=== PATIENT | female | born 1960 | race Caucasian/White ===

== ENCOUNTER 2019-07-15 12:49 | Outpatient (CLI) | payer MEDICAID, SELFPAY ==
--- NOTE | 2019-07-15 12:58 | XR_ITS ---
WS: [id number] RIGHT HAND: 3 VIEW(S) TECHNIQUE: PA, oblique and lateral. HISTORY: RIGHT HAND PAIN/NUMBNESS COMPARISON: None available. No acute fracture or dislocation. Mild narrowing of the interphalangeal joint spaces. Very subtle early erosion involving the second me tacarpal head. XR/XR hand RT min 3V* [id number] IMPRESSION: Possible early erosion of inflammatory arthritis at the second metacarpal head.
--- NOTE | 2019-07-15 12:59 | XR_ITS ---
WS: [id number] LEFT HAND: 3 VIEW(S) TECHNIQUE: PA, oblique and lateral. HISTORY: LEFT HAND PAIN/NUMBNESS COMPARISON: None available. No acute fracture or dislocation. Mild interphalangeal joint space narrowing. No erosions or subluxation. XR/XR hand LT min 3V* [id number] IMPRESSION: Mild osteoarthritis.
--- NOTE | 2019-07-15 13:08 | XR_ITS ---
WS: [id number] RIGHT HIP HISTORY: HIP JOINT PAIN COMPARISON: None available. Right hip: No acute fracture or dislocation. Normal soft tissues. XR/XR hip RT 2-3V wo/w pel* [id number] IMPRESSION: 1. No hip fracture. 2. Negative RIGHT hip.
== END 2019-07-15 12:50 | disposition home or self-care (01) ==
LOC: RADWPI 12:54
PROVIDERS: PCP Nurse Practitioner Family; Visit Provider Nurse Practitioner Family
DX: R20.2 Paresthesia of skin (principal); M79.641 Pain in right hand; M25.551 Pain in right hip; M19.042 Primary osteoarthritis, left hand
CPT/HCPCS: 73130; 73502

== ENCOUNTER → 2019-07-30 14:13 | Outpatient (BNVA) | payer MEDICAID, SELFPAY | PROVIDERS: PCP Nurse Practitioner Family; Visit Provider Specialist | DX: G56.11 Other lesions of median nerve, right upper limb (principal); G62.9 Polyneuropathy, unspecified | CPT/HCPCS: 95910 ==

== ENCOUNTER 2019-08-12 12:49 | Outpatient (CLI) | payer MEDICAID, SELFPAY ==
--- NOTE | 2019-08-12 12:53 | XR_ITS ---
WS: [id number] LUMBAR SPINE: 3 VIEWS TECHNIQUE: AP, lateral and L5-S1 spot. HISTORY: LUMBAGO WITH SCIATICA COMPARISON: None available. Increase in lumbar lordosis. No fractures. Mild spondylitic changes at the thoracolumbar junction. Mi ld facet joint arthritis at L5-S1. No loss of disc space or vertebral body height. SI joints are symmetric bilaterally. No soft tissue abnormalities. Scattered calcifications within the aorta. XR/XR lumbar spine 2-3V* [id number] IMPRESSION: Mild increase in lumbar lordosis with facet arthritis at L5-S1.
== END 2019-08-12 12:50 | disposition home or self-care (01) ==
LOC: RADWPI 12:51
PROVIDERS: PCP Nurse Practitioner Family; Visit Provider Nurse Practitioner Family
DX: M54.41 Lumbago with sciatica, right side (principal); M40.56 Lordosis, unspecified, lumbar region
CPT/HCPCS: 72100

== ENCOUNTER → 2019-09-05 14:51 | Outpatient (BNVA) | payer MEDICAID, SELFPAY | PROVIDERS: PCP Nurse Practitioner Family; Visit Provider Specialist | DX: G56.11 Other lesions of median nerve, right upper limb (principal) | CPT/HCPCS: G0463 ==

== ENCOUNTER 2019-09-10 06:42 | Outpatient (CLI) | payer MEDICAID, SELFPAY ==
--- NOTE | 2019-09-10 13:31 | PFTS_ITS ---
Date of Study:09/10/19 Date of Dictation: MECHANICS: Forced vital capacity (FVC) is normal. Forced expiratory volume in one second (FEV1) is normal. FEV1/FVC is . FLOW VOLUME LOOP: Normal. LUNG VOLUMES: Not measured DIFFUSING CAPACITY FOR CARBON MONOXIDE: Not measured INTERPRETATION: Spirometry is normal.. MTDD
== END 2019-09-10 06:43 | disposition home or self-care (01) ==
LOC: RT 06:43
PROVIDERS: PCP Nurse Practitioner Family; Visit Provider Internal Medicine
DX: J45.909 Unspecified asthma, uncomplicated (principal)
CPT/HCPCS: 94010

== ENCOUNTER → 2019-10-28 09:24 | Outpatient (BNVA) | payer MEDICAID, SELFPAY | PROVIDERS: PCP Nurse Practitioner Family; Referring Provider Nurse Practitioner Family; Visit Provider Anesthesiology Pain Medicine | DX: M54.42 Lumbago with sciatica, left side (principal); M54.41 Lumbago with sciatica, right side; M47.816 Spondylosis without myelopathy or radiculopathy, lumbar region; M54.16 Radiculopathy, lumbar region; M54.9 Dorsalgia, unspecified; M25.551 Pain in right hip; G62.9 Polyneuropathy, unspecified; Z79.891 Long term (current) use of opiate analgesic | CPT/HCPCS: 99205 ==

== ENCOUNTER 2019-11-04 06:45 | Outpatient (CLI) | payer MEDICAID, SELFPAY ==
--- NOTE | 2019-11-04 07:15 | MR_ITS ---
WS: [id number] MRI LUMBAR SPINE NONCONTRAST TECHNIQUE: Sagittal T1, T2 and STIR imaging. Axial T1 and T2 imaging. CLINICAL INFORMATION: M54.16 Radiculopathy, lumbar region COMPARISON: None. FINDINGS: Mild lumbar curve. No acute compression. No high-grade central canal stenosis. L1-L2: Normal. L2-L3: Tiny left foraminal protrusion with mild left foraminal narrowing. Spinal canal and foramen ar e patent. Mild facet arthropathy. L3-L4: Mild annular bulging with slight effacement of ventral thecal sac. Small right foraminal protr usion with mild right foraminal narrowing. Spinal canal and foramen are patent. Mild facet arthropath y. L4-L5: Mild annular bulging with mild to moderate central canal stenosis. Small right foraminal protr usion with slight contact of the exiting right L4 nerve root. Left foramen is patent. Mild central ca nal stenosis.Moderate facet arthropathy. L5-S1: No significant disc bulging. Moderate facet arthropathy. Spinal canal and foramen are patent. Tiny central disc protrusion T7-8 with slight contact of the thoracic cord. Mild disc bulging C5-C6 a nd C6-C7. MR/MR lumbar spine wo con* [id number] IMPRESSION: 1. Tiny right foraminal protrusion L3-4 with mild right foraminal narrowing an d slight contact of the exiting right L3 nerve root.Correlation for L3 nerve ro ot symptoms. 2. Mild to moderate central canal stenosis L4-5 with mild annular bulging and mild to moderate facet arthropathy. Mild right L4-5 foraminal narrowing slightl y contacts the exiting right L4 nerve root. 3. Tiny left foraminal protrusion L2-3 with mild left foraminal narrowing. 4. Mild/moderate facet arthropathy worse at L4-L5 and L5-S1. 5. Small central protrusion T7-8 with slight contact of the thoracic cord and mild central canal stenosis. This can be further evaluated with thoracic spine MRI.
== END 2019-11-04 06:46 | disposition home or self-care (01) ==
LOC: RADSHAW 06:47
PROVIDERS: PCP Nurse Practitioner Family; Visit Provider Anesthesiology Pain Medicine
DX: M54.16 Radiculopathy, lumbar region (principal); M51.26 Other intervertebral disc displacement, lumbar region; M48.061 Spinal stenosis, lumbar region without neurogenic claudication; M47.816 Spondylosis without myelopathy or radiculopathy, lumbar region; M47.817 Spondylosis without myelopathy or radiculopathy, lumbosacral region; M51.24 Other intervertebral disc displacement, thoracic region
CPT/HCPCS: 72148

== ENCOUNTER → 2019-11-27 08:23 | Outpatient (BNVA) | payer MEDICAID, SELFPAY | PROVIDERS: PCP Nurse Practitioner Family; Visit Provider Anesthesiology Pain Medicine | DX: M54.42 Lumbago with sciatica, left side (principal); M54.41 Lumbago with sciatica, right side; M54.9 Dorsalgia, unspecified; G62.9 Polyneuropathy, unspecified; G56.11 Other lesions of median nerve, right upper limb; Z79.891 Long term (current) use of opiate analgesic | CPT/HCPCS: 99214; 99215 ==

== ENCOUNTER → 2019-12-16 15:31 | Outpatient (BNVA) | payer MEDICAID, SELFPAY | PROVIDERS: PCP Nurse Practitioner Family; Referring Provider Nurse Practitioner Family; Visit Provider Podiatrist Foot & Ankle Surgery | DX: M76.822 Posterior tibial tendinitis, left leg (principal) | CPT/HCPCS: 73610 ==

== ENCOUNTER → 2019-12-25 09:16 | Outpatient (BNVA) | payer MEDICAID, SELFPAY | PROVIDERS: PCP Nurse Practitioner Family; Visit Provider Anesthesiology Pain Medicine | DX: M51.16 Intervertebral disc disorders with radiculopathy, lumbar region (principal); M47.816 Spondylosis without myelopathy or radiculopathy, lumbar region; M48.061 Spinal stenosis, lumbar region without neurogenic claudication; M54.9 Dorsalgia, unspecified; G62.9 Polyneuropathy, unspecified; G56.11 Other lesions of median nerve, right upper limb; Z79.891 Long term (current) use of opiate analgesic | CPT/HCPCS: 99213; 99214; 99215 ==

== ENCOUNTER 2020-01-09 13:56 | Outpatient (CLI) | payer MEDICAID, SELFPAY ==
--- NOTE | 2020-01-09 14:00 | XR_ITS ---
WS: [id number] Exam: XR chest 2V* [id number] Date/Time of Exam: 01/09/2020 2:00 PM Reason For Exam: COUGH/ASTHMA No priors. Findings: The lungs are clear and fully expanded. Costophrenic angles are sharp. No infiltrates. Bronchovascula r relief appears normal. Cardiac silhouette is unremarkable. Bony elements are intact. XR/XR chest 2V* [id number] IMPRESSION: Unremarkable chest radiograph.
== END 2020-01-09 13:57 | disposition home or self-care (01) ==
LOC: RAD 13:58
PROVIDERS: PCP Nurse Practitioner Family; Visit Provider Nurse Practitioner Family
DX: R05 Cough (principal); J45.909 Unspecified asthma, uncomplicated
CPT/HCPCS: 71046

== ENCOUNTER → 2020-01-22 08:54 | Outpatient (BNVA) | payer MEDICARE, MEDICAID, SELFPAY | PROVIDERS: PCP Nurse Practitioner Family; Visit Provider Anesthesiology Pain Medicine | DX: M51.16 Intervertebral disc disorders with radiculopathy, lumbar region (principal); M47.816 Spondylosis without myelopathy or radiculopathy, lumbar region; M48.061 Spinal stenosis, lumbar region without neurogenic claudication; G56.11 Other lesions of median nerve, right upper limb; G62.9 Polyneuropathy, unspecified; M54.9 Dorsalgia, unspecified | CPT/HCPCS: 99213 ==

== ENCOUNTER → 2020-02-19 08:24 | Outpatient (BNVA) | payer MEDICARE, MEDICAID, SELFPAY | PROVIDERS: PCP Family Medicine; Visit Provider Anesthesiology Pain Medicine | DX: M51.16 Intervertebral disc disorders with radiculopathy, lumbar region (principal); M47.816 Spondylosis without myelopathy or radiculopathy, lumbar region; M48.061 Spinal stenosis, lumbar region without neurogenic claudication; M54.9 Dorsalgia, unspecified; G56.11 Other lesions of median nerve, right upper limb; G62.9 Polyneuropathy, unspecified; Z79.899 Other long term (current) drug therapy; Z79.891 Long term (current) use of opiate analgesic | CPT/HCPCS: 99213 ==

== ENCOUNTER 2020-02-20 10:08 | Outpatient (CLI) | payer MEDICARE, MEDICAID, SELFPAY ==
--- NOTE | 2020-02-20 10:17 | MM_ITS ---
WS: [id number] BILATERAL DIGITAL SCREENING MAMMOGRAM WITH CAD CLINICAL INFORMATION: SCREENING HISTORY: Screening mammogram. No current complaints. COMPARISON: None. TECHNIQUE: Bilateral CC and MLO views. FINDINGS: Fatty-replaced breasts bilaterally. No suspicious focal mass, asymmetry, calcifications, or domain architect ural distortion. No evidence of malignancy. A few incidental intramammary lymph nodes along the axill frank tail. MM/[place] [id number] IMPRESSION: BI-RADS: 2-Benign FOLLOW UP: 1 Year Follow-up Recommend return to annual screening mammography.
== END 2020-02-20 10:09 | disposition home or self-care (01) ==
LOC: RADSHAW 10:12
PROVIDERS: PCP Family Medicine; Visit Provider Family Medicine
DX: Z12.31 Encounter for screening mammogram for malignant neoplasm of breast (principal)
CPT/HCPCS: 77067

== ENCOUNTER 2020-02-21 07:23 | Outpatient (CLI) | payer MEDICARE, MEDICAID, SELFPAY ==
--- NOTE | 2020-02-21 07:34 | USCV_ITS ---
Gita Robison Age: 59 Gender: F : 1960 Exam Date: 02/21/2020 07:44 Ordering Phys: Otto Cobb MD Technologist: Monae Francisco Exam Location: [facility] [place] Indication: DYSPNEA BP: / HR: 68 Rhythm: Sinus Technical Quality: Adequate MEASUREMENTS (Male / Female) Normal Values 2D ECHO LV Diastolic Diameter PLAX 4.0 cm 4.2 - 5.9 / 3.9 - 5.3 cm LV Systolic Diameter PLAX 2.9 cm LV Chamber Size 2.9 cm IVS Diastolic Thickness 1.5 cm 0.6 - 1.0 / 0.6 - 0.9 cm IVS Systolic Thickness 2.0 cm LVPW Diastolic Thickness 1.6 cm 0.6 - 1.0 / 0.6 - 0.9 cm LVPW Systolic Thickness 1.5 cm RV Chamber Size 3.6 cm LVOT Diameter 2.0 cm LV Ejection Fraction 2D Teich 53.4 % LA Diameter 3.8 cm LA Width 2.9 cm LA Height 4.6 cm RA Width 3.4 cm RA Height 3.5 cm Aorta at Sinotubular Diameter 3.1 cm M-MODE LV Diastolic Diameter MM 5.3 cm 4.2 - 5.9 / 3.9 - 5.3 cm LV Systolic Diameter MM 3.1 cm LV Ejection Fraction MM Teich 72.6 % IVS Diastolic Thickness MM 1.1 cm 0.6 - 1.0 / 0.6 - 0.9 cm IVS Systolic Thickness MM 1.7 cm LVPW Diastolic Thickness MM 1.1 cm 0.6 - 1.0 / 0.6 - 0.9 cm LVPW Systolic Thickness MM 1.4 cm RV Diastolic Diameter MM 2.7 cm Aortic Annulus Diameter 3.3 cm LA Ao Ratio MM 1.4 MV E Point Septal Separation 0.5 cm DOPPLER AV Peak Velocity 182.0 cm/s LVOT Peak Velocity 89.0 cm/s AV Area Cont Eq vti 1.9 cm squared AV Area Cont Eq pk 1.5 cm squared MV Area PHT 3.7 cm squared Mitral E to A Ratio 0.8 MV E' Velocity 49.5 cm/s Mitral E to MV E' Ratio 13.4 Mitral E to LV E' Lateral Ratio 13.4 Mitral E to LV E' Septal Ratio 13.6 TR Peak Velocity 270.4 cm/s TR Peak Gradient 29.3 mmHg TR Mean Velocity 210.5 cm/s TR Mean Gradient 19.1 mmHg TR Velocity Time Integral 82.1 cm TV Peak E Velocity 82.0 cm/s Right Atrial Pressure 3.0 mmHg Pulmonary Artery Systolic Pressu 32.3 mmHg PV Peak Velocity 81.0 cm/s RV Acceleration Time 0.1 s RV Ejection Time 0.3 s RV AcT/ET 0.3 FINDINGS Left Ventricle Normal left ventricular cavity size. Normal left ventricular systolic function. No regional wall motion abnormalities. 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 ejection fraction is estimated at 65 %. Grade I/IV diastolic dysfunction (abnormal relaxation filling pattern), normal to mildly elevated filling pressures. Right Ventricle The right ventricle is normal in size and function. Right Atrium The right atrium is normal in size. Left Atrium The left atrium is normal in size. Mitral Valve Structurally normal mitral valve without significant stenosis or prolapse. There is no mitral regurgitation. Aortic Valve Structurally normal aortic valve without significant sclerosis or stenosis. There is no aortic regurgitation. Tricuspid Valve Structurally normal tricuspid valve without significant stenosis or regurgitation. Pulmonary artery systolic pressure is normal. Pulmonic Valve Structurally normal pulmonic valve without significant stenosis. There is no pulmonic regurgitation. Pericardium Normal pericardium without effusion. Aorta Normal ascending aorta dimension. CONCLUSIONS 1-Normal left ventricular cavity size. Normal left ventricular systolic function. No regional wall motion abnormalities. 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 ejection fraction is estimated at 65 %. Grade I/IV diastolic dysfunction (abnormal relaxation filling pattern), normal to mildly elevated filling pressures. 2-There is no pericardial effusion. 3-No significant valve abnormalities. 4-Pulmonary artery systolic pressure is within normal limits. 5-Right atrial pressure is around 5 mm of mercury. 6-There are no prior echocardiogram studies to compare. Shanique Salgado MD (Electronically Signed) Final Date: 21 February 2020 20:03 S
--- NOTE | 2020-02-21 07:34 | XR_ITS ---
WS: [id number] CHEST 2 VIEWS HISTORY: DYSPNEA COMPARISON: 01/09/2020 Lungs: Clear with no abnormality. No pleural effusion or pneumothorax. Cardiac size: Normal. Mediastinum/Aorta: Normal mediastinum. Bones: Normal. XR/XR chest 2V* [id number] IMPRESSION: Normal chest.
== END 2020-02-21 07:24 | disposition home or self-care (01) ==
LOC: US 07:27
PROVIDERS: PCP Family Medicine; Visit Provider Family Medicine
DX: R06.00 Dyspnea, unspecified (principal)
CPT/HCPCS: 71046; 93306

== ENCOUNTER → 2020-03-23 10:53 | Outpatient (BNVA) | payer MEDICARE, MEDICAID, SELFPAY | PROVIDERS: PCP Family Medicine; Visit Provider Anesthesiology Pain Medicine | DX: M51.16 Intervertebral disc disorders with radiculopathy, lumbar region (principal); M47.816 Spondylosis without myelopathy or radiculopathy, lumbar region; M48.061 Spinal stenosis, lumbar region without neurogenic claudication; G62.9 Polyneuropathy, unspecified; M54.9 Dorsalgia, unspecified; G56.11 Other lesions of median nerve, right upper limb | CPT/HCPCS: 99213; 99214 ==

== ENCOUNTER → 2020-04-20 09:47 | Outpatient (BNVA) | payer MEDICARE, MEDICAID, SELFPAY | PROVIDERS: PCP Family Medicine; Visit Provider Anesthesiology Pain Medicine | DX: M51.16 Intervertebral disc disorders with radiculopathy, lumbar region (principal); M48.061 Spinal stenosis, lumbar region without neurogenic claudication; M47.816 Spondylosis without myelopathy or radiculopathy, lumbar region; M54.9 Dorsalgia, unspecified; G56.11 Other lesions of median nerve, right upper limb; G62.9 Polyneuropathy, unspecified; M79.604 Pain in right leg; M79.601 Pain in right arm; Z79.891 Long term (current) use of opiate analgesic; M54.12 Radiculopathy, cervical region; M50.322 Other cervical disc degeneration at C5-C6 level | CPT/HCPCS: 72050; 99214 ==

== ENCOUNTER 2020-04-20 11:12 | Outpatient (CLI) | payer MEDICARE, MEDICAID, SELFPAY ==
--- NOTE | 2020-04-20 11:28 | XR_ITS ---
WS: [id number] CERVICAL SPINE 5 VIEWS HISTORY: M54.12 - Radiculopathy, cervical region COMPARISON: None available. TECHNIQUE: AP, oblique and lateral radiographs. Straightening and slight reversal normal cervical lordosis centered at C5-6. Moderate disc space narr owing and endplate osteophytes at C5-6 and C6-7. No fractures. Taking into consideration positioning the foramen are probably widely patent. LEFT foramina may be slightly narrowed at the C4-5 level. Lat eral masses of C1 and C2 are aligned. Odontoid is intact. Cervical ribs at C7. XR/XR cervical spine 4-5V [id number] IMPRESSION: 1. No fractures. 2. Moderate degenerative disc disease at C5-6 and C6-7. 3. C7 cervical ribs.
== END 2020-04-20 11:13 | disposition home or self-care (01) ==
LOC: RADWPI 11:16
PROVIDERS: PCP Family Medicine; Visit Provider Anesthesiology Pain Medicine
DX: M54.12 Radiculopathy, cervical region (principal); M50.322 Other cervical disc degeneration at C5-C6 level
CPT/HCPCS: 72050

== ENCOUNTER → 2020-05-04 13:05 | Outpatient (BNVA) | payer MEDICARE, MEDICAID, SELFPAY | PROVIDERS: PCP Family Medicine; Visit Provider Anesthesiology Pain Medicine | DX: M51.16 Intervertebral disc disorders with radiculopathy, lumbar region (principal); M54.9 Dorsalgia, unspecified; Z91.041 Radiographic dye allergy status | CPT/HCPCS: 64483; 64484; 96372; J1100; J1200; J3490 ==

== ENCOUNTER → 2020-05-19 10:56 | Outpatient (BNVA) | payer MEDICARE, MEDICAID, SELFPAY | PROVIDERS: PCP Family Medicine; Visit Provider Anesthesiology Pain Medicine | DX: M51.16 Intervertebral disc disorders with radiculopathy, lumbar region (principal); M48.061 Spinal stenosis, lumbar region without neurogenic claudication; M47.816 Spondylosis without myelopathy or radiculopathy, lumbar region; M54.9 Dorsalgia, unspecified; G56.11 Other lesions of median nerve, right upper limb; G62.9 Polyneuropathy, unspecified; Z79.891 Long term (current) use of opiate analgesic | CPT/HCPCS: 99214 ==

== ENCOUNTER → 2020-06-01 13:03 | Outpatient (BNVA) | payer MEDICARE, MEDICAID, SELFPAY | PROVIDERS: PCP Family Medicine; Visit Provider Anesthesiology Pain Medicine | DX: M47.816 Spondylosis without myelopathy or radiculopathy, lumbar region (principal); M54.9 Dorsalgia, unspecified | CPT/HCPCS: 64493; 64494; 64495; J3490 ==

== ENCOUNTER → 2020-06-15 09:44 | Outpatient (BNVA) | payer MEDICARE, MEDICAID, SELFPAY | PROVIDERS: PCP Family Medicine; Visit Provider Anesthesiology Pain Medicine | DX: M51.16 Intervertebral disc disorders with radiculopathy, lumbar region (principal); M47.816 Spondylosis without myelopathy or radiculopathy, lumbar region; M48.061 Spinal stenosis, lumbar region without neurogenic claudication; M54.9 Dorsalgia, unspecified; G62.9 Polyneuropathy, unspecified; G56.11 Other lesions of median nerve, right upper limb; Z79.891 Long term (current) use of opiate analgesic | CPT/HCPCS: 99214 ==

== ENCOUNTER → 2020-06-24 13:21 | Outpatient (BNVA) | payer MEDICARE, MEDICAID, SELFPAY | PROVIDERS: PCP Family Medicine; Visit Provider Anesthesiology Pain Medicine | DX: M47.816 Spondylosis without myelopathy or radiculopathy, lumbar region (principal); M54.9 Dorsalgia, unspecified; Z79.891 Long term (current) use of opiate analgesic | CPT/HCPCS: 64635; 64636 ==

== ENCOUNTER → 2020-07-08 08:31 | Outpatient (BNVA) | payer MEDICARE, MEDICAID, SELFPAY | PROVIDERS: PCP Family Medicine; Visit Provider Anesthesiology Pain Medicine | DX: M47.816 Spondylosis without myelopathy or radiculopathy, lumbar region (principal); M54.9 Dorsalgia, unspecified; Z79.891 Long term (current) use of opiate analgesic | CPT/HCPCS: 64635; 64636; J1030 ==

== ENCOUNTER → 2020-07-23 10:00 | Outpatient (BNVA) | payer MEDICARE, MEDICAID, SELFPAY | PROVIDERS: PCP Family Medicine; Visit Provider Anesthesiology Pain Medicine | DX: M48.062 Spinal stenosis, lumbar region with neurogenic claudication (principal); M51.16 Intervertebral disc disorders with radiculopathy, lumbar region; M47.816 Spondylosis without myelopathy or radiculopathy, lumbar region; M48.061 Spinal stenosis, lumbar region without neurogenic claudication; M54.9 Dorsalgia, unspecified; G62.9 Polyneuropathy, unspecified; G56.11 Other lesions of median nerve, right upper limb; Z79.891 Long term (current) use of opiate analgesic; Z79.899 Other long term (current) drug therapy | CPT/HCPCS: 99214 ==

== ENCOUNTER 2020-08-12 09:47 | Inpatient (IN) | payer MEDICARE, MEDICAID, SELFPAY ==
[2020-08-12] VITALS (70 sets, daily range): BP systolic 81–130; BP diastolic 46–82; PULSE 55–86; RESP 14–40; TEMP 36.4–36.9; O2SAT 75–94; BMI 41.5
--- NOTE | 2020-08-12 10:13 | XR_ITS ---
WS: [id number] Portable AP upright chest, 08/12/2020 Clinical Data: covid -19 Comparison: PA and lateral chest, 02/21/2020. Findings: There is a right basilar opacity which may represent consolidation, atelectasis and effusio n. The patient has a poor inspiratory effort. The heart is normal. No pneumothorax is present. The up per lobes show mild pulmonary opacity. No nodules, masses or effusions are seen. Monitor leads are on the chest wall. XR/XR chest 1V portable [id number] Impression: 1. Right basilar opacity which may represent consolidation, atelectasis and/or effusion. 2. Mild bilateral upper lobe opacity which may be result of the poor respirator y effort.
--- NOTE | 2020-08-12 10:18 | W.ED.COVID ---
HPI - COVID General: Chief Complaint: COVID symptoms Stated Complaint: COVID+ HAVING LOW O2 Time Seen by Provider: 08/12/20 10:06 Triage information: Has fever, cough or shortness of breath. Exposure to COVID + person last 14 days History of Present Illness: HPI Narrative: 60-year-old female presents to the emergency room she is 5 days after onset of symptoms, she tested positive yesterday for Covid at her primary care doctor's office. She is having increasing shortness of breath she was self monitoring her oxygen sat at home and was getting sats in the 75th percentile she came to the emergency room. She has a history of asthma she is on maintenance medications as well as rescue meds and has continued to use those she has not had a lot of relief with using them since getting Covid. She has a minimally productive cough along with some loose stools myalgias headache and low-grade fever. She is not diabetic has no history of coronary artery disease. She does have a history of hypertension and is morbidly obese MD complaint: known COVID positive Prior covid testing: yes, results known Prior testing date: 08/11/20 COVID 19 common symptoms: positive fever(s), chills, cough, non-productive cough, dyspnea, fatigue, body aches, headache(s), nasal congestion, nausea and diarrhea; negative productive cough, loss of sense of smell and/or taste, throat pain or vomiting COVID 19 other sytmptoms: positive requiring oxygen; negative chest pain Onset (ago): day(s) (5 days) Severity: mild Pertinent comorbid conditions: hypertension and other (asthma) Treatment prior to arrival: acetaminophen COVID Results: No Data to Display Review of Systems Const: Reports: fever(s), chills, body aches and fatigue ENMT: Reports: nasal congestion; Denies: throat pain Card: Denies: chest pain, edema, dyspnea on exertion or orthopnea Resp: Reports: dyspnea and non-productive cough; Denies: productive cough GI: Reports: nausea and diarrhea; Denies: vomiting : Denies: flank pain, difficulty voiding, dysuria, urinary frequency or urinary urgency Skin/Breast: Denies: rash or pruritus Neuro: Reports: headache(s) [facility] ED PFSH: Medical History (Updated 08/12/20 @ 16:28 by Andre Spears DO) Asthma Cervical radiculopathy Chronic low back pain Dyspnea on exertion Facet arthritis, degenerative, lumbar spine Facet arthropathy, lumbar History of kidney stones Hx of mitral valve prolapse Hypersomnia Hypertension 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 Lumbar disc disease with radiculopathy Lumbar stenosis Osteoarthritis of hands, bilateral Pain management contract signed Peripheral neuropathy Right median nerve neuropathy Surgical History History of carpal tunnel surgery Hx of cholecystectomy Hx of hysterectomy Hx of total ankle replacement Family History Mother CAD (coronary artery disease) Other Cancer Diabetes Hypertension Denies family history of Stroke Social History Smoking and tobacco status: former smoker Quit status (tobacco): has quit using tobacco Year quit tobacco: 2005 Alcohol intake: never Caregiver/support person: Yes Lives independently: Yes History of recent travel: No (travel from [facility]) Physical Exam Const: COMMON NORMALS: no acute distress GENERAL APPEARANCE: cooperative and comfortable ORIENTATION/CONSCIOUSNESS: Yes awake, Yes oriented to person, Yes oriented to place and Yes oriented to time HENMT: COMMON NORMALS: normocephalic, atraumatic, hearing grossly normal bilaterally and external ears normal HEAD & SCALP: normocephalic and atraumatic EXTERNAL EAR: Yes external ears normal Neck/C-Spine: COMMON NORMALS: no JVD Resp: AUSCULTATION: rales bilateral, wheezes throughout and diminished lung sounds Cardio: COMMON NORMALS: no JVD, regular rate, regular rhythm and No murmurs present (Cardio) RATE: regular rate RHYTHM: regular rhythm GI: COMMON NORMALS: Soft to palpation and No hepatosplenomegaly present AUSCULTATION: Yes normoactive bowel sounds PALPATION: Yes Soft to palpation, No Tenderness to palpation present (GI), No Guarding due to palpation present (GI) and Yes No hepatosplenomegaly present Extremity: COMMON NORMALS: normal to inspection, capillary refill normal, no clubbing, cyanosis or edema, no calf tenderness and no pedal edema Neuro: SENSORIUM/ORIENTATION: Yes oriented to person, Yes oriented to place and Yes oriented to time Skin: COMMON NORMALS: no rashes or lesions noted GENERAL SKIN EXAM: no rashes or lesions noted Course Vital Signs: Vital signs: Vital Signs Temperature 97.5 F L 08/12/20 10:08 Pulse Rate 56 L 08/12/20 14:50 Respiratory Rate 24 H 08/12/20 14:50 Blood Pressure 95/55 08/12/20 14:00 Pulse Oximetry 92 08/12/20 14:50 MDM - COVID MDM Narrative: Medical decision making narrative: D-dimer is low. Patient is also hypokalemic she does have typical Covid changes and recently tested positive for Covid will admit her for Covid pneumonitis discussed with hospitalist she will need ICU she is on high flow oxygen Lab Data: Labs: Lab Results 08/12/20 08/12/20 08/12/20 Range/Units 10:10 10:10 10:10 WBC 6.7 (4.0-10.0) 10^3/ uL RBC 4.54 (4.1-5.3) 10^6/u L Hgb 13.0 (11.5-15.3) g/dL Hct 39.3 (37.0-47.0) % MCV 86.6 (81-99) fL MCH 28.6 (28.0-34.0) pg MCHC 33.1 (30.0-36.0) g/dL RDW 14.4 (12.1-15.1) % Plt Count 308 (130-400) 10^3/c mm MPV 8.9 (7.4-10.4) fL Neut % (Auto) 74.3 % Lymph % (Auto) 19.6 % Ector % (Auto) 5.2 % Eos % (Auto) 0.1 % Baso % (Auto) 0.4 % Neut # (Auto) 4.97 (1.8-7.7) 10^3/u L Lymph # (Auto) 1.3 (0.8-4.8) 10^3/u L Ector # (Auto) 0.4 (0.2-0.9) 10^3/u L Eos # (Auto) 0.0 (0.0-0.8) 10^3/u L Baso # (Auto) 0.0 (0.0-0.1) 10^3/u L Nucleated RBC % (a uto) 0 % Nucleated RBCs # 0.0 /100WBC Fibrinogen (174-498) mg/dL D-Dimer 0.46 (0-0.59) ug/mIFE U Specimen Type Sample Site ABG pH (7.35-7.45) ABG pCO2 (35-45) mmHg ABG pO2 (80.0-100.0) mmH g ABG HCO3 (22-26) mmol/L ABG O2 Saturation ABG Base Excess (-2.0-2.0) mmol/ L Tiburcio Test A-a O2 Gradient (5-10) mmHg Hematocrit (37-47) % Hgb O2 Saturation (95-100) % Carboxyhemoglobin (0.4-20.1) %THgb Methemoglobin (0.4-1.5) % Total Hemoglobin (12-16) g/dL Ionized Calcium (1.1-1.4) mmol/L O2 Delivery Device O2 Liters/Min % FiO2 % Compliance Investigator ID Sodium 134 L (136-145) mmol/L Potassium 3.2 L (3.5-5.1) mmol/L Chloride 88 L (98-107) mmol/L Carbon Dioxide 32 H (22-29) mmol/L Anion Gap 17.2 (5-19) BUN 19 (8-23) mg/dL Creatinine 0.8 (0.5-0.9) mg/dL GFR Calculation 73.2 L (90-130) mL/min Glucose 122 H (65-115) mg/dL Calculated Osmolal ity 282 L (285-295) mOsm/k g Lactic Acid (0.5-2.2) mmol/L Calcium 8.2 L (8.5-10.5) mg/dL Magnesium (1.7-2.3) mg/dL Iron (37-145) ug/dL TIBC mcg/dl % Saturation (20-50) % Unsat Iron Binding (112-347) ug/dL Total Bilirubin 0.4 (0.15-1.2) mg/dL AST 48 H (0-32) U/L ALT 44 H (0-33) U/L Alkaline Phosphata se 65 (35-105) IU/L Lactate Dehydrogen ase (135-214) U/L Creatine Kinase (26-192) U/L C-Reactive Protein 91.3 H (0.0-4.9) mg/L NT-Pro-B Natriuret Pep (0-125) pg/mL Total Protein 7.9 (6.6-8.7) g/dL Albumin 4.5 (3.5-5.2) g/dL Globulin 3.4 (1.3-4.6) g/dL Procalcitonin (0-0.5) ng/mL TSH (0.27-4.20) uIU/ mL 08/12/20 08/12/20 08/12/20 Range/Units 10:10 10:10 10:10 WBC (4.0-10.0) 10^3/ uL RBC (4.1-5.3) 10^6/u L Hgb (11.5-15.3) g/dL Hct (37.0-47.0) % MCV (81-99) fL MCH (28.0-34.0) pg MCHC (30.0-36.0) g/dL RDW (12.1-15.1) % Plt Count (130-400) 10^3/c mm MPV (7.4-10.4) fL Neut % (Auto) % Lymph % (Auto) % Ector % (Auto) % Eos % (Auto) % Baso % (Auto) % Neut # (Auto) (1.8-7.7) 10^3/u L Lymph # (Auto) (0.8-4.8) 10^3/u L Ector # (Auto) (0.2-0.9) 10^3/u L Eos # (Auto) (0.0-0.8) 10^3/u L Baso # (Auto) (0.0-0.1) 10^3/u L Nucleated RBC % (a uto) % Nucleated RBCs # /100WBC Fibrinogen (174-498) mg/dL D-Dimer (0-0.59) ug/mIFE U Specimen Type Sample Site ABG pH (7.35-7.45) ABG pCO2 (35-45) mmHg ABG pO2 (80.0-100.0) mmH g ABG HCO3 (22-26) mmol/L ABG O2 Saturation ABG Base Excess (-2.0-2.0) mmol/ L Tiburcio Test A-a O2 Gradient (5-10) mmHg Hematocrit (37-47) % Hgb O2 Saturation (95-100) % Carboxyhemoglobin (0.4-20.1) %THgb Methemoglobin (0.4-1.5) % Total Hemoglobin (12-16) g/dL Ionized Calcium (1.1-1.4) mmol/L O2 Delivery Device O2 Liters/Min % FiO2 % Compliance Investigator ID Sodium (136-145) mmol/L Potassium (3.5-5.1) mmol/L Chloride (98-107) mmol/L Carbon Dioxide (22-29) mmol/L Anion Gap (5-19) BUN (8-23) mg/dL Creatinine (0.5-0.9) mg/dL GFR Calculation (90-130) mL/min Glucose (65-115) mg/dL Calculated Osmolal ity (285-295) mOsm/k g Lactic Acid 1.5 (0.5-2.2) mmol/L Calcium (8.5-10.5) mg/dL Magnesium 1.8 (1.7-2.3) mg/dL Iron 22 L (37-145) ug/dL TIBC 327 mcg/dl % Saturation 6.7 L (20-50) % Unsat Iron Binding 305 (112-347) ug/dL Total Bilirubin (0.15-1.2) mg/dL AST (0-32) U/L ALT (0-33) U/L Alkaline Phosphata se (35-105) IU/L Lactate Dehydrogen ase 348 H (135-214) U/L Creatine Kinase 723 H* (26-192) U/L C-Reactive Protein 85.1 H (0.0-4.9) mg/L NT-Pro-B Natriuret Pep 58 (0-125) pg/mL Total Protein (6.6-8.7) g/dL Albumin (3.5-5.2) g/dL Globulin (1.3-4.6) g/dL Procalcitonin 0.33 (0-0.5) ng/mL TSH 2.53 (0.27-4.20) uIU/ mL 08/12/20 08/12/20 Range/Units 10:10 10:21 WBC (4.0-10.0) 10^3/ uL RBC (4.1-5.3) 10^6/u L Hgb (11.5-15.3) g/dL Hct (37.0-47.0) % MCV (81-99) fL MCH (28.0-34.0) pg MCHC (30.0-36.0) g/dL RDW (12.1-15.1) % Plt Count (130-400) 10^3/c mm MPV (7.4-10.4) fL Neut % (Auto) % Lymph % (Auto) % Ector % (Auto) % Eos % (Auto) % Baso % (Auto) % Neut # (Auto) (1.8-7.7) 10^3/u L Lymph # (Auto) (0.8-4.8) 10^3/u L Ector # (Auto) (0.2-0.9) 10^3/u L Eos # (Auto) (0.0-0.8) 10^3/u L Baso # (Auto) (0.0-0.1) 10^3/u L Nucleated RBC % (a uto) % Nucleated RBCs # /100WBC Fibrinogen 579 H (174-498) mg/dL D-Dimer (0-0.59) ug/mIFE U Specimen Type Arterial Sample Site Radial, left ABG pH 7.49 H (7.35-7.45) ABG pCO2 43.9 (35-45) mmHg ABG pO2 92.8 (80.0-100.0) mmH g ABG HCO3 33.1 H (22-26) mmol/L ABG O2 Saturation 98.3 ABG Base Excess 8.7 H (-2.0-2.0) mmol/ L Tiburcio Test Pos A-a O2 Gradient 73.3 H (5-10) mmHg Hematocrit 40.2 (37-47) % Hgb O2 Saturation 96.7 (95-100) % Carboxyhemoglobin 1.0 (0.4-20.1) %THgb Methemoglobin 0.6 (0.4-1.5) % Total Hemoglobin 13.1 (12-16) g/dL Ionized Calcium 1.1 (1.1-1.4) mmol/L O2 Delivery Device Nrb O2 Liters/Min 15.0 % FiO2 100.0 % Compliance Investigator ID Ed Sodium 138.0 (136-145) mmol/L Potassium 3.2 L (3.5-5.1) mmol/L Chloride (98-107) mmol/L Carbon Dioxide (22-29) mmol/L Anion Gap (5-19) BUN (8-23) mg/dL Creatinine (0.5-0.9) mg/dL GFR Calculation (90-130) mL/min Glucose 132.0 H (65-115) mg/dL Calculated Osmolal ity (285-295) mOsm/k g Lactic Acid (0.5-2.2) mmol/L Calcium (8.5-10.5) mg/dL Magnesium (1.7-2.3) mg/dL Iron (37-145) ug/dL TIBC mcg/dl % Saturation (20-50) % Unsat Iron Binding (112-347) ug/dL Total Bilirubin (0.15-1.2) mg/dL AST (0-32) U/L ALT (0-33) U/L Alkaline Phosphata se (35-105) IU/L Lactate Dehydrogen ase (135-214) U/L Creatine Kinase (26-192) U/L C-Reactive Protein (0.0-4.9) mg/L NT-Pro-B Natriuret Pep (0-125) pg/mL Total Protein (6.6-8.7) g/dL Albumin (3.5-5.2) g/dL Globulin (1.3-4.6) g/dL Procalcitonin (0-0.5) ng/mL TSH (0.27-4.20) uIU/ mL COVID Results: No Data to Display Discharge Plan Discharge Patient Disposition: Admitted As Inpatient Admit Provider: Vernon Reyes Clinical Impression: COVID-19, Hypertension, 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 diastolic dysfunction, Acute respiratory failure with hypoxia, Hypokalemia Condition: Stable Coding Level of Care Code ED Library Clerk for Chg Fwd Exam Comprehensive
[2020-08-12 10:25] LABS: Basophils % 0.4 %; Eosinophils % 0.1 %; Hematocrit 39.3 % (37.0-47.0); Lymphocytes # 1.3 10^3/uL (0.8-4.8); Lymphocytes % 19.6 %; Mean Corpuscular HGB Conc 33.1 g/dL (30.0-36.0); Mean Corpuscular Hemoglobin 28.6 pg (28.0-34.0); Mean Corpuscular Volume 86.6 fL (81-99); Mean Platelet Volume 8.9 fL (7.4-10.4); Monocytes # 0.4 10^3/uL (0.2-0.9); Monocytes % 5.2 %; Neutrophils # 4.97 10^3/uL (1.8-7.7); Neutrophils % 74.3 %; Nucleated Red Blood Cells % 0 %; Platelet Count 308 10^3/cmm (130-400); Red Blood Count 4.54 10^6/uL (4.1-5.3); Red Cell Distribution Width 14.4 % (12.1-15.1); White Blood Count 6.7 10^3/uL (4.0-10.0)
[2020-08-12] MEDS: remdesivir 200 MG in sodium chloride 0.9% (100 ml) 100 ML 100 MG IV (10:37)
[2020-08-12 10:38] LABS: ABG PCO2 43.9 mmHg (35-45); ABG PH Result 7.49 (7.35-7.45); Alveolar-Arterial Oxygen Gradi 73.3 mmHg (5-10); Arterial Blood Gas Hematocrit 40.2 % (37-47); Base Excess ABG 8.7 mmol/L (-2.0-2.0); Blood Gas Allen Test Pos; Blood Gas Operator Identificat ED; Blood Gas Sample Site Radial, left; Blood Gas Sample Type Arterial; HCO3 ABG 33.1 mmol/L (22-26); HGB O2 Sat 96.7 % (95-100); Ionized Calcium Level - ABG 1.1 mmol/L (1.1-1.4); Methemoglobin 0.6 % (0.4-1.5); Oxygen Device NRB; Oxygen Saturation ABG 98.3; PO2 ABG 92.8 mmHg (80.0-100.0); Potassium Level - ABG 3.2 mmol/L (3.5-5.0); Total Hemoglobin 13.1 g/dL (12-16)
[2020-08-12] MEDS: dexamethasone 4 mg/mL INJ 6 MG IVP (10:38)
[2020-08-12] MEDS: acetaminophen 325 mg Tablet 650 MG PO (10:38)
[2020-08-12 10:41] LABS: D Dimer 0.46 ug/mIFEU (0-0.59)
[2020-08-12 10:45] LABS: Lactic Sepsis W/Reflex 1.5 mmol/L (0.5-2.2)
[2020-08-12 10:46] LABS: Alanine Aminotransferase 44 U/L (0-33); Albumin Level 4.5 g/dL (3.5-5.2); Alkaline Phosphatase 65 IU/L (35-105); Anion Gap 17.2 (5-19); Aspartate Amino Transferase 48 U/L (0-32); Blood Urea Nitrogen 19 mg/dL (8-23); C Reactive Protein 91.3 mg/L (0.0-4.9); Calcium 8.2 mg/dL (8.5-10.5); Carbon Dioxide 32 mmol/L (22-29); Chloride 88 mmol/L (98-107); Globulin 3.4 g/dL (1.3-4.6); Glomerular Filtration Rate 73.2 mL/min (90-130); Glucose 122 mg/dL (65-115); Osmolality Calculated 282 mOsm/kg (285-295); Potassium 3.2 mmol/L (3.5-5.1); Sodium 134 mmol/L (136-145); Total Bilirubin 0.4 mg/dL (0.15-1.2); Total Protein 7.9 g/dL (6.6-8.7)
[2020-08-12] MEDS: lidocaine 1% 5 ML in potassium chloride premix 100 ML 25 ML IV (11:32)
[2020-08-12] MEDS: sodium chloride 0.9% 500 ML IV (12:28)
--- NOTE | 2020-08-12 13:59 | ECG_ITS ---
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 Measurements Intervals [place] Rate: 62 P: 43 MO: 144 QRS: 44 QRSD: 93 T: 49 QT: 418 QTc: 427 Interpretive Statements SINUS RHYTHM LOW QRS VOLTAGE IN PRECORDIAL LEADS [QRS DEFLECTION < 1.0 mV IN CHEST LEADS] NONSPECIFIC T-WAVE ABNORMALITY No previous ECG available for comparison Electronically Signed On 08-13-2020 19:02:02 CDT by Alex Panda M.D. [email or web address]/store/NU/[id number] [email or web address]
--- NOTE | 2020-08-12 14:48 | P.HP_ITS ---
Providers/Chief Complaint Primary Care Provider: Otto Cobb MD Chief Complaint: COVID+ HAVING LOW O2 History of Present Illness Gita Robison is a 60 year old female with past medical history of hypertension, diastolic dysfunction, hypothyroidism, asthma, depression who presented to the ER today because she was diagnosed of COVID-19 pneumonia yesterday at her primary's office and overnight she was having difficulty in breathing with saturation documented down to 70s at home. Patient states she been having symptoms of weakness, nausea, myalgias, subjective feelings of fever along with cough for last 6 days. She lives with her cousin who is having similar symptoms. Denied any recent travels or known sick contacts with COVID-19. Patient states because she was having the symptoms she went to her primary care's office on Monday and she got the results yesterday of being COVID-19 positive so she presented to the ER. Patient states she has not been vaccinated for COVID-19. On presentation to the ER patient saturating 70% she was started on heated high flow. Currently on examination patient is comfortably in bed on 60% 40 L heated high flow with heart rate in 60s and blood pressure of 96 systolics. Blood work in the ER done showed a white count 6.7, hemoglobin of 13, sodium 134, potassium 3.2, chloride of 88, lactate of 1.5, AST/ALT of 48/44, chest x- ray showing results as below. Review of Systems General: Reports: 10 or more systems reviewed and unremarkable except in HPI and below Const: Denies: fever(s), chills, body aches, change in appetite, change in weight, malaise, night sweats, diaphoresis, change in sleep pattern, daytime sleepiness or snoring Eyes: Denies: change in vision, blurry vision, photophobia, eye discomfort or eye discharge ENMT: Denies: throat pain, enlarged tonsils, hoarseness, mouth pain, oral sores, dry mouth, tinnitus, nasal congestion or post nasal drip Card: Denies: chest pain, palpitations, irregular heart rhythm, edema, swelling of feet/ankles, lightheadedness, syncope, pre-syncope, dyspnea on exertion, orthopnea, leg pain with exertion or acrocyanosis Resp: Denies: dyspnea, productive cough, non-productive cough, wheezing, stridor, pain on inspiration, change in phlegm color, hemoptysis or chest congestion GI: Denies: abdominal pain, nausea, vomiting, hematemesis, coffee ground emesis, dysphagia, heartburn, diarrhea, constipation, bloating, GI cramping, change in bowel habits, pain on defecation, hematochezia or melena : Denies: flank pain, dysuria, urinary frequency, urinary urgency, urinary hesitancy, nocturia or hematuria Musc: Denies: neck pain, back pain, extremity pain, joint pain, joint swelling, joint redness, joint stiffness or limited range of motion Neuro: Denies: headache(s), numbness in extremities, weakness in extremities, sensory changes, lack of coordination, difficulty walking, frequent falls, dizziness, vertigo, confusion, Slurred speech present, difficulty communicating thoughts or seizure-like activity Psych: Denies: anxiety, depression, mood swings, panic attacks, hopelessness or irritability Endo: Denies: polyuria, polydipsia, tired all the time, cold intolerance, excessive sweating, flushing or heat intolerance Kendall/Lymph: Denies: easy bruising or easy bleeding All/Imm: Denies: tongue swelling, facial swelling or acute wheezing Medications/Allergies Home Medications Medication Instructions Recorded Confirmed Last Taken Type albuterol sulfate 90 mcg/actuation 2 puff INHALATION Q6H PRN 07/30/19 08/12/20 08/11/20 History aerosol inhaler cetirizine 10 mg tablet 10 mg PO DAILY@59907/30/19 08/12/20 08/12/20 History diltiazem HCl 360 mg 360 mg PO DAILY@59907/30/19 08/12/20 08/12/20 History capsule,extended release 24 hr indapamide 2.5 mg tablet 2.5 mg PO DAILY@59907/30/19 08/12/20 08/12/20 History losartan 100 mg tablet 100 mg PO DAILY@59907/30/19 08/12/20 08/12/20 History ropinirole 2 mg tablet 2 mg PO DAILY@2100 07/30/19 08/12/20 08/11/20 History budesonide-formoterol HFA 80 1 puff INHALATION BID gm 09/05/19 08/12/20 08/12/20 History mcg-4.5 mcg/actuation aerosol inhaler hydroxyzine HCl 25 mg tablet 25 mg PO BID PRN 09/05/19 08/12/20 08/11/20 History montelukast 10 mg tablet 10 mg PO DAILY@209909/05/19 08/12/20 08/11/20 History levothyroxine 150 mcg tablet 150 mcg PO DAILY@0600 03/23/20 08/12/20 08/12/20 History carvedilol 6.25 mg tablet 6.25 mg PO BID@0600,209904/09/20 08/12/20 08/12/20 History hydrocodone 5 mg-acetaminophen 325 1 tab PO Q4H PRN 07/23/20 08/12/20 Unknown History mg tablet tizanidine 4 mg tablet 4 mg PO BID PRN #60 tab 07/23/20 08/12/20 Unknown Rx tramadol 50 mg tablet 50 mg PO TID PRN 30 Days #60 tab 07/23/20 08/12/20 Unknown Rx furosemide 20 mg PO DAILY@59908/12/20 08/12/20 08/12/20 History potassium chloride 10 meq PO DAILY@0608/12/20 08/12/20 08/11/20 History Allergies Allergy/AdvReac Type Severity Reaction Status Date / Time celecoxib Allergy Mild itchin Verified 07/08/20 08:50 diclofenac Allergy Mild cough Verified 07/08/20 08:50 emollient combination no.60 Allergy Mild headache, Verified 07/08/20 08:50 [facility] kidey pain, welts& rash hydrochlorothiazide Allergy Mild muscle Verified 07/08/20 08:50 spasms ibuprofen Allergy Mild itching Verified 07/08/20 08:50 venlafaxine Allergy Mild all day Verified 07/08/20 08:50 drugged feeling Iodinated Contrast Media Allergy ALGY-Hives Verified 07/08/20 08:50 PFSH Acute PFSH: Medical History (Updated 08/12/20 @ 15:02 by Vernon Reyes MD) Asthma Cervical radiculopathy Chronic low back pain Dyspnea on exertion Facet arthritis, degenerative, lumbar spine Facet arthropathy, lumbar History of kidney stones Hx of mitral valve prolapse Hypersomnia Hypertension Hypothyroidism 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 Lumbar disc disease with radiculopathy Lumbar stenosis Osteoarthritis of hands, bilateral Pain management contract signed Peripheral neuropathy Right median nerve neuropathy Surgical History History of carpal tunnel surgery Hx of cholecystectomy Hx of hysterectomy Hx of total ankle replacement Family History Mother CAD (coronary artery disease) Other Cancer Diabetes Hypertension Denies family history of Stroke Social History Smoking and tobacco status: former smoker Quit status (tobacco): has quit using tobacco Year quit tobacco: 2005 Alcohol intake: never Caregiver/support person: Yes Lives independently: Yes History of recent travel: No (travel from [facility]) Vitals/I&O/Wt Last Vital Signs Temp 97.5 F L 08/12/20 10:08 Pulse 62 08/12/20 14:00 Resp 18 08/12/20 14:00 BP 95/55 08/12/20 14:00 Pulse Ox 94 08/12/20 14:00 Weight last 48 hrs Weight 113.398 kg Physical Exam Narrative: EXAM NARRATIVE: General: No acute distress, AO x3, lying comforta christine in bed on heated high flow. HEENT: PERRLA, pupils bilaterally equal and reactive Chest: Normal vesicular breath sounds, scattered rhonchi present all over the lung ye, equal good air entry bilaterally CVS: S1-S2 regular, no murmurs, no tachycardia, no gallops, no rubs Abdomen: Soft, nontender, no organomegaly, bowel sounds present Neuro: No focal deficits, no facial deformity, AO x3, power 5/5 in all limbs Data : 08/12/20 10:10 08/12/20 10:10 Micro: Microbiology 08/12/20 11:40 Blood Culture - Preliminary Blood SPECIMEN COLLECTED 08/12/20 10:10 Blood Culture - Preliminary Blood SPECIMEN COLLECTED A&P Assessment and plan (1) COVID-19: Status: Acute (2) Acute respiratory failure with hypoxia: Status: Acute (3) 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 diastolic dysfunction: Status: Acute (4) Hyponatremia: Status: Acute (5) Hypertension: Status: Acute Qualifiers: Hypertension type: essential hypertension Qualified Code(s): I10 - Es sential (primary) hypertension (6) Hypothyroidism: Status: Acute Qualifiers: Hypothyroidism type: unspecified Qualified Code(s): E03.9 - Hypothy roidism, unspecified Additional A&P Information Acute hypoxic respiratory failure secondary COVID-19 pneumonia: At least moderate disease. Patient requiring heated high flow to maintain saturation over 90%. Start patient treatment with remdesivir. Patient will require 5-day course. Dexamethasone 6 mg IV daily. DuoNebs every 6 hour, budesonide twice daily as patient is on heated high flow. Vitamin C, zinc. Pulmonary toilet with incentive spirometry and flutter valve. Wean off oxygen as able keeping saturation around 92%. Continue to monitor inflammatory markers including CRP, ferritin, LDH, D-dimer daily. Patient is D-dimer negative. Will get CT chest without contrast. For now start patient on prophylactic dose of Eliquis 2.5 mg twice daily. Last echocardiogram from 2019 shows an EF of 55 to 60% with grade 1 diastolic dysfunction with normal PASP, no valvular abnormalities. For now we will hold off on any further echocardiogram. Low chances of infection for now. CT scan will help with further visualization of consolidation. Check procalcitonin, MRSA swab, blood culture, sputum culture, bacterial antigen, urine Legionella, urine analysis. For now hold off on adding any other antibiotics. For now start patient on azithromycin to cover for atypicals. History of diastolic heart failure: No acute exacerbation for now. Gentle hydration keeping check on fluid status. Hold off on Lasix for now. Hypertension: Goal blood pressure less than 140/90 mmHg with mean over 65. Patient has soft blood pressures at present. For now hold off on home dose of losartan, Coreg. Continue with Cardizem 360 mg daily to avoid tachycardia but will divide the doses in 90 every 6 hourly. Continue other chronic medications including tizanidine, tramadol, levothyroxine, indapamide. Hyponatremia: Most likely secondary to dehydration. Check urine lites. Normal saline at 50 cc/h. Will monitor for fluid overload. CODE STATUS: Patient would like to be full code. She would be okay with a short course of chest compression and ventilator support if needed. Eliquis will help with DVT prophylaxis. Cardiac diet. Admit to ICU. Attestations Medical Necessity Statement*: Admission for more than 2 midnights for acute hypoxic respiratory failure secondary COVID-19 pneumonia Time Spent in Patient Care: Greater than 35 minutes (>than 50% of time spent in counselling and/or direct pt care on unit) . 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
--- NOTE | 2020-08-12 14:52 | CT_ITS ---
WS: [id number] CT CHEST TECHNIQUE: Noncontrast CT of the chest with coronal and sagittal reformatted images. CLINICAL INFORMATION: covid pna COMPARISON: None. DLP: 968.[address] scans at [facility] use at least one of these dose optimization techniques: automat ed exposure control; mA and/or kV adjustment per patient size (includes targeted exams where dose is matched to clinical indication); or iterative reconstruction. FINDINGS: Mild chronic emphysematous changes. Patchy bilateral pulmonary infiltrates more prominent in the albertina hilar regions and both upper lobes. Subpleural hazy groundglass infiltrates. Trace left pleural flui d. No focal consolidation. Cardiomegaly. A few reactive anterior mediastinal lymph nodes. Vascular ca lcification including coronary. Cholecystectomy. Diffuse fatty infiltration of the liver. Small esophageal hiatal hernia. Adrenal gla nds are normal. Hypertrophic changes thoracic spine. CT/CT chest wo con [id number] IMPRESSION: 1. Patchy bilateral mainly perihilar and upper lobe infiltrates. Hazy subpleur al groundglass infiltrates. Findings suspicious for COVID 19 pneumonia. 2. No focal consolidation. Trace left pleural fluid. 3. A few reactive anterior mediastinal and right greater than left hilar lymph nodes. 4. Diffuse fatty infiltration of the liver. Cholecystectomy clips. 5. Small esophageal hiatal hernia.
[2020-08-12 15:28] LABS: Bilirubin Urine 1+ (Negative); Blood Urine Neg (Negative); Glucose Urine UA Norm (Normal); Ketones Urine Negative (Negative); Leukocyte Esterase Urine Negative (Negative); Nitrate Urine Negative (Negative); Protein Urine 1+ (Negative); Urine Appearance Cloudy (CLEAR); Urine Color Dark Yellow (Yellow); Urobilinogen Urine 1 mg/dL (Negative); pH Urine 5 (5-7)
[2020-08-12 15:33] LABS: Amorphous Sediment Urine 2+ /hpf; Bacteria Urine 2+ /hpf; Squamous Epithelial Cell Urine 0-4 /hpf (0-5)
[2020-08-12 15:34] LABS: Add Urine Culture? No; WBC Urine 0-4 /hpf (0-5)
[2020-08-12 15:55] LABS: Fibrinogen 579 mg/dL (174-498)
[2020-08-12 16:07] LABS: C Reactive Protein 85.1 mg/L (0.0-4.9); Lactate Dehydrogenase 348 U/L (135-214); Magnesium 1.8 mg/dL (1.7-2.3); NT Pro B Type Natriuretic Pept 58 pg/mL (0-125); Procalcitonin 0.33 ng/mL (0-0.5); Thyroid Stimulating Hormone 2.53 uIU/mL (0.27-4.20)
[2020-08-12 16:15] LABS: Potassium, Radom Urine 65 mmol/L
[2020-08-12 16:19] LABS: Creatine Phosphokinase 723 U/L (26-192); Iron 22 ug/dL (37-145); Percent Saturation 6.7 % (20-50); Total Iron Binding Capacity 327 mcg/dl; Unsaturated Iron Binding 305 ug/dL (112-347)
[2020-08-12 16:56] LABS: Urine Random Chloride < 10 mmol/L; Urine Random Sodium 12 mmol/L
[2020-08-12] MEDS: ascorbic acid 500 mg Tablet 1000 MG PO (19:33)
[2020-08-12] MEDS: benzonatate 100 mg Capsule PO (19:34)
[2020-08-12] MEDS: sodium chloride 0.9% 1,000 ML 50 ML IV (19:34)
[2020-08-12] MEDS: famotidine 20 mg/2 mL INJ IVP (19:34)
[2020-08-12] MEDS: montelukast sodium 10 mg Tablet PO (20:31)
[2020-08-12] MEDS: ropinirole 2 mg Tablet PO (20:31)
[2020-08-12] MEDS: apixaban 5 mg Tablet 2.5 MG PO (20:31)
[2020-08-12] MEDS: ipratropium-albuterol 3 mL Neb INHALATION (21:19)
[2020-08-12] MEDS: budesonide 0.5 mg/2 mL Neb INHALATION (21:19)
[2020-08-12] MEDS: tizanidine 4 mg Tablet PO (22:29)
[2020-08-13] VITALS (80 sets, daily range): BP systolic 77–162; BP diastolic 41–121; PULSE 53–85; RESP 14–31; TEMP 36.6–37.1; O2SAT 86–96
[2020-08-13] MEDS: ipratropium-albuterol 3 mL Neb INHALATION ×4 (03:34→20:20)
[2020-08-13 04:53] LABS: Basophils % 0.1 %; Hematocrit 34.6 % (37.0-47.0); Hemoglobin 11.2 g/dL (11.5-15.3); Lymphocytes # 1.1 10^3/uL (0.8-4.8); Lymphocytes % 16.3 %; Mean Corpuscular HGB Conc 32.4 g/dL (30.0-36.0); Mean Corpuscular Hemoglobin 28.6 pg (28.0-34.0); Mean Corpuscular Volume 88.3 fL (81-99); Mean Platelet Volume 9.4 fL (7.4-10.4); Monocytes # 0.4 10^3/uL (0.2-0.9); Monocytes % 6.3 %; Neutrophils # 5.22 10^3/uL (1.8-7.7); Neutrophils % 76.7 %; Nucleated Red Blood Cells % 0 %; Platelet Count 319 10^3/cmm (130-400); Red Blood Count 3.92 10^6/uL (4.1-5.3); Red Cell Distribution Width 14.6 % (12.1-15.1); White Blood Count 6.8 10^3/uL (4.0-10.0)
[2020-08-13 05:06] LABS: Fibrinogen 494 mg/dL (174-498)
[2020-08-13 05:09] LABS: C Reactive Protein 73.9 mg/L (0.0-4.9); Chol HDL Ratio 6.27 mg/dL (0.0-4.40); Cholesterol 188 mg/dL (0-200); HDL Cholesterol 30 mg/dL (60-100); LDL Cholesterol Calculated 128 mg/dL (50-129); Lactate Dehydrogenase 302 U/L (135-214); Triglycerides 152 mg/dL (0-150); VLDL Cholestrol Calculation 30 mg/dL (0-30)
[2020-08-13 05:11] LABS: Alanine Aminotransferase 33 U/L (0-33); Albumin Level 3.6 g/dL (3.5-5.2); Alkaline Phosphatase 50 IU/L (35-105); Anion Gap 21.3 (5-19); Aspartate Amino Transferase 41 U/L (0-32); Blood Urea Nitrogen 34 mg/dL (8-23); Calcium 7.6 mg/dL (8.5-10.5); Carbon Dioxide 25 mmol/L (22-29); Chloride 94 mmol/L (98-107); Globulin 3.6 g/dL (1.3-4.6); Glomerular Filtration Rate 30.7 mL/min (90-130); Glucose 147 mg/dL (65-115); Osmolality Calculated 294 mOsm/kg (285-295); Potassium 3.3 mmol/L (3.5-5.1); Sodium 137 mmol/L (136-145); Total Bilirubin 0.3 mg/dL (0.15-1.2); Total Protein 7.2 g/dL (6.6-8.7)
--- NOTE | 2020-08-13 05:11 | PC.NURSE ---
Overnight pt's oxygen requirements increased from 30L/45% to 50L/65% on heated high flow. Rt aware and made necessary adjustments. Dr. Gregory notified. Otherwise pt had uneventful night and slept for several hours.
[2020-08-13 05:22] LABS: Creatine Phosphokinase 507 U/L (26-192)
[2020-08-13] MEDS: famotidine 20 mg/2 mL INJ IVP ×2 (06:18→18:06)
[2020-08-13] MEDS: levothyroxine 75 mcg Tablet 150 MCG PO (06:18)
[2020-08-13] MEDS: ascorbic acid 500 mg Tablet 1000 MG PO (08:02)
[2020-08-13] MEDS: apixaban 5 mg Tablet 2.5 MG PO ×2 (08:02→20:28)
[2020-08-13] MEDS: benzonatate 100 mg Capsule PO ×3 (08:02→20:29)
[2020-08-13] MEDS: zinc gluconate 50 mg Tablet PO (08:02)
[2020-08-13] MEDS: dexamethasone 4 mg/mL INJ 6 MG IVP (08:02)
[2020-08-13] MEDS: azithromycin 500 MG in sodium chloride 0.9% 250 ML 250 MG IV (08:03)
[2020-08-13] MEDS: budesonide 0.5 mg/2 mL Neb INHALATION ×2 (08:15→20:20)
--- NOTE | 2020-08-13 09:10 | PC.CHAP ---
Pastoral Care Encounter/Spiritual Assessment Type of Contact [] Declined contract driver visit [] Patient/Family/Request visit [] Outpatient visit [] Follow-up visit [] Physician referral [] Code/Alert [x] Routine visit [] Staff referral [] Actively dying [] Patient sleeping [] Family support [] [] Out of room [] Palliative care [] [] Receiving care in room [] Pre-surgical visit [] Trauma [] Long length of stay [x] ICU visit [x] Other: isolated Relational/Emotional Strength [] Patient feels connected with others/family/visitors/staff [] Distress [] Loneliness/isolation [] Abandonment Spirituality of Patient [] Person of Latoya [] Attends [facility]itan of their Latoya [] Believes in Prayer [] Reads Bible or Sikhism materials [] There are Spiritual issues to be addressed Strategic Procurement Manager Interventions [x] Prayer [] Active listening [] Non-anxious presence [] Spiritual/emotional support [] Crisis/trauma care [] Spiritual counseling [] Bereavement support [] Provided bereavement packet [] Provided Bible/devotional materials [] Provided toy/stuffed animal, coloring book to patient or family member [] Provided Communion [] Anointing/[place] [] Salvation [x] Completed spiritual assessment [] Other: Impact on Illness or Injury [] Angry [] Fearful [] Anxious [] Often cries [] Exhaustion [] Unable to work [] Unable to attend muslim [] Unable to walk/stand [] Unable to read [] Unable to drive [] Unable to eat/drink [] Unable to sleep [] Unable to be with family [] Patient intubated [] Other: Summary Time spent with patient
--- NOTE | 2020-08-13 09:28 | P.PN_ITS ---
Subjective Subjective: Interval history: No acute events overnight. Overnight patient has remained on heated high flow. Heart rate has remained stable. Blood pressures have remained soft but mean more than 65. Patient lying comfortably in bed. Working well with incentive spirometry and Acapella. Vitals/I&O/Wt Last Vital Signs Temp 98.2 F 08/13/20 08:30 Pulse 70 08/13/20 09:00 Resp 17 08/13/20 09:00 BP 106/51 08/13/20 09:00 Pulse Ox 88 L 08/13/20 09:00 08/12/20 08/13/20 08/13/20 22:59 06:59 14:59 Intake Total 955 / 955 100 / 1055 250 / 250 Output Total 300 / 300 Balance 955 / 955 -200 / 755 250 / 250 Weight last 48 hrs Weight 113.398 kg Physical Exam Narrative: EXAM NARRATIVE: General: No acute distress, AO x3, lying comfortably in bed on heated high flow. HEENT: PERRLA, pupils bilaterally equal and reactive Chest: Normal vesicular breath sounds, scattered rhonchi present all over the lung ye, equal good air entry bilaterally CVS: S1-S2 regular, no murmurs, no tachycardia, no gallops, no rubs Abdomen: Soft, nontender, no organomegaly, bowel sounds present Neuro: No focal deficits, no facial deformity, AO x3, power 5/5 in all limbs Urinary Catheter Management^: Kaye: Cath Placed During This Visit: yes Reason for Continuing Indwelling Catheter: Accurate Measurement of Urinary Output in Critically Ill Patients Urinary Catheter Date of Insertion: 08/12/20 Urinary Catheter Time of Insertion: 20:01 Data : 08/13/20 04:26 08/13/20 17:06 Micro: Microbiology 08/12/20 15:10 Bacterial Antigens - Final Urine Kidney 08/12/20 15:10 Legionella Urinary Antigen - Final Urine,Clean Catch 08/12/20 11:40 Blood Culture - Preliminary Blood SPECIMEN COLLECTED 08/12/20 10:10 Blood Culture - Preliminary Blood SPECIMEN COLLECTED A&P Assessment and plan (1) COVID-19: Status: Acute (2) Acute respiratory failure with hypoxia: Status: Acute (3) 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 diastolic dysfunction: Status: Acute (4) MANDO (acute kidney injury): Status: Acute (5) Hypothyroidism: Status: Acute Qualifiers: Hypothyroidism type: unspecified Qualified Code(s): E03.9 - Hypothyroidism, unspecified (6) Hypertension: Status: Acute (7) Hyponatremia: Status: Acute Additional A&P Information Acute hypoxic respiratory failure secondary COVID-19 pneumonia: At least moderate disease. Patient requiring heated high flow to maintain saturation over 90%. Continue antiviral treatment with remdesivir. Day 2/5. Dexamethasone 6 mg IV daily. DuoNebs every 6 hour, budesonide twice daily as patient is on heated high flow. Vitamin C, zinc. Pulmonary toilet with incentive spirometry and flutter valve. Wean off oxygen as able keeping saturation around 92- 94%. Continue to monitor inflammatory markers including CRP, ferritin, LDH, D-dimer daily. Patient is D-dimer negative. CT chest results appreciated. For now start patient on prophylactic dose of Eliquis 2.5 mg twice daily. Last echocardiogram from 2019 shows an EF of 55 to 60% with grade 1 diastolic dysfunction with normal PASP, no valvular abnormalities. For now we will hold off on any further echocardiogram. Low chances of infection for now. CT scan will help with further visualization of consolidation. Check procalcitonin, MRSA swab, blood culture, sputum culture, bacterial antigen, urine Legionella, urine analysis. For now hold off on adding any other antibiotics. For now start patient on azithromycin to cover for atypicals. Acute kidney injury: Creatinine 1.7 today. Baseline normal. Medical reconciliation done for nephrotoxic drugs. Increase IV fluids to 100 cc/h. Will recheck BMP at 6 PM. History of diastolic heart failure: No acute exacerbation for now. Monitor for fluid overload as increasing the fluid rate today Hold off on Lasix for now. Hypertension: Goal blood pressure less than 140/90 mmHg with mean over 65. Patient has soft blood pressures at present. For now hold off on home dose of losartan, Coreg, Cardizem. We will monitor for tachycardia. If needed can start patient on IV metoprolol as needed for heart rate of more than 100. Iron deficiency anemia: Start patient on oral iron supplementation. We will c ontinue to monitor hemoglobin. Continue other chronic medications including tizanidine, tramadol, l evothyroxine, indapamide. Hyponatremia: Resolved. Most likely secondary to dehydration. CODE STATUS: Patient would like to be full code. She would be okay with a short course of chest compression and ventilator support if needed. Eliquis will help with DVT prophylaxis. Cardiac diet. Continue with ICU care Attestations Medical Necessity Statement*: Requires further hospitalization for management of severe hypoxic respiratory failure secondary COVID-19 pneumonia, MANDO Time Spent in Patient Care: Greater than 35 minutes (>than 50% of time spent in counselling and/or direct pt care on unit) . 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
[2020-08-13] MEDS: remdesivir 100 MG in sodium chloride 0.9% (100 ml) 100 ML IV (09:52)
[2020-08-13] MEDS: ondansetron 2 mg/ML SDV 2 mL 4 MG IVP (09:53)
[2020-08-13 10:30] LABS: Ferritin 420 ng/mL (15-150)
[2020-08-13] MEDS: sodium chloride 0.9% 1,000 ML 100 ML IV (14:21)
[2020-08-13 17:38] LABS: Anion Gap 17.3 (5-19); Blood Urea Nitrogen 34 mg/dL (8-23); Calcium 7.9 mg/dL (8.5-10.5); Carbon Dioxide 27 mmol/L (22-29); Chloride 97 mmol/L (98-107); Glomerular Filtration Rate 45.8 mL/min (90-130); Glucose 168 mg/dL (65-115); Osmolality Calculated 297 mOsm/kg (285-295); Potassium 3.3 mmol/L (3.5-5.1); Sodium 138 mmol/L (136-145)
[2020-08-13] MEDS: ascorbic acid 500 mg Tablet PO (18:06)
[2020-08-13] MEDS: ropinirole 2 mg Tablet PO (20:28)
[2020-08-13] MEDS: montelukast sodium 10 mg Tablet PO (20:28)
[2020-08-13] MEDS: trazodone 50 mg Tablet 25 MG PO (20:29)
[2020-08-13] MEDS: cetirizine 10 mg Tablet PO (22:21)
[2020-08-13] MEDS: tizanidine 4 mg Tablet PO (22:42)
[2020-08-14] VITALS (107 sets, daily range): BP systolic 95–153; BP diastolic 60–101; PULSE 48–88; RESP 14–40; TEMP 36.4–37; O2SAT 84–97
[2020-08-14] MEDS: sodium chloride 0.9% 1,000 ML 100 ML IV (00:53)
[2020-08-14] MEDS: ipratropium-albuterol 3 mL Neb INHALATION ×4 (02:27→20:21)
[2020-08-14 05:48] LABS: C Reactive Protein 41.8 mg/L (0.0-4.9); Creatine Phosphokinase 213 U/L (26-192); Ferritin 429 ng/mL (15-150)
[2020-08-14] MEDS: famotidine 20 mg/2 mL INJ IVP (05:50)
[2020-08-14] MEDS: levothyroxine 75 mcg Tablet 150 MCG PO (05:50)
[2020-08-14 05:53] LABS: Fibrinogen 417 mg/dL (174-498)
[2020-08-14 07:06] LABS: Lactate Dehydrogenase 470 U/L (135-214)
[2020-08-14] MEDS: apixaban 5 mg Tablet 2.5 MG PO ×2 (08:09→20:34)
[2020-08-14] MEDS: ascorbic acid 500 mg Tablet PO ×2 (08:10→17:47)
[2020-08-14] MEDS: zinc gluconate 50 mg Tablet PO (08:10)
[2020-08-14] MEDS: benzonatate 100 mg Capsule PO ×3 (08:10→20:34)
[2020-08-14] MEDS: dexamethasone 4 mg/mL INJ 6 MG IVP (08:11)
[2020-08-14] MEDS: budesonide 0.5 mg/2 mL Neb INHALATION ×2 (08:18→20:21)
--- NOTE | 2020-08-14 09:15 | XR_ITS ---
WS: [id number] Portable AP upright chest, 08/14/2020 Clinical Data: covid Comparison: Portable chest, 08/12/2020. Findings: The patient has increased bilateral pulmonary opacities. The greatest increase in opacities is in the right upper lobe. The heart remains slightly enlarged. The aortic arch shows calcification and tortuosity. Monitor leads are on the chest wall. XR/XR chest 1V portable [id number] Impression: Worsening bilateral pulmonary opacities consistent with worsening pneumonia.
[2020-08-14 09:25] LABS: Basophils % 0.1 %; Hematocrit 35.6 % (37.0-47.0); Hemoglobin 11.2 g/dL (11.5-15.3); Lymphocytes % 11.1 %; Mean Corpuscular HGB Conc 31.5 g/dL (30.0-36.0); Mean Corpuscular Hemoglobin 28.6 pg (28.0-34.0); Mean Corpuscular Volume 90.8 fL (81-99); Mean Platelet Volume 9.9 fL (7.4-10.4); Monocytes # 0.5 10^3/uL (0.2-0.9); Monocytes % 5.8 %; Neutrophils # 7.11 10^3/uL (1.8-7.7); Neutrophils % 82.7 %; Nucleated Red Blood Cells % 0 %; Platelet Count 386 10^3/cmm (130-400); Red Blood Count 3.92 10^6/uL (4.1-5.3); Red Cell Distribution Width 14.8 % (12.1-15.1); White Blood Count 8.6 10^3/uL (4.0-10.0)
[2020-08-14] MEDS: guaiFENesin 100 mg/5 mL UDC 10 mL 200 MG PO ×2 (09:41→15:28)
[2020-08-14 09:49] LABS: Alanine Aminotransferase 34 U/L (0-33); Albumin Level 3.4 g/dL (3.5-5.2); Alkaline Phosphatase 51 IU/L (35-105); Aspartate Amino Transferase 37 U/L (0-32); Blood Urea Nitrogen 29 mg/dL (8-23); Calcium 7.6 mg/dL (8.5-10.5); Carbon Dioxide 23 mmol/L (22-29); Chloride 100 mmol/L (98-107); Globulin 3.4 g/dL (1.3-4.6); Glomerular Filtration Rate 63.9 mL/min (90-130); Glucose 130 mg/dL (65-115); Osmolality Calculated 298 mOsm/kg (285-295); Sodium 140 mmol/L (136-145); Total Bilirubin 0.3 mg/dL (0.15-1.2); Total Protein 6.8 g/dL (6.6-8.7)
[2020-08-14 09:55] LABS: Procalcitonin 0.15 ng/mL (0-0.5)
[2020-08-14 09:59] LABS: Anion Gap 20.4 (5-19); Potassium 3.4 mmol/L (3.5-5.1)
[2020-08-14] MEDS: remdesivir 100 MG in sodium chloride 0.9% (100 ml) 100 ML IV (10:39)
--- NOTE | 2020-08-14 11:05 | P.PN_ITS ---
Subjective Subjective: Interval history: Patient seen multiple times during the day. No events overnight. On examination patient sitting up in chair. She has been working with incentive spirometry and Acapella. She states her energy levels are better today. Appetite is good. She is still on 45 L 100% FiO2 to maintain saturation at 92%. Denies any headache, nausea or vomiting. We discussed that unfortunately she is requiring a lot of oxygen supplementation at present. Vitals/I&O/Wt Last Vital Signs Temp 97.6 F 08/14/20 08:45 Pulse 62 08/14/20 08:53 Resp 22 H 08/14/20 08:50 BP 122/76 08/14/20 08:45 Pulse Ox 91 08/14/20 08:50 08/13/20 08/14/20 08/14/20 22:59 06:59 14:59 Intake Total 900 / 2689.167 1250 / 3939.167 1216.667 / 1216.667 Output Total 850 / 2050 1375 / 3425 Balance 50 / 639.167 -125 / 650.685 5722.667 / 1216.667 Physical Exam Narrative: EXAM NARRATIVE: General: No acute distress, AO x3, lying comfortabl y in bed on heated high flow. HEENT: PERRLA, pupils bilaterally equal and reactive Chest: Normal vesicular breath sounds, scattered rhonchi present all over the lung ye, equal good air entry bilaterally CVS: S1-S2 regular, no murmurs, no tachycardia, no gallops, no rubs Abdomen: Soft, nontender, no organomegaly, bowel sounds present Neuro: No focal deficits, no facial deformity, AO x3, power 5/5 in all limbs Urinary Catheter Management^: Kaye: Cath Placed During This Visit: yes Reason for Continuing Indwelling Catheter: Accurate Measurement of Urinary Output in Critically Ill Patients Urinary Catheter Date of Insertion: 08/12/20 Urinary Catheter Time of Insertion: 20:01 Data : 08/14/20 04:29 08/14/20 04:29 Micro: Microbiology 08/12/20 16:00 MRSA Culture - Final Nose 08/12/20 11:40 Blood Culture - Preliminary Blood NEGATIVE TO DATE 08/12/20 10:10 Blood Culture - Preliminary Blood NEGATIVE TO DATE A&P Assessment and plan (1) ARDS (adult respiratory distress syndrome): Status: Acute (2) COVID-19: Status: Acute (3) Acute respiratory failure with hypoxia: Status: Acute (4) 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 diastolic dysfunction: Status: Acute (5) MANDO (acute kidney injury): Status: Acute (6) Hypothyroidism: Status: Acute Qualifiers: Hypothyroidism type: unspecified Qualified Code(s): E03.9 - Hypothyroidism, unspecified (7) Hypertension: Status: Acute (8) Hyponatremia: Status: Acute Additional A&P Information Acute hypoxic respiratory failure secondary COVID-19 pneumonia: At least moderate disease. Patient requiring heated high flow to maintain saturation over 90%. Patient continues to require high oxygen supplementation to maintain saturation over 90%. We discussed different treatment modalities including Actemra. Patient is agreeable to start the treatment for now. Will give patient 1 dose 800 mg IV. Will discuss about repeating the dose in next few days as per her response. Continue antiviral treatment with remdesivir. Day 3/5. Patient is in ARDS. Dexamethasone 6 mg IV daily. DuoNebs every 6 hour, budesonide twice daily as patient is on heated high flow. Vitamin C, zinc. Pulmonary toilet with incentive spirometry and flutter valve. Wean off oxygen as able keeping saturation around 92- 94%. Continue to monitor inflammatory markers including CRP, ferritin, LDH, D-dimer daily. Loss patient is requiring high oxygen supplementation will recheck procalcitonin and proBNP. Patient is D-dimer negative. CT chest results appreciated. For now start patient on prophylactic dose of Eliquis 2.5 mg twice daily. Last echocardiogram from 2019 shows an EF of 55 to 60% with grade 1 diastolic dysfunction with normal PASP, no valvular abnormalities. For now we will hold off on any further echocardiogram. Low chances of infection for now. CT scan will help with further visualization of consolidation. Procalcitonin remains negative, MRSA swab negative, blood cultures preliminary negative. Sputum culture still awaited. Urine Legionella, bacterial antigen negative. Low chances of pneumonia at present. For now continue with azithromycin. If patient continues to remain on high oxygen supplementation even with Actemra we will plan to start patient on broad-spectrum antibiotics for possible superadded bacterial pneumonia. Repeat chest x-ray. Acute kidney injury: Resolved. Creatinine down to 0.9 today. Stop IV fluids. Medical reconciliation done for nephrotoxic drugs. History of diastolic heart failure: No acute exacerbation for now. Monitor for fluid overload as increasing the fluid rate today Hold off on Lasix for now. Hypertension: Goal blood pressure less than 140/90 mmHg with mean over 65. Patient has soft blood pressures at present. For now hold off on home dose of losartan, Coreg, Cardizem. We will monitor for tachycardia. If needed can start patient on IV metoprolol as needed for heart rate of more than 100. Iron deficiency anemia: Start patient on oral iron supplementation. We will continue to monitor hemoglobin. Continue other chronic medications including tizanidine, tramadol, levothyroxine, indapamide. Hyponatremia: Resolved. Most likely secondary to dehydration. CODE STATUS: Patient would like to be full code. She would be okay with a short course of chest compression and ventilator support if needed. Reuben will help with DVT prophylaxis. Cardiac diet. Continue with ICU care Attestations Medical Necessity Statement*: Patient requires further hospitalization for management of ARDS because of COVID-19 pneumonia Critical Care Time: The high probability of a clinically significant, sudden or life threatening deterioration of the patient's [pulmonary] system(s) required my full and direct attention, intervention and personal management. The critical care time is as shown. This time is in addition to time spent performing any reported procedures but includes the following: [x] Data and vital sign review and interpretation [x] Patient assessment, examination and intervention [x] Documentation [x] Medication orders and management Critical Care Time (min): 80 Coding Level of Care Code Acute Maintenance Mechanic Telephone for [facility] Fwd Diagnoses ARDS (adult respiratory distress syndrome) J80 COVID-19 U07.1 Acute respiratory failure with hypoxia J96.01 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 diastolic dysfunction I51.9 MANDO (acute kidney injury) N17.9 Hypothyroidism E03.9 Hypothyroidism type: unspecified Hypertension I10 Hyponatremia E87.1
--- NOTE | 2020-08-14 11:20 | ECG_ITS ---
[facility] Test Date: 2020-08-14 Pat Name: Gita Robison Department: Room: ICU09 Gender: Female Ui Architect: : 1960 Requested By: Vernon Reyes Order Number: [id number] Reading MD: ANGELO GUARDADO Measurements Intervals [place] Rate: 62 P: 45 NH: 148 QRS: 19 QRSD: 106 T: -5 QT: 457 QTc: 464 Interpretive Statements SINUS RHYTHM LOW QRS VOLTAGE IN PRECORDIAL LEADS [QRS DEFLECTION < 1.0 mV IN CHEST LEADS] Compared to ECG 08/12/2020 10:18:20 T-wave abnormality no longer present Electronically Signed On 08-15-2020 20:22:39 CDT by ANGELO GUARDADO [id number]
[2020-08-14 12:09] LABS: Glucose Point of Care 158 mg/dL (70-110)
[2020-08-14 12:33] LABS: NT Pro B Type Natriuretic Pept 279 pg/mL (0-125)
--- NOTE | 2020-08-14 14:14 | PC.NURSE ---
Per Dr Reyes order, nurse delayed infusing Tocilizumab until 1 hour after the remdesevir has finished infusing.
--- NOTE | 2020-08-14 14:48 | PC.NURSE ---
Nurse stopped Zofran order per Dr dueñas. Could cause QTC changes. Pt receiving Tocilizumab which can also cause QTC changes.
[2020-08-14] MEDS: azithromycin 500 MG in sodium chloride 0.9% 250 ML 250 MG IV (16:17)
[2020-08-14] MEDS: famotidine 20 mg Tablet PO (17:46)
--- NOTE | 2020-08-14 19:16 | PC.NURSE ---
Shift Summary: Uneventful shift. Pt received Tocilizumab. Needs to have an EKG at 1200 midnight to monitor QTC. Overall patient's O2 saturation recovery time has increased. Pt is on high flow nasal cannula and setting were increased form 65% 40 liters to 75% 40L. Order for tessalon pearls prn for cough due to difficulty recovering after coughing fits.
--- NOTE | 2020-08-14 19:19 | PC.NURSE ---
Shift summary: Uneventful shift. Oxygen requirements remained the same 100% and 40L on high flow Nasal cannula. Patient has saturated well, usually 93%, but as high as 99% after being up to a chair and walking in place. Pt received tocilizumab and we need to do a followup EKG to check for qtc changes at 2130. order already placed.
[2020-08-14] MEDS: ropinirole 2 mg Tablet PO (20:34)
[2020-08-14] MEDS: montelukast sodium 10 mg Tablet PO (20:34)
[2020-08-14] MEDS: trazodone 50 mg Tablet 25 MG PO (20:34)
--- NOTE | 2020-08-14 21:30 | ECG_ITS ---
[facility] Test Date: 2020-08-14 Pat Name: Gita Robison Department: Room: [facility]09 Gender: Female Chemical Preparer: : 1960 Requested By: Vernon Reyes Order Number: [id number] Reading MD: ANGELO GUARDADO Measurements Intervals [place] Rate: 70 P: 43 UT: 149 QRS: 18 QRSD: 105 T: -7 QT: 436 QTc: 472 Interpretive Statements SINUS RHYTHM NONSPECIFIC T-WAVE ABNORMALITY Compared to ECG 08/14/2020 11:26:03 T-wave abnormality now present Electronically Signed On 08-15-2020 20:24:24 CDT by ANGELO GUARDADO [id number]
[2020-08-14] MEDS: tizanidine 4 mg Tablet PO (21:40)
[2020-08-14] MEDS: cetirizine 10 mg Tablet PO (21:40)
[2020-08-15] VITALS (103 sets, daily range): BP systolic 96–184; BP diastolic 56–123; PULSE 47–98; RESP 9–38; TEMP 36.5–36.9; O2SAT 83–97
[2020-08-15] MEDS: ipratropium-albuterol 3 mL Neb INHALATION ×4 (02:04→20:29)
[2020-08-15] MEDS: guaiFENesin 100 mg/5 mL UDC 10 mL 200 MG PO ×4 (03:21→22:35)
[2020-08-15 05:19] LABS: Hematocrit 34.3 % (37.0-47.0); Hemoglobin 10.8 g/dL (11.5-15.3); Lymphocytes # 1.6 10^3/uL (0.8-4.8); Lymphocytes % 22.1 %; Mean Corpuscular HGB Conc 31.5 g/dL (30.0-36.0); Mean Corpuscular Hemoglobin 28.1 pg (28.0-34.0); Mean Corpuscular Volume 89.1 fL (81-99); Mean Platelet Volume 9.1 fL (7.4-10.4); Monocytes # 0.4 10^3/uL (0.2-0.9); Monocytes % 5.3 %; Neutrophils # 5.12 10^3/uL (1.8-7.7); Neutrophils % 71.2 %; Nucleated Red Blood Cells % 0 %; Platelet Count 432 10^3/cmm (130-400); Red Blood Count 3.85 10^6/uL (4.1-5.3); Red Cell Distribution Width 14.8 % (12.1-15.1); White Blood Count 7.2 10^3/uL (4.0-10.0)
[2020-08-15] MEDS: famotidine 20 mg Tablet PO ×2 (05:22→18:03)
[2020-08-15] MEDS: levothyroxine 75 mcg Tablet 150 MCG PO (05:22)
[2020-08-15 05:34] LABS: Fibrinogen 441 mg/dL (174-498)
[2020-08-15 05:36] LABS: D Dimer 0.31 ug/mIFEU (0-0.59)
[2020-08-15 05:57] LABS: Slide Review Slide Review Perform
[2020-08-15 05:59] LABS: Alanine Aminotransferase 28 U/L (0-33); Albumin Level 3.5 g/dL (3.5-5.2); Alkaline Phosphatase 57 IU/L (35-105); Anion Gap 15.3 (5-19); Aspartate Amino Transferase 24 U/L (0-32); Blood Urea Nitrogen 22 mg/dL (8-23); C Reactive Protein 35.4 mg/L (0.0-4.9); Calcium 7.9 mg/dL (8.5-10.5); Carbon Dioxide 28 mmol/L (22-29); Chloride 102 mmol/L (98-107); Creatine Phosphokinase 89 U/L (26-192); Globulin 3.1 g/dL (1.3-4.6); Glomerular Filtration Rate 85.4 mL/min (90-130); Glucose 128 mg/dL (65-115); Lactate Dehydrogenase 342 U/L (135-214); NT Pro B Type Natriuretic Pept 327 pg/mL (0-125); Osmolality Calculated 299 mOsm/kg (285-295); Potassium 3.3 mmol/L (3.5-5.1); Sodium 142 mmol/L (136-145); Total Bilirubin 0.3 mg/dL (0.15-1.2); Total Protein 6.6 g/dL (6.6-8.7)
[2020-08-15 06:11] LABS: Ferritin 368 ng/mL (15-150)
[2020-08-15] MEDS: budesonide 0.5 mg/2 mL Neb INHALATION ×2 (08:37→20:29)
[2020-08-15] MEDS: apixaban 5 mg Tablet 2.5 MG PO ×2 (08:38→20:07)
[2020-08-15] MEDS: ascorbic acid 500 mg Tablet PO ×2 (08:39→18:03)
[2020-08-15] MEDS: benzonatate 100 mg Capsule PO ×3 (08:39→20:07)
[2020-08-15] MEDS: zinc gluconate 50 mg Tablet PO (08:39)
[2020-08-15] MEDS: azithromycin 500 MG in sodium chloride 0.9% 250 ML 250 MG IV (08:39)
[2020-08-15] MEDS: dexamethasone 4 mg/mL INJ 6 MG IVP (08:41)
--- NOTE | 2020-08-15 10:53 | P.PN_ITS ---
Subjective Subjective: Interval history: No recurrence overnight. On examination today patient sitting up in chair. She is on 40 L 80% saturating 92%. Complaining of mild nausea but no vomiting. Appetite mildly lower than yesterday. Energy levels okay. Patient states she feels tired after getting up from bed to sit in chair. Denies any chest pain headaches. Documented urine output in last 24 hours 5100. Vitals/I&O/Wt Last Vital Signs Temp 98.4 F 08/15/20 04:00 Pulse 89 08/15/20 10:12 Resp 18 08/15/20 10:12 BP 127/63 08/15/20 06:30 Pulse Ox 92 08/15/20 10:12 08/14/20 08/15/20 08/15/20 22:59 06:59 14:59 Intake Total 373.333 / 2290.000 350 / 2640.000 Output Total 1450 / 2500 1075 / 3575 Balance -1076.667 / -210.000 -725 / -935.000 Weight last 48 hrs Weight 114.487 kg Physical Exam Narrative: EXAM NARRATIVE: General: No acute distress, AO x3, lying comfortably in bed on heated high flow. HEENT: PERRLA, pupils bilaterally equal and reactive Chest: Normal vesicular breath sounds, scattered rhonchi present all over the lung ye, equal good air entry bilaterally CVS: S1-S2 regular, no murmurs, no tachycardia, no gallops, no rubs Abdomen: Soft, nontender, no organomegaly, bowel sounds present Neuro: No focal deficits, no facial deformity, AO x3, power 5/5 in all limbs Urinary Catheter Management^: Kaye: Cath Placed During This Visit: yes Reason for Continuing Indwelling Catheter: Accurate Measurement of Urinary Output in Critically Ill Patients Urinary Catheter Date of Insertion: 08/12/20 Urinary Catheter Time of Insertion: 20:01 Data : 08/15/20 04:50 08/15/20 04:50 A&P Assessment and plan (1) ARDS (adult respiratory distress syndrome): Status: Acute (2) COVID-19: Status: Acute (3) Acute respiratory failure with hypoxia: Status: Acute (4) 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 diastolic dysfunction: Status: Acute (5) MANDO (acute kidney injury): Status: Acute (6) Hypothyroidism: Status: Acute Qualifiers: Hypothyroidism type: unspecified Qualified Code(s): E03.9 - Hypothyroidism, unspecified (7) Hypertension: Status: Acute (8) Hyponatremia: Status: Acute Additional A&P Information ARDS due to COVID-19 pneumonia: Severe disease. Post 1 dose of Tocizilumab. Continue with remdesivir to finish a 5-day course. Dexamethasone 6 mg IV daily. DuoNebs every 6 hour, budesonide twice daily as patient is on heated high flow. Vitamin C, zinc. Pulmonary toilet with incentive spirometry and flutter valve. Wean off oxygen as able keeping saturation around 92- 94%. Continue to monitor inflammatory markers including CRP, ferritin, LDH, D-dimer daily. Patient's inflammatory markers trending down. Still requiring high amount of oxygen supplementation. Will monitor for 24 more hours and if patient still requiring high oxygen supplementation tomorrow will give another dose of Tocilizumab. D-dimer negative. Continue with Eliquis 2.5 mg twice daily. Last echocardiogram from 2019 shows an EF of 55 to 60% with grade 1 diastolic dysfunction with normal PASP, no valvular abnormalities. For now we will hold off on any further echocardiogram. Low chances of infection for now. CT scan will help with further visualization of consolidation. Procalcitonin remains negative, MRSA swab negative, blood cultures preliminary negative. Sputum culture still awaited. Urine Legionella, bacterial antigen negative. Acute kidney injury: Resolved. Creatinine back to baseline. Continue with gentle IV hydration given robust urine output. Medical reconciliation done for nephrotoxic drugs. History of diastolic heart failure: No acute exacerbation for now. Monitor for fluid overload as increasing the fluid rate today. Patient net negative in last 24 hours without any diuretics. Continue with IV hydration to avoid MANDO again in setting of possible polyuria. Hypertension: Goal blood pressure less than 140/90 mmHg with mean over 65. Patient has soft blood pressures at present. For now hold off on home dose of losartan, Coreg, Cardizem. We will monitor for tachycardia. If needed can start patient on IV metoprolol as needed for heart rate of more than 100. Iron deficiency anemia: Start patient on oral iron supplementation. We will continue to monitor hemoglobin. Continue other chronic medications including tizanidine, tramadol, levo thyroxine, indapamide. Hyponatremia: Resolved. Most likely secondary to dehydration. CODE STATUS: Patient would like to be full code. She would be okay with a short course of chest compression and ventilator support if needed. Reuben will help with DVT prophylaxis. Cardiac diet. Continue with ICU care Attestations Medical Necessity Statement*: Requires further hospitalization for management of ARDS due to COVID-19 pneumonia while patient is high flow dependent Time Spent in Patient Care: Greater than 35 minutes (>than 50% of time spent in counselling and/or direct pt care on unit) . Coding Level of Care Code Acute Wet Washer Machine for [facility] Gaurav Diagnoses ARDS (adult respiratory distress syndrome) J80 COVID-19 U07.1 Acute respiratory failure with hypoxia J96.01 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 diastolic dysfunction I51.9 MANDO (acute kidney injury) N17.9 Hypothyroidism E03.9 Hypothyroidism type: unspecified Hypertension I10 Hyponatremia E87.1
[2020-08-15] MEDS: remdesivir 100 MG in sodium chloride 0.9% (100 ml) 100 ML IV (10:54)
[2020-08-15] MEDS: potassium chloride ER 20 mEq Tablet 40 MEQ PO (11:29)
[2020-08-15 11:43] LABS: ABG PCO2 40.6 mmHg (35-45); ABG PH Result 7.47 (7.35-7.45); Arterial Blood Gas Hematocrit 36.7 % (37-47); Base Excess ABG 5.4 mmol/L (-2.0-2.0); Blood Gas Allen Test Pos; Blood Gas Sample Site Radial, left; Blood Gas Sample Type Arterial; Carboxyhemoglobin 0.7 %THgb (0.4-20.1); HCO3 ABG 29.5 mmol/L (22-26); HGB O2 Sat 94.7 % (95-100); Ionized Calcium Level - ABG 1.1 mmol/L (1.1-1.4); Methemoglobin 0.8 % (0.4-1.5); Oxygen Saturation ABG 96.1; PO2 ABG 75.2 mmHg (80.0-100.0); Potassium Level - ABG 3.4 mmol/L (3.5-5.0)
[2020-08-15 11:44] LABS: Alveolar-Arterial Oxygen Gradi 57.7 mmHg (5-10)
--- NOTE | 2020-08-15 11:51 | PC.SOCIAL ---
IMM Not Updated Attempted to reach patient by phone to update IMM, unable to reach her.
--- NOTE | 2020-08-15 11:53 | PC.SOCIAL ---
IMM Update Pg. 2 of IMM updated over the phone with patient, when she returned CM phone call. Verbalized understanding.
[2020-08-15] MEDS: bisacodyl 5 mg Tablet 10 MG PO (18:03)
--- NOTE | 2020-08-15 18:09 | PC.NURSE ---
Shift Summary: Uneventful shift. Pt was up to a chair for about 5 hours today. Oxygen requirements have decreased from 80% and 50 L to 70% and 50L on heated high flow. Overall she appears to be more energetic, needs less assistance than yesterday with ambulation, and recovers more quickly. No bowel movement in the past few days, however she has not eaten much lately due to no appetite and nausea. Pt's appetite has returned and she has started eating more. Started on dulcolax.
[2020-08-15] MEDS: montelukast sodium 10 mg Tablet PO (20:07)
[2020-08-15] MEDS: trazodone 50 mg Tablet 25 MG PO (20:08)
[2020-08-15] MEDS: ropinirole 2 mg Tablet PO (20:08)
[2020-08-15] MEDS: tizanidine 4 mg Tablet PO (21:13)
[2020-08-15] MEDS: cetirizine 10 mg Tablet PO (21:13)
[2020-08-16] VITALS (109 sets, daily range): BP systolic 115–181; BP diastolic 57–138; PULSE 44–80; RESP 14–35; TEMP 36.4–36.8; O2SAT 80–96
[2020-08-16] MEDS: ipratropium-albuterol 3 mL Neb INHALATION ×4 (03:00→20:25)
[2020-08-16 03:57] LABS: Eosinophils % 0.4 %; Hemoglobin 11.3 g/dL (11.5-15.3); Mean Corpuscular Hemoglobin 28.7 pg (28.0-34.0); Nucleated Red Blood Cells % 0 %; Red Blood Count 3.94 10^6/uL (4.1-5.3)
[2020-08-16 04:00] LABS: Basophils % 0.4 %; Hematocrit 34.9 % (37.0-47.0); Lymphocytes # 2.1 10^3/uL (0.8-4.8); Lymphocytes % 26.7 %; Mean Corpuscular HGB Conc 32.4 g/dL (30.0-36.0); Mean Corpuscular Volume 88.6 fL (81-99); Mean Platelet Volume 8.9 fL (7.4-10.4); Monocytes # 0.4 10^3/uL (0.2-0.9); Monocytes % 4.5 %; Neutrophils # 5.08 10^3/uL (1.8-7.7); Neutrophils % 65.3 %; Platelet Count 473 10^3/cmm (130-400); Red Cell Distribution Width 14.7 % (12.1-15.1); White Blood Count 7.8 10^3/uL (4.0-10.0)
[2020-08-16 04:13] LABS: Fibrinogen 390 mg/dL (174-498)
[2020-08-16 04:16] LABS: D Dimer 0.67 ug/mIFEU (0-0.59)
[2020-08-16 04:24] LABS: NT Pro B Type Natriuretic Pept 350 pg/mL (0-125); Procalcitonin 0.07 ng/mL (0-0.5)
[2020-08-16 04:25] LABS: Slide Review Slide Review Perform
[2020-08-16 04:36] LABS: Alanine Aminotransferase 29 U/L (0-33); Albumin Level 3.4 g/dL (3.5-5.2); Alkaline Phosphatase 49 IU/L (35-105); Anion Gap 13.2 (5-19); Aspartate Amino Transferase 29 U/L (0-32); Blood Urea Nitrogen 21 mg/dL (8-23); C Reactive Protein 19.2 mg/L (0.0-4.9); Calcium 8.2 mg/dL (8.5-10.5); Carbon Dioxide 28 mmol/L (22-29); Chloride 99 mmol/L (98-107); Creatine Phosphokinase 92 U/L (26-192); Ferritin 360 ng/mL (15-150); Globulin 3.5 g/dL (1.3-4.6); Glucose 103 mg/dL (65-115); Lactate Dehydrogenase 333 U/L (135-214); Osmolality Calculated 287 mOsm/kg (285-295); Potassium 3.2 mmol/L (3.5-5.1); Sodium 137 mmol/L (136-145); Total Bilirubin 0.3 mg/dL (0.15-1.2); Total Protein 6.9 g/dL (6.6-8.7)
[2020-08-16] MEDS: levothyroxine 75 mcg Tablet 150 MCG PO (05:04)
[2020-08-16] MEDS: famotidine 20 mg Tablet PO ×2 (05:04→18:21)
[2020-08-16 05:11] LABS: ABG PCO2 41.3 mmHg (35-45); ABG PH Result 7.47 (7.35-7.45); Blood Gas Allen Test Pos; Blood Gas Sample Type Arterial; Carboxyhemoglobin 0.8 %THgb (0.4-20.1); HCO3 ABG 30.2 mmol/L (22-26); HGB O2 Sat 92.3 % (95-100); Ionized Calcium Level - ABG 1.2 mmol/L (1.1-1.4); Methemoglobin 0.7 % (0.4-1.5); Oxygen Saturation ABG 93.7; PO2 ABG 65.1 mmHg (80.0-100.0); Potassium Level - ABG 3.2 mmol/L (3.5-5.0); Total Hemoglobin 11.7 g/dL (12-16)
[2020-08-16 05:12] LABS: Alveolar-Arterial Oxygen Gradi 49.6 mmHg (5-10); Blood Gas Sample Site Radial, right
[2020-08-16 05:14] LABS: Oxygen Device HHFNC
--- NOTE | 2020-08-16 06:00 | XRR_ITS ---
PROCEDURE INFORMATION: Exam: XR Chest Exam date and time: 08/16/2020 6:01 AM Age: 60 years old Clinical indication: Condition or disease; Other: Covid TECHNIQUE: Imaging protocol: XR of the chest. Views: 1 view. COMPARISON: CR XR chest 1V portable [id number] 08/14/2020 9:31 AM FINDINGS: Limitations: Mislabeling of the left side of the chest. Interval lordosis and obliquity. Lungs: Continued patchy airspace disease in the right upper lobe and patchy densities in both lower lungs. No new consolidation. Pleural spaces: No suggestion of an interval pneumothorax or large pleural effusion. Heart/Mediastinum: Possible interval increase in the heart size. Diaphragm: Continued elevation of the right hemidiaphragm. Bones/joints: Continued possible area of lucency with sclerotic margins in the left humeral head. No visible acute bony disease. XR/XR chest 1V portable [id number] IMPRESSION: Possible interval increase in the heart size versus simulation of this by obliquity. No obvious change in the bilateral lung disease.
[2020-08-16] MEDS: apixaban 5 mg Tablet 2.5 MG PO (08:24)
[2020-08-16] MEDS: ascorbic acid 500 mg Tablet PO ×2 (08:25→18:21)
[2020-08-16] MEDS: azithromycin 500 MG in sodium chloride 0.9% 250 ML 250 MG IV (08:25)
[2020-08-16] MEDS: zinc gluconate 50 mg Tablet PO (08:27)
[2020-08-16] MEDS: benzonatate 100 mg Capsule PO ×3 (08:27→20:30)
[2020-08-16] MEDS: dexamethasone 4 mg/mL INJ 6 MG IVP (08:28)
[2020-08-16] MEDS: budesonide 0.5 mg/2 mL Neb INHALATION ×2 (08:40→20:25)
--- NOTE | 2020-08-16 09:35 | PM.PN ---
Subjective Subjective: Interval history: No acute event overnight. Patient states she is feeling better but continues to feel tired. Denies any nausea vomiting today. Denies headache or abdominal pain. States she feels gassy. States energy levels are appropriate. Continues to work with incentive spirometry and flutter valve every 2 hours. She feels she is getting better slowly and slowly and asking when she thinking she can go home. Overnight patient has been on high flow but has steadily been requiring less supplementation. Currently on 45 L 60% saturating 89 to 91%. Has remained hemodynamically stable Vitals/I&O/Wt Last Vital Signs Temp 97.7 F 08/15/20 20:00 Pulse 65 08/16/20 08:41 Resp 17 08/16/20 08:41 BP 157/101 08/16/20 06:00 Pulse Ox 95 08/16/20 08:41 08/15/20 08/16/20 08/16/20 22:59 06:59 14:59 Intake Total 700 / 1650 240 / 1890 Output Total 1650 / 3025 700 / 3725 Balance -950 / -1375 -460 / -1835 Weight last 48 hrs Weight 112.973 kg Weight 113.489 kg Physical Exam Narrative: EXAM NARRATIVE: General: No acute distress, AO x3, lying comfortably in bed on heated high flow. HEENT: PERRLA, pupils bilaterally equal and reactive Chest: Normal vesicular breath sounds, scattered rhonchi present all over the lung ye, equal good air entry bilaterally CVS: S1-S2 regular, no murmurs, no tachycardia, no gallops, no rubs Abdomen: Soft, nontender, no organomegaly, bowel sounds present Neuro: No focal deficits, no facial deformity, AO x3, power 5/5 in all limbs Urinary Catheter Management^: Kaye: Cath Placed During This Visit: yes Reason for Continuing Indwelling Catheter: Accurate Measurement of Urinary Output in Critically Ill Patients Urinary Catheter Date of Insertion: 08/12/20 Urinary Catheter Time of Insertion: 20:01 Data : 08/16/20 03:49 08/16/20 03:49 Other Labs: Laboratory Results WBC 7.8 10^3/uL (4.0-10.0) 08/16/20 03:49 RBC 3.94 10^6/uL (4.1-5.3) L 08/16/20 03:49 Hgb 11.3 g/dL (11.5-15.3) L 08/16/20 03:49 Hct 34.9 % (37.0-47.0) L 08/16/20 03:49 MCV 88.6 fL (81-99) 08/16/20 03:49 MCH 28.7 pg (28.0-34.0) 08/16/20 03:49 MCHC 32.4 g/dL (30.0-36.0) 08/16/20 03:49 RDW 14.7 % (12.1-15.1) 08/16/20 03:49 Plt Count 473 10^3/cmm (130-400) H 08/16/20 03:49 MPV 8.9 fL (7.4-10.4) 08/16/20 03:49 Neut % (Auto) 65.3 % 08/16/20 03:49 Lymph % (Auto) 26.7 % 08/16/20 03:49 [place] % (Auto) 4.5 % 08/16/20 03:49 Eos % (Auto) 0.4 % 08/16/20 03:49 Baso % (Auto) 0.4 % 08/16/20 03:49 Neut # (Auto) 5.08 10^3/uL (1.8-7.7) 08/16/20 03:49 Lymph # (Auto) 2.1 10^3/uL (0.8-4.8) 08/16/20 03:49 [place] # (Auto) 0.4 10^3/uL (0.2-0.9) 08/16/20 03:49 Eos # (Auto) 0.0 10^3/uL (0.0-0.8) 08/16/20 03:49 Baso # (Auto) 0.0 10^3/uL (0.0-0.1) 08/16/20 03:49 Nucleated RBC % (auto) 0 % 08/16/20 03:49 Nucleated RBCs # 0.0 /100WBC 08/16/20 03:49 Fibrinogen 390 mg/dL (174-498) 08/16/20 03:49 D-Dimer 0.67 ug/mIFEU (0-0.59) H 08/16/20 03:49 Specimen Type Arterial 08/16/20 05:00 Sample Site Radial, right 08/16/20 05:00 ABG pH 7.47 (7.35-7.45) H 08/16/20 05:00 ABG pCO2 41.3 mmHg (35-45) 08/16/20 05:00 ABG pO2 65.1 mmHg (80.0-100.0) L 08/16/20 05:00 ABG HCO3 30.2 mmol/L (22-26) H 08/16/20 05:00 ABG O2 Saturation 93.7 08/16/20 05:00 ABG Base Excess 6.0 mmol/L (-2.0-2.0) H 08/16/20 05:00 Tiburcio Test Pos 08/16/20 05:00 A-a O2 Gradient 49.6 mmHg (5-10) H 08/16/20 05:00 Hematocrit 36.0 % (37-47) L 08/16/20 05:00 Hgb O2 Saturation 92.3 % (95-100) L 08/16/20 05:00 Carboxyhemoglobin 0.8 %THgb (0.4-20.1) 08/16/20 05:00 Methemoglobin 0.7 % (0.4-1.5) 08/16/20 05:00 Total Hemoglobin 11.7 g/dL (12-16) L 08/16/20 05:00 Sodium 143.0 mmol/L (131-143) 08/16/20 05:00 Potassium 3.2 mmol/L (3.5-5.0) L 08/16/20 05:00 Glucose 100.0 mg/dL (70-115) 08/16/20 05:00 Ionized Calcium 1.2 mmol/L (1.1-1.4) 08/16/20 05:00 O2 Delivery Device Hhfnc 08/16/20 05:00 O2 Liters/Min 50.0 % 08/16/20 05:00 FiO2 70.0 % 08/16/20 05:00 Piece Work Inspector ID Hinja 08/16/20 05:00 Sodium 137 mmol/L (136-145) 08/16/20 03:49 Potassium 3.2 mmol/L (3.5-5.1) L 08/16/20 03:49 Chloride 99 mmol/L (98-107) 08/16/20 03:49 Carbon Dioxide 28 mmol/L (22-29) 08/16/20 03:49 Anion Gap 13.2 (5-19) 08/16/20 03:49 BUN 21 mg/dL (8-23) 08/16/20 03:49 Creatinine 0.6 mg/dL (0.5-0.9) 08/16/20 03:49 GFR Calculation 102.0 mL/min (90-130) 08/16/20 03:49 Glucose 103 mg/dL (65-115) 08/16/20 03:49 POC Glucose 158 mg/dL (70-110) H 08/14/20 12:01 Calculated Osmolality 287 mOsm/kg (285-295) 08/16/20 03:49 Lactic Acid 1.5 mmol/L (0.5-2.2) 08/12/20 10:10 Calcium 8.2 mg/dL (8.5-10.5) L 08/16/20 03:49 Magnesium 1.8 mg/dL (1.7-2.3) 08/12/20 10:10 Iron 22 ug/dL (37-145) L 08/12/20 10:10 TIBC 327 mcg/dl 08/12/20 10:10 % Saturation 6.7 % (20-50) L 08/12/20 10:10 Unsat Iron Binding 305 ug/dL (112-347) 08/12/20 10:10 Ferritin 360 ng/mL (15-150) H 08/16/20 03:49 Total Bilirubin 0.3 mg/dL (0.15-1.2) 08/16/20 03:49 AST 29 U/L (0-32) 08/16/20 03:49 ALT 29 U/L (0-33) 08/16/20 03:49 Alkaline Phosphatase 49 IU/L (35-105) 08/16/20 03:49 Lactate Dehydrogenase 333 U/L (135-214) H 08/16/20 03:49 Creatine Kinase 92 U/L (26-192) 08/16/20 03:49 C-Reactive Protein 19.2 mg/L (0.0-4.9) H 08/16/20 03:49 NT-Pro-B Natriuret Pep 350 pg/mL (0-125) H 08/16/20 03:49 Total Protein 6.9 g/dL (6.6-8.7) 08/16/20 03:49 Albumin 3.4 g/dL (3.5-5.2) L 08/16/20 03:49 Globulin 3.5 g/dL (1.3-4.6) 08/16/20 03:49 Triglycerides 152 mg/dL (0-150) H 08/13/20 04:26 Cholesterol 188 mg/dL (0-200) 08/13/20 04:26 LDL Cholesterol, Calc 128 mg/dL (50-129) 08/13/20 04:26 Total VLDL Cholesterol 30 mg/dL (0-30) 08/13/20 04:26 HDL Cholesterol 30 mg/dL (60-100) L 08/13/20 04:26 Cholesterol/HDL Ratio 6.27 mg/dL (0.0-4.40) H 08/13/20 04:26 Procalcitonin 0.07 ng/mL (0-0.5) 08/16/20 03:49 TSH 2.53 uIU/mL (0.27-4.20) 08/12/20 10:10 Urine Color Dark yellow (Yellow) 08/12/20 15:10 Urine Appearance Cloudy (CLEAR) 08/12/20 15:10 Urine pH 5 (5-7) 08/12/20 15:10 Ur Specific [place] 1.020 (1.005-1.030) 08/12/20 15:10 Urine Protein 1+ (Negative) H 08/12/20 15:10 Urine Glucose (UA) Norm (Normal) 08/12/20 15:10 Urine Ketones Negative (Negative) 08/12/20 15:10 Urine Blood Neg (Negative) 08/12/20 15:10 Urine Nitrate Negative (Negative) 08/12/20 15:10 Urine Bilirubin 1+ (Negative) H 08/12/20 15:10 Urine Urobilinogen 1 mg/dL (Negative) H 08/12/20 15:10 Ur Leukocyte Esterase Negative (Negative) 08/12/20 15:10 Urine RBC None /hpf (0-2) 08/12/20 15:10 Urine WBC 0-4 /hpf (0-5) H 08/12/20 15:10 Ur Squamous Epith Cells 0-4 /hpf (0-5) H 08/12/20 15:10 Amorphous Sediment 2+ /hpf 08/12/20 15:10 Urine Bacteria 2+ /hpf (NONE) H 08/12/20 15:10 Ur Random Sodium 12 mmol/L 08/12/20 15:10 Ur Random Potassium 65 mmol/L 08/12/20 15:10 Ur Random Chloride < 10 mmol/L 08/12/20 15:[address] 08/12/20 14:52 IMPRESSION: 1. Patchy bilateral mainly perihilar and upper lobe infiltrates. Hazy subpleural groundglass infiltrates. Findings suspicious for COVID 19 pneumonia. 2. No focal consolidation. Trace left pleural fluid. 3. A few reactive anterior mediastinal and right greater than left hilar lymph nodes. 4. Diffuse fatty infiltration of the liver. Cholecystectomy clips. 5. Small esophageal hiatal hernia. Chest X-Ray 08/16/20 06:00 IMPRESSION: Possible interval increase in the heart size versus simulation of this by obliquity. No obvious change in the bilateral lung disease. A&P Assessment and plan (1) ARDS (adult respiratory distress syndrome): Status: Acute (2) COVID-19: Status: Acute (3) Acute respiratory failure with hypoxia: Status: Acute (4) 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 diastolic dysfunction: Status: Acute (5) MANDO (acute kidney injury): Status: Acute (6) Hypothyroidism: Status: Acute Qualifiers: Hypothyroidism type: unspecified Qualified Code(s): E03.9 - Hypothyroidism, unspecified (7) Hypertension: Status: Acute (8) Hyponatremia: Status: Acute Additional A&P Information ARDS due to COVID-19 pneumonia: Severe disease. Mildly improving. Currently on 60% FiO2 40 L with heated high flow. Post 1 dose of Tocizilumab. We will try to confirm with pharmacy frequent repeat 1 more dose today. Continue with remdesivir to finish a 5-day course. Last dose of remdesivir today. Dexamethasone 6 mg IV daily. DuoNebs every 6 hour, budesonide twice daily as patient is on heated high flow. Vitamin C, zinc. Pulmonary toilet with incentive spirometry and flutter valve. Wean off oxygen as able keeping saturation around 92- 94%. Continue to monitor inflammatory markers including CRP, ferritin, LDH, D-dimer daily. Patient's inflammatory markers trending down. Less amount of oxygen supplementation today. Improving gradually. Will confirm with pharmacy if they have 1 more dose of tocizilumab to repeat today. D-dimer elevated today. Increase Eliquis to 5 mg twice daily. Last echocardiogram from 2019 shows an EF of 55 to 60% with grade 1 diastolic dysfunction with normal PASP, no valvular abnormalities. For now we will hold off on any further echocardiogram. Low chances of infection for now. Patient still requiring lower amount of oxygen day by day. Procalcitonin remains negative, MRSA swab negative, blood cultures preliminary negative. Sputum culture still awaited. Urine Legionella, bacterial antigen negative. Acute kidney injury: Resolved. Creatinine back to baseline. Medical reconciliation done for nephrotoxic drugs. Continue to monitor BMP daily for now. History of diastolic heart failure: No acute exacerbation for now. Monitor for fluid overload as increasing the fluid rate today. Patient net negative in last 24 hours without any diuretics. Hypertension: Goal blood pressure less than 140/90 mmHg with mean over 65. Blood pressures improving now. On the higher side. We will continue to monitor for 1 more day. If they continue to trend high we will start patient on low-dose amlodipine. Patient takes losartan, Coreg, Cardizem at home. Will avoid Coreg and Cardizem for now as patient having bradycardia overnight. Will avoid losartan as patient was in MANDO 2 days ago. Iron deficiency anemia: Hemoglobin stable. Continue with oral iron supplementation. Will monitor hemoglobin daily. Continue other chronic medications including tizanidine, tramadol, levothyroxine. Hyponatremia: Resolved. Most likely secondary to dehydration. CODE STATUS: Patient would like to be full code. She would be okay with a short course of chest compression and ventilator support if needed. Eliquis will help with DVT prophylaxis. Cardiac diet. Continue with ICU care Attestations Medical Necessity Statement*: Patient requires further hospitalization for management of AF requiring high amount of oxygen supplementation with high flow. Critical Care Time: The high probability of a clinically significant, sudden or life threatening deterioration of the patient's [pulmonary] system(s) required my full and direct attention, intervention and personal management. The critical care time is as shown. This time is in addition to time spent performing any reported procedures but includes the following: [x] Data and vital sign review and interpretation [x] Patient assessment, examination and intervention [x] Documentation [x] Medication orders and management Critical Care Time (min): 80 Coding Level of Care Code Acute Medicare Interviewer for [facility] Diagnoses ARDS (adult respiratory distress syndrome) J80 COVID-19 U07.1 Acute respiratory failure with hypoxia J96.01 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 diastolic dysfunction I51.9 MANDO (acute kidney injury) N17.9 Hypothyroidism E03.9 Hypothyroidism type: unspecified Hypertension I10 Hyponatremia E87.1
[2020-08-16] MEDS: remdesivir 100 MG in sodium chloride 0.9% (100 ml) 100 ML IV (10:48)
[2020-08-16] MEDS: tizanidine 4 mg Tablet PO ×2 (11:15→21:56)
--- NOTE | 2020-08-16 19:41 | PC.NURSE ---
SHift summary: uneventful shift. Patient was up to a chair most of day. Oxygen requirements have decreased.
[2020-08-16] MEDS: apixaban 5 mg Tablet PO (20:30)
[2020-08-16] MEDS: montelukast sodium 10 mg Tablet PO (20:30)
[2020-08-16] MEDS: ropinirole 2 mg Tablet PO (20:30)
[2020-08-16] MEDS: guaiFENesin 100 mg/5 mL UDC 10 mL 200 MG PO (20:31)
[2020-08-16] MEDS: trazodone 50 mg Tablet 25 MG PO (20:31)
[2020-08-16] MEDS: cetirizine 10 mg Tablet PO (21:57)
[2020-08-17] VITALS (63 sets, daily range): BP systolic 129–178; BP diastolic 62–103; PULSE 45–82; RESP 16–35; TEMP 36.7–36.9; O2SAT 85–992
[2020-08-17] MEDS: ipratropium-albuterol 3 mL Neb INHALATION ×4 (02:56→20:16)
[2020-08-17 03:47] LABS: Basophils % 0.4 %; Eosinophils # 0.1 10^3/uL (0.0-0.8); Eosinophils % 0.8 %; Hematocrit 38.7 % (37.0-47.0); Lymphocytes # 2.5 10^3/uL (0.8-4.8); Lymphocytes % 28.3 %; Mean Corpuscular Hemoglobin 28.3 pg (28.0-34.0); Mean Corpuscular Volume 91.3 fL (81-99); Mean Platelet Volume 8.9 fL (7.4-10.4); Monocytes # 0.3 10^3/uL (0.2-0.9); Monocytes % 3.3 %; Neutrophils % 62.8 %; Nucleated Red Blood Cells % 0.2 %; Platelet Count 471 10^3/cmm (130-400); Red Blood Count 4.24 10^6/uL (4.1-5.3); Red Cell Distribution Width 14.7 % (12.1-15.1); White Blood Count 8.9 10^3/uL (4.0-10.0)
[2020-08-17 04:20] LABS: Fibrinogen 345 mg/dL (174-498)
[2020-08-17 04:21] LABS: Alanine Aminotransferase 31 U/L (0-33); Albumin Level 3.3 g/dL (3.5-5.2); Alkaline Phosphatase 49 IU/L (35-105); Anion Gap 19.3 (5-19); Aspartate Amino Transferase 29 U/L (0-32); Blood Urea Nitrogen 21 mg/dL (8-23); C Reactive Protein 11.1 mg/L (0.0-4.9); Calcium 8.1 mg/dL (8.5-10.5); Carbon Dioxide 22 mmol/L (22-29); Chloride 103 mmol/L (98-107); Creatine Phosphokinase 79 U/L (26-192); Ferritin 335 ng/mL (15-150); Globulin 3.5 g/dL (1.3-4.6); Glucose 108 mg/dL (65-115); Lactate Dehydrogenase 369 U/L (135-214); NT Pro B Type Natriuretic Pept 301 pg/mL (0-125); Osmolality Calculated 296 mOsm/kg (285-295); Potassium 3.3 mmol/L (3.5-5.1); Sodium 141 mmol/L (136-145); Total Bilirubin 0.4 mg/dL (0.15-1.2); Total Protein 6.8 g/dL (6.6-8.7)
[2020-08-17 04:31] LABS: ABG PCO2 40.7 mmHg (35-45); ABG PH Result 7.46 (7.35-7.45); Alveolar-Arterial Oxygen Gradi 31.3 mmHg (5-10); Arterial Blood Gas Hematocrit 36.1 % (37-47); Base Excess ABG 4.3 mmol/L (-2.0-2.0); Blood Gas Allen Test Pos; Blood Gas Sample Site Radial, right; Blood Gas Sample Type Arterial; Carboxyhemoglobin 0.8 %THgb (0.4-20.1); HCO3 ABG 28.6 mmol/L (22-26); HGB O2 Sat 91.4 % (95-100); Ionized Calcium Level - ABG 1.2 mmol/L (1.1-1.4); Methemoglobin 0.7 % (0.4-1.5); Oxygen Saturation ABG 92.9; PO2 ABG 64.1 mmHg (80.0-100.0); Potassium Level - ABG 3.1 mmol/L (3.5-5.0); Total Hemoglobin 11.8 g/dL (12-16)
[2020-08-17 04:36] LABS: Oxygen Device HHFNC
[2020-08-17] MEDS: levothyroxine 75 mcg Tablet 150 MCG PO (05:14)
[2020-08-17] MEDS: famotidine 20 mg Tablet PO ×2 (05:14→17:06)
[2020-08-17] MEDS: azithromycin 500 MG in sodium chloride 0.9% 250 ML 250 MG IV (08:17)
[2020-08-17] MEDS: ascorbic acid 500 mg Tablet PO ×2 (08:17→17:06)
[2020-08-17] MEDS: benzonatate 100 mg Capsule PO ×3 (08:17→20:16)
[2020-08-17] MEDS: dexamethasone 4 mg/mL INJ 6 MG IVP (08:17)
[2020-08-17] MEDS: zinc gluconate 50 mg Tablet PO (08:17)
[2020-08-17] MEDS: apixaban 5 mg Tablet PO ×2 (08:19→20:16)
[2020-08-17] MEDS: budesonide 0.5 mg/2 mL Neb INHALATION ×2 (08:38→20:16)
--- NOTE | 2020-08-17 12:47 | PC.SOCIAL ---
IMM Update Pg. 2 of IMM updated over the phone with patient. Verbalized understanding.
[2020-08-17 12:52] LABS: Oxygen Device HHFNC
[2020-08-17] MEDS: tizanidine 4 mg Tablet PO ×2 (14:00→22:15)
--- NOTE | 2020-08-17 18:54 | PM.PN ---
Subjective Subjective: Interval history: Overall gradually improving. Saturation decreases on lower oxygen rate, but maintaining at the current flow. Denies chest pain. No nausea vomiting. Had mild diarrhea. No headache. Vitals/I&O/Wt Last Vital Signs Temp 98.4 F 08/17/20 09:00 Pulse 67 08/17/20 16:00 Resp 25 H 08/17/20 16:00 BP 136/81 08/17/20 16:00 Pulse Ox 89 L 08/17/20 16:00 08/17/20 08/17/20 08/17/20 06:59 14:59 22:59 Intake Total 60 / 1730 610 / 610 Output Total 1400 / 2700 150 / 150 Balance -1340 / -970 460 / 460 Weight last 48 hrs Weight 112.973 kg Weight 112.973 kg Physical Exam Const: COMMON NORMALS: no acute distress and patient oriented x3 HENMT: COMMON NORMALS: oropharynx normal Neck/C-Spine: COMMON NORMALS: no JVD Resp: COMMON NORMALS: normal respiratory effort and clear to auscultation bilaterally AUSCULTATION: clear to auscultation bilaterally and wheezes (Mild) Cardio: COMMON NORMALS: no JVD, regular rhythm, S1 normal heart sound present, S2 normal heart sound present and No murmurs present (Cardio) RHYTHM: regular rhythm HEART SOUNDS: S1 normal heart sound present and S2 normal heart sound present GI: COMMON NORMALS: Normal to inspection, nondistended, normoactive bowel sounds present, Soft to palpation and non-tender PALPATION: Yes Soft to palpation Extremity: COMMON NORMALS: no joint enlargement and no pedal edema Neuro: COMMON NORMALS: patient oriented x3 and moves all extremities Skin: COMMON NORMALS: no rashes or lesions noted GENERAL SKIN EXAM: no rashes or lesions noted Urinary Catheter Management^: Kaye: Cath Placed During This Visit: yes Reason for Continuing Indwelling Catheter: Accurate Measurement of Urinary Output in Critically Ill Patients Urinary Catheter Date of Insertion: 08/12/20 Urinary Catheter Time of Insertion: 20:01 Data : 08/17/20 03:08 08/17/20 03:08 Micro: Microbiology 08/12/20 11:40 Blood Culture - Final Blood NO GROWTH AFTER 5 DAYS 08/12/20 10:10 Blood Culture - Final Blood NO GROWTH AFTER 5 DAYS A&P Assessment and plan (1) ARDS (adult respiratory distress syndrome): Gradually improving. Oxygen requirement gradually decreasing. On 40 L. Continue high flow cannula support. Continue Decadron as she has mild wheezing. Since she is still hypoxic, discussed with her and with pharmacy will continue remdesivir additional 5 days tentatively for now depending on improvement. Continue apixaban. Inhalers. Recheck a CRP, D-dimer. Negative urine bacterial antigens. Negative MRSA. Status: Acute (2) COVID-19: As above. Status: Acute (3) Acute respiratory failure with hypoxia: Status: Acute (4) 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 diastolic dysfunction: Status: Acute (5) MANDO (acute kidney injury): Resolved Status: Acute (6) Hypothyroidism: Continue levothyroxine Status: Acute Qualifiers: Hypothyroidism type: unspecified Qualified Code(s): E03.9 - Hypothyroidism, unspecified (7) Hypertension: Blood pressure currently close to goal. Status: Acute (8) Hyponatremia: Resolved. Status: Acute Additional A&P Information Hypokalemia: Replaced. Last echocardiogram from 2019 shows an EF of 55 to 60% with grade 1 diastolic dysfunction with normal PASP, no valvular abnormalities. For now we will hold off on any further echocardiogram. History of diastolic heart failure Iron deficiency anemia: Hemoglobin stable. Continue with oral iron supplementation. Will monitor hemoglobin daily. Continue other chronic medications including tizanidine, tramadol, levothyroxine. Attestations Medical Necessity Statement*: Continue admission for assessment of management of acute hypoxic respiratory failure, ARDS, severe COVID-19 Coding Level of Care Code Acute Lens Inserter for [facility] Diagnoses ARDS (adult respiratory distress syndrome) J80 COVID-19 U07.1 Acute respiratory failure with hypoxia J96.01 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 diastolic dysfunction I51.9 MANDO (acute kidney injury) N17.9 Hypothyroidism E03.9 Hypothyroidism type: unspecified Hypertension I10 Hyponatremia E87.1
[2020-08-17] MEDS: ropinirole 2 mg Tablet PO (20:16)
[2020-08-17] MEDS: trazodone 50 mg Tablet 25 MG PO (20:16)
[2020-08-17] MEDS: montelukast sodium 10 mg Tablet PO (20:16)
[2020-08-17] MEDS: potassium chloride ER 20 mEq Tablet PO (20:16)
[2020-08-17] MEDS: remdesivir 100 MG in sodium chloride 0.9% (100 ml) 100 ML IV (20:17)
[2020-08-17] MEDS: cetirizine 10 mg Tablet PO (21:33)
[2020-08-18] VITALS (20 sets, daily range): BP systolic 120–165; BP diastolic 62–97; PULSE 54–82; RESP 16–28; TEMP 36.4–36.9; O2SAT 90–94
[2020-08-18] MEDS: ipratropium-albuterol 3 mL Neb INHALATION ×4 (03:10→20:16)
[2020-08-18 03:19] LABS: ABG PCO2 37.9 mmHg (35-45); ABG PH Result 7.47 (7.35-7.45); Alveolar-Arterial Oxygen Gradi 27.4 mmHg (5-10); Arterial Blood Gas Hematocrit 35.3 % (37-47); Base Excess ABG 3.8 mmol/L (-2.0-2.0); Blood Gas Allen Test Pos; Blood Gas Sample Site Radial, left; Blood Gas Sample Type Arterial; Carboxyhemoglobin 0.7 %THgb (0.4-20.1); HCO3 ABG 27.7 mmol/L (22-26); HGB O2 Sat 92.1 % (95-100); Ionized Calcium Level - ABG 1.2 mmol/L (1.1-1.4); Methemoglobin < 0.0 % (0.4-1.5); Oxygen Device NC; Oxygen Saturation ABG 92.4; PO2 ABG 61.7 mmHg (80.0-100.0); Potassium Level - ABG 3.5 mmol/L (3.5-5.0); Total Hemoglobin 11.5 g/dL (12-16)
[2020-08-18 05:59] LABS: D Dimer 1.57 ug/mIFEU (0-0.59)
--- NOTE | 2020-08-18 06:00 | XRR_ITS ---
PROCEDURE INFORMATION: Exam: XR Chest Exam date and time: 08/18/2020 6:20 AM Age: 60 years old Clinical indication: Condition or disease; Other: Covid; Shortness of breath; Patient HX: SOB on exertion TECHNIQUE: Imaging protocol: XR of the chest. Views: 1 view. COMPARISON: CR (CHEST, ) 08/16/2020 5:59 AM FINDINGS: Lungs: Interstitial prominence and airspace disease, in the setting of reported COVID-19 pneumonitis, with interval worsening in right upper lobe airspace disease. Pleural spaces: No pleural effusion. Heart/Mediastinum: Epicardial fat, without cardiomegaly. Bones/joints: Degenerative change. XR/XR chest 1V portable [id number] IMPRESSION: Interstitial prominence and airspace disease, in the setting of reported COVID-19 pneumonitis, with interval worsening in right upper lobe airspace disease.
[2020-08-18 06:01] LABS: Fibrinogen 314 mg/dL (174-498)
[2020-08-18 06:02] LABS: C Reactive Protein 6.4 mg/L (0.0-4.9); Creatine Phosphokinase 75 U/L (26-192); Ferritin 303 ng/mL (15-150); Lactate Dehydrogenase 352 U/L (135-214); Magnesium 1.8 mg/dL (1.7-2.3)
[2020-08-18] MEDS: levothyroxine 75 mcg Tablet 150 MCG PO (06:48)
[2020-08-18] MEDS: famotidine 20 mg Tablet PO ×2 (06:48→16:58)
[2020-08-18] MEDS: benzonatate 100 mg Capsule PO ×3 (08:13→21:07)
[2020-08-18] MEDS: zinc gluconate 50 mg Tablet PO (08:13)
[2020-08-18] MEDS: apixaban 5 mg Tablet PO ×2 (08:13→21:07)
[2020-08-18] MEDS: ascorbic acid 500 mg Tablet PO ×2 (08:13→16:59)
[2020-08-18] MEDS: azithromycin 250 mg Tablet 500 MG PO (08:13)
[2020-08-18] MEDS: dexamethasone 4 mg/mL INJ 6 MG IVP (08:14)
[2020-08-18] MEDS: budesonide 0.5 mg/2 mL Neb INHALATION ×2 (08:24→20:16)
--- NOTE | 2020-08-18 20:27 | P.PN_ITS ---
Subjective Subjective: Interval history: This morning she required increasing oxygen flow up to 45 L, however, through the day this has improved. She still requiring 40 L. Overall she has been becoming more mobile, getting up to the commode, up in her room. She denies chest pain, denies headache, no nausea vomiting or diarrhea. Intermittent cough. No sputum. Vitals/I&O/Wt Last Vital Signs Temp 97.6 F 08/18/20 15:56 Pulse 79 08/18/20 20:21 Resp 24 H 08/18/20 20:16 BP 144/62 08/18/20 15:56 Pulse Ox 90 08/18/20 20:16 08/18/20 08/18/20 08/18/20 06:59 14:59 22:59 Intake Total 460 / 1370 1080 / 1080 Output Total 1600 / 1600 1600 / 3200 Balance 460 / 470 -520 / -520 -1600 / -2120 Weight last 48 hrs Weight 114.532 kg Weight 112.973 kg Physical Exam Const: COMMON NORMALS: no acute distress and patient oriented x3 HENMT: COMMON NORMALS: oropharynx normal Neck/C-Spine: COMMON NORMALS: no JVD Resp: COMMON NORMALS: normal respiratory effort and clear to auscultation bilaterally AUSCULTATION: clear to auscultation bilaterally Cardio: COMMON NORMALS: no JVD, regular rhythm, S1 normal heart sound present, S2 normal heart sound present and No murmurs present (Cardio) RHYTHM: regular rhythm HEART SOUNDS: S1 normal heart sound present and S2 normal heart sound present GI: COMMON NORMALS: Normal to inspection, nondistended, normoactive bowel sounds present, Soft to palpation and non-tender PALPATION: Yes Soft to palpation Extremity: COMMON NORMALS: no joint enlargement and no pedal edema Neuro: COMMON NORMALS: patient oriented x3 and moves all extremities Skin: COMMON NORMALS: no rashes or lesions noted GENERAL SKIN EXAM: no rashes or lesions noted Urinary Catheter Management^: Kaye: Cath Placed During This Visit: yes Reason for Continuing Indwelling Catheter: Acute Urinary Retention or Obstruction Urinary Catheter Date of Insertion: 08/12/20 Urinary Catheter Time of Insertion: 20:01 Data : 08/17/20 03:08 08/17/20 03:08 A&P Assessment and plan (1) Acute respiratory failure with hypoxia: Oxygen requirement somewhat stabilized. This morning up to 45 L heated high flow requirement, but decreased on 4 L this afternoon. Discussed with her inflammatory markers appear to be decreasing. Discussed with her consideration of scar tissue formation. Does not appear to have significant unresolved bacterial superinfection at this time. No sputum production. Afebrile. At this time we will continue remdesivir, Decadron given ongoing hypoxia. Continue to wean down oxygen as tolerating. Discussed with her consideration of possible LTAC in case her oxygen requirements remain beyond what can be achieved at home. Continue apixaban. Inhalers. Recheck a CRP, D-dimer. Negative urine bacterial antigens. Negative MRSA. Status: Acute (2) COVID-19: As above. Status: Acute (3) ARDS (adult respiratory distress syndrome): Improving Status: Acute (4) 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 diastolic dysfunction: Status: Acute (5) MANDO (acute kidney injury): Resolved Status: Acute (6) Hypothyroidism: Continue levothyroxine Status: Acute Qualifiers: Hypothyroidism type: unspecified Qualified Code(s): E03.9 - Hypothyroidism, unspecified (7) Hypertension: Blood pressure currently close to goal. Status: Acute (8) Hyponatremia: Resolved. Status: Acute Additional A&P Information Hypokalemia: Recheck potassium level. Last echocardiogram from 2019 shows an EF of 55 to 60% with grade 1 diastolic dysfunction with normal PASP, no valvular abnormalities. For now we will hold off on any further echocardiogram. History of diastolic heart failure Iron deficiency anemia: Hemoglobin stable. Continue with oral iron supplementation. Will monitor hemoglobin daily. Continue other chronic medications including tizanidine, tramadol, levothyroxine. Attestations Medical Necessity Statement*: Continue admission for assessment of management of severe COVID-19, acute respiratory with hypoxia. Coding Level of Care Code Acute Electric Motor Mechanic for [facility] Diagnoses Acute respiratory failure with hypoxia J96.01 COVID-19 U07.1 ARDS (adult respiratory distress syndrome) J80 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 diastolic dysfunction I51.9 MANDO (acute kidney injury) N17.9 Hypothyroidism E03.9 Hypothyroidism type: unspecified Hypertension I10 Hyponatremia E87.1
[2020-08-18] MEDS: montelukast sodium 10 mg Tablet PO (21:07)
[2020-08-18] MEDS: ropinirole 2 mg Tablet PO (21:07)
[2020-08-18] MEDS: trazodone 50 mg Tablet 25 MG PO (21:08)
[2020-08-18] MEDS: tizanidine 4 mg Tablet PO (21:39)
[2020-08-18] MEDS: remdesivir 100 MG in sodium chloride 0.9% (100 ml) 100 ML IV (21:39)
[2020-08-18] MEDS: cetirizine 10 mg Tablet PO (21:39)
[2020-08-19] VITALS (17 sets, daily range): BP systolic 125–164; BP diastolic 67–88; PULSE 59–93; RESP 14–24; TEMP 36.4–36.8; O2SAT 90–94
[2020-08-19] MEDS: ipratropium-albuterol 3 mL Neb INHALATION ×4 (03:47→21:59)
[2020-08-19] MEDS: famotidine 20 mg Tablet PO ×2 (05:59→17:43)
[2020-08-19] MEDS: levothyroxine 75 mcg Tablet 150 MCG PO (05:59)
[2020-08-19 06:24] LABS: D Dimer 1.65 ug/mIFEU (0-0.59)
[2020-08-19 06:29] LABS: Blood Urea Nitrogen 20 mg/dL (8-23); C Reactive Protein 4.1 mg/L (0.0-4.9); Calcium 8.2 mg/dL (8.5-10.5); Carbon Dioxide 25 mmol/L (22-29); Chloride 102 mmol/L (98-107); Glomerular Filtration Rate 125.9 mL/min (90-130); Glucose 89 mg/dL (65-115); Osmolality Calculated 292 mOsm/kg (285-295); Sodium 140 mmol/L (136-145)
[2020-08-19 06:30] LABS: Anion Gap 16.4 (5-19); Potassium 3.4 mmol/L (3.5-5.1)
[2020-08-19] MEDS: budesonide 0.5 mg/2 mL Neb INHALATION ×2 (08:38→22:00)
[2020-08-19] MEDS: benzonatate 100 mg Capsule PO ×3 (09:13→21:20)
[2020-08-19] MEDS: dexamethasone 4 mg/mL INJ 6 MG IVP (09:13)
[2020-08-19] MEDS: apixaban 5 mg Tablet PO ×2 (09:13→21:20)
[2020-08-19] MEDS: azithromycin 250 mg Tablet 500 MG PO (09:13)
[2020-08-19] MEDS: zinc gluconate 50 mg Tablet PO (09:13)
[2020-08-19] MEDS: ascorbic acid 500 mg Tablet PO ×2 (09:19→17:43)
--- NOTE | 2020-08-19 10:19 | PC.SOCIAL ---
IMM Update Pg.2 of IMM updated and reviewed with patient over the phone, verbalized understanding. Copy provided to Marissa, nurse taking care of patient to provide to her upon next rounds.
[2020-08-19] MEDS: nystatin 100,000 unit/mL UDC 5 mL 400000 UNIT PO ×2 (17:43→21:21)
--- NOTE | 2020-08-19 20:31 | P.PN_ITS ---
Subjective Subjective: Interval history: Today she is happy to report improvement in oxygen requirement. No new symptoms. Denies headache, nausea, vomiting, chest pain or pressure. She is hoping that if he continues to improve may return home soon. Vitals/I&O/Wt Last Vital Signs Temp 98.2 F 08/19/20 19:41 Pulse 93 08/19/20 19:41 Resp 19 H 08/19/20 19:41 BP 144/80 08/19/20 19:41 Pulse Ox 90 08/19/20 19:41 08/19/20 08/19/20 08/19/20 06:59 14:59 22:59 Intake Total 400 / 1632 600 / 600 480 / 1080 Output Total 650 / 3850 2700 / 2700 Balance -250 / -2218 600 / 600 -2220 / -1620 Weight last 48 hrs Weight 113.126 kg Weight 114.532 kg Physical Exam Const: COMMON NORMALS: no acute distress and patient oriented x3 HENMT: COMMON NORMALS: oropharynx normal Neck/C-Spine: COMMON NORMALS: no JVD Resp: COMMON NORMALS: normal respiratory effort and clear to auscultation bilaterally AUSCULTATION: clear to auscultation bilaterally Cardio: COMMON NORMALS: no JVD, regular rhythm, S1 normal heart sound present, S2 normal heart sound present and No murmurs present (Cardio) RHYTHM: regular rhythm HEART SOUNDS: S1 normal heart sound present and S2 normal heart sound present GI: COMMON NORMALS: Normal to inspection, nondistended, normoactive bowel sounds present, Soft to palpation and non-tender PALPATION: Yes Soft to palpation Extremity: COMMON NORMALS: no joint enlargement and no pedal edema Neuro: COMMON NORMALS: patient oriented x3 and moves all extremities Skin: COMMON NORMALS: no rashes or lesions noted GENERAL SKIN EXAM: no rashes or lesions noted Urinary Catheter Management^: Kaye: Cath Placed During This Visit: yes Reason for Continuing Indwelling Catheter: Acute Urinary Retention or Obstruction Urinary Catheter Date of Insertion: 08/12/20 Urinary Catheter Time of Insertion: 20:01 Data : 08/17/20 03:08 08/19/20 05:43 A&P Assessment and plan (1) Acute respiratory failure with hypoxia: Oxygen requirement down to 20 L today. Trial of high flow cannula. Decrease Decadron dose to 3 mg. Remdesivir. Continue apixaban. Inhalers. Recheck a CRP, D-dimer. Negative urine bacterial antigens. Negative MRSA. Status: Acute (2) COVID-19: As above. Status: Acute (3) ARDS (adult respiratory distress syndrome): Improving Status: Acute (4) 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 diastolic dysfunction: Status: Acute (5) MANDO (acute kidney injury): Resolved Status: Acute (6) Hypothyroidism: Continue levothyroxine Status: Acute Qualifiers: Hypothyroidism type: unspecified Qualified Code(s): E03.9 - Hypothyroidism, unspecified (7) Hypertension: Blood pressure currently close to goal. Status: Acute (8) Hyponatremia: Resolved. Status: Acute Additional A&P Information Hypokalemia: Replace. Last echocardiogram from 2019 shows an EF of 55 to 60% with grade 1 diastolic dysfunction with normal PASP, no valvular abnormalities. For now we will hold off on any further echocardiogram. History of diastolic heart failure Iron deficiency anemia: Hemoglobin stable. Continue with oral iron supplementation. Will monitor hemoglobin daily. Continue other chronic medications including tizanidine, tramadol, levothyroxine. Attestations Medical Necessity Statement*: Continue admission for assessment management of respiratory failure with hypoxia, severe COVID-19 infection, weaning of oxygen, disposition planning for return home once oxygenation stable improving and able to supply at home. Coding Level of Care Code Acute [employer] for [employer]reya Nolasco Diagnoses Acute respiratory failure with hypoxia J96.01 COVID-19 U07.1 ARDS (adult respiratory distress syndrome) J80 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 diastolic dysfunction I51.9 MANDO (acute kidney injury) N17.9 Hypothyroidism E03.9 Hypothyroidism type: unspecified Hypertension I10 Hyponatremia E87.1
[2020-08-19] MEDS: trazodone 50 mg Tablet 25 MG PO (21:20)
[2020-08-19] MEDS: potassium chloride ER 20 mEq Tablet PO (21:20)
[2020-08-19] MEDS: ropinirole 2 mg Tablet PO (21:21)
[2020-08-19] MEDS: montelukast sodium 10 mg Tablet PO (21:21)
[2020-08-19] MEDS: cetirizine 10 mg Tablet PO (22:24)
[2020-08-19] MEDS: remdesivir 100 MG in sodium chloride 0.9% (100 ml) 100 ML IV (22:24)
[2020-08-19] MEDS: tizanidine 4 mg Tablet PO (22:24)
[2020-08-20] VITALS (12 sets, daily range): BP systolic 108–149; BP diastolic 69–84; PULSE 62–90; RESP 16–18; TEMP 36.6–36.8; O2SAT 84–94
[2020-08-20] MEDS: ipratropium-albuterol 3 mL Neb INHALATION ×3 (02:55→14:00)
[2020-08-20] MEDS: famotidine 20 mg Tablet PO (05:21)
[2020-08-20] MEDS: levothyroxine 75 mcg Tablet 150 MCG PO (05:21)
--- NOTE | 2020-08-20 06:00 | XR_ITS ---
WS: [id number] Portable AP upright chest, 08/20/2020 Clinical Data: covid Comparison: Portable chest, 08/18/2020. Findings: The bilateral patchy opacities remain the same. The heart is slightly enlarged. The aortic arch and descending aorta show calcification and tortuosity. No pneumothorax is seen. Monitor leads a re on the chest wall. XR/XR chest 1V portable [id number] Impression: 1. No change in patchy bilateral opacities consistent with pneumonia. 2. Atherosclerosis.
[2020-08-20 07:06] LABS: Anion Gap 15.8 (5-19); Blood Urea Nitrogen 19 mg/dL (8-23); Calcium 8.3 mg/dL (8.5-10.5); Carbon Dioxide 26 mmol/L (22-29); Chloride 102 mmol/L (98-107); Glucose 101 mg/dL (65-115); Osmolality Calculated 292 mOsm/kg (285-295); Potassium 3.8 mmol/L (3.5-5.1); Sodium 140 mmol/L (136-145)
[2020-08-20] MEDS: budesonide 0.5 mg/2 mL Neb INHALATION (09:00)
[2020-08-20] MEDS: zinc gluconate 50 mg Tablet PO (10:25)
[2020-08-20] MEDS: ascorbic acid 500 mg Tablet PO (10:25)
[2020-08-20] MEDS: benzonatate 100 mg Capsule PO ×2 (10:25→15:07)
[2020-08-20] MEDS: apixaban 5 mg Tablet PO (10:26)
[2020-08-20] MEDS: dexamethasone 4 mg/mL INJ 3 MG IVP (10:26)
[2020-08-20] MEDS: nystatin 100,000 unit/mL UDC 5 mL 400000 UNIT PO ×2 (10:26→13:36)
[2020-08-20] MEDS: azithromycin 250 mg Tablet 500 MG PO (10:26)
--- NOTE | 2020-08-20 14:03 | PM.DCS ---
Discharge Providers Date of Admission: 08/12/20 11:29 Date of Discharge: August 20, 2020 Attending Provider at Admission: Vernon Reyes MD Attending Provider at Discharge: Linus Fuentes Primary Care Provider: Otto Cobb MD Diagnoses at Discharge Discharge Diagnosis (1) Acute respiratory failure with hypoxia: Status: Acute (2) COVID-19: Status: Acute (3) ARDS (adult respiratory distress syndrome): Status: Acute (4) 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 diastolic dysfunction: Status: Acute (5) MANDO (acute kidney injury): Status: Acute (6) Hypothyroidism: Status: Acute Qualifiers: Hypothyroidism type: unspecified Qualified Code(s): E03.9 - Hypothyroidism, unspecified (7) Hypertension: Status: Acute (8) Hyponatremia: Status: Acute Reason for Visit Reason for Visit: COVID+ HAVING LOW O2 Hospital Course Hospital Course Very pleasant 60-year-old lady with history of HTN, diastolic dysfunction, hypothyroidism, asthma, depression, chronic low back pain and other medical problems was admitted on 08/12 and underwent treatment due to severe COVID-19 pneumonia, ARDS, hypoxic respiratory failure. During hospitalization required heated high flow oxygen support as high as 50 L, FiO2 as high as 100%, received treatment with Decadron, extended course of remdesivir, received also treatment with Tocilizumab. Supportive care with nebulizer treatments. Zinc, vitamin C. Empirically treated with azithromycin course for possibility of superimposed bacterial pulmonary infection. With D-dimer elevation while in the hospital received treatment with Eliquis, her, with D-dimer stabilized, and currently at 1.6 with decreased from 1.65 maximum. Her oxygenation was slow to improve, but gradually continues to get better. She has been mobilizing quite well. She is weaned down to 5 L nasal cannula oxygen currently, feels quite significantly better and wants to return home. CRP resolved to normal. We discussed risks and benefits of clots with COVID-19, risks of bleeding with anticoagulation, and for now consensus is we will not continue to anticoagulation at discharge. Initially with noted hyponatremia, indapamide was held, with resolution. Next day after presentation also with acute kidney injury, creatinine up to 1.7, but with resolution subsequently. During hospitalization also noted to have iron deficiency anemia, started on iron replacement. This will need additional follow-up after resolution of acute condition with consideration of endoscopic evaluation if has not had recent wants to exclude malignancy. At discharge home oxygen is ordered for her. She is asked to complete a steroid taper. She has completed a course of antibiotic while in the hospital. She is asked to maintain isolation for now for additional 10 days or as directed by health department (symptoms started Monday before last on 08/11). She is aware to seek medical attention immediately in case of any worsening of her condition, any concerning symptoms and is aware of increased risks of [place], CVA, blood clots among severe complications that may be associated with COVID-19. Physical Exam Const: COMMON NORMALS: no acute distress and patient oriented x3 OTHER: Sitting up in bed, pleasant, conversant, in good spirits. Feeling well. Very excited to return home. HENMT: COMMON NORMALS: oropharynx normal Neck/C-Spine: COMMON NORMALS: no JVD Resp: COMMON NORMALS: normal respiratory effort and clear to auscultation bilaterally EFFORT & INSPECTION: Yes able to speak in complete sentences AUSCULTATION: clear to auscultation bilaterally Cardio: COMMON NORMALS: no JVD, regular rhythm, S1 normal heart sound present, S2 normal heart sound present and No murmurs present (Cardio) RHYTHM: regular rhythm HEART SOUNDS: S1 normal heart sound present and S2 normal heart sound present GI: COMMON NORMALS: Normal to inspection, nondistended, normoactive bowel sounds present, Soft to palpation and non-tender PALPATION: Yes Soft to palpation Extremity: COMMON NORMALS: no joint enlargement and no pedal edema Neuro: COMMON NORMALS: patient oriented x3 and moves all extremities Skin: COMMON NORMALS: no rashes or lesions noted GENERAL SKIN EXAM: no rashes or lesions noted Urinary Catheter Management^: Kaye: Cath Placed During This Visit: yes Reason for Continuing Indwelling Catheter: Acute Urinary Retention or Obstruction Urinary Catheter Date of Insertion: 08/12/20 Urinary Catheter Time of Insertion: 20:01 Discharge Data Data Completed and Pending: Completed Studies During Hospitalization Category Date Time Status CT chest wo con 7 1250 Urgent Cat Scan 08/12/20 14:52 Completed XR chest 1V rosana ble 56701 Q48H Exams 08/16/20 06:00 Completed XR chest 1V rosana ble 84715 Q48H Exams 08/18/20 06:00 Completed XR chest 1V rosana ble 55167 Q48H Exams 08/20/20 06:00 Completed XR chest 1V rosana ble 14655 Routine Exams 08/14/20 09:15 Completed XR chest 1V rosana ble 36561 Stat Exams 08/12/20 10:13 Completed Pending at discharge Category Date Time Status Basic Metabolic P isabel AM LABS Lab 08/21/20 04:[address] at Lab 08/12/20 10:13 Uncollected Sputum Culture an d Gram Stain Stat Lab 08/19/20 12:00 Results Labs from last 24 hours 08/20/20 08/20/20 08/20/20 05:45 05:45 05:45 D-Dimer 1.60 H Sodium 140 Potassium 3.8 Chloride 102 Carbon Dioxide 26 Anion Gap 15.8 BUN 19 Creatinine 0.6 GFR Calculation 102.0 Glucose 101 Calculated Osmolal ity 292 Calcium 8.3 L C-Reactive Protein 3.0 Vitals: Last Vital Signs Temp 98.0 F 08/20/20 11:47 Pulse 90 08/20/20 13:54 Resp 18 08/20/20 13:54 BP 143/74 08/20/20 11:47 Pulse Ox 93 08/20/20 13:54 Discharge Plan Discharge Patient Disposition: Home Condition: Stable Prescriptions: New guaifenesin 100 mg/5 mL Liquid 200 mg PO Q4H PRN (Reason: Cough And Congestion) Qty: 473 RF: 0 benzonatate 100 mg Capsule 100 mg PO TID Qty: 20 RF: 0 nystatin 100,000 unit/mL Suspension 400,000 unit PO QID 12 Days Qty: 192 RF: 0 trazodone 50 mg Tablet 25 mg PO BEDTIME Qty: 30 RF: 0 Decadron 0.75 mg tablet 0.75 mg PO DAILY Qty: 7 RF: 0 ferrous sulfate 325 mg (65 mg iron) tablet 325 mg PO EVERY OTHER DAY Qty: 15 RF: 3 Continued montelukast [Singulair] 10 mg tablet 10 mg PO DAILY@2100 RF: 0 hydroxyzine HCl 25 mg tablet 25 mg PO BID PRN (Reason: unknown) RF: 0 budesonide-formoterol [Symbicort] 80-4.5 mcg/actuation HFA aerosol inhaler 1 puff INHALATION BID RF: 0 losartan [Cozaar] 100 mg tablet 100 mg PO DAILY@0600 RF: 0 diltiazem HCl 360 mg capsule,extended release 24hr 360 mg PO DAILY@0600 RF: 0 ropinirole 2 mg tablet 2 mg PO DAILY@2100 RF: 0 cetirizine [Zyrtec] 10 mg tablet 10 mg PO DAILY@0600 RF: 0 albuterol sulfate 90 mcg/actuation HFA aerosol inhaler 2 puff INHALATION Q6H PRN (Reason: Shortness Of Breath) RF: 0 levothyroxine [Euthyrox] 150 mcg tablet 150 mcg PO DAILY@0600 RF: 0 carvedilol 6.25 mg tablet 6.25 mg PO BID@0600,2100 RF: 0 hydrocodone-acetaminophen 5-325 mg tablet 1 tab PO Q4H PRN (Reason: Pain) RF: 0 tramadol 50 mg tablet 50 mg PO TID PRN (Reason: pain) 30 Days Qty: 60 RF: 0 tizanidine 4 mg tablet 4 mg PO BID PRN (Reason: muscle spasticity) Qty: 60 RF: 0 potassium chloride 10 mEq tablet extended release 10 meq PO DAILY@0600 RF: 0 Changed furosemide 20 mg tablet 20 mg PO DAILY@0600 PRN (Reason: Edema) Qty: 0 RF: 0 indapamide 2.5 mg tablet 1.25 mg PO DAILY@0600 Qty: 0 RF: 0 Discharge Orders: Discharge Order (Routine); Ordered 08/20/20 Ordered By: Linus Fuentes Other Ambulatory Orders: DME: Oxygen (Order) Location: None Selected Ordered By: Linus Fuentes Referrals: [facility] [Outside] Otto Cobb MD [Primary Care Provider] - 1 week Discharge Diet: Cardiac Discharge Activity: Increase activity as tolerated and Oxygen as instructed Patient Instructions: Benzonatate (By mouth), Trazodone (By mouth), Dexamethasone (By mouth), Viral Pneumonia (GEN), Acute Kidney Injury (GEN), Iron Deficiency Anemia (GEN), Pneumonia Stoplight, Using Oxygen at Home Activity Restrictions/Additional Instructions: Please continue oxygen at home as instructed, monitor saturation, target saturation of 92% or above. In case of significantly worsening saturation, progressive shortness of breath, any chest pain, any other symptoms that may be concerning regarding heart attack or stroke, please call 911 immediately. Please maintain isolation for additional 10 days or as directed by Department of Health, subsequently if at least 24 hours without fever, other symptoms including chills, muscle aches, headache, nausea, vomiting, diarrhea and improving cough, isolation may be discontinued. After you recover from COVID-19, discussed with your primary doctor regarding additional work-up of iron deficiency anemia. This would include endoscopic evaluation upper and lower for any concerning lesions as source of blood loss and to exclude any malignancy. As your sodium was slightly low on admission, 134, please reduce indapamide dose for now to 1.25 mg. Continue to monitor blood pressures at home. Discharge Attestations Time Spent in Discharge Care*: greater than 30 min Quality Metrics Clinical Quality Measures During this hospital stay, did patient experience: None Coding Level of Care Code Acute g [facility] note Diagnoses Acute respiratory failure with hypoxia J96.01 COVID-19 U07.1 ARDS (adult respiratory distress syndrome) J80 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 diastolic dysfunction I51.9 MANDO (acute kidney injury) N17.9 Hypothyroidism E03.9 Hypothyroidism type: unspecified Hypertension I10 Hyponatremia E87.1
--- NOTE | 2020-08-20 17:31 | PC.NURSE ---
Educated patient on medications and discharge instructions. Medications delivered to bedside as well as oxygen. Patient wheeled out via wheelchair to private vehicle.
== END 2020-08-20 16:00 | disposition home or self-care (01) | DRG 177 ==
LOC: ER 11:50 → ICU 15:31 → MEDSURG 08-17 17:32
PROVIDERS: Admitting Provider Student in an Organized Health Care Education/Training Program; Emergency Provider Family Medicine; PCP Family Medicine; Visit Provider Internal Medicine
DX: U07.1 COVID-19 (principal); J12.82 Pneumonia due to coronavirus disease 2019; J96.01 Acute respiratory failure with hypoxia; J15.9 Unspecified bacterial pneumonia; I50.32 Chronic diastolic (congestive) heart failure; E87.1 Hypo-osmolality and hyponatremia; N17.9 Acute kidney failure, unspecified; I11.0 Hypertensive heart disease with heart failure; E03.9 Hypothyroidism, unspecified; J45.909 Unspecified asthma, uncomplicated; F32.9 Major depressive disorder, single episode, unspecified; M54.12 Radiculopathy, cervical region; G89.29 Other chronic pain; M54.16 Radiculopathy, lumbar region; Z87.442 Personal history of urinary calculi; I34.1 Nonrheumatic mitral (valve) prolapse; Z79.891 Long term (current) use of opiate analgesic; M19.042 Primary osteoarthritis, left hand; M19.041 Primary osteoarthritis, right hand; G62.9 Polyneuropathy, unspecified; Z96.669 Presence of unspecified artificial ankle joint; Z87.891 Personal history of nicotine dependence; Z79.51 Long term (current) use of inhaled steroids; D50.9 Iron deficiency anemia, unspecified
CPT/HCPCS: 36415; 36416; 36600; 51702; 71045; 71250; 80048; 80051; 80053; 80061; 81001; 82330; 82436; 82550; 82728; 82805; 82962; 83540; 83550; 83605; 83615; 83735; 83880; 84133; 84145; 84300; 84443; 85025; 85378; 85384; 86140; 86403; 87040; 87070; 87205; 87449; 87641; 93005; 94640; 96365; 96375; 99285; J0456; J1100; J2405; J3262; J3475; J3480; J3490; J7030; J7040; J7050; J7626; Q0144

== ENCOUNTER → 2020-09-08 10:00 | Outpatient (BNVA) | payer MEDICARE, MEDICAID, SELFPAY | PROVIDERS: PCP Family Medicine; Visit Provider Anesthesiology Pain Medicine | DX: M51.16 Intervertebral disc disorders with radiculopathy, lumbar region (principal); M54.9 Dorsalgia, unspecified; Z87.891 Personal history of nicotine dependence; Z79.891 Long term (current) use of opiate analgesic | CPT/HCPCS: 99214 ==

== ENCOUNTER → 2020-09-17 09:33 | Outpatient (BNVA) | payer MEDICARE, MEDICAID, SELFPAY | PROVIDERS: PCP Family Medicine; Visit Provider Orthopaedic Surgery | DX: M48.061 Spinal stenosis, lumbar region without neurogenic claudication (principal); M47.894 Other spondylosis, thoracic region | CPT/HCPCS: 72110 ==

== ENCOUNTER → 2020-09-18 10:18 | Outpatient (BNVA) | payer MEDICARE, MEDICAID, SELFPAY | PROVIDERS: PCP Family Medicine; Visit Provider Orthopaedic Surgery | DX: Z01.812 Encounter for preprocedural laboratory examination (principal); Z20.822 Contact with and (suspected) exposure to COVID-19 | CPT/HCPCS: 87635 ==

== ENCOUNTER 2020-09-23 09:17 | Day surgery (SDC) | payer MEDICARE, MEDICAID, SELFPAY ==
--- NOTE | 2020-09-21 12:38 | ECG_ITS ---
[facility] Test Date: 2020-09-21 Pat Name: Gita Robison Department: Room: Gender: Female Extender: : 1960 Requested By: Magdaleno Fernando Order Number: [id number] Kacy MD: Alex Panda M.D. Measurements Intervals [place] Rate: 58 P: 13 [place]: 147 QRS: 10 QRSD: 90 T: 4 QT: 424 QTc: 418 Interpretive Statements SINUS BRADYCARDIA NONSPECIFIC T-WAVE ABNORMALITY Compared to ECG 08/14/2020 21:58:11 Sinus rhythm no longer present T-wave abnormality still present Electronically Signed On 09-21-2020 18:11:50 CDT by Alex Panda M.D. [id number]
[2020-09-21 12:56] VITALS: BMI 40.7
--- NOTE | 2020-09-21 13:35 | ANES.PREANE2 ---
Pre-Anesthetic Assessment Pre-Anesthetic Assessment: Height/Weight: Height 1.65 m Weight 111.13 kg Preop Diagnosis: lumbar stenosis Proposed Procedure: Operation Date: 09/23/20 11:20 Proposed Procedures p MIS bilateral decompression L3/4 10174, L4/5 57901 m48.061(Not Applicable) - New Hui, DO Was Beta Cj taken within 24 hours: Yes Was Clonidine taken within 24 hours: N/A Social: Social History: No alcohol and No tobacco Comment: Home O2 5L post Covid Exam: Pre-Anes Outpt Exam: alert, oriented x 3, clear to auscultation bilaterally and regular rate & rhythm Airway: Submandibular: WNL Cervical ROM: WNL MP: 2 Dentition: Full Pulmonary: Pulmonary: COPD 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: Home O2 CV/HEM: CV/HEM: HTN Metabolic: Metabolic: Morbid obesity and Thyroid Anesthetic Plan: ASA status: 3 Anesthesia: General Risk of > 500 ml blood loss (7ml/kg in children): No PFSH Anesthesia PFSH: Medical History Asthma Cervical radiculopathy Chronic low back pain Dyspnea on exertion Facet arthritis, degenerative, lumbar spine Facet arthropathy, lumbar History of kidney stones Hx of mitral valve prolapse Hypersomnia Hypertension Hypothyroidism 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 Lumbar disc disease with radiculopathy Lumbar stenosis Osteoarthritis of hands, bilateral Pain management contract signed Peripheral neuropathy Right median nerve neuropathy Surgical History History of carpal tunnel surgery Hx of cholecystectomy Hx of hysterectomy Hx of total ankle replacement Family History Mother CAD (coronary artery disease) Other Cancer Diabetes Hypertension Denies family history of Stroke Social History Quit status (tobacco): has quit using tobacco Year quit tobacco: 2005 Alcohol intake: never Caregiver/support person: Yes Lives independently: Yes History of recent travel: No (travel from [facility]) Data Anesthesia CBC & Chem 7: 09/21/20 13:09 09/21/20 13:09 Cardiac Studies: No Data to Display
[2020-09-21 13:49] LABS: Basophils # 0.1 10^3/uL (0.0-0.1); Basophils % 0.9 %; Eosinophils # 0.2 10^3/uL (0.0-0.8); Eosinophils % 2.3 %; Hematocrit 34.9 % (37.0-47.0); Hemoglobin 11.2 g/dL (11.5-15.3); Lymphocytes # 2.5 10^3/uL (0.8-4.8); Lymphocytes % 27.1 %; Mean Corpuscular HGB Conc 32.1 g/dL (30.0-36.0); Mean Corpuscular Hemoglobin 29.3 pg (28.0-34.0); Mean Corpuscular Volume 91.4 fL (81-99); Monocytes # 0.7 10^3/uL (0.2-0.9); Neutrophils # 5.65 10^3/uL (1.8-7.7); Neutrophils % 61.4 %; Nucleated Red Blood Cells % 0 %; Platelet Count 391 10^3/cmm (130-400); Red Blood Count 3.82 10^6/uL (4.1-5.3); White Blood Count 9.2 10^3/uL (4.0-10.0)
[2020-09-21 14:04] LABS: Anion Gap 14.5 (5-19); Blood Urea Nitrogen 14 mg/dL (8-23); Calcium 8.9 mg/dL (8.5-10.5); Carbon Dioxide 29 mmol/L (22-29); Chloride 104 mmol/L (98-107); Creatinine Clr Calc Pharmacy 148.5649; Glomerular Filtration Rate 125.9 mL/min (90-130); Glucose 79 mg/dL (65-115); Osmolality Calculated 297 mOsm/kg (285-295); Potassium 3.5 mmol/L (3.5-5.1); Sodium 144 mmol/L (136-145)
[2020-09-23] VITALS (7 sets, daily range): BP systolic 128–168; BP diastolic 41–79; PULSE 57–68; RESP 12–18; TEMP 36.2–36.9; O2SAT 93–98
--- NOTE | 2020-09-23 | XR_ITS ---
WS: [id number] Lumbar spine, C-arm fluoroscopy, 09/23/2020 Clinical Data: decompression L3/ L4 L4/L5 Comparison: Lumbar spine, 09/17/2020. Findings: Dr. Hui performed lumbar decompression at L4-L5. XR/XR lumbar spine 1V 11069 Impression: L4-L5 lumbar decompression.
--- NOTE | 2020-09-23 | SCC_ITS ---
Procedure Done: 1. L3/4 bilateral Laminectomy with partial facetectomy 2. L4/5 bilateral laminectomy with partial facetctomy 14.8 seconds of fluoroscopic guidance, for a cumulative dose of 5.64 mGy, was provided to Dr. Hui by the radiology department. C-arm images of the lumbar spine were saved for the patient's permanent record. [facility]
[2020-09-23] MEDS: sodium chloride 0.9% 1,000 ML 30 ML IV (10:09)
--- NOTE | 2020-09-23 10:56 | W.PM.OPSUD ---
Surgery/Procedure H&P Update DATE OF PROCEDURE: September 23, 2020 DATE H&P PERFORMED: 09/17/20 H&P UPDATE INFORMATION: I have reviewed H&P completed within last 30 days, I have examined patient prior to procedure and No changes to prior documentation PREOP DIAGNOSIS: lumbar stenosis PLANNED PROCEDURE: Operation Date: 09/23/20 11:10 Proposed Procedures p MIS bilateral decompression L3/4 53155, L4/5 44772 m48.061(Not Applicable) - New Hui DO
--- NOTE | 2020-09-23 11:11 | P.ANESUD_ITS ---
Pre-Anesthetic Update Pre-Anesthetic Assessment: Date of Surgery/Procedure: 09/23/20 Preop Solange gnosis: lumbar stenosis Proposed Procedure: Operation Date: 09/23/20 11:10 Proposed Procedures p MIS bilateral decompression L3/4 06119, L4/5 66300 m48.061(Not Applicable) - New H Korina, DO Any changes to Pre-Anesthetic Assessment?: No Last Intake: Intake Last Liquid Date 09/22/20 Last Liquid Time 19:00 Last Solid Date 09/22/20 Last Solid Time 19:00 Labs Last 48hrs: Laboratory Results - last 48 hr 09/21/20 09/21/20 13:09 13:09 WBC 9.2 RBC 3.82 L Hgb 11.2 L Hct 34.9 L MCV 91.4 MCH 29.3 MCHC 32.1 RDW 15.0 Plt Count 391 MPV 9.0 Neut % (Auto) 61.4 Lymph % (Auto) 27.1 [place] % (Auto) 8.0 Eos % (Auto) 2.3 Baso % (Auto) 0.9 Neut # (Auto) 5.65 Lymph # (Auto) 2.5 [place] # (Auto) 0.7 Eos # (Auto) 0.2 Baso # (Auto) 0.1 Nucleated RBC % (a uto) 0 Nucleated RBCs # 0.0 Sodium 144 Potassium 3.5 Chloride 104 Carbon Dioxide 29 Anion Gap 14.5 BUN 14 Creatinine 0.5 GFR Calculation 125.9 Glucose 79 Calculated Osmolal ity 297 H Calcium 8.9 Vitals: Temperature 97.4 F L 09/23/20 09:50 Temperature Source Temporal Artery S can 09/23/20 09:50 Pulse Rate 58 L 09/23/20 09:50 Respiratory Rate 18 09/23/20 09:50 Blood Pressure 128/60 09/23/20 09:50 Blood Pressure Kayla n 82 09/23/20 09:50 Pulse Oximetry 98 09/23/20 09:50 Oxygen Delivery Me thod 09/23/20 09:53 Exam: Pre-Anes Outpt Exam: alert, oriented x 3, clear to auscultation bilaterally and regular rate & rhythm Cardiac Studies: No Data to Display
--- NOTE | 2020-09-23 13:01 | PM.OP ---
Operative Report Date of procedure: September 23, 2020 Pre-op Diagnosis: lumbar stenosis Post-op diagnosis: same Procedure Done: 1. L3/4 bilateral Laminectomy with partial facetectomy 2. L4/5 bilateral laminectomy with partial facetctomy Surgeon: New Hui Anesthesia: General Estimated blood loss (mL): 10 Condition: stable Disposition: PACU Procedure: 1. L3/4 bilateral Laminectomy with partial facetectomy 2. L4/5 bilateral laminectomy with partial facetctomy Patient is brought to the operative suite. After undergoing anesthesia they are placed in the supine position. All areas of impingement are well padded. Patient is then prepped and draped in the normal sterile fashion. A skin incision is made over the L4/5 level. This is confirmed under c-arm guidance. A series of dilators are passed and the tubular retractor is docked on the L4 lamina. A bovie is used to clear the soft tissue off the lamina and the L 4/5 facet joint. A high speed ha is then used to perform the laminectomy and take down the medial aspect of the L 4/5 facet joint. A kerrison rongeure was then used to take down the remaining lamina and smooth the edged of the laminectomy up to the point where the ligamentum flavum attaches. Attention was then brought to the medial aspect of the facet joint. The remaining medial aspect of the superior and inferior aspect of the facet joint were taken down with the kerrison from the pedicle of L4 to L 5. The facet joint had significant hypertrophy. Attention was then brought to the Ligamentum Flavum. The ligament was taken down from the lamina of L4 to L5 and out medially to the remaining facet joint. The ligament was thick. The dura was then exposed. The dura was in good repair. The L4 nerve was then traced with a curette out the L4/5 foramen and found to be adequately decompressed. The L5 nerve was traced with a curette around the L5 pedicle. The lateral recess was opened with a kerrison helping to further decompress the L5 nerve. The tubular retractor was then tilted to the contralateral side. The bovie was used to take down the soft tissue on the spinous process. The high speed ha was used to take down the spinous process and then the contralateral lamina of L4. The kerrison rongeur was used to take down the remaining lamina to the point where the ligamentum flavum attached and the ligamentum flavum was taken down from L4 to L5. The kerrison rongeur was then used to reach across and take down the medial aspect of the contralateral L4/5 facet joint.The currete was used to trace the contralateral L4 nerve out the L4/5 foramen to make sure it was decompressed adequatesly and the L5 was traced around the L5 pedicle. The lateral recess was opened further with the kerrison to ensure the L5 is adequately decompressed. Wound is then irrigated copiously with saline and surgiflo is used to stop any bleeding. The tubular retractor is removed A skin incision is made over the L3/4 level. This is confirmed under c-arm guidance. A series of dilators are passed and the tubular retractor is docked on the L3 lamina. A bovie is used to clear the soft tissue off the lamina and the L 3/4 facet joint. A high speed ha is then used to perform the laminectomy and take down the medial aspect of the L 3/4 facet joint. A kerrison rongeure was then used to take down the remaining lamina and smooth the edged of the laminectomy up to the point where the ligamentum flavum attaches. Attention was then brought to the medial aspect of the facet joint. The remaining medial aspect of the superior and inferior aspect of the facet joint were taken down with the kerrison from the pedicle of L3 to L 4. The facet joint had significant hypertrophy. Attention was then brought to the Ligamentum Flavum. The ligament was taken down from the lamina of L3 to L4 and out medially to the remaining facet joint. The ligament was thick. The dura was then exposed. The dura was in good repair. The L3 nerve was then traced with a curette out the L3/4 foramen and found to be adequately decompressed. The L4 nerve was traced with a curette around the L4 pedicle. The lateral recess was opened with a kerrison helping to further decompress the L4 nerve. The tubular retractor was then tilted to the contralateral side. The bovie was used to take down the soft tissue on the spinous process. The high speed ha was used to take down the spinous process and then the contralateral lamina of L3. The kerrison rongeur was used to take down the remaining lamina to the point where the ligamentum flavum attached and the ligamentum flavum was taken down from L3 to L4. The kerrison rongeur was then used to reach across and take down the medial aspect of the contralateral L3/4 facet joint.The currete was used to trace the contralateral L3 nerve out the L3/4 foramen to make sure it was decompressed adequatesly and the L4 was traced around the L4 pedicle. The lateral recess was opened further with the kerrison to ensure the L4 is adequately decompressed. Wound is then irrigated copiously with saline and surgiflo is used to stop any bleeding. The tubular retractor is removed and the wound is closed with vicryl and monocryl suture. Glue is then used to protect the wound. A sterile dressing is then placed. Patient was then placed in the supine position and transferred to the PACU in stable condition.
--- NOTE | 2020-09-23 13:05 | P.PCN_ITS ---
PACU note PACU note: VSS, Good respiratory effort, report to PRODUCT MERCHANDISER Post-Anesthesia Exam: awake
--- NOTE | 2020-09-23 13:05 | PM.PACU ---
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
[2020-09-23] MEDS: HYDROcodone-acetaminophen 5-325 mg Tablet 1 TAB PO (13:54)
--- NOTE | 2020-09-23 17:11 | ANE.PACU2 ---
Inpatient post-anesthesia follow up: Airway intact: Yes Vital signs: Temperature 98.4 F Pulse Rate 59 Respiratory Rate 18 Blood Pressure 130/79 Pulse Oximetry 98 Oxygen Delivery Me thod Nasal Cannula Oxygen Flow Rate 4 Fraction of Inspir ed Oxygen Hydration adequate: Yes Nausea and vomiting: No Pain level: 1 Mental status: Baseline
== END 2020-09-23 14:36 | disposition home or self-care (01) ==
PROVIDERS: PCP Family Medicine; Visit Provider Orthopaedic Surgery
PROC: (CPT 63005; principal; 2020-09-23 10:50)
DX: M48.061 Spinal stenosis, lumbar region without neurogenic claudication (principal); J44.9 Chronic obstructive pulmonary disease, unspecified; Z99.81 Dependence on supplemental oxygen; E66.01 Morbid (severe) obesity due to excess calories; Z68.41 Body mass index [BMI] 40.0-44.9, adult; I10 Essential (primary) hypertension; E03.9 Hypothyroidism, unspecified; Z87.891 Personal history of nicotine dependence
CPT/HCPCS: 63047; 63048; 72020; 76000; 80048; 85025; 93005; J0690; J1100; J2405; J2704; J2710; J3010; J3490; J7030

== ENCOUNTER → 2020-10-06 09:22 | Outpatient (BNVA) | payer MEDICARE, MEDICAID, SELFPAY | PROVIDERS: PCP Family Medicine; Visit Provider Anesthesiology Pain Medicine | DX: M51.16 Intervertebral disc disorders with radiculopathy, lumbar region (principal); M47.816 Spondylosis without myelopathy or radiculopathy, lumbar region; M48.061 Spinal stenosis, lumbar region without neurogenic claudication; M79.605 Pain in left leg; M79.604 Pain in right leg; Z79.891 Long term (current) use of opiate analgesic; Z87.891 Personal history of nicotine dependence | CPT/HCPCS: 99213 ==

== ENCOUNTER → 2020-11-03 10:28 | Outpatient (BNVA) | payer MEDICARE, MEDICAID, SELFPAY | PROVIDERS: PCP Family Medicine; Visit Provider Anesthesiology Pain Medicine | DX: G89.29 Other chronic pain (principal); M51.16 Intervertebral disc disorders with radiculopathy, lumbar region; M47.816 Spondylosis without myelopathy or radiculopathy, lumbar region; M48.061 Spinal stenosis, lumbar region without neurogenic claudication; Z79.891 Long term (current) use of opiate analgesic | CPT/HCPCS: 99213 ==

== ENCOUNTER → 2020-12-01 10:27 | Outpatient (BNVA) | payer MEDICARE, MEDICAID, SELFPAY | PROVIDERS: PCP Family Medicine; Visit Provider Anesthesiology Pain Medicine | DX: G89.29 Other chronic pain (principal); M51.16 Intervertebral disc disorders with radiculopathy, lumbar region; M47.816 Spondylosis without myelopathy or radiculopathy, lumbar region; M48.061 Spinal stenosis, lumbar region without neurogenic claudication; M79.604 Pain in right leg; M79.605 Pain in left leg; Z79.891 Long term (current) use of opiate analgesic | CPT/HCPCS: 99214 ==

== ENCOUNTER → 2020-12-09 14:32 | Outpatient (BNVA) | payer MEDICARE, MEDICAID, SELFPAY | PROVIDERS: PCP Family Medicine; Visit Provider Anesthesiology Pain Medicine | DX: M53.3 Sacrococcygeal disorders, not elsewhere classified (principal); M54.9 Dorsalgia, unspecified | CPT/HCPCS: G0260; J1040; J3490 ==

== ENCOUNTER → 2020-12-23 11:01 | Outpatient (BNVA) | payer MEDICARE, MEDICAID, SELFPAY | PROVIDERS: PCP Family Medicine; Visit Provider Anesthesiology Pain Medicine | DX: M51.16 Intervertebral disc disorders with radiculopathy, lumbar region (principal); M47.816 Spondylosis without myelopathy or radiculopathy, lumbar region; M48.061 Spinal stenosis, lumbar region without neurogenic claudication; I10 Essential (primary) hypertension; Z79.891 Long term (current) use of opiate analgesic | CPT/HCPCS: 99212; 99213 ==

== ENCOUNTER 2021-01-07 10:29 | Outpatient (CLI) | payer MEDICARE, MEDICAID, SELFPAY ==
--- NOTE | 2021-01-07 11:00 | MR_ITS ---
WS: [id number] MRI LUMBAR SPINE NONCONTRAST HISTORY: Z98.890 - Other specified postprocedural states, numbness in legs. COMPARISON: 11/04/2019 TECHNIQUE: Sagittal and axial multisequence imaging is submitted. Disc bulging and osteophytes in the cervical spine without significant stenosis. Again noted is a rima tral disc protrusion at T7-8 contacting the ventral thoracic cord. Mild increase in the normal lumbar lordosis. No fractures. There is a small amount of marrow edema in the posterior elements of L5 on the RIGHT. Mild disc space narrowing and desiccation throughout the lumbar spine. Conus terminates normally at L1. L1-L2: Normal. L2-L3: Very mild asymmetric disc bulging. No stenosis. Again noted is a very small LEFT foraminal dis c protrusion. Small amount of fluid in the facet joints bilaterally. L3-L4: Diffuse mild annular disc bulging with moderate ligamentum flavum and facet arthritis. Fluid i n the facet joints bilaterally. Mild encroachment into the thecal sac by degenerative changes at the ligamentum flavum and disc disease. Mild central and bilateral foraminal and subarticular recess sten osis. Progression of stenosis and degenerative changes since the prior study. L4-L5: Diffuse annular disc bulging. Severe bilateral facet joint arthritis and ligamentum flavum art hritis encroaching into the thecal sac. Nerve roots displayed within the periphery of the thecal sac. Again noted is a small disc protrusion in the RIGHT foramen contacting the exiting L4 nerve root. Mo derate central and bilateral subarticular recess stenosis with only minimal progression. Fluid within the facet joints is increased. L5-S1: Moderate bilateral facet joint arthritis. No stenosis or focal disc protrusion. Laminectomy defects are noted on the LEFT at L3 and L4. MR/MR lumbar spine wo con* [id number] IMPRESSION: 1. Status post laminectomy defects on the LEFT at L3 and L4. 2. Mild central, bilateral foraminal subarticular recess stenosis at L3-4 with minimal progression since the prior study. 3. Moderate central and bilateral subarticular recess stenosis at L4-5. 4. No change in the RIGHT foraminal disc protrusion at L4-5. Protrusion contac ts the exiting L4 nerve root. 5. Increasing amount of fluid in the facet joints at L4-5. 6. No change in the central disc protrusion at T7-8. 7. Small amount of marrow edema in the posterior elements of L5 on the RIGHT. This may be postsurgical.
== END 2021-01-07 10:30 | disposition home or self-care (01) ==
PROVIDERS: PCP Family Medicine; Visit Provider Orthopaedic Surgery
DX: Z98.890 Other specified postprocedural states (principal); R20.0 Anesthesia of skin; M96.1 Postlaminectomy syndrome, not elsewhere classified; M48.061 Spinal stenosis, lumbar region without neurogenic claudication; M51.26 Other intervertebral disc displacement, lumbar region; M51.24 Other intervertebral disc displacement, thoracic region; R60.0 Localized edema
CPT/HCPCS: 72148

== ENCOUNTER → 2021-01-12 10:13 | Outpatient (BNVA) | payer MEDICARE, MEDICAID, SELFPAY | PROVIDERS: PCP Family Medicine; Visit Provider Physician Assistant | DX: M48.061 Spinal stenosis, lumbar region without neurogenic claudication (principal) | CPT/HCPCS: 72120 ==

== ENCOUNTER → 2021-01-20 10:57 | Outpatient (BNVA) | payer MEDICARE, MEDICAID, SELFPAY | PROVIDERS: PCP Family Medicine; Visit Provider Anesthesiology Pain Medicine | DX: M51.16 Intervertebral disc disorders with radiculopathy, lumbar region (principal); M47.816 Spondylosis without myelopathy or radiculopathy, lumbar region; M48.061 Spinal stenosis, lumbar region without neurogenic claudication; M51.17 Intervertebral disc disorders with radiculopathy, lumbosacral region; M79.604 Pain in right leg; M79.605 Pain in left leg; Z79.891 Long term (current) use of opiate analgesic; Z98.890 Other specified postprocedural states | CPT/HCPCS: 99215 ==

== ENCOUNTER → 2021-03-03 09:54 | Outpatient (BNVA) | payer MEDICARE, MEDICAID, SELFPAY | PROVIDERS: PCP Family Medicine; Visit Provider Orthopaedic Surgery | DX: M43.16 Spondylolisthesis, lumbar region (principal) | CPT/HCPCS: 87635 ==

== ENCOUNTER 2021-03-10 16:59 | Observation (INO) | payer MEDICARE, MEDICAID, SELFPAY ==
[2021-03-03 12:03] VITALS: BMI 39.9
--- NOTE | 2021-03-03 12:32 | ANES.PREANE2 ---
Pre-Anesthetic Assessment Pre-Anesthetic Assessment: Height/Weight: Height 1.65 m Weight 108.862 kg Preop Diagnosis: lumbar stenosis Proposed Procedure: Operation Date: 03/10/21 10:25 Proposed Procedures p Posterior Lumbar Interbody Fusion L4/5 L5/S1 [id number] M43.16 M54.50(Not Applicable) - New Hui, DO Familial anesthetic complications: none Social: Comment: former smoker Exam: Pre-Anes Outpt Exam: alert, oriented x 3, clear to auscultation bilaterally and regular rate & rhythm Airway: MP: 1 Dentition: Other (missing) Pulmonary: Pulmonary: Asthma Comments: covid in august - back to normal now pretty much CV/HEM: CV/HEM: CHF and HTN Comments: 2019 echo CONCLUSIONS 1-Normal left ventricular cavity size. Normal left ventricular systolic function. No regional wall motion abnormalities. 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 ejection fraction is estimated at 65 %. Grade I/IV diastolic dysfunction (abnormal relaxation filling pattern), normal to mildly elevated filling pressures. 2-There is no pericardial effusion. 3-No significant valve abnormalities. 4-Pulmonary artery systolic pressure is within normal limits. 5-Right atrial pressure is around 5 mm of mercury. 6-There are no prior echocardiogram studies to compare Metabolic: Metabolic: Morbid obesity and Thyroid Anesthetic Plan: ASA status: 3 Anesthesia: General Risk of > 500 ml blood loss (7ml/kg in children): No PFSH Anesthesia PFSH: Medical History Asthma Cervical radiculopathy Chronic low back pain Dyspnea on exertion Facet arthritis, degenerative, lumbar spine Facet arthropathy, lumbar History of kidney stones Hx of mitral valve prolapse Hypersomnia Hypertension Hypothyroidism 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 diastolic dysfunction skilled nursing (current) use of opiate analgesic Lumbar disc disease with radiculopathy Lumbar stenosis Osteoarthritis of hands, bilateral Pain management contract signed Peripheral neuropathy Right median nerve neuropathy Surgical History History of carpal tunnel surgery Hx of cholecystectomy Hx of hysterectomy Hx of total ankle replacement Family History Mother CAD (coronary artery disease) Other Cancer Diabetes Hypertension Denies family history of Stroke Social History Quit status (tobacco): has quit using tobacco Year quit tobacco: 2005 Alcohol intake: never Caregiver/support person: Yes Lives independently: Yes History of recent travel: No (travel from [facility]) Data Anesthesia Cardiac Studies: No Data to Display
[2021-03-10] VITALS (22 sets, daily range): BP systolic 79–146; BP diastolic 51–85; PULSE 59–104; RESP 13–20; TEMP 36.1–36.9; O2SAT 93–97
--- NOTE | 2021-03-10 | SCC_ITS ---
Procedure Done: 1. L4/5 Interbody fusion with posterolateral fusion 2. L5/S1 Interbody fusion with posterolateral fusion 3. Instrumentation L3-S1 4. Cage at L4/5 5. Cage L5/S1 6. Revision Laminectomy L4 to decompress nerve 7. laminectomy L5 to decompress nerve 8. revision L3/4 Laminectomy with bilateral partial facetectomies 9. use of autograft from same incision 10. allograft 11. Bone marrow aspirate from right iliac crest 12. computer navigation/ stereotactic of spine 23 seconds of fluoroscopic guidance, for a cumulative dose of 109.3mGy, was provided to Dr. Hui by the radiology department. C-arm images of the lumbar spine were saved for the patient's permanent record. [facility]
[2021-03-10] MEDS: sodium chloride 0.9% 1,000 ML 30 ML IV (08:09)
[2021-03-10 08:12] LABS: Basophils # 0.1 10^3/uL (0.0-0.1); Basophils % 0.7 %; Eosinophils # 0.4 10^3/uL (0.0-0.8); Eosinophils % 3.5 %; Hematocrit 40.1 % (37.0-47.0); Hemoglobin 12.9 g/dL (11.5-15.3); Lymphocytes % 36.1 %; Mean Corpuscular HGB Conc 32.2 g/dL (30.0-36.0); Mean Corpuscular Hemoglobin 28.2 pg (28.0-34.0); Mean Corpuscular Volume 87.7 fl (81-99); Mean Platelet Volume 8.5 fL (7.4-10.4); Monocytes # 0.8 10^3/uL (0.2-0.9); Monocytes % 7.1 %; Neutrophils # 5.72 10^3/uL (1.8-7.7); Neutrophils % 52.4 %; Nucleated Red Blood Cells % 0 %; Platelet Count 354 10^3/cmm (130-400); Red Blood Count 4.57 10^6/uL (4.1-5.3); Red Cell Distribution Width 14.6 % (12.1-15.1); White Blood Count 10.9 10^3/uL (4.0-10.0)
[2021-03-10 08:25] LABS: Anion Gap 19.2 (5-19); Blood Urea Nitrogen 23 mg/dL (8-23); Carbon Dioxide 23 mmol/L (22-29); Chloride 102 mmol/L (98-107); Glomerular Filtration Rate 73.2 mL/min (90-130); Glucose 97 mg/dL (65-115); Osmolality Calculated 294 mOsm/kg (285-295); Potassium 4.2 mmol/L (3.5-5.1); Sodium 140 mmol/L (136-145)
--- NOTE | 2021-03-10 10:08 | P.ANESUD_ITS ---
Pre-Anesthetic Update Pre-Anesthetic Assessment: Date of Surgery/Procedure: 03/10/21 Preop Solange gnosis: spondylolisthesis l5-s1 Proposed Procedure: Operation Date: 03/10/21 09:15 Proposed Procedures p Posterior Lumbar Interbody Fusion L4/5 L5/S1 [id number] [id number] [id number] 79566 M43.16 M54.50(Not Applicable) - New H Korina, DO Any changes to Pre-Anesthetic Assessment?: No Last Intake: Intake Last Liquid Date 03/09/21 Last Liquid Time 23:00 Last Solid Date 03/09/21 Last Solid Time 22:00 Labs Last 48hrs: Laboratory Results - last 48 hr 03/10/21 03/10/21 03/10/21 08:00 08:00 08:00 WBC 10.9 H RBC 4.57 Hgb 12.9 Hct 40.1 MCV 87.7 MCH 28.2 MCHC 32.2 RDW 14.6 Plt Count 354 MPV 8.5 Neut % (Auto) 52.4 Lymph % (Auto) 36.1 [place] % (Auto) 7.1 Eos % (Auto) 3.5 Baso % (Auto) 0.7 Neut # (Auto) 5.72 Lymph # (Auto) 4.0 [place] # (Auto) 0.8 Eos # (Auto) 0.4 Baso # (Auto) 0.1 Nucleated RBC % (a uto) 0 Nucleated RBCs # 0.0 Sodium 140 Potassium 4.2 Chloride 102 Carbon Dioxide 23 Anion Gap 19.2 H BUN 23 Creatinine 0.8 GFR Calculation 73.2 L Glucose 97 Calculated Osmolal ity 294 Calcium 9.0 Blood Type A Positive Rho(D) Type Positive Antibody Screen Negative Vitals: Temperature 98.4 F 03/10/21 07:51 Temperature Source Temporal Artery S can 03/10/21 07:51 Pulse Rate 59 L 03/10/21 07:51 Pulse Rhythm 03/10/21 07:58 Pulse Strength 3+ Normal 03/10/21 07:58 Respiratory Rate 18 03/10/21 07:51 Blood Pressure 130/66 03/10/21 07:51 Blood Pressure Kayla n 87 03/10/21 07:51 Pulse Oximetry 94 03/10/21 07:51 Oxygen Delivery Me thod 03/10/21 07:58 Exam: Pre-Anes Outpt Exam: alert, oriented x 3, clear to auscultation bilaterally and regular rate & rhythm Cardiac Studies: Echocardiogram Ultrasound 02/21/20
[2021-03-10] MEDS: HYDROmorphone 1 mg/mL INJ 1 mL 0.5 MG IVP (10:15)
--- NOTE | 2021-03-10 10:36 | P.HP_ITS ---
Providers/Chief Complaint Primary Care Provider: Otto Cobb MD Chief Complaint: Spondylolisthesis lumbar region History of Present Illness Giat Robison is a 60 year old female low back pain with pain rating down her left leg into her foot. Dr. Hui did L3/4 and L4/5 decompression in September 2020 with no relief. She denies any specific injury. She states the pain through her legs has not improved following surgery. She denies any fever chills or drainage from her incisional site. She is here today to go over her NCS/EMG results from 2018, [place], [place]. she did not gain any relief following the greater trochanteric injection previously. She has not gained any relief from injections or procedures by Dr. Grande. She is very frustrated she is at a point where she is wanting something more definitive done. She cannot walk any distance. She describes pain in her back traveling down her butt into her left leg and foot. Associated symptoms: Denies abdominal pain, chills, fatigue, fever(s), nausea or vomiting Review of Systems Narrative: General ROS: negative for weight changes, fever ENT ROS: negative for nasal congestion, drainage or bleeding, sore throat, dysphagia or ear pain Eyes: PERRL Hematological and Lymphatic ROS: negative for swollen glands or abnormal bleeding Endocrine ROS: negative for polyuria/polydpsia or new changes in weight Respiratory ROS: negative for cough, shortness of breath, or wheezing Cardiovascular ROS: negative for chest pain or dyspnea on exertion Gastrointestinal ROS: negative for reflux, abdominal pain, change in bowel habits, or black or bloody stools Musculoskeletal ROS: negative for back pain, neck pain, or joint pain or swelling except for current problem Neurological ROS: negative for TIA or stoke symptoms Skin: no rashes Medications/Allergies Home Medications Medication Instructions Recorded Confirmed Last Taken Type albuterol sulfate 90 mcg/actuation 2 puff INHALATION Q6H PRN 07/30/19 03/03/21 09/16/20 History aerosol inhaler cetirizine 10 mg tablet 10 mg PO DAILY@0607/30/19 03/10/21 03/09/21 History diltiazem HCl 360 mg 360 mg PO DAILY@0607/30/19 03/10/21 03/09/21 History capsule,extended release 24 hr losartan 100 mg tablet 100 mg PO DAILY@0607/30/19 03/10/2129/21 History ropinirole 2 mg tablet 2 mg PO DAILY@2100 07/30/19 03/10/21 03/09/21 History hydroxyzine HCl 25 mg tablet 25 mg PO BID PRN 09/05/19 03/10/21 03/09/21 History montelukast 10 mg tablet 10 mg PO DAILY@2100 09/05/19 03/10/21 03/09/21 History levothyroxine 150 mcg tablet 150 mcg PO DAILY@0600 03/23/20 03/10/21 03/10/21 History carvedilol 6.25 mg tablet 6.25 mg PO BID@0600,2100 04/09/20 03/10/21 03/10/21 05:30 History potassium chloride 10 meq PO PRN 08/12/20 03/10/21 02/23/21 History indapamide 1.25 mg PO DAILY@0600 #0 tab 08/20/20 03/10/21 09/22/20 Rx tramadol 50 mg tablet 50 mg PO TID PRN 30 Days #60 tab 09/08/20 03/03/21 09/22/20 Rx budesonide 0.25 mg INHALATION BID 09/21/20 03/10/21 03/08/21 History furosemide 20 mg PO PRN PRN 09/21/20 03/10/21 02/23/21 History hydrocodone-acetaminophen 1 - 2 tab PO .Q4-6H #40 tab 09/23/20 03/10/21 03/09/21 Rx diazepam 5 mg tablet 5 mg PO DAILY PRN #30 tab 10/08/20 03/10/21 Unknown Rx tizanidine 4 mg tablet 4 mg PO BID PRN #60 tab 12/23/20 03/10/21 03/03/21 Rx gabapentin 600 mg tablet 600 mg PO TID #90 tab 01/20/21 03/10/21 03/06/21 Rx Allergies Allergy/AdvReac Type Severity Reaction Status Date / Time celecoxib Allergy Mild itchin Verified 01/21/21 07:51 diclofenac Allergy Mild cough Verified 01/21/21 07:51 emollient combination no.60 Allergy Mild headache, Verified 01/21/21 07:51 [From [facility]] kidey pain, welts& rash hydrochlorothiazide Allergy Mild muscle Verified 01/21/21 07:51 spasms ibuprofen Allergy Mild itching Verified 01/21/21 07:51 venlafaxine Allergy Mild all day Verified 01/21/21 07:51 drugged feeling Iodinated Contrast Media Allergy ALGY-Hives Verified 01/21/21 07:51 lisinopril Allergy ADR-Cough Verified 01/21/21 07:51 PFSH Acute PFSH: Medical History Asthma Cervical radiculopathy Chronic low back pain Dyspnea on exertion Facet arthritis, degenerative, lumbar spine Facet arthropathy, lumbar History of kidney stones Hx of mitral valve prolapse Hypersomnia Hypertension Hypothyroidism 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 diastolic dysfunction 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 Lumbar disc disease with radiculopathy Lumbar stenosis Osteoarthritis of hands, bilateral Pain management contract signed Peripheral neuropathy Right median nerve neuropathy Surgical History History of carpal tunnel surgery Hx of cholecystectomy Hx of hysterectomy Hx of total ankle replacement Family History Mother CAD (coronary artery disease) Other Cancer Diabetes Hypertension Denies family history of Stroke Social History Quit status (tobacco): has quit using tobacco Year quit tobacco: 2005 Alcohol intake: never Caregiver/support person: Yes Lives independently: Yes History of recent travel: No (travel from [facility]) Vitals/I&O/Wt Last Vital Signs Temp 98.4 F 03/10/21 07:51 Pulse 59 L 03/10/21 07:51 Resp 18 03/10/21 10:15 BP 130/66 03/10/21 07:51 Pulse Ox 94 03/10/21 07:51 Physical Exam Narrative: EXAM NARRATIVE: CONSTITUTIONAL: The patient is a normal appearing [] in no apparent distress. GENERAL: Patient in no acute distress. CARDIAC: Regular rate and rhythm. CHEST: Normal inspiratory effort, normal respiratory rate. ABDOMEN: Soft and nontender. SKIN: Clear, warm and intact. NEURO?PSYCH: The patient is alert and oriented to person, place and time. Sensorv /SILT Motor StrengthShoulder abduction C5 5/5Wrist extension C6 5/5Elbow extension C7 5/5Hand Financial Intern C8 5/5Finger abduction T15/5 Radial/ Ulnar/ Median n intact LowerSensory (SILT)Motor StrengthHin flexion L2/3Ant/inner thigh 5/5Hip adduction L2/3 5/5Knee extension L4 Lat thigh, 5/5Toe dorsiflexion L5 5/5Ankle dorsiflexion L5/ C14Ppwugft flexion S1 5/5 DTRBleeps 2+Triceps 2+Brachioradialis 2+Patellar 2+Achilles 2+ MUSCULOSKELETAL: [] UPPEREXTREMITIES: The patient had full active ROM in fingers, wrist, elbow, and shoulder. The patient demonstrated ability to fully flex/extend/abduct/adduct fingers, make ok sign, cross 2nd/3rd digits, extend 1st digit fully.. Radial pulse 2+, CR<2 seconds. LOWER EXTREMITIES: Pt has full, active ROM of toes, ankle, knee, and hip. Dorsalis pedis/posterior tibialis pulses 2+, CR<2 seconds. SPINE: Skin warm, dry, intact. Data : 03/10/21 08:00 03/10/21 08:00 A&P Assessment and plan (1) Spondylolisthesis at L4-L5 level: L3- S1 fusion and decompression Status: Acute Attestations Medical Necessity Statement*: failed conservative tx Coding Level of Care Code Acute Apprentice Electrician for Chg Fwd Diagnoses Spondylolisthesis at L4-L5 level M43.16
[2021-03-10] MEDS: heparin, porcine 1,000 unit/mL INJ 10 mL 10000 UNIT XX (12:10)
[2021-03-10] MEDS: vancomycin 1,000 MG SDV 1000 MG XX (15:12)
--- NOTE | 2021-03-10 15:38 | XR_ITS ---
WS: [id number] Lumbar spine, C-arm fluoroscopy, 03/10/2021 Clinical Data: LUMBAR FUSION Comparison: Lumbar spine, 01/12/2021 Findings: Dr. Hui performed posterior lumbar fusion with bilateral pedicle screws from L3 through S1 with con necting rods. There are disc spacers at L4-L5 and L5-S1. XR/XR lumbar spine 1V [id number] Impression: Posterior lumbar fusion.
--- NOTE | 2021-03-10 15:58 | PM.OP ---
Operative Report Date of procedure: March 10, 2021 Pre-op Diagnosis: spondylolisthesis l5-s1; Lumbar stenosis with neurogenic claudication Post-op diagnosis: same Procedure Done: 1. L4/5 Interbody fusion with posterolateral fusion 2. L5/S1 Interbody fusion with posterolateral fusion 3. Instrumentation L3-S1 4. Cage at L4/5 5. Cage L5/S1 6. Revision Laminectomy L4 to decompress nerve 7. laminectomy L5 to decompress nerve 8. revision L3/4 Laminectomy with bilateral partial facetectomies 9. use of autograft from same incision 10. allograft 11. Bone marrow aspirate from right iliac crest 12. computer navigation/ stereotactic of spine Surgeon: New Hui [employer] Photographer: Lawrence Santiago [employer] News Photographer: The surgical garment assembler, Lawrence Santiago, PAC was needed for his expertise under the microscope. He was important and necessary throughout the procedure to complete in a safe and timely manner. He assisted with patient positioning prepping and draping tissue retraction suctioning of the operative field protection of the dural sac and tissue closure Anesthesia: General Estimated blood loss (mL): 1,500 Condition: stable Disposition: PACU Procedure: 1. L4/5 Interbody fusion with posterolateral fusion 2. L5/S1 Interbody fusion with posterolateral fusion 3. Instrumentation L3-S1 4. Cage at L4/5 5. Cage L5/S1 6. Revision Laminectomy L4 to decompress nerve 7. laminectomy L5 to decompress nerve 8. revision L3/4 Laminectomy with bilateral partial facetectomies 9. use of autograft from same incision 10. allograft 11. Bone marrow aspirate from right iliac crest 12. computer navigation/ stereotactic of spine Patient is brought to the operative suite. After undergoing anesthesia, the patient had neuro monitoring attached. Patient was then placed in the prone position on the Alban table. All areas of impingement were well-padded. Patient was then prepped and draped in the normal sterile fashion. Skin incision was then made over the L3-S1 level. Subperiosteal dissection was made out to the transverse processes of L3 and L4 and L5 and the ala of the sacrum bilaterally. Once the exposure was complete attention was then brought to obtaining bone marrow aspirate. The [employer] bone marrow aspirate kit was used to aspirate bone marrow aspirate from the right iliac crest. This was done by using the sharp probe to open up the bone. Aspiration was performed and then the blunt probe was then used to dissect down to through the bone tunnel. An aspirating well drawn back a millimeter approximately 20 cc of bone marrow aspirate was used. And mixed with the allograft and autograft bone that will be used. Next attention was brought to placing the fiducial for the computer navigation. The pins were placed into the right iliac crest. Fiducials attached to this. Then the C-arm was brought in and did a spin around the patient. This information was then loaded in the computer and the fiducial and everything was linked together. The technique for placing the pedicle screws was to use a drill followed by the gearshift probe using computer navigation. Followed by the ball probe to feel the superior inferior medial lateral campuzano of the pedicles. Then placement of the screws. Was done at each pedicle using computer navigation. Screws were placed at L3 bilaterally and L4 and L5 bilaterally and S1 bilaterally. Next attention was brought to performing the laminectomy of L5. This was done using the high-speed bur Kerrisons and curettes. Once the lamina was removed and then attention was brought to performing a partial facetectomy on the contralateral side. This was done again using the high-speed bur curettes and Kerrisons. The ligamentum flavum was taken down bilaterally from L5 to S1. Attention was then brought to the facet on the ipsilateral side. The facet was taken down. The S1 nerve was decompressed as it passed around the S1 pedicle. The laminectomy was done for purposes of decompressing the nerve as well as placement of the cage. The L5 nerve was identified as it traversed through the L5/S1 foramen. The thecal sac was identified and retracted. The L5/S1 disc base was identified. Using a knife the disc base was opened. And then sequential shyanne were placed. The first shaver was a 6 and the last shaver was a 12. Using a pituitary and down going curette the endplates were scraped and disc material was removed from the space. Once adequate decompression of the disc base was felt to be had. Osteoamp sponge was packed into the anterior aspect of the disc base. Then a size 12 cage from [employer] was placed after packing osteoamp into the cage. While placing the cage the thecal sac and S1 nerve was protected. C arm was used to ensure that the cages placed in the appropriate position. Next attention was brought to performing the laminectomy ofL4. This is a revision. There is significant amount of scar tissue. This was done using the high-speed bur Kerrisons and curettes. Once the lamina was removed and then attention was brought to performing a partial facetectomy on the contralateral side. This was done again using the high-speed bur curettes and Kerrisons. The ligamentum flavum was taken down bilaterally from L4 to L5. Attention was then brought to the facet on the ipsilateral side. The facet was taken down. The L5 nerve was decompressed as it passed around the L5 pedicle. The laminectomy was done for purposes of decompressing the nerve as well as placement of the cage. The L4 nerve was identified as it traversed through the L4/5 foramen. The thecal sac was identified and retracted. The L4/5 disc base was identified. Using a knife the disc base was opened. And then sequential shyanne were placed. The first shaver was a 6 and the last shaver was a 12. Using a pituitary and down going curette the endplates were scraped and disc material was removed from the space. Once adequate decompression of the disc base was felt to be had. Osteoamp sponge was packed into the anterior aspect of the disc base. Then a size 12 cage from [employer] was placed after packing osteoamp into the cage. While placing the cage the thecal sac and L5 nerve was protected. C arm was used to ensure that the cages placed in the appropriate position. Attention was then brought to the L3-4 level. The previous laminectomy site was identified. There is significant mount of scar tissue scarring down to the dura. As I was at the L4-5 level. The high-speed bur was used to perform partial facetectomies bilaterally. From the pedicle of L3 down to the pedicle of L4. Bilaterally the L3 nerve root was traced out the L3-4 foramen. And the L4 nerve was traced as it passed around the pedicle of L4. The nerve roots were felt to be completely decompressed. Attention was then brought to attaching the rods to the screws placed in the L3 thru S1 bilaterally. Caps were torqued into position. Locking the construct in place. Wound was copiously irrigated and then attention was brought to decorticating the facets and transverse processes laterally. Bone that was taken down from the lamina was used along with osteoamp fibers and sponges were packed into the lateral gutters along the facet joints. This was done bilaterally. Wound was then closed in a layered fashion starting with the thoracolumbar fascia. 0-vicryl was used the sub cutaneous tissue was closed with 2-0 vicryl and skin with 4-0 monocryl. Glue was then used to seal the skin and a steril dressing was applied. Patient was then placed in the supine position. The endotracheal tube was removed and patient was transferred to the PACU in stable condition.
[2021-03-10 16:13] LABS: Hematocrit 32.9 % (37.0-47.0); Hemoglobin 10.4 g/dL (11.5-15.3)
--- NOTE | 2021-03-10 16:20 | ANE.PACU2 ---
Inpatient post-anesthesia follow up: Airway intact: Yes Vital signs: Temperature 98.0 F Pulse Rate 104 Respiratory Rate 20 Blood Pressure 85/57 Pulse Oximetry 94 Oxygen Delivery Me thod Simple Mask Oxygen Flow Rate 8 Fraction of Inspir ed Oxygen Hydration adequate: No Nausea and vomiting: No Pain level: 2 Mental status: Baseline Additional Comments: Behind on fluids just a little, f/u H/H.
[2021-03-10] MEDS: fentaNYL 50 mcg/mL INJ 2mL IVP ×2 (16:30→16:55)
[2021-03-10] MEDS: lactated ringers 1,000 ML 90 ML IV (17:44)
[2021-03-10] MEDS: docusate sodium 100 mg Capsule PO (17:44)
[2021-03-10] MEDS: HYDROcodone-acetaminophen 5-325 mg Tablet PO ×2 (17:44→23:19)
[2021-03-10] MEDS: ondansetron 2 mg/ML SDV 2 mL 4 MG IVP ×2 (18:32→22:09)
[2021-03-10] MEDS: montelukast sodium 10 mg Tablet PO (20:45)
[2021-03-10] MEDS: TRAMadol 50 mg Tablet PO (20:45)
[2021-03-10] MEDS: carvedilol 6.25 mg Tablet PO (20:46)
[2021-03-10] MEDS: gabapentin 300 mg Capsule 600 MG PO (20:46)
[2021-03-10] MEDS: diazePAM 5 mg Tablet PO (20:46)
[2021-03-10] MEDS: ropinirole 2 mg Tablet PO (20:46)
[2021-03-10] MEDS: morphine 4 mg/mL SDV 1 mL 2 MG IVP (22:14)
[2021-03-11] VITALS (19 sets, daily range): BP systolic 93–135; BP diastolic 56–79; PULSE 65–77; RESP 15–20; TEMP 36.5–36.9; O2SAT 89–95
--- NOTE | 2021-03-11 01:16 | PC.NURSE ---
0015 pt resting with eyes closed. No distress.
--- NOTE | 2021-03-11 02:55 | PC.NURSE ---
0255 Pt resting in bed. easily arouses. Requests pain pills when due. doesn't want IV pain med at this time.
[2021-03-11] MEDS: HYDROcodone-acetaminophen 5-325 mg Tablet PO ×5 (03:54→21:28)
--- NOTE | 2021-03-11 04:00 | PC.NURSE ---
0400 Pt given hydrocodone x 2 as ordered. Pain 7:10. Ice chips given.
[2021-03-11] MEDS: lactated ringers 1,000 ML 90 ML IV ×2 (04:36→16:33)
[2021-03-11] MEDS: dilTIAZem ER (24HR) 180 mg Capsule 360 MG PO (05:08)
[2021-03-11] MEDS: enoxaparin 40 mg/0.4 mL Syringe SUBCUT (05:08)
[2021-03-11] MEDS: carvedilol 6.25 mg Tablet PO ×2 (05:09→21:30)
[2021-03-11] MEDS: cetirizine 10 mg Tablet PO (05:09)
[2021-03-11] MEDS: losartan 50 mg Tablet 100 MG PO (05:09)
[2021-03-11] MEDS: levothyroxine 150 mcg Tablet PO (05:18)
--- NOTE | 2021-03-11 07:39 | P.PN_ITS ---
Documented by User: SAGRARIO Marte 03/11/21 07:44 Subjective Subjective: Interval history: POD 1 Patient reporting mild back pain this morning. Numbness in both legs. Denies chest pain, shortness of breath, headaches. Vitals/I&O/Wt Last Vital Signs Temp 98.2 F 03/11/21 07:11 Pulse 70 03/11/21 07:11 Resp 18 03/11/21 07:11 BP 118/72 03/11/21 07:11 Pulse Ox 93 03/11/21 07:11 03/10/21 03/11/21 03/11/21 22:59 06:59 14:59 Intake Total 660 / 720 1228 / 1948 100 / 100 Output Total 1910 / 1910 885 / 2795 Balance -1250 / -1190 343 / -847 100 / 100 Physical Exam Narrative: EXAM NARRATIVE: Patient presents alert and oriented x3 with a good general appearance normal normal affect. Normal coordination normal stability. Moderate tenderness around the incisional site with the incision appear to be he aling nicely. No signs of erythema or drainage. No signs of infection. Patient denies any fevers or chills. 4/5 motor strength both lower extremities with negative straight leg raise bilaterally. Calves are supple no medial thigh tenderness. Pulses are 2+ at the dorsalis pedis and posterior tibial region. Good capillary refill throughout normal sensation light touch both lower extremities. Abdomen soft mildly distended nontender with palpation. Positive bowel sounds Urinary Catheter Management^: Kaye: Cath Placed During This Visit: yes Reason for Continuing Indwelling Catheter: Required Immobilization for Trauma or Surgery or Anesthesia Urinary Catheter Date of Insertion: 03/10/21 Urinary Catheter Time of Insertion: 11:25 Data : 03/11/21 07:40 03/10/21 08:00 A&P Assessment and plan (1) Status post lumbar spinal fusion: We will discontinue the Hemovac drain, discontinue Kaye catheter. Begin mobilizing with physical therapy. Encourage incentive spirometry for pulmonary toilet. We will discharge home later today if medically stable. Status: Acute Attestations Medical Necessity Statement*: home later today if medically stable Coding Level of Care Code Acute Clinical Rehabilitation Specialist for Freya Fwjames Diagnoses Status post lumbar spinal fusion Z98.1 Documented by User: New Hui DO 03/11/21 08:14 Physical Exam Urinary Catheter Management^: Kaye: Cath Placed During This Visit: no Data : 03/11/21 07:40 03/10/21 08:00 Coding Level of Care Code Acute Clinical Rehabilitation Specialist for Chg Fwd Diagnoses Status post lumbar spinal fusion Z98.1
[2021-03-11 07:57] LABS: Hematocrit 26.4 % (37.0-47.0); Hemoglobin 8.4 g/dL (11.5-15.3)
[2021-03-11] MEDS: docusate sodium 100 mg Capsule PO ×2 (08:07→17:45)
[2021-03-11] MEDS: gabapentin 300 mg Capsule 600 MG PO ×3 (08:07→21:28)
--- NOTE | 2021-03-11 08:14 | PM.DCS ---
Discharge Providers Date of Admission: 03/10/21 16:59 Date of Discharge: March 11, 2021 Attending Provider at Admission: New Hui DO Attending Provider at Discharge: New Hui DO Primary Care Provider: Otto Cobb MD Diagnoses at Discharge Discharge Diagnosis (1) Status post lumbar spinal fusion: Status: Acute Reason for Visit Reason for Visit: Spondylolisthesis lumbar region Hospital Course Hospital Course Patient was admitted on 03/10/2021 for a L3-S1 fusion. Her stay was uneventful she was discharged on 03/11/2021 Physical Exam Urinary Catheter Management^: Kaye: Cath Placed During This Visit: yes Reason for Continuing Indwelling Catheter: Required Immobilization for Trauma or Surgery or Anesthesia Urinary Catheter Date of Insertion: 03/10/21 Urinary Catheter Time of Insertion: 11:25 Discharge Data Data Completed and Pending: Completed Studies During Hospitalization Category Date Time Status XR lumbar spine 1 V [id number] Routine Exams 03/10/21 15:38 Completed Pending at discharge Category Date Time Status C-arm Fluoroscopy [id number] Routine Exams 03/10/21 07:36 Taken Labs from last 24 hours 03/11/21 03/10/21 03/10/21 07:40 16:07 08:00 Hgb 8.4 L 10.4 L Hct 26.4 L 32.9 L Sodium 140 Potassium 4.2 Chloride 102 Carbon Dioxide 23 Anion Gap 19.2 H BUN 23 Creatinine 0.8 GFR Calculation 73.2 L Glucose 97 Calculated Osmolal ity 294 Calcium 9.0 Blood Type Rho(D) Type Antibody Screen 03/10/21 08:00 Hgb Hct Sodium Potassium Chloride Carbon Dioxide Anion Gap BUN Creatinine GFR Calculation Glucose Calculated Osmolal ity Calcium Blood Type A Positive Rho(D) Type Positive Antibody Screen Negative Vitals: Last Vital Signs Temp 98.2 F 03/11/21 07:11 Pulse 74 03/11/21 08:09 Resp 15 03/11/21 08:09 BP 118/72 03/11/21 07:11 Pulse Ox 93 03/11/21 08:09 Discharge Plan Discharge Condition: Stable Prescriptions: New hydrocodone-acetaminophen 5-325 mg tablet 1 - 2 tab PO .Q4-6H Qty: 40 RF: 0 Continued montelukast [Singulair] 10 mg tablet 10 mg PO DAILY@2100 RF: 0 hydroxyzine HCl 25 mg tablet 25 mg PO BID PRN (Reason: unknown) RF: 0 diazepam [Valium] 5 mg tablet 5 mg PO DAILY PRN (Reason: anxiety) Qty: 30 RF: 0 tizanidine 4 mg tablet 4 mg PO BID PRN (Reason: muscle spasticity) Qty: 60 RF: 0 gabapentin 600 mg tablet 600 mg PO TID Qty: 90 RF: 0 losartan [Cozaar] 100 mg tablet 100 mg PO DAILY@0600 RF: 0 diltiazem HCl 360 mg capsule,extended release 24hr 360 mg PO DAILY@0600 RF: 0 ropinirole 2 mg tablet 2 mg PO DAILY@2100 RF: 0 cetirizine [Zyrtec] 10 mg tablet 10 mg PO DAILY@0600 RF: 0 albuterol sulfate 90 mcg/actuation HFA aerosol inhaler 2 puff INHALATION Q6H PRN (Reason: Shortness Of Breath) RF: 0 levothyroxine [Euthyrox] 150 mcg tablet 150 mcg PO DAILY@0600 RF: 0 carvedilol 6.25 mg tablet 6.25 mg PO BID@0600,2100 RF: 0 tramadol 50 mg tablet 50 mg PO TID PRN (Reason: pain) 30 Days Qty: 60 RF: 0 potassium chloride 10 mEq tablet extended release 10 meq PO PRN RF: 0 indapamide 2.5 mg tablet 1.25 mg PO DAILY@0600 Qty: 0 RF: 0 budesonide 0.25 mg/2 mL Suspension For Nebulization 0.25 mg INHALATION BID RF: 0 furosemide 20 mg tablet 20 mg PO PRN PRN (Reason: Edema) RF: 0 hydrocodone-acetaminophen 5-325 mg tablet 1 - 2 tab PO .Q4-6H Qty: 40 RF: 0 Discharge Diet: Advance as tolerated Discharge Activity: Limit activity as instructed Patient Instructions: Opioid Safety Activity Restrictions/Additional Instructions: Thank you for [facility] for your care! The following is a list of instructions, from your provider, to follow upon your discharge to ensure you have the optimal recovery from your recent injury or surgery. Follow-up care is a urrutia part of your treatment and safety. Be sure to make and go to all appointments and call your doctor if you are having problems. If you do not already have a follow-up appointment made, call Dr. Hui's] office in the next 1-3 days to make follow up appointment for [1] weeks at [phone]. It is also a good idea to know your test results and keep a list of the medicines you take. Medications will be prescribed for you at your provider's discretion. These medications are to be used as instructed; if they are taken more often that prescribed they will not be refilled early and in most cases will not be refilled at all. > When a refill is needed,you should contact agnes gillespie 2-3 business days before your prescription runs out. Medications will NOT be refilled by environmental attorney providers after hours! > Many pain medications contain Tylenol (Acetaminophen). Do not consume more than 4,000 mg of Tylenol per day in total with any combination ofmedications. > Pain medications can cause constipation. Please use an over the counter stool softener as directed, while taking pain medications. Consult your local pharmacist with questions or recommendations on stool softeners. If constipation persists, contact our office or your primary care provider. > While under our care, you are not to receive pain medications or other controlled substances from any other provider unless our office is notified and approves. Any attempts to do so will result in refusal to prescribe any further pain medications and possible dismissal from our practice. > It is normal for there to be a small amount of discharge (bloody or blood tinged) present from a surgical wound for the first 1 -4 days. > The wound should be examined twice a day for signs of infection. Mild redness or bruising is to be expected but indications that an infection maybe starting would include; An increase in redness, swelling, or discharge, a foul odor present around the incision, and/or a fever greater than 101 ?F ? ? Walking is essential for the healing process after surgery. We would like you to slowly advance your walking. This should be done on relatively flat clear ground (inside or out) or can be done on a treadmill. Remember this goal does not have to happen all at once, slowly increase your distance and duration. This can be broken into more more than one walk per day as tolerated. Patients who walk as directed after surgery rarely require Physical Therapy. In the unlikely event this issue arises your provider will direct hospital staff to make the appropriate arrangements. ? No lifting over 5 pounds {a gallon of milk) or bending/twisting until further notice. Each of these activities places an unnecessary amount of stress onto the body and can impede the delicate healing process. > Instead of bending at the waist, keep your back straight and bend at the knees. > Instead of twisting your torso, keep your back straight and turn your entire body with your feet. ? You may sleep in any position which makes you comfortable. Many patients find comfort sleeping in a reclining chair. It is not abnormal to have difficulty sleeping for the first several weeks following your surgery. We recommend trying Benadry! or Tylenol PM as directed to help with your sleeping difficulties. Both medications are over the counter and available without prescription. ? NO SMOKING!!! Smoking dramatically increases the probability of developing postoperative wound infections. ? Common complaints after lumbar and/or thoracic spine surgery include, but are not limited to: numbness and/or tingling in the legs, pain around the incision and surrounding tissues, muscle spasms, or stiffness of the middle to low back. Contact our office if these symptoms persist or if an acute change occurs. ? No driving for the first 3-5days, and not while taking narcotics until seen at your follow-up appointment and cleared. There are no restrictions for riding on short trips, however if you take a longer trip, arrangements should be made to make regular stops to get out of the vehicle and stretch . ? Swelling is an unfortunate event that will take place with any surgery and is the primary source of your postoperative discomfort. While walking and regular approved activities helps control inflammation, there are additional steps you can take to minimizeswelling. > Place ice over the surgical site and surrounding tissue for twenty minutes, followed by applying a low/medium heat (heating pad) for an additional twenty minutes every 1-2 hours as needed for painrelief. > You may use of over the counter anti-inflammatory medications (Ibuprofen, Motrin, Aleve, Advil, etc) as directed on the package label. These types of medicines wm significantly reduce the amount of discomfort you experience after surgery from swelling. It should be noted that if you have and allergy to any of these medications, or a history of ulcers or kidney disease you should consult you primary care provider prior to starting these medications. Discharge Attestations Time Spent in Discharge Care*: less than 30 min Quality Metrics Clinical Quality Measures During this hospital stay, did patient experience: None Coding Level of Care Code Acute Chg FW DC note Diagnoses Status post lumbar spinal fusion Z98.1
[2021-03-11] MEDS: morphine 4 mg/mL SDV 1 mL 2 MG IVP (09:13)
--- NOTE | 2021-03-11 10:13 | PC.CHAP ---
Pastoral Care Encounter/Spiritual Assessment Type of Contact [] Declined marine engineer cpvec visit [] Patient/Family/Request visit [] Outpatient visit [] Follow-up visit [] Physician referral [] Code/Alert [x] Routine visit [] Staff referral [] Actively dying [] Patient sleeping [] Family support [] [] Out of room [] Palliative care [] [x] Receiving care in room [] Pre-surgical visit [] Trauma [] Long length of stay [] ICU visit [] Other: Relational/Emotional Strength [x] Patient feels connected with others/family/visitors/staff [] Distress [] Loneliness/isolation [] Abandonment Spirituality of Patient [x] Person of Latoya [] Attends Spiritism of their Latoya [x] Believes in Prayer [] Reads Bible or Roman Catholic materials [] There are Spiritual issues to be addressed Traffic Incident Management Manager Interventions [x] Prayer [x] Active listening [x] Non-anxious presence [x] Spiritual/emotional support [] Crisis/trauma care [x] Spiritual counseling [] Bereavement support [] Provided bereavement packet [] Provided Bible/devotional materials [] Provided toy/stuffed animal, coloring book to patient or family member [] Provided Communion [] Anointing/[place] [] Salvation [x] Completed spiritual assessment [] Other: Impact on Illness or Injury [] Angry [] Fearful [x] Anxious [] Often cries [] Exhaustion [x] Unable to work [] Unable to attend confucianist [] Unable to walk/stand [] Unable to read [] Unable to drive [] Unable to eat/drink [] Unable to sleep [] Unable to be with family [] Patient intubated [] Other: Summary lumbar region panerest she has meds when ever need has a good attitude going home Time spent with patient 10 mins
--- NOTE | 2021-03-11 12:48 | XR_ITS ---
WS: [id number] Right ankle, 2 views, 03/11/2021 Clinical Data: pt twisted ankle Comparison: None. Findings: No fractures or dislocations are seen. The ankle mortise is normal. The talus and calcaneus are unrem arkable. No soft tissue swelling over the medial or lateral malleolus is seen. There is a plantar spur. XR/XR ankle RT 2V [id number] Impression: Negative right ankle.
[2021-03-11] MEDS: ondansetron 2 mg/ML SDV 2 mL 4 MG IVP (13:30)
[2021-03-11] MEDS: sodium chloride 0.9% 1,000 ML 999 ML IV (15:14)
[2021-03-11 17:59] LABS: Hematocrit 23.8 % (37.0-47.0); Hemoglobin 7.6 g/dL (11.5-15.3)
[2021-03-11] MEDS: montelukast sodium 10 mg Tablet PO (21:28)
[2021-03-11] MEDS: ropinirole 2 mg Tablet PO (21:30)
--- NOTE | 2021-03-11 23:31 | PC.NURSE ---
2000Family at bedside. POC discussed regarding blood transfusion order. Voices understanding. Sitting up in bed. Reports pain 8/10 to back. Resp e/u. awake talking with family. Discussed pain med regimen and when next dose due.
--- NOTE | 2021-03-11 23:33 | PC.NURSE ---
2040 to lab to obtain 1 unit PRBC as ordered.
--- NOTE | 2021-03-11 23:34 | PC.NURSE ---
2045 1 unit PRBC verified with pt, Emy RUSSELL and this nurse. Started infusing at 50cc/hr for 15 min.
--- NOTE | 2021-03-11 23:36 | PC.NURSE ---
2200 Pt tolerates blood transfusion initial 15 minutes. Rate increased to 125ml/hr via pump.
--- NOTE | 2021-03-11 23:37 | PC.NURSE ---
2130 pt sitting semi fowlers in bed resting. Easily arouses. No distress. Lungs CTA. O2 at 2L in use as ordered.
--- NOTE | 2021-03-11 23:38 | PC.NURSE ---
2229 Resting in bed. No distress. Awakens easily. Reports back pain 09/19. Denies need for pain med. Says this tolerable.
--- NOTE | 2021-03-11 23:39 | PC.NURSE ---
2330 Pt resting in bed on back. Awakens easily. Tolerating blood transfusion well. Lungs CTA.
[2021-03-12 00:05] VITALS: BP 116/58; PULSE 72; RESP 18; TEMP 36.9; O2SAT 95
[2021-03-12 00:55] VITALS: BP 106/57; PULSE 71; RESP 18; TEMP 36.8; O2SAT 95
[2021-03-12 03:50] VITALS: BP 113/71; PULSE 73; RESP 19; TEMP 36.6; O2SAT 94
--- NOTE | 2021-03-12 04:22 | PC.NURSE ---
0200 pt sleeping in bed on left side. IV infusing without diff. No distress. Call light in reach. Easily arouses.
--- NOTE | 2021-03-12 04:23 | PC.NURSE ---
0400 Pt sleeping in bed. Easily arouses. reports Pain tolerable.
[2021-03-12] MEDS: HYDROcodone-acetaminophen 5-325 mg Tablet PO ×2 (05:04→09:17)
[2021-03-12 05:32] LABS: Hematocrit 26.7 % (37.0-47.0); Hemoglobin 8.5 g/dL (11.5-15.3)
[2021-03-12] MEDS: dilTIAZem ER (24HR) 180 mg Capsule 360 MG PO (06:00)
[2021-03-12] MEDS: cetirizine 10 mg Tablet PO (06:01)
[2021-03-12] MEDS: levothyroxine 150 mcg Tablet PO (06:01)
[2021-03-12] MEDS: carvedilol 6.25 mg Tablet PO (06:51)
[2021-03-12 07:18] VITALS: BP 129/82; PULSE 71; RESP 16; TEMP 36.7; O2SAT 91
[2021-03-12] MEDS: lactated ringers 1,000 ML 90 ML IV (07:31)
[2021-03-12] MEDS: docusate sodium 100 mg Capsule PO (07:32)
[2021-03-12] MEDS: gabapentin 300 mg Capsule 600 MG PO (07:32)
[2021-03-12 11:05] VITALS: BP 106/72; PULSE 62; RESP 18; TEMP 36.6; O2SAT 92
--- NOTE | 2021-03-12 11:52 | PM.PN ---
Subjective Subjective: Interval history: patient up with PT in walker, sat 96% while standing Vitals/I&O/Wt Last Vital Signs Temp 97.8 F 03/12/21 11:05 Pulse 62 03/12/21 11:05 Resp 18 03/12/21 11:05 BP 106/72 03/12/21 11:05 Pulse Ox 92 03/12/21 11:05 03/11/21 03/12/21 03/12/21 22:59 06:59 14:59 Intake Total 2340 / 3080 508 / 3588 1360 / 1360 Output Total 300 / 300 Balance 2340 / 3080 208 / 3288 1360 / 1360 Weight last 48 hrs Weight 260 lb 11.2 oz Physical Exam Narrative: EXAM NARRATIVE: right quad weakness but amble to ambulte with walker Urinary Catheter Management^: Kaye: Cath Placed During This Visit: yes, but has since been removed by the nurse Reason for Continuing Indwelling Catheter: Decision to DC Catheter Urinary Catheter Date of Insertion: 03/10/21 Urinary Catheter Time of Insertion: 11:25 Date Urinary Catheter Removed: 03/11/21 Time Urinary Catheter Discontinued: 09:03 Data : 03/12/21 04:23 03/10/21 08:00 A&P Assessment and plan (1) Status post lumbar spinal fusion: D/C today Status: Acute Attestations Medical Necessity Statement*: stayed last night because o low hb and low BP better today ok to d/c Coding Level of Care Code Acute Ammonia Technician for Chg Fwd Diagnoses Status post lumbar spinal fusion Z98.1
--- NOTE | 2021-03-12 13:37 | PC.CHAP ---
Pastoral Care Encounter/Spiritual Assessment Type of Contact [] Declined patient financial counselor visit [] Patient/Family/Request visit [] Outpatient visit [] Follow-up visit [] Physician referral [] Code/Alert [] Routine visit [] Staff referral [] Actively dying [] Patient sleeping [] Family support [] [] Out of room [] Palliative care [] [xx] Receiving care in room [] Pre-surgical visit [] Trauma [] Long length of stay [] ICU visit [] Other: Relational/Emotional Strength [] Patient feels connected with others/family/visitors/staff [] Distress [] Loneliness/isolation [] Abandonment Spirituality of Patient [] Person of Latoya [] Attends Restoration of their Latoya [] Believes in Prayer [] Reads Bible or Sikhism materials [] There are Spiritual issues to be addressed Shell Assembler Interventions [] Prayer [] Active listening [] Non-anxious presence [] Spiritual/emotional support [] Crisis/trauma care [] Spiritual counseling [] Bereavement support [] Provided bereavement packet [] Provided Bible/devotional materials [] Provided toy/stuffed animal, coloring book to patient or family member [] Provided Communion [] Anointing/Kennedy [] Salvation [] Completed spiritual assessment [] Other: Impact on Illness or Injury [] Angry [] Fearful [] Anxious [] Often cries [] Exhaustion [] Unable to work [] Unable to attend judaism [] Unable to walk/stand [] Unable to read [] Unable to drive [] Unable to eat/drink [] Unable to sleep [] Unable to be with family [] Patient intubated [] Other: Summary Time spent with patient
[2021-03-12 15:08] VITALS: BP 106/72; PULSE 62; RESP 18; TEMP 36.6; O2SAT 92
== END 2021-03-12 15:57 | disposition home or self-care (01) ==
LOC: MEDSURG 16:59
PROVIDERS: Anesthesiology; Admitting Provider Orthopaedic Surgery; PCP Family Medicine; Visit Provider Orthopaedic Surgery
PROC: (CPT 22612; principal; 2021-03-10 09:15)
DX: M48.062 Spinal stenosis, lumbar region with neurogenic claudication (principal); M43.17 Spondylolisthesis, lumbosacral region; M51.16 Intervertebral disc disorders with radiculopathy, lumbar region; E03.9 Hypothyroidism, unspecified; Z87.891 Personal history of nicotine dependence; I11.0 Hypertensive heart disease with heart failure; I50.9 Heart failure, unspecified
CPT/HCPCS: 20930; 20936; 20939; 22633; 22634; 22842; 22853; 63047; 63048; 36415; 36430; 51702; 72020; 73600; 76000; 80048; 85014; 85018; 85025; 86850; 86900; 86920; 96372; 97110; 97116; 97161; 97530; C1713; C9359; G0378; J0690; J1100; J1170; J1644; J1650; J2270; J2405; J2704; J3010; J3370; J3490; J7030; P9016; P9041

== ENCOUNTER 2021-03-13 02:13 | Observation (INO) | payer MEDICARE, MEDICAID, SELFPAY ==
[2021-03-13] VITALS (26 sets, daily range): BP systolic 96–136; BP diastolic 48–74; PULSE 59–79; RESP 16–27; TEMP 36.4–37.8; O2SAT 9–97; BMI 39.9
--- NOTE | 2021-03-13 02:16 | XRR_ITS ---
PROCEDURE INFORMATION: Exam: XR Chest Exam date and time: 03/13/2021 2:16 AM Age: 60 years old Clinical indication: Shortness of breath; Prior surgery; Surgery type: Gb; Patient HX: General weakness with SOB. TECHNIQUE: Imaging protocol: XR of the chest. Views: 1 view. COMPARISON: CR XR chest 1V portable [id number] 08/20/2020 6:34 AM FINDINGS: Lungs: Unremarkable. No consolidation. Pleural spaces: Unremarkable. No pleural effusion. No pneumothorax. Heart/Mediastinum: There is mild cardiomegaly. Bones/joints: Unremarkable. XR/XR chest 1V portable [id number] IMPRESSION: Mild cardiomegaly.
--- NOTE | 2021-03-13 02:16 | ECG_ITS ---
[facility] Test Date: 2021-03-13 Pat Name: Gita Robison Department: Room: 250 Gender: Female Heel Shaver: : 1960 Requested By: Nuria Hernandez Order Number: [id number] Kcay MD: Azar Chase M.D. Measurements Intervals [place] Rate: 59 P: 18 MA: 167 QRS: 24 QRSD: 95 T: 1 QT: 445 QTc: 442 Interpretive Statements SINUS BRADYCARDIA LOW QRS VOLTAGE IN PRECORDIAL LEADS [QRS DEFLECTION < 1.0 mV IN CHEST LEADS] Compared to ECG 03/13/2021 02:43:07 Low QRS voltage now present Sinus rhythm no longer present Electronically Signed On 03-13-2021 14:57:11 USER EXPERIENCE ARCHITECT by Azar Chase M.D. [email or web address]/[id number]
--- NOTE | 2021-03-13 02:18 | W.ED.SOB ---
HPI - SOB/Dyspnea General: Chief Complaint: Shortness of Breath/Dyspnea Stated Complaint: DIZZINESS WEAKNESS Time Seen by Provider: 03/13/21 02:16 Source: patient Mode of arrival: ambulatory Limitations: no limitations History of Present Illness: HPI Narrative: 60-year-old female who has a history of a recent lumbar surgery was discharged from the hospital yesterday. States that tonight she started having increasing shortness of breath and bilateral leg pain. States the leg pain is mild but she was getting quite short of breath had to call EMS when EMS arrived her pulse ox was in the 60s on room air and is currently on 5 L she has no history of requiring oxygen. She denies any cough she does have a low-grade fever but has had no fevers at home. She denies any chest pain denies any worsening improving factors. Associated symptoms: Deny abdominal pain, chest pain, fever(s), nausea or vomiting Review of Systems Const: Denies: fever(s), chills, body aches or change in appetite Eyes: Denies: blurry vision or eye discomfort ENMT: Denies: throat pain or dental pain Card: Denies: chest pain Resp: Reports: dyspnea GI: Denies: abdominal pain, nausea, vomiting or diarrhea : Denies: dysuria Musc: Reports: back pain Skin/Breast: Denies: rash Neuro: Denies: headache(s) Psych: Denies: depression Kendall/Lymph: Denies: easy bruising All/Imm: Denies: urticaria PFSH ED PFSH: Medical History Asthma Cervical radiculopathy Chronic low back pain Dyspnea on exertion Facet arthritis, degenerative, lumbar spine Facet arthropathy, lumbar History of kidney stones Hx of mitral valve prolapse Hypersomnia Hypertension Hypothyroidism 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 diastolic dysfunction FCI (current) use of opiate analgesic Lumbar disc disease with radiculopathy Lumbar stenosis Osteoarthritis of hands, bilateral Pain management contract signed Peripheral neuropathy Right median nerve neuropathy Surgical History History of carpal tunnel surgery Hx of cholecystectomy Hx of hysterectomy Hx of total ankle replacement Family History Mother CAD (coronary artery disease) Other Cancer Diabetes Hypertension Denies family history of Stroke Social History Quit status (tobacco): has quit using tobacco Year quit tobacco: 2005 Alcohol intake: never Caregiver/support person: Yes Lives independently: Yes History of recent travel: No (travel from [facility]) Physical Exam Const: COMMON NORMALS: no acute distress, patient oriented x3 and healthy appearing HENMT: COMMON NORMALS: normocephalic and atraumatic HEAD & SCALP: normocephalic and atraumatic Eye: COMMON NORMALS: Equal, round and reactive pupils present and EOMs intact bilaterally PUPIL: Yes Equal, round and reactive pupils present Neck/C-Spine: COMMON NORMALS: full ROM and supple Chest: COMMONS NORMALS: normal inspection of the chest and normal palpation of entire chest wall Resp: COMMON NORMALS: normal respiratory effort, No retractions, No use of accessory muscles and clear to auscultation bilaterally AUSCULTATION: clear to auscultation bilaterally Cardio: COMMON NORMALS: regular rate, regular rhythm and No murmurs present (Cardio) RATE: regular rate RHYTHM: regular rhythm GI: COMMON NORMALS: Normal to inspection, nondistended, normoactive bowel sounds present, Soft to palpation, non-tender and no masses PALPATION: Yes Soft to palpation Extremity: COMMON NORMALS: normal to inspection and full ROM Neuro: COMMON NORMALS: patient oriented x3, moves all extremities and no focal motor deficits Psych: COMMON NORMALS: mental status grossly normal, Normal thought process present and cooperative THOUGHT PROCESS: Normal thought process present Skin: COMMON NORMALS: no rashes or lesions noted and no wounds GENERAL SKIN EXAM: no rashes or lesions noted Course Vital Signs: Vital signs: Vital Signs Temperature 100 F H 03/13/21 02:14 Pulse Rate 63 03/13/21 04:35 Respiratory Rate 27 H 03/13/21 04:35 Blood Pressure 118/66 03/13/21 04:35 Pulse Oximetry 96 03/13/21 04:35 MDM - SOB/Dyspnea MDM Narrative: Medical decision making narrative: 60-year-old female who presents here with dyspnea along with anemia and weakness. She been having difficulty getting around likely due to her back surgery. She does continue to be hypoxic here she is initially on feet 5 L is able to wean her down to 2 L I did try to turn her oxygen off and she desaturated in the 80s. She does have a history of COPD CT shows no signs of pulmonary embolism or pneumonia. Patient's hemoglobin here is 7.5 she did require transfusion when she was here last hemoglobin is 8.6 spoke to hospitalist will admit for observation we will trend her hemoglobin in a couple hours blood pressure is down the ER has been stable. Lab Data: Labs: Lab Results 03/13/21 03/13/21 03/13/21 02:32 02:35 02:35 WBC 13.1 10^3/uL H 10 ^3/uL (4.0-10.0) RBC 2.58 10^6/uL L 10 ^6/uL (4.1-5.3) Hgb 7.5 g/dL L g/dL (11.5-15.3) Hct 23.8 % L % (37.0-47.0) MCV 92.2 fl fl (81-99) MCH 29.1 pg pg (28.0-34.0) MCHC 31.5 g/dL g/dL (30.0-36.0) RDW 14.7 % % (12.1-15.1) Plt Count 257 10^3/cmm 10^3 /cmm (130-400) MPV 9.0 fL fL (7.4-10.4) Neut % (Auto) 72.6 % % Lymph % (Auto) 17.0 % % [place] % (Auto) 8.0 % % Eos % (Auto) 1.4 % % Baso % (Auto) 0.5 % % Neut # (Auto) 9.51 10^3/uL H 10 ^3/uL (1.8-7.7) Lymph # (Auto) 2.2 10^3/uL 10^3/ uL (0.8-4.8) [place] # (Auto) 1.1 10^3/uL H 10^ 3/uL (0.2-0.9) Eos # (Auto) 0.2 10^3/uL 10^3/ uL (0.0-0.8) Baso # (Auto) 0.1 10^3/uL 10^3/ uL (0.0-0.1) Nucleated RBC % (a uto) 0.2 % % Nucleated RBCs # 0.0 /100WBC /100W BC PT 15.00 SECONDS H S ECONDS (12.1-14.9) INR 1.14 (0.8-1.2) D-Dimer 1.35 ug/mIFEU H u g/mIFEU (0-0.59) Specimen Type Arterial Sample Site Radial, right ABG pH 7.38 (7.35-7.45) ABG pCO2 46.8 mmHg H mmHg (35-45) ABG pO2 104.0 mmHg H mmHg (80.0-100.0) ABG HCO3 27.4 mmol/L H mmo l/L (22-26) ABG Base Excess 1.6 mmol/L mmol/L (-2.0-2.0) Tiburcio Test Pos Hematocrit 40.3 % % (37-47) O2 Delivery Device Nc O2 Liters/Min 3.0 % % FiO2 32.0 % % Brush Holder Assembler ID glc Sodium Potassium Chloride Carbon Dioxide Anion Gap BUN Creatinine GFR Calculation Glucose Calculated Osmolal ity Lactic Acid Calcium Total Bilirubin AST ALT Alkaline Phosphata se Troponin T Baselin e NT-Pro-B Natriuret Pep Total Protein Albumin Globulin SARS-CoV-2 Ag (Rap id) 03/13/21 03/13/21 03/13/21 02:35 02:35 02:35 WBC RBC Hgb Hct MCV MCH MCHC RDW Plt Count MPV Neut % (Auto) Lymph % (Auto) [place] % (Auto) Eos % (Auto) Baso % (Auto) Neut # (Auto) Lymph # (Auto) [place] # (Auto) Eos # (Auto) Baso # (Auto) Nucleated RBC % (a uto) Nucleated RBCs # PT INR D-Dimer Specimen Type Sample Site ABG pH ABG pCO2 ABG pO2 ABG HCO3 ABG Base Excess Tiburcio Test Hematocrit O2 Delivery Device O2 Liters/Min FiO2 Brush Holder Assembler ID Sodium 137 mmol/L mmol/L (136-145) Potassium 3.8 mmol/L mmol/L (3.5-5.1) Chloride 102 mmol/L mmol/L (98-107) Carbon Dioxide 26 mmol/L mmol/L (22-29) Anion Gap 12.8 (5-19) BUN 13 mg/dL mg/dL (8-23) Creatinine 0.5 mg/dL mg/dL (0.5-0.9) GFR Calculation 125.9 mL/min mL/m in (90-130) Glucose 121 mg/dL H mg/dL (65-115) Calculated Osmolal ity 285 mOsm/kg mOsm/ kg (285-295) Lactic Acid Calcium 7.4 mg/dL L mg/dL (8.5-10.5) Total Bilirubin 0.3 mg/dL mg/dL (0.15-1.2) AST 25 U/L U/L (0-32) ALT 19 U/L U/L (0-33) Alkaline Phosphata se 55 IU/L IU/L (35-105) Troponin T Baselin e 12 ng/L H ng/L (0-10) NT-Pro-B Natriuret Pep 1083 pg/mL H pg/m L (0-125) Total Protein 5.5 g/dL L g/dL (6.6-8.7) Albumin 3.3 g/dL L g/dL (3.5-5.2) Globulin 2.2 g/dL g/dL (1.3-4.6) SARS-CoV-2 Ag (Rap id) Negative (Negative) 03/13/21 03:35 WBC RBC Hgb Hct MCV MCH MCHC RDW Plt Count MPV Neut % (Auto) Lymph % (Auto) [place] % (Auto) Eos % (Auto) Baso % (Auto) Neut # (Auto) Lymph # (Auto) [place] # (Auto) Eos # (Auto) Baso # (Auto) Nucleated RBC % (a uto) Nucleated RBCs # PT INR D-Dimer Specimen Type Sample Site ABG pH ABG pCO2 ABG pO2 ABG HCO3 ABG Base Excess Tiburcio Test Hematocrit O2 Delivery Device O2 Liters/Min FiO2 Brush Holder Assembler ID Sodium Potassium Chloride Carbon Dioxide Anion Gap BUN Creatinine GFR Calculation Glucose Calculated Osmolal ity Lactic Acid 0.7 mmol/L mmol/L (0.5-2.2) Calcium Total Bilirubin AST ALT Alkaline Phosphata se Troponin T Baselin e NT-Pro-B Natriuret Pep Total Protein Albumin Globulin SARS-CoV-2 Ag (Rap id) Imaging Data^: CT Chest: Attestation: I personally reviewed and interpreted this imaging study as follows: Radiologist's impression: [address] [address] [address] Scan Report Signed Patient: Gita Robison Unit #: [id number] : 1960 Age/Sex: 60 / F ADM Date: 03/13/21 Loc: ER Room/Bed: Attending Dr: Ordering Provider/Ordering MD: Nuria Hernandez MD Date of Service: 03/13/21 Procedure(s): CT angio chest w abd pel w con Accession Number(s): [id number] Report Number: [id number] PROCEDURE INFORMATION: Exam: CTA Chest With Contrast Exam date and time: 03/13/2021 3:19 AM Age: 60 years old Clinical indication: Shortness of breath; Prior surgery; Surgery date: 3-7 days post-operative; Surgery type: Lumbar fusion on 03/10/2021. Gb. Appy. Hysterectomy. ; Patient HX: C/O general weakness with SOB and fever. Elevated ddimer. TECHNIQUE: Imaging protocol: Computed tomographic angiography of the chest with contrast. 3D rendering (Not supervised by radiologist): MIP and/or 3D reconstructed images were created by the technologist. Radiation optimization: All CT scans at this facility use at least one of these dose optimization techniques: automated exposure control; mA and/or kV adjustment per patient size (includes targeted exams where dose is matched to clinical indication); or iterative reconstruction. Contrast material: VISI 320; Contrast volume: 95 ml; Contrast route: INTRAVENOUS (IV); COMPARISON: CT chest con [id number] 08/12/2020 3:19 PM RADIATION DOSE METRICS: Total DLP (mGy-cm): 2097.74 FINDINGS: Pulmonary arteries: No pulmonary embolism. Aorta: Unremarkable. No aortic aneurysm. No aortic dissection. Other arteries: There is mild atherosclerotic disease. Lungs: Dependent atelectasis present in both lungs. Pleural spaces: Unremarkable. No pneumothorax. No pleural effusion. Heart: Atherosclerotic coronary artery calcifications are present. Lymph nodes: Unremarkable. No enlarged lymph nodes. Bones/joints: Unremarkable. No acute fracture. Soft tissues: Unremarkable. PROCEDURE INFORMATION: Exam: CT Abdomen And Pelvis With Contrast Exam date and time: 03/13/2021 3:19 AM Age: 60 years old Clinical indication: Shortness of breath; Prior surgery; Surgery date: 3-7 days post-operative; Surgery type: Lumbar fusion on 03/10/2021. Gb. Appy. Hysterectomy. ; Patient HX: C/O general weakness with SOB and fever. Elevated ddimer. TECHNIQUE: Imaging protocol: Computed tomography of the abdomen and pelvis with contrast. Radiation optimization: All CT scans at this facility use at least one of these dose optimization techniques: automated exposure control; mA and/or kV adjustment per patient size (includes targeted exams where dose is matched to clinical indication); or iterative reconstruction. Contrast material: VISI 320; Contrast volume: 95 ml; Contrast route: INTRAVENOUS (IV); COMPARISON: CT chest con [id number] 08/12/2020 3:19 PM RADIATION DOSE METRICS: Total DLP (mGy-cm): 2097.74 FINDINGS: Lungs: The lung bases are clear. No effusion Liver: There is fatty infiltration of the liver. Gallbladder and bile ducts: There has been a cholecystectomy. Pancreas: Normal. No ductal dilation. Spleen: Normal. No splenomegaly. Adrenal glands: Normal. No mass. Kidneys and ureters: Normal. No hydronephrosis. Stomach and bowel: Unremarkable. No obstruction. No mucosal thickening. Appendix: No evidence of appendicitis. Intraperitoneal space: Unremarkable. No free air. No significant fluid collection. Vasculature: Unremarkable. No abdominal aortic aneurysm. Lymph nodes: Unremarkable. No enlarged lymph nodes. Urinary bladder: Unremarkable as visualized. Reproductive: There has been a hysterectomy. Bones/joints: Intact posterior fusion hardware L3-S1.. Soft tissues: Unremarkable. CT/CT angio chest w abd pel w con IMPRESSION: 1. No pulmonary embolism. 2. Atherosclerotic disease of the coronary arteries. IMPRESSION: 1. No cause for acute pain is identified. 2. Fatty infiltration of the liver. Dictated By: Ricardo Bolaños Signed By: Ricardo Bolaños Signed Date/Time: 03/13/21 0418 DD/ EKG Data^: EKG 1: Attestation: I personally reviewed and interpreted this EKG as follows: EKG Interpretation Date: 03/13/21 EKG interpretation time: 02:43 Interpretation: nsr hr [address] or t wave abnormalities qrs 95 qtc 414 Discharge Plan Discharge Patient Disposition: Admitted As Inpatient Admit Provider: Hayley Horowitz Clinical Impression: Hypoxia, Dyspnea, Anemia, Weakness Condition: Stable Coding Level of Care Code ED Itinerant Teacher Assistant for Chg Fwd Exam Comprehensive
[2021-03-13] MEDS: acetaminophen 500 mg Tablet 1000 MG PO (02:40)
[2021-03-13 02:41] LABS: ABG PCO2 46.8 mmHg (35-45); ABG PH Result 7.38 (7.35-7.45); Arterial Blood Gas Hematocrit 40.3 % (37-47); Base Excess ABG 1.6 mmol/L (-2.0-2.0); Blood Gas Allen Test Pos; Blood Gas Operator Identificat glc; Blood Gas Sample Site Radial, right; Blood Gas Sample Type Arterial; HCO3 ABG 27.4 mmol/L (22-26); Oxygen Device NC
[2021-03-13 02:41] LABS: Basophils # 0.1 10^3/uL (0.0-0.1); Basophils % 0.5 %; Eosinophils # 0.2 10^3/uL (0.0-0.8); Eosinophils % 1.4 %; Hematocrit 23.8 % (37.0-47.0); Hemoglobin 7.5 g/dL (11.5-15.3); Lymphocytes # 2.2 10^3/uL (0.8-4.8); Mean Corpuscular HGB Conc 31.5 g/dL (30.0-36.0); Mean Corpuscular Hemoglobin 29.1 pg (28.0-34.0); Mean Corpuscular Volume 92.2 fl (81-99); Monocytes # 1.1 10^3/uL (0.2-0.9); Neutrophils # 9.51 10^3/uL (1.8-7.7); Neutrophils % 72.6 %; Nucleated Red Blood Cells % 0.2 %; Platelet Count 257 10^3/cmm (130-400); Red Blood Count 2.58 10^6/uL (4.1-5.3); Red Cell Distribution Width 14.7 % (12.1-15.1); White Blood Count 13.1 10^3/uL (4.0-10.0)
[2021-03-13 03:06] LABS: Troponin(5th) Baseline 12 ng/L (0-10)
[2021-03-13 03:15] LABS: INR 1.14 (0.8-1.2)
[2021-03-13 03:17] LABS: D Dimer 1.35 ug/mIFEU (0-0.59)
[2021-03-13 03:19] LABS: Alanine Aminotransferase 19 U/L (0-33); Albumin Level 3.3 g/dL (3.5-5.2); Alkaline Phosphatase 55 IU/L (35-105); Anion Gap 12.8 (5-19); Aspartate Amino Transferase 25 U/L (0-32); Blood Urea Nitrogen 13 mg/dL (8-23); Calcium 7.4 mg/dL (8.5-10.5); Carbon Dioxide 26 mmol/L (22-29); Chloride 102 mmol/L (98-107); Globulin 2.2 g/dL (1.3-4.6); Glomerular Filtration Rate 125.9 mL/min (90-130); Glucose 121 mg/dL (65-115); NT Pro B Type Natriuretic Pept 1083 pg/mL (0-125); Osmolality Calculated 285 mOsm/kg (285-295); Potassium 3.8 mmol/L (3.5-5.1); Sodium 137 mmol/L (136-145); Total Bilirubin 0.3 mg/dL (0.15-1.2); Total Protein 5.5 g/dL (6.6-8.7)
--- NOTE | 2021-03-13 03:19 | CTR_ITS ---
PROCEDURE INFORMATION: Exam: CTA Chest With Contrast Exam date and time: 03/13/2021 3:19 AM Age: 60 years old Clinical indication: Shortness of breath; Prior surgery; Surgery date: 3-7 days post-operative; Surgery type: Lumbar fusion on 03/10/2021. Gb. Appy. Hysterectomy. ; Patient HX: C/O general weakness with SOB and fever. Elevated ddimer. TECHNIQUE: Imaging protocol: Computed tomographic angiography of the chest with contrast. 3D rendering (Not supervised by radiologist): MIP and/or 3D reconstructed images were created by the technologist. Radiation optimization: All CT scans at this facility use at least one of these dose optimization techniques: automated exposure control; mA and/or kV adjustment per patient size (includes targeted exams where dose is matched to clinical indication); or iterative reconstruction. Contrast material: VISI 320; Contrast volume: 95 ml; Contrast route: INTRAVENOUS (IV); COMPARISON: CT chest [facility] [id number] 08/12/2020 3:19 PM RADIATION DOSE METRICS: Total DLP (mGy-cm): 2097.74 FINDINGS: Pulmonary arteries: No pulmonary embolism. Aorta: Unremarkable. No aortic aneurysm. No aortic dissection. Other arteries: There is mild atherosclerotic disease. Lungs: Dependent atelectasis present in both lungs. Pleural spaces: Unremarkable. No pneumothorax. No pleural effusion. Heart: Atherosclerotic coronary artery calcifications are present. Lymph nodes: Unremarkable. No enlarged lymph nodes. Bones/joints: Unremarkable. No acute fracture. Soft tissues: Unremarkable. PROCEDURE INFORMATION: Exam: CT Abdomen And Pelvis With Contrast Exam date and time: 03/13/2021 3:19 AM Age: 60 years old Clinical indication: Shortness of breath; Prior surgery; Surgery date: 3-7 days post-operative; Surgery type: Lumbar fusion on 03/10/2021. Gb. Appy. Hysterectomy. ; Patient HX: C/O general weakness with SOB and fever. Elevated ddimer. TECHNIQUE: Imaging protocol: Computed tomography of the abdomen and pelvis with contrast. Radiation optimization: All CT scans at this facility use at least one of these dose optimization techniques: automated exposure control; mA and/or kV adjustment per patient size (includes targeted exams where dose is matched to clinical indication); or iterative reconstruction. Contrast material: VISI 320; Contrast volume: 95 ml; Contrast route: INTRAVENOUS (IV); COMPARISON: CT chest [facility] [id number] 08/12/2020 3:19 PM RADIATION DOSE METRICS: Total DLP (mGy-cm): 7.74 FINDINGS: Lungs: The lung bases are clear. No effusion Liver: There is fatty infiltration of the liver. Gallbladder and bile ducts: There has been a cholecystectomy. Pancreas: Normal. No ductal dilation. Spleen: Normal. No splenomegaly. Adrenal glands: Normal. No mass. Kidneys and ureters: Normal. No hydronephrosis. Stomach and bowel: Unremarkable. No obstruction. No mucosal thickening. Appendix: No evidence of appendicitis. Intraperitoneal space: Unremarkable. No free air. No significant fluid collection. Vasculature: Unremarkable. No abdominal aortic aneurysm. Lymph nodes: Unremarkable. No enlarged lymph nodes. Urinary bladder: Unremarkable as visualized. Reproductive: There has been a hysterectomy. Bones/joints: Intact posterior fusion hardware L3-S1.. Soft tissues: Unremarkable. CT/CT angio chest w abd pel w con IMPRESSION: 1. No pulmonary embolism. 2. Atherosclerotic disease of the coronary arteries. IMPRESSION: 1. No cause for acute pain is identified. 2. Fatty infiltration of the liver.
[2021-03-13] MEDS: diphenhydrAMINE 50 mg/mL SDV 1mL IVP (03:36)
[2021-03-13] MEDS: hydrocortisone 100 mg/2 mL SDV IVP (03:37)
[2021-03-13 03:43] LABS: SARS Covid-2 Antigen Negative (Negative)
[2021-03-13] MEDS: iodixanol 320 mg/mL 100mL Btl IV (03:51)
[2021-03-13 04:02] LABS: Lactic Sepsis W/Reflex 0.7 mmol/L (0.5-2.2)
--- NOTE | 2021-03-13 04:16 | ECG_ITS ---
[facility] Test Date: 2021-03-13 Pat Name: Gita Robison Department: Room: Gender: Female Deputy Commonwealth'S Attorney: : 1960 Requested By: Nuria Hernandez Order Number: [id number] Kacy MD: Alex Panda M.D. Measurements Intervals [place] Rate: 69 P: 15 OK: 157 QRS: 26 QRSD: 95 T: -8 QT: 396 QTc: 424 Interpretive Statements SINUS RHYTHM Compared to ECG 09/21/2020 12:42:46 Sinus bradycardia no longer present T-wave abnormality still present Electronically Signed On 03-13-2021 4:49:15 APPLICATION PACKAGING SPECIALIST by Alex Panda M.D. [id number]
[2021-03-13 05:16] LABS: Add Urine Culture? Yes; Add Urine Microscopic? YES; Bacteria Urine TRACE /hpf; Bilirubin Urine Neg (Negative); Blood Urine Trace (Negative); Glucose Urine UA Norm (Normal); Ketones Urine Negative (Negative); Leukocyte Esterase Urine 1+ (Negative); Nitrate Urine Negative (Negative); Protein Urine Trace (Negative); RBC Urine 0-4 /hpf (0-2); Specific Gravity, Urine 1.015 (1.005-1.030); Squamous Epithelial Cell Urine 0-4 /hpf (0-5); Urine Appearance Clear (CLEAR); Urine Color Yellow (Yellow); Urobilinogen Urine Norm (Negative); WBC Urine 15-25 /hpf (0-5); pH Urine 5 (5-7)
[2021-03-13] MEDS: ipratropium-albuterol 3 mL Neb INHALATION ×4 (05:36→20:23)
--- NOTE | 2021-03-13 06:35 | PM.HP ---
Providers/Chief Complaint Admitting Physician: Hayley Horowitz MD Primary Care Provider: Otto Cobb MD Chief Complaint: DIZZINESS WEAKNESS History of Present Illness Gita Robison is a 60 year old female with PMH COPD, diastolic CHF as below s/p recent L3-S1 fusion discharged yesterday returned to the hospital today with co dyspnea. Notedto have 02 saturation 80s in the ER. Denies any cough, chest pain, palpitations, syncope. Has had a low grade fever 100F post discharge, including today. CTA chest without any gross infiltrates. Hospital course was complicated by anemia requiring blood transfusion. Hb today at 7.5. Review of Systems General: Reports: 10 or more systems reviewed and unremarkable except in HPI and below Const: Denies: fever(s), chills or body aches Eyes: Denies: change in vision, blurry vision or photophobia ENMT: Reports: hoarseness; Denies: throat pain, enlarged tonsils, odynophagia or nasal congestion Card: Denies: chest pain, palpitations, irregular heart rhythm, edema, swelling of feet/ankles, lightheadedness, pre-syncope, dyspnea on exertion or orthopnea Resp: Denies: dyspnea, productive cough, non-productive cough, wheezing, stridor, pain on inspiration, change in phlegm color, hemoptysis or chest congestion GI: Denies: abdominal pain, nausea, vomiting, hematemesis, coffee ground emesis, dysphagia, heartburn, diarrhea, constipation, GI cramping, change in stool character, hematochezia or melena : Denies: flank pain, difficulty voiding, dysuria, urinary frequency, urinary urgency, urinary hesitancy or hematuria Musc: Denies: neck pain, back pain, extremity pain, joint swelling, joint warmth or deformity Neuro: Denies: headache(s), numbness in extremities, weakness in extremities, sensory changes, difficulty walking, frequent falls, dizziness, vertigo, behavioral changes, Slurred speech present or seizure-like activity Psych: Denies: anxiety, depression, suicidal ideation or homicidal ideation Endo: Denies: polyuria, polydipsia, tired all the time, cold intolerance or hot flashes Kendall/Lymph: Denies: easy bruising or easy bleeding Medications/Allergies Home Medications Medication Instructions Recorded Confirmed Last Taken Type albuterol sulfate 90 mcg/actuation 2 puff INHALATION Q6H PRN 07/30/19 03/03/21 09/16/20 History aerosol inhaler cetirizine 10 mg tablet 10 mg PO DAILY@0600 07/30/19 03/10/21 03/09/21 History diltiazem HCl 360 mg 360 mg PO DAILY@0600 07/30/19 03/10/21 03/09/21 History capsule,extended release 24 hr losartan 100 mg tablet 100 mg PO DAILY@0600 07/30/19 03/10/21 03/10/21 History ropinirole 2 mg tablet 2 mg PO DAILY@2100 07/30/19 03/10/21 03/09/21 History hydroxyzine HCl 25 mg tablet 25 mg PO BID PRN 09/05/19 03/10/21 03/09/21 History montelukast 10 mg tablet 10 mg PO DAILY@2100 09/05/19 03/10/21 03/09/21 History levothyroxine 150 mcg tablet 150 mcg PO DAILY@0600 03/23/20 03/10/21 03/10/21 History carvedilol 6.25 mg tablet 6.25 mg PO BID@0600,2100 04/09/20 03/10/21 03/10/21 05:30 History potassium chloride 10 meq PO PRN 08/12/20 03/10/21 02/23/21 History indapamide 1.25 mg PO DAILY@0600 #0 tab 08/20/20 03/10/21 09/22/20 Rx tramadol 50 mg tablet 50 mg PO TID PRN 30 Days #60 tab 09/08/20 03/03/21 09/22/20 Rx budesonide 0.25 mg INHALATION BID 09/21/20 03/10/21 03/08/21 History furosemide 20 mg PO PRN PRN 09/21/20 03/10/21 02/23/21 History hydrocodone-acetaminophen 1 - 2 tab PO .Q4-6H #40 tab 09/23/20 03/10/21 03/09/21 Rx diazepam 5 mg tablet 5 mg PO DAILY PRN #30 tab 10/08/20 03/10/21 Unknown Rx tizanidine 4 mg tablet 4 mg PO BID PRN #60 tab 12/23/20 03/10/21 03/03/21 Rx gabapentin 600 mg tablet 600 mg PO TID #90 tab 01/20/21 03/10/21 03/06/21 Rx hydrocodone-acetaminophen 1 - 2 tab PO .Q4-6H #40 tab 03/11/21 Unknown Rx Allergies Allergy/AdvReac Type Severity Reaction Status Date / Time celecoxib Allergy Mild itchin Verified 03/13/21 02:24 diclofenac Allergy Mild cough Verified 03/13/21 02:24 emollient combination no.[email or web address] Allergy Mild headache, Verified 03/13/21 02:24 [From [facility]] kidey pain, welts& rash hydrochlorothiazide Allergy Mild muscle Verified 03/13/21 02:24 spasms ibuprofen Allergy Mild itching Verified 03/13/21 02:24 venlafaxine Allergy Mild all day Verified 03/13/21 02:24 drugged feeling Iodinated Contrast Media Allergy ALGY-Hives Verified 03/13/21 02:24 lisinopril Allergy ADR-Cough Verified 03/13/21 02:24 PFSH Acute PFSH: Medical History Asthma Cervical radiculopathy Chronic low back pain Dyspnea on exertion Facet arthritis, degenerative, lumbar spine Facet arthropathy, lumbar History of kidney stones Hx of mitral valve prolapse Hypersomnia Hypertension Hypothyroidism 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 diastolic 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 Lumbar disc disease with radiculopathy Lumbar stenosis Osteoarthritis of hands, bilateral Pain management contract signed Peripheral neuropathy Right median nerve neuropathy Surgical History History of carpal tunnel surgery Hx of cholecystectomy Hx of hysterectomy Hx of total ankle replacement Family History Mother CAD (coronary artery disease) Other Cancer Diabetes Hypertension Denies family history of Stroke Social History Quit status (tobacco): has quit using tobacco Year quit tobacco: 2005 Alcohol intake: never Caregiver/support person: Yes Lives independently: Yes History of recent travel: No (travel from [facility]) Vitals/I&O/Wt Last Vital Signs Temp 98.2 F 03/13/21 05:44 Pulse 59 L 03/13/21 06:26 Resp 22 H 03/13/21 05:44 BP 96/48 03/13/21 05:44 Pulse Ox 92 03/13/21 05:44 Weight last 48 hrs Weight 108.862 kg Physical Exam Narrative: EXAM NARRATIVE: General: No acute distress, AO x3 HEENT: PERRLA, pupils bilaterally equal and reactive, pallors not present Chest: Normal vesicular breath sounds, no added sounds, equal good air entry bilaterally CVS: S1-S2 regular, no murmurs, no tachycardia, no gallops, no rubs Abdomen: Soft, nontender, no organomegaly, bowel sounds present Neuro: No focal deficits, no facial deformity, AO x3, power 5/5 in all limbs Data : 03/13/21 02:35 03/13/21 02:35 Other Labs: Laboratory Results WBC 13.1 10^3/uL (4.0-10.0) H 03/13/21 02:35 RBC 2.58 10^6/uL (4.1-5.3) L 03/13/21 02:35 Hgb 7.5 g/dL (11.5-15.3) L 03/13/21 02:35 Hct 23.8 % (37.0-47.0) L 03/13/21 02:35 MCV 92.2 fl (81-99) 03/13/21 02:35 MCH 29.1 pg (28.0-34.0) 03/13/21 02:35 MCHC 31.5 g/dL (30.0-36.0) 03/13/21 02:35 RDW 14.7 % (12.1-15.1) 03/13/21 02:35 Plt Count 257 10^3/cmm (130-400) 03/13/21 02:35 MPV 9.0 fL (7.4-10.4) 03/13/21 02:35 Neut % (Auto) 72.6 % 03/13/21 02:35 Lymph % (Auto) 17.0 % 03/13/21 02:35 [place] % (Auto) 8.0 % 03/13/21 02:35 Eos % (Auto) 1.4 % 03/13/21 02:35 Baso % (Auto) 0.5 % 03/13/21 02:35 Neut # (Auto) 9.51 10^3/uL (1.8-7.7) H 03/13/21 02:35 Lymph # (Auto) 2.2 10^3/uL (0.8-4.8) 03/13/21 02:35 [place] # (Auto) 1.1 10^3/uL (0.2-0.9) H 03/13/21 02:35 Eos # (Auto) 0.2 10^3/uL (0.0-0.8) 03/13/21 02:35 Baso # (Auto) 0.1 10^3/uL (0.0-0.1) 03/13/21 02:35 Nucleated RBC % (auto) 0.2 % 03/13/21 02:35 Nucleated RBCs # 0.0 /100WBC 03/13/21 02:35 PT 15.00 SECONDS (12.1-14.9) H 03/13/21 02:35 INR 1.14 (0.8-1.2) 03/13/21 02:35 D-Dimer 1.35 ug/mIFEU (0-0.59) H 03/13/21 02:35 Specimen Type Arterial 03/13/21 02:32 Sample Site Radial, right 03/13/21 02:32 ABG pH 7.38 (7.35-7.45) 03/13/21 02:32 ABG pCO2 46.8 mmHg (35-45) H 03/13/21 02:32 ABG pO2 104.0 mmHg (80.0-100.0) H 03/13/21 02:32 ABG HCO3 27.4 mmol/L (22-26) H 03/13/21 02:32 ABG Base Excess 1.6 mmol/L (-2.0-2.0) 03/13/21 02:32 Tiburcio Test Pos 03/13/21 02:32 Hematocrit 40.3 % (37-47) 03/13/21 02:32 O2 Delivery Device Nc 03/13/21 02:32 O2 Liters/Min 3.0 % 03/13/21 02:32 FiO2 32.0 % 03/13/21 02:32 Senior Radiation Protection Technician ID glc 03/13/21 02:32 Sodium 137 mmol/L (136-145) 03/13/21 02:35 Potassium 3.8 mmol/L (3.5-5.1) 03/13/21 02:35 Chloride 102 mmol/L (98-107) 03/13/21 02:35 Carbon Dioxide 26 mmol/L (22-29) 03/13/21 02:35 Anion Gap 12.8 (5-19) 03/13/21 02:35 BUN 13 mg/dL (8-23) 03/13/21 02:35 Creatinine 0.5 mg/dL (0.5-0.9) 03/13/21 02:35 GFR Calculation 125.9 mL/min (90-130) 03/13/21 02:35 Glucose 121 mg/dL (65-115) H 03/13/21 02:35 Calculated Osmolality 285 mOsm/kg (285-295) 03/13/21 02:35 Lactic Acid 0.7 mmol/L (0.5-2.2) 03/13/21 03:35 Calcium 7.4 mg/dL (8.5-10.5) L 03/13/21 02:35 Total Bilirubin 0.3 mg/dL (0.15-1.2) 03/13/21 02:35 AST 25 U/L (0-32) 03/13/21 02:35 ALT 19 U/L (0-33) 03/13/21 02:35 Alkaline Phosphatase 55 IU/L (35-105) 03/13/21 02:35 Troponin T Baseline 12 ng/L (0-10) H 03/13/21 02:35 NT-Pro-B Natriuret Pep 1083 pg/mL (0-125) H 03/13/21 02:35 Total Protein 5.5 g/dL (6.6-8.7) L 03/13/21 02:35 Albumin 3.3 g/dL (3.5-5.2) L 03/13/21 02:35 Globulin 2.2 g/dL (1.3-4.6) 03/13/21 02:35 Urine Color Yellow (Yellow) 03/13/21 04:32 Urine Appearance Clear (CLEAR) 03/13/21 04:32 Urine pH 5 (5-7) 03/13/21 04:32 Ur Specific [place] 1.015 (1.005-1.030) 03/13/21 04:32 Urine Protein Trace (Negative) 03/13/21 04:32 Urine Glucose (UA) Norm (Normal) 03/13/21 04:32 Urine Ketones Negative (Negative) 03/13/21 04:32 Urine Blood Trace (Negative) H 03/13/21 04:32 Urine Nitrate Negative (Negative) 03/13/21 04:32 Urine Bilirubin Neg (Negative) 03/13/21 04:32 Urine Urobilinogen Norm mg/dL (Negative) 03/13/21 04:32 Ur Leukocyte Esterase 1+ (Negative) H 03/13/21 04:32 Urine RBC 0-4 /hpf (0-2) H 03/13/21 04:32 Urine WBC 15-25 /hpf (0-5) H 03/13/21 04:32 Ur Squamous Epith Cells 0-4 /hpf (0-5) H 03/13/21 04:32 Amorphous Sediment Not Reportable 03/13/21 04:32 Urine Bacteria Trace /hpf (NONE) 03/13/21 04:32 SARS-CoV-2 Ag (Rapid) Negative (Negative) 03/13/21 02:35 Impressions Chest X-Ray 03/13/21 02:16 IMPRESSION: Mild cardiomegaly. Chest/Abdomen/Pelvis CT 03/13/21 03:19 IMPRESSION: 1. No pulmonary embolism. 2. Atherosclerotic disease of the coronary arteries. IMPRESSION: 1. No cause for acute pain is identified. 2. Fatty infiltration of the liver. 03/13/21 02:32 ABG pH 7.38 ABG pCO2 46.8 H ABG pO2 104.0 H ABG HCO3 27.4 H ABG Base Excess 1.6 Micro: Microbiology 03/13/21 04:32 Blood Culture - Preliminary Blood SPECIMEN COLLECTED 03/13/21 03:35 Blood Culture - Preliminary Blood SPECIMEN COLLECTED A&P Assessment and plan (1) Hypoxia: Status: Acute (2) Dyspnea: Status: Acute Qualifiers: Dyspnea type: unspecified Qualified Code(s): R06.00 - Dyspnea, unspecified Additional A&P Information Admit to med/surg in observation Differentials include COPD exacerbation vs CHF exacerbation, BNP elevated at 1000, h/o diastolic CHF lasix 40mg iv x 1 ABG with p02 104 at 32% fi02 , add incentive spirometry EKG without acute ST-T wave changes, pending troponin CTA negative for PE Covid ag negative, no infiltrates on CT chest monitor fever curve off abx for now, check procal duonebs and budesonide inhalation scheduled recheck H&H Attestations Medical Necessity Statement*: observation admission for above care Coding Level of Care Code Acute Adult Services Librarian for g Fwd Diagnoses Hypoxia R09.02 Dyspnea R06.00 Dyspnea type: unspecified
--- NOTE | 2021-03-13 08:08 | PC.NURSE ---
at approx. 0808, lab called to notify that the pts 2hr troponin was not drawn as ordered. they are coming to draw the 6hr now. notified
--- NOTE | 2021-03-13 08:16 | ECG_ITS ---
[facility] Test Date: 2021-03-13 Pat Name: Gita Robison Department: Room: 250 Gender: Female [employer]: : 1960 Requested By: Nuria Hernandez Order Number: [id number] Reading MD: Azar Chase M.D. Measurements Intervals [place] Rate: 66 P: 48 NE: 156 QRS: 29 QRSD: 93 T: -4 QT: 412 QTc: 434 Interpretive Statements SINUS RHYTHM LOW QRS VOLTAGE IN PRECORDIAL LEADS [QRS DEFLECTION < 1.0 mV IN CHEST LEADS] NONSPECIFIC T-WAVE ABNORMALITY Compared to ECG 03/13/2021 05:42:57 T-wave abnormality now present Sinus bradycardia no longer present Electronically Signed On 03-13-2021 15:04:09 CLIENT RETENTION SPECIALIST by Azar Chase M.D. [id number]
[2021-03-13 08:49] LABS: Procalcitonin 0.11 ng/mL (0-0.5)
[2021-03-13] MEDS: FUROsemide 10 mg/mL SDV 4mL 40 MG IVP (10:24)
[2021-03-13] MEDS: gabapentin 300 mg Capsule 600 MG PO (10:24)
[2021-03-13] MEDS: potassium chloride ER 20 mEq Tablet 40 MEQ PO (13:59)
[2021-03-13] MEDS: HYDROcodone-acetaminophen 5-325 mg Tablet 1 TAB PO (14:00)
--- NOTE | 2021-03-13 17:07 | PC.PT ---
Attempted PT evaluation x2 today, on first attempt patient had just returned to bed from toileting and was with fatigue requesting later on, tried again later patient receiving blood, will reattempt tomorrow
[2021-03-13] MEDS: sodium chloride 0.9% (100 ml) 100 ML 50 ML (17:42)
--- NOTE | 2021-03-13 19:54 | PC.PHAR ---
Pharmacokinetic dosing service Date: 03/13/21 Time: 1999 Objective: Patient: Gita Robison Floor: 250-2 Age: 60 yo Serum creatinine: 0.5 mg/dL Height: 65.0 Inches Weight (kg): 108.862 Diagnosis: Relevant medical/social history: Cultures and sensitivities: Other labs: Assessment: IBW (kg): 57.00 Dosing wt(kg): 108.862 Estimated Creatinine clearance (ml/min): 107.7 CRCL method: Cockcroft and Gault using ibw(default). Drug selected: Vancomycin Loading dose (mg): 0 Vd (liters): 98.0 (factor used: 0.9 L/kg) Hayden (hr-1): 0.094 Half life (hrs): 7.37 Recommended dose: 1500 mg Interval: 8 hrs Infusion time (hrs): 1.5 Predicted peak (mcg/mL): 27.0 Predicted trough (mcg/mL): 14.66 Total body weight is being used for vancomycin dosing. Renal function is stable [ ] /unstable [ ] Recommendations: Give Vancomycin 1500 mg q 8 hrs with an expected Cpeak of 27.0 mcg/ml and an expected Ctrough of 14.66 mcg/ml Renal dosing of other antibiotics (review renal dosing of other medications and list guidelines here): Thank you for the consult, will continue to follow. Signature: Lauren Aguiar [facility]ly [facility]
[2021-03-13] MEDS: vancomycin 1,500 MG/300 ML PIGGYBACK 200 MG IV (20:13)
[2021-03-13] MEDS: levoFLOXacin 500 mg Tablet PO (20:13)
[2021-03-13] MEDS: carvedilol 6.25 mg Tablet PO (20:14)
[2021-03-13] MEDS: ropinirole 2 mg Tablet PO (20:14)
[2021-03-13] MEDS: gabapentin 300 mg Capsule PO (20:14)
[2021-03-13] MEDS: ondansetron 2 mg/ML SDV 2 mL 4 MG IVP (20:17)
[2021-03-13] MEDS: budesonide 0.5 mg/2 mL Neb INHALATION (20:23)
[2021-03-13 23:03] LABS: Adenovirus Not Detected (NOT DETECT); Chlamydia Pneumoniae Not Detected (NOT DETECT); Coronavirus 229E,HKU1,NL63,OC4 Not Detected (NOT DETECT); Human Metapneumovirus Not Detected (NOT DETECT); Human Rhinovirus/Enterovirus Not Detected (NOT DETECT); Influenza A Not Detected (NOT DETECT); Influenza A H1 Not Detected (NOT DETECT); Influenza A H1-2009 Not Detected (NOT DETECT); Influenza A H3 Not Detected (NOT DETECT); Influenza B Not Detected (NOT DETECT); Mycoplasma Pneumoniae Not Detected (NOT DETECT); Parainfluenza Virus Type 1 Not Detected (NOT DETECT); Parainfluenza Virus Type 2 Not Detected (NOT DETECT); Parainfluenza Virus Type 3 Not Detected (NOT DETECT); Parainfluenza Virus Type 4 Not Detected (NOT DETECT); Respiratory Syncytial Virus A Not Detected (NOT DETECT); Respiratory Syncytial Virus B Not Detected (NOT DETECT); SARS-COV-2 Not Detected (NOT DETECT)
[2021-03-14] VITALS (10 sets, daily range): BP systolic 107–116; BP diastolic 58–65; PULSE 56–64; RESP 16–20; TEMP 36.4–36.7; O2SAT 86–95
[2021-03-14] MEDS: HYDROcodone-acetaminophen 5-325 mg Tablet 1 TAB PO ×2 (01:52→11:28)
[2021-03-14] MEDS: vancomycin 1,500 MG/300 ML PIGGYBACK 200 MG IV (04:14)
[2021-03-14 05:16] LABS: Basophils # 0.1 10^3/uL (0.0-0.1); Basophils % 0.5 %; Eosinophils # 0.2 10^3/uL (0.0-0.8); Eosinophils % 2.3 %; Lymphocytes # 2.7 10^3/uL (0.8-4.8); Lymphocytes % 25.5 %; Mean Corpuscular Hemoglobin 29.5 pg (28.0-34.0); Mean Corpuscular Volume 92.3 fl (81-99); Mean Platelet Volume 9.6 fL (7.4-10.4); Monocytes # 0.9 10^3/uL (0.2-0.9); Monocytes % 8.2 %; Neutrophils % 62.8 %; Nucleated Red Blood Cells # 0.1 /100WBC; Nucleated Red Blood Cells % 0.8 %; Platelet Count 288 10^3/cmm (130-400); Red Blood Count 2.71 10^6/uL (4.1-5.3); White Blood Count 10.5 10^3/uL (4.0-10.0)
[2021-03-14 05:33] LABS: Alanine Aminotransferase 15 U/L (0-33); Alkaline Phosphatase 57 IU/L (35-105); Anion Gap 12.7 (5-19); Aspartate Amino Transferase 17 U/L (0-32); Blood Urea Nitrogen 9 mg/dL (8-23); Calcium 7.4 mg/dL (8.5-10.5); Carbon Dioxide 28 mmol/L (22-29); Chloride 104 mmol/L (98-107); Globulin 2.6 g/dL (1.3-4.6); Glomerular Filtration Rate 125.9 mL/min (90-130); Glucose 93 mg/dL (65-115); Osmolality Calculated 290 mOsm/kg (285-295); Potassium 3.7 mmol/L (3.5-5.1); Sodium 141 mmol/L (136-145); Total Bilirubin 0.3 mg/dL (0.15-1.2); Total Protein 5.6 g/dL (6.6-8.7)
[2021-03-14 05:39] LABS: Procalcitonin 0.08 ng/mL (0-0.5)
[2021-03-14] MEDS: losartan 50 mg Tablet 100 MG PO (06:16)
[2021-03-14] MEDS: carvedilol 6.25 mg Tablet PO (06:16)
[2021-03-14] MEDS: levothyroxine 150 mcg Tablet PO (06:16)
[2021-03-14] MEDS: levoFLOXacin 500 mg Tablet PO (06:16)
[2021-03-14] MEDS: dilTIAZem ER (24HR) 180 mg Capsule 360 MG PO (06:17)
[2021-03-14] MEDS: TRAMadol 50 mg Tablet PO ×2 (06:45→14:56)
[2021-03-14] MEDS: gabapentin 300 mg Capsule PO (08:09)
[2021-03-14] MEDS: budesonide 0.5 mg/2 mL Neb INHALATION (08:21)
[2021-03-14] MEDS: ipratropium-albuterol 3 mL Neb INHALATION (08:21)
--- NOTE | 2021-03-14 12:25 | P.DS_ITS ---
Discharge Providers Date of Admission: 03/13/21 04:34 Date of Discharge: March 14, 2021 Attending Provider at Admission: Hayley Horowitz MD Attending Provider at Discharge: Vernon Reyes MD Primary Care Provider: Otto Cobb MD Diagnoses at Discharge Discharge Diagnosis (1) Hypoxia: Status: Acute (2) Dyspnea: Status: Acute Qualifiers: Dyspnea type: unspecified Qualified Code(s): R06.00 - Dyspnea, unspecified Reason for Visit Reason for Visit: DIZZINESS WEAKNESS Hospital Course Hospital Course Gita Robison is a 60 year old female with PMH COPD, diastolic CHF as below s/p recent L3-S1 fusion discharged on 03/12 and came back to the ER on 03/13 with co dyspnea. Noted to have 02 saturation 80s in the ER. Denies any cough, chest pain, palpitations, syncope. Has had a low grade fever 100F post discharge, including today. CTA chest without any gross infiltrates. Hospital course was complicated by anemia requiring blood transfusion. Hb today at 7.5. Hospital course Patient was admitted to the hospital for further evaluation of hypoxia, weakness. On admission CTA was done which was negative for any consolidation. COVID-19 was ruled out with a negative PCR. She was found to be mildly anemic for which she received monitor blood transfusion. She was treated with Lasix. Patient did have one episode of fever during hospitalization. Blood cultures so far have remained negative. Patient was started on oral Augmentin and Levaquin. Further treatment plans were discussed in detail with patient and patient's caregiver at bedside regarding need of antibiotics for next 7 days at least till the time she is follows up with her surgeon as an outpatient by blood cultures are being worked up along with need of physical therapy, daily Lasix. We discussed the treatment plan being at home versus being admitted in the hospital. We discussed currently on her blood cultures are negative. Patient felt comfortable to go home on oral antibiotics with follow-up appointment coming up with Dr. Hui on 03/18. Patient is advised to continue taking Augmentin Levaquin for next 7 days, follow-up with Dr. Dr. Hui on set appointment and discuss the blood cultures with him. She is advised to continue taking oral Lasix 20 mg daily for now. Home O2 evaluation was done prior to discharge. Patient and patient's caregiver at bedside verbalized understanding and agreed with the discharge planning. Patient was also advised to have a possible sleep study as an outpatient for a high susceptibility of sleep apnea. Physical Exam Narrative: EXAM NARRATIVE: General: No acute distress, AO x3 HEENT: PERRLA, pupils bilaterally equal and reactive, pallors not present Chest: Normal vesicular breath sounds, no added sounds, equal good air entry bilaterally CVS: S1-S2 regular, no murmurs, no tachycardia, no gallops, no rubs Abdomen: Soft, nontender, no organomegaly, bowel sounds present Neuro: No focal deficits, no facial deformity, AO x3, power 5/5 in all limbs Discharge Data Data Completed and Pending: Completed Studies During Hospitalization Category Date Time Status CT angio chest w abd pel w con Urge nt Cat Scan 03/13/21 03:19 Completed XR chest 1V rosana ble [id number] Stat Exams 03/13/21 02:16 Completed Pending at discharge Category Date Time Status Blood Culture Sta t Lab 03/13/21 04:32 Results Urine Culture Sta t Lab 03/13/21 04:32 Results Labs from last 24 hours 03/14/21 03/14/21 03/14/21 10:55 04:13 04:13 WBC 10.5 H RBC 2.71 L Hgb 8.0 L Hct 25.0 L MCV 92.3 MCH 29.5 MCHC 32.0 RDW 15.0 Plt Count 288 MPV 9.6 Neut % (Auto) 62.8 Lymph % (Auto) 25.5 Marin % (Auto) 8.2 Eos % (Auto) 2.3 Baso % (Auto) 0.5 Neut # (Auto) 6.60 Lymph # (Auto) 2.7 Marin # (Auto) 0.9 Eos # (Auto) 0.2 Baso # (Auto) 0.1 Nucleated RBC % (a uto) 0.8 Nucleated RBCs # 0.1 Sodium 141 Potassium 3.7 Chloride 104 Carbon Dioxide 28 Anion Gap 12.7 BUN 9 Creatinine 0.5 GFR Calculation 125.9 Glucose 93 Calculated Osmolal ity 290 Calcium 7.4 L Total Bilirubin 0.3 AST 17 ALT 15 Alkaline Phosphata se 57 Total Protein 5.6 L Albumin 3.0 L Globulin 2.6 Procalcitonin Vancomycin Trough 13.0 Coronavirus 229E ( PCR) SARS-CoV-2 (PCR) Blood Type Rho(D) Type Antibody Screen Crossmatch 03/14/21 03/13/21 03/13/21 04:13 21:00 11:11 WBC RBC Hgb Hct MCV MCH MCHC RDW Plt Count MPV Neut % (Auto) Lymph % (Auto) Marin % (Auto) Eos % (Auto) Baso % (Auto) Neut # (Auto) Lymph # (Auto) Marin # (Auto) Eos # (Auto) Baso # (Auto) Nucleated RBC % (a uto) Nucleated RBCs # Sodium Potassium Chloride Carbon Dioxide Anion Gap BUN Creatinine GFR Calculation Glucose Calculated Osmolal ity Calcium Total Bilirubin AST ALT Alkaline Phosphata se Total Protein Albumin Globulin Procalcitonin 0.08 Vancomycin Trough Coronavirus 229E ( PCR) Not detected SARS-CoV-2 (PCR) Not detected Blood Type A Positive Rho(D) Type Positive Antibody Screen Negative Crossmatch See Detail Addt'l Data from Hospital Stay: Abnormal lab results 03/13/21 03/14/21 03/14/21 Range/Units 11:11 04:13 04:13 WBC 10.5 H (4.0-10.0) 10^3/ uL RBC 2.71 L (4.1-5.3) 10^6/u L Hgb 8.0 L (11.5-15.3) g/dL Hct 25.0 L (37.0-47.0) % Calcium 7.4 L (8.5-10.5) mg/dL Total Protein 5.6 L (6.6-8.7) g/dL Albumin 3.0 L (3.5-5.2) g/dL Crossmatch See Detail Laboratory Results WBC 10.5 10^3/uL (4.0 -10.0) H 03/14/21 04:13 RBC 2.71 10^6/uL (4.1 -5.3) L 03/14/21 04:13 Hgb 8.0 g/dL (11.5-15 .3) L 03/14/21 04:13 Hct 25.0 % (37.0-47.0 ) L 03/14/21 04:13 MCV 92.3 fl (81-99) 03/14/21 04:13 MCH 29.5 pg (28.0-34. 0) 03/14/21 04:13 MCHC 32.0 g/dL (30.0-3 6.0) 03/14/21 04:13 RDW 15.0 % (12.1-15.1 ) 03/14/21 04:13 Plt Count 288 10^3/cmm (130 -400) 03/14/21 04:13 MPV 9.6 fL (7.4-10.4) 03/14/21 04:13 Neut % (Auto) 62.8 % 03/14/21 04:13 Lymph % (Auto) 25.5 % 03/14/21 04:13 Marin % (Auto) 8.2 % 03/14/21 04:13 Eos % (Auto) 2.3 % 03/14/21 04:13 Baso % (Auto) 0.5 % 03/14/21 04:13 Neut # (Auto) 6.60 10^3/uL (1.8 -7.7) 03/14/21 04:13 Lymph # (Auto) 2.7 10^3/uL (0.8- 4.8) 03/14/21 04:13 Marin # (Auto) 0.9 10^3/uL (0.2- 0.9) 03/14/21 04:13 Eos # (Auto) 0.2 10^3/uL (0.0- 0.8) 03/14/21 04:13 Baso # (Auto) 0.1 10^3/uL (0.0- 0.1) 03/14/21 04:13 Nucleated RBC % (a uto) 0.8 % 03/14/21 04:13 Nucleated RBCs # 0.1 /100WBC 03/14/21 04:13 PT 15.00 SECONDS (12 .1-14.9) H 03/13/21 02:35 INR 1.14 (0.8-1.2) 03/13/21 02:35 D-Dimer 1.35 ug/mIFEU (0- 0.59) H 03/13/21 02:35 Specimen Type Arterial 03/13/21 02:32 Sample Site Radial, right 03/13/21 02:32 ABG pH 7.38 (7.35-7.45) 03/13/21 02:32 ABG pCO2 46.8 mmHg (35-45) H 03/13/21 02:32 ABG pO2 104.0 mmHg (80.0- 100.0) H 03/13/21 02:32 ABG HCO3 27.4 mmol/L (22-2 6) H 03/13/21 02:32 ABG Base Excess 1.6 mmol/L (-2.0- 2.0) 03/13/21 02:32 Tiburcio Test Pos 03/13/21 02:32 Hematocrit 40.3 % (37-47) 03/13/21 02:32 O2 Delivery Device Nc 03/13/21 02:32 O2 Liters/Min 3.0 % 03/13/21 02:32 FiO2 32.0 % 03/13/21 02:32 Rhinestone Setter ID glc 03/13/21 02:32 Sodium 141 mmol/L (136-1 45) 03/14/21 04:13 Potassium 3.7 mmol/L (3.5-5 .1) 03/14/21 04:13 Chloride 104 mmol/L (98-10 7) 03/14/21 04:13 Carbon Dioxide 28 mmol/L (22-29) 03/14/21 04:13 Anion Gap 12.7 (5-19) 03/14/21 04:13 BUN 9 mg/dL (8-23) 03/14/21 04:13 Creatinine 0.5 mg/dL (0.5-0. 9) 03/14/21 04:13 GFR Calculation 125.9 mL/min (90- 130) 03/14/21 04:13 Glucose 93 mg/dL (65-115) 03/14/21 04:13 Calculated Osmolal ity 290 mOsm/kg (285- 295) 03/14/21 04:13 Lactic Acid 0.7 mmol/L (0.5-2 .2) 03/13/21 03:35 Calcium 7.4 mg/dL (8.5-10 .5) L 03/14/21 04:13 Total Bilirubin 0.3 mg/dL (0.15-1 .2) 03/14/21 04:13 AST 17 U/L (0-32) 03/14/21 04:13 ALT 15 U/L (0-33) 03/14/21 04:13 Alkaline Phosphata se 57 IU/L (35-105) 03/14/21 04:13 Troponin T Baselin e 12 ng/L (0-10) H 03/13/21 02:35 Troponin T Hi Sens 6Hr 9.30 ng/L (0-10) 03/13/21 08:33 Troponin T Hi Sens 6Hr Delta -2.70 ng/L (0-12) L 03/13/21 08:33 NT-Pro-B Natriuret Pep 1083 pg/mL (0-125 ) H 03/13/21 02:35 Total Protein 5.6 g/dL (6.6-8.7 ) L 03/14/21 04:13 Albumin 3.0 g/dL (3.5-5.2 ) L 03/14/21 04:13 Globulin 2.6 g/dL (1.3-4.6 ) 03/14/21 04:13 Procalcitonin 0.08 ng/mL (0-0.5 ) 03/14/21 04:13 Urine Color Yellow (Yellow) 03/13/21 04:32 Urine Appearance Clear (CLEAR) 03/13/21 04:32 Urine pH 5 (5-7) 03/13/21 04:32 Ur Specific Gravit y 1.015 (1.005-1.0 30) 03/13/21 04:32 Urine Protein Trace (Negative) 03/13/21 04:32 Urine Glucose (UA) Norm (Normal) 03/13/21 04:32 Urine Ketones Negative (Negati ve) 03/13/21 04:32 Urine Blood Trace (Negative) H 03/13/21 04:32 Urine Nitrate Negative (Negati ve) 03/13/21 04:32 Urine Bilirubin Neg (Negative) 03/13/21 04:32 Urine Urobilinogen Norm mg/dL (Negat suyapa) 03/13/21 04:32 Ur Leukocyte Olivia ase 1+ (Negative) H 03/13/21 04:32 Urine RBC 0-4 /hpf (0-2) H 03/13/21 04:32 Urine WBC 15-25 /hpf (0-5) H 03/13/21 04:32 Ur Squamous Epith Cells 0-4 /hpf (0-5) H 03/13/21 04:32 Amorphous Sediment Not Reportable 03/13/21 04:32 Urine Bacteria Trace /hpf (NONE) 03/13/21 04:32 Vancomycin Trough 13.0 ug/mL (10-15 ) 03/14/21 10:55 Coronavirus 229E ( PCR) Not detected (NO T DETECT) 03/13/21 21:00 SARS-CoV-2 (PCR) Not detected (NO T DETECT) 03/13/21 21:00 SARS-CoV-2 Ag (Rap id) Negative (Negati ve) 03/13/21 02:35 Blood Type A Positive 03/13/21 11:11 Rho(D) Type Positive 03/13/21 11:11 Antibody Screen Negative 03/13/21 11:11 Crossmatch See Detail 03/13/21 11:11 Impressions Chest X-Ray 03/13/21 02:16 IMPRESSION: Mild cardiomegaly. Chest/Abdomen/Pelvis CT 03/13/21 03:19 IMPRESSION: 1. No pulmonary embolism. 2. Atherosclerotic disease of the coronary arteries. IMPRESSION: 1. No cause for acute pain is identified. 2. Fatty infiltration of the liver. Microbiology 03/13/21 04:32 Urine,Clean Catch Urine Culture - Preliminary 03/13/21 21:00 Nose MRSA Culture - Final 03/13/21 04:32 Blood Blood Culture - Preliminary NEGATIVE TO DATE 03/13/21 03:35 Blood Blood Culture - Preliminary NEGATIVE TO DATE Vitals: Last Vital Signs Temp 97.5 F L 03/14/21 07:29 Pulse 57 L 03/14/21 08:29 Resp 20 H 03/14/21 08:21 BP 112/58 03/14/21 07:29 Pulse Ox 86 L 03/14/21 11:56 Discharge Plan Discharge Patient Disposition: Home Condition: Stable Prescriptions: New Augmentin 500-125 mg tablet 1 tab PO TID 7 Days Qty: 21 RF: 0 levofloxacin 500 mg tablet 500 mg PO Q24H 7 Days Qty: 7 RF: 0 Continued montelukast [Singulair] 10 mg tablet 10 mg PO DAILY@2100 RF: 0 hydroxyzine HCl 25 mg tablet 25 mg PO BID PRN (Reason: unknown) RF: 0 tizanidine 4 mg tablet 4 mg PO BID PRN (Reason: muscle spasticity) Qty: 60 RF: 0 gabapentin 600 mg tablet 600 mg PO TID Qty: 90 RF: 0 losartan [Cozaar] 100 mg tablet 100 mg PO DAILY@0600 RF: 0 diltiazem HCl 360 mg capsule,extended release 24hr 360 mg PO DAILY@0600 RF: 0 ropinirole 2 mg tablet 2 mg PO DAILY@2100 RF: 0 cetirizine [Zyrtec] 10 mg tablet 10 mg PO DAILY@0600 RF: 0 albuterol sulfate 90 mcg/actuation HFA aerosol inhaler 2 puff INHALATION Q6H PRN (Reason: Shortness Of Breath) RF: 0 levothyroxine [Euthyrox] 150 mcg tablet 150 mcg PO DAILY@0600 RF: 0 carvedilol 6.25 mg tablet 6.25 mg PO BID@0600,2100 RF: 0 tramadol 50 mg tablet 50 mg PO TID PRN (Reason: pain) 30 Days Qty: 60 RF: 0 potassium chloride 10 mEq tablet extended release 10 meq PO PRN RF: 0 indapamide 2.5 mg tablet 2.5 mg PO DAILY RF: 0 budesonide 0.25 mg/2 mL Suspension For Nebulization 0.25 mg INHALATION BID RF: 0 hydrocodone-acetaminophen 5-325 mg tablet 1 - 2 tab PO .Q4-6H Qty: 40 RF: 0 Changed hydrocodone-acetaminophen 5-325 mg tablet 1 tab PO .Q4-6H Qty: 40 RF: 0 furosemide 20 mg tablet 20 mg PO DAILY Qty: 30 RF: 0 Discharge Orders: Discharge Order (Routine); Ordered 03/14/21 Ordered By: Vernon Reyes Other Ambulatory Orders: DME: Oxygen (Order) Location: None Selected Ordered By: Vernon Reyes Referrals: Otto Cobb MD [Primary Care Provider] - 7-10 days Discharge Diet: Cardiac Discharge Activity: Resume usual activity Patient Instructions: Opioid Safety Activity Restrictions/Additional Instructions: Please follow-up with your primary care provider with set appointment. Please follow-up with Dr. Hui from spine surgery on the set appointment. Please take Augmentin and Levaquin which are the antibiotics for next 7 days. For now take Lasix 20 mg oral daily rather than on as-needed basis as before. Should get sleep study as an outpatient for higher susceptibility of sleep apnea Discharge Attestations Time Spent in Discharge Care*: greater than 30 min Specific Discharge Activities: educating patient, educating and/or supporting family/caregiver, discussing with skilled nursing case manager/social workers/dc planners, documenting/other paperwork and evaluating patient/reviewing data Status at Discharge: Cognitive status at discharge: cognitively intact , Behavioral status at discharge: cooperative , Functional status at discharge: uses cane/walker Overall status at discharge: patient is back to baseline Quality Metrics Clinical Quality Measures During this hospital stay, did patient experience: None Coding Level of Care Code Acute g DC note Diagnoses Hypoxia R09.02 Dyspnea R06.00 Dyspnea type: unspecified
== END 2021-03-14 15:23 | disposition home or self-care (01) ==
LOC: ER 02:29 → MEDSURG 04:42
PROVIDERS: Admitting Provider Student in an Organized Health Care Education/Training Program; Emergency Provider Emergency Medicine; PCP Family Medicine; Visit Provider Student in an Organized Health Care Education/Training Program
DX: R09.02 Hypoxemia (principal); R06.00 Dyspnea, unspecified; J44.9 Chronic obstructive pulmonary disease, unspecified; I11.0 Hypertensive heart disease with heart failure; I50.30 Unspecified diastolic (congestive) heart failure; Z82.49 Family history of ischemic heart disease and other diseases of the circulatory system; Z83.3 Family history of diabetes mellitus; Z87.891 Personal history of nicotine dependence
CPT/HCPCS: 36415; 36430; 36600; 71045; 71275; 74177; 80053; 80202; 81001; 82803; 83605; 83880; 84145; 84484; 85014; 85018; 85025; 85378; 85610; 86850; 86900; 86920; 87040; 87086; 87426; 87635; 87641; 93005; 94640; 96374; 96375; 97161; 97530; 99285; G0378; J1200; J1720; J1940; J2405; J3370; J7626; P9040; Q9967

== ENCOUNTER → 2021-03-23 13:46 | Outpatient (BNVA) | payer MEDICARE, MEDICAID, SELFPAY | PROVIDERS: PCP Family Medicine; Visit Provider Orthopaedic Surgery | DX: Z47.89 Encounter for other orthopedic aftercare (principal); Z98.890 Other specified postprocedural states; Z98.1 Arthrodesis status | CPT/HCPCS: 72100 ==

== ENCOUNTER → 2021-04-22 13:34 | Outpatient (BNVA) | payer MEDICARE, MEDICAID, SELFPAY | PROVIDERS: PCP Family Medicine; Visit Provider Orthopaedic Surgery | DX: Z98.1 Arthrodesis status (principal); M43.16 Spondylolisthesis, lumbar region; M54.50 Low back pain, unspecified; M79.605 Pain in left leg; M47.816 Spondylosis without myelopathy or radiculopathy, lumbar region | CPT/HCPCS: 72100 ==

== ENCOUNTER 2021-05-04 20:00 | Outpatient (CLI) | payer MEDICARE, MEDICAID, SELFPAY | END 2021-05-04 20:01 | disposition home or self-care (01) | LOC: SLEEP 05-05 08:48 | PROVIDERS: PCP Family Medicine; Visit Provider Family Medicine | DX: R09.02 Hypoxemia (principal); R06.83 Snoring; R53.83 Other fatigue; G47.33 Obstructive sleep apnea (adult) (pediatric) | CPT/HCPCS: 95810 ==

== ENCOUNTER → 2021-06-03 13:09 | Outpatient (BNVA) | payer MEDICARE, MEDICAID, SELFPAY | PROVIDERS: PCP Family Medicine; Visit Provider Orthopaedic Surgery | DX: Z98.1 Arthrodesis status (principal) | CPT/HCPCS: 72100 ==

== ENCOUNTER 2021-06-15 06:00 | Outpatient (RCR) | payer MEDICARE, SELFPAY | END 2021-07-10 23:59 | disposition home or self-care (01) | LOC: SPT 06:00 | PROVIDERS: PCP Family Medicine; Referring Provider Orthopaedic Surgery; Visit Provider Orthopaedic Surgery | DX: Z47.89 Encounter for other orthopedic aftercare (principal) | CPT/HCPCS: 97110; 97162; G0283 ==

== ENCOUNTER 2021-06-17 20:00 | Outpatient (CLI) | payer MEDICARE, MEDICAID, SELFPAY | END 2021-06-18 14:40 | disposition home or self-care (01) | LOC: SLEEP 06-23 04:27 | PROVIDERS: PCP Family Medicine; Visit Provider Family Medicine | DX: G47.33 Obstructive sleep apnea (adult) (pediatric) (principal) | CPT/HCPCS: 95811 ==

== ENCOUNTER 2021-07-11 06:00 | Outpatient (RCR) | payer MEDICARE, SELFPAY | END 2021-08-10 23:59 | disposition home or self-care (01) | LOC: SPT 06:00 | PROVIDERS: PCP Family Medicine; Referring Provider Orthopaedic Surgery; Visit Provider Orthopaedic Surgery | DX: Z98.1 Arthrodesis status (principal) | CPT/HCPCS: 97110; 97150; G0283 ==

== ENCOUNTER → 2021-08-03 09:01 | Outpatient (BNVA) | payer MEDICARE, MEDICAID, SELFPAY | PROVIDERS: PCP Family Medicine; Visit Provider Physician Assistant | DX: Z47.89 Encounter for other orthopedic aftercare (principal); Z98.890 Other specified postprocedural states; Z98.1 Arthrodesis status | CPT/HCPCS: 72100; 99024; 99213 ==

== ENCOUNTER 2021-08-03 10:53 | Outpatient (CLI) | payer MEDICARE, MEDICAID, SELFPAY | END 2021-08-03 10:54 | disposition home or self-care (01) | LOC: SPT 10:54 | PROVIDERS: PCP Family Medicine; Visit Provider Physician Assistant | DX: Z46.89 Encounter for fitting and adjustment of other specified devices (principal); Z98.1 Arthrodesis status; M54.50 Low back pain, unspecified | CPT/HCPCS: 97760; L0637 ==

== ENCOUNTER 2021-08-19 11:31 | Outpatient (CLI) | payer MEDICARE, MEDICAID, SELFPAY ==
--- NOTE | 2021-08-19 11:45 | MM_ITS ---
WS: [id number] VIEWS: MLO and CC views both breasts. 3D digital tomosynthesis is also included in this exam. Comparison made with prior exam of 09/29/2016, , 02/20/2020.. Findings: There was no sign of mass, architectural distortion or suspicious calcification in either breast. Fa [place]ty MM/[place] [id number] Impression: BI-RADS: 2-Benign FOLLOW-UP: 1 Year Follow-up This mammogram was also analyzed by the Computer Aided Detection System R2 Imag e Field Account Director.
== END 2021-08-19 11:32 | disposition home or self-care (01) ==
LOC: RAD 11:33
PROVIDERS: PCP Family Medicine; Visit Provider Family Medicine
DX: Z12.31 Encounter for screening mammogram for malignant neoplasm of breast (principal)
CPT/HCPCS: 77063; 77067

== ENCOUNTER 2021-10-25 09:32 | Outpatient (CLI) | payer MEDICARE, MEDICAID, SELFPAY ==
--- NOTE | 2021-10-25 09:44 | XR_ITS ---
WS: [id number] Exam: XR cervical spine 3V* [id number] Date/Time of Exam: 10/25/2021 9:48 AM Reason For Exam: STRAIN OF MUSCLE,FASCIA TENDON @ NECK LEVEL No fracture or dislocation. There is straightening and reversal of the normal cervical C curve. Disc spaces are well-maintained. Mild spondylosis from C3 to C7. Mild facet DJD at all levels. Normal para spinal soft tissues. The odontoid is intact. XR/XR cervical spine 3V* [id number] IMPRESSION: 1. Straightening and reversal of the normal cervical lordosis. No fracture or d islocation. 2. Minimal degenerative changes.
== END 2021-10-25 09:33 | disposition home or self-care (01) ==
LOC: RAD 09:35
PROVIDERS: PCP Family Medicine; Visit Provider Family Medicine
DX: S16.1XXA Strain of muscle, fascia and tendon at neck level, initial encounter (principal); X58.XXXA Exposure to other specified factors, initial encounter
CPT/HCPCS: 72040

== ENCOUNTER 2021-11-09 06:00 | Outpatient (RCR) | payer MEDICARE, MEDICAID, SELFPAY | END 2021-11-10 23:59 | disposition home or self-care (01) | LOC: SPT 06:00 | PROVIDERS: PCP Family Medicine; Visit Provider Family Medicine | DX: S16.1XXD Strain of muscle, fascia and tendon at neck level, subsequent encounter (principal); X58.XXXD Exposure to other specified factors, subsequent encounter | CPT/HCPCS: 97161 ==

== ENCOUNTER 2021-11-11 06:00 | Outpatient (RCR) | payer MEDICARE, MEDICAID, SELFPAY | END 2021-12-10 23:59 | disposition home or self-care (01) | LOC: SPT 06:00 | PROVIDERS: PCP Family Medicine; Visit Provider Family Medicine | DX: S16.1XXD Strain of muscle, fascia and tendon at neck level, subsequent encounter (principal); X58.XXXD Exposure to other specified factors, subsequent encounter | CPT/HCPCS: 97032; 97110; 97140; G0283 ==

== ENCOUNTER 2021-12-11 06:00 | Outpatient (RCR) | payer MEDICARE, MEDICAID, SELFPAY | END 2022-01-10 23:59 | disposition home or self-care (01) | LOC: SPT 06:00 | PROVIDERS: PCP Family Medicine; Visit Provider Family Medicine | DX: S16.1XXD Strain of muscle, fascia and tendon at neck level, subsequent encounter (principal); X58.XXXD Exposure to other specified factors, subsequent encounter | CPT/HCPCS: 97110; G0283 ==

== ENCOUNTER → 2022-02-08 08:55 | Outpatient (BNVA) | payer MEDICARE, MEDICAID, SELFPAY | PROVIDERS: PCP Family Medicine; Visit Provider Physician Assistant | DX: Z98.1 Arthrodesis status; Z98.890 Other specified postprocedural states | CPT/HCPCS: 72100; 99213 ==

== ENCOUNTER 2022-03-02 07:15 | Outpatient (CLI) | payer MEDICARE, MEDICAID, SELFPAY ==
--- NOTE | 2022-03-02 07:30 | CT_ITS ---
WS: [id number] CT LUMBAR SPINE, noncontrast. HISTORY: lower back pain TECHNIQUE: Contiguous axial imaging are performed. Sagittal and coronal reformats are submitted and r eviewed. All CT scans at [facility] use at least one of these dose optimization techniques: a utomated exposure control; mA and/or kV adjustment per patient size (includes targeted exams where do se is matched to clinical indication); or iterative reconstruction. IV contrast: None DLP: 1685.90 mGy.cm COMPARISON: 02/08/2022 radiograph Posterior lumbar fusion extends from L3 to S1 bilaterally. No lucency around the pedicle screws. No h ardware fractures. Interbody spacers at L4-5 and L5-S1. The L4-5 space extends posterior from the dis c space into the thecal sac by 2.9 mm. No interval change since the prior study. Large posterior lami nectomy defects from L3 through L5. Bone graft material with partial fusion. L1-2: Normal. L2-3: Very slight retrolisthesis of L2. Mild ligamentum flavum hypertrophy and annular disc bulging. Very slight central and foraminal stenosis. L3-4: Large posterior laminectomy defect. No significant central stenosis. L4-5: Large laminectomy defect. Postoperative soft tissue changes. No foraminal stenosis. L5-S1: Large laminectomy defect. No stenosis. Moderate calcification in the abdominal aorta and iliac arteries. CT/CT lumbar spine wo con* [id number] IMPRESSION: 1. Status post posterior lumbar fusion from L3 to S1 with large posterior lami nectomy defects from L3 to L5. 2. Very slight retropulsion of the disc spacer at L3-4 but unchanged since the postoperative imaging. 3. Incomplete bone graft fusion. 4. Quality of this examination is compromised by patient's body habitus. No la rge disc protrusions or significant stenosis identified. There is very mild rima tral and foraminal narrowing at L2-3.
== END 2022-03-02 07:16 | disposition home or self-care (01) ==
LOC: RAD 07:15
PROVIDERS: PCP Family Medicine; Visit Provider Physician Assistant
DX: M54.50 Low back pain, unspecified (principal); M79.605 Pain in left leg
CPT/HCPCS: 72131

== ENCOUNTER → 2022-03-17 10:15 | Outpatient (BNVA) | payer MEDICARE, MEDICAID, SELFPAY | PROVIDERS: PCP Family Medicine; Visit Provider Physician Assistant | DX: M54.50 Low back pain, unspecified (principal); M79.604 Pain in right leg; M79.605 Pain in left leg; M47.818 Spondylosis without myelopathy or radiculopathy, sacral and sacrococcygeal region; Z98.1 Arthrodesis status | CPT/HCPCS: 99213 ==

== ENCOUNTER 2022-04-25 11:54 | Outpatient (CLI) | payer MEDICARE, MEDICAID, SELFPAY | END 2022-04-25 11:55 | disposition home or self-care (01) | LOC: RT 04-26 11:55 | PROVIDERS: PCP Family Medicine; Visit Provider Orthopaedic Surgery | DX: Z13.6 Encounter for screening for cardiovascular disorders (principal) | CPT/HCPCS: 93005 ==

== ENCOUNTER 2022-05-02 16:45 | Inpatient (IN) | payer MEDICARE, MEDICAID, SELFPAY ==
[2022-04-25 11:04] VITALS: BMI 42.9
--- NOTE | 2022-04-25 11:25 | ECG_ITS ---
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 Measurements Intervals Lawn Rate: 74 P: 45 FL: 150 QRS: 20 QRSD: 96 T: 0 QT: 386 QTc: 430 Interpretive Statements SINUS RHYTHM LOW QRS VOLTAGE IN PRECORDIAL LEADS [QRS DEFLECTION < 1.0 mV IN CHEST LEADS] NONSPECIFIC ST & T-WAVE ABNORMALITY Compared to ECG 03/13/2021 12:10:56 No significant changes Electronically Signed On 04-25-2022 14:38:56 ENTERPRISE RECORDS ANALYST by Ryan Berry M.D. [email or web address]
[2022-04-25 11:45] LABS: Basophils # 0.1 10^3/uL (0.0-0.1); Basophils % 0.7 %; Eosinophils # 0.2 10^3/uL (0.0-0.8); Eosinophils % 1.8 %; Hematocrit 38.4 % (37.0-47.0); Hemoglobin 12.5 g/dL (11.5-15.3); Lymphocytes # 2.1 10^3/uL (0.8-4.8); Lymphocytes % 22.9 %; Mean Corpuscular HGB Conc 32.6 g/dL (30.0-36.0); Mean Corpuscular Hemoglobin 28.5 pg (28.0-34.0); Mean Corpuscular Volume 87.7 fl (81-99); Mean Platelet Volume 8.8 fL (7.4-10.4); Monocytes # 0.6 10^3/uL (0.2-0.9); Monocytes % 6.7 %; Neutrophils # 6.14 10^3/uL (1.8-7.7); Neutrophils % 67.6 %; Nucleated Red Blood Cells % 0 %; Platelet Count 359 10^3/cmm (130-400); Red Blood Count 4.38 10^6/uL (4.1-5.3); Red Cell Distribution Width 14.6 % (12.1-15.1); White Blood Count 9.1 10^3/uL (4.0-10.0)
--- NOTE | 2022-04-25 11:47 | P.ANESASSM_ITS ---
Pre-Anesthetic Assessment Height/Weight: Height 1.63 m Weight 113.398 kg Preop Diagnosis: Low back and leg pain, SI joint Arthritis Operation Date: 05/02/22 11:45 Proposed Procedures p Spinal Fusion Posterior Spinal Fusion:Revision L2 to the Pelvis fusion w Deco mp to the Rt L4 Screw. [id number],50394,24100,Z98.1(Right) - New Hui DO s Lumbar Spine Decompression(Right) - New Hui DO Familial anesthetic complications: none Was Beta Cj taken within 24 hours: N/A Was Clonidine taken within 24 hours: N/A Social No alcohol and No tobacco (h/o smoking) Exam alert, oriented x 3, clear to auscultation bilaterally and regular rate & rhythm Airway Submandibular: within normal limits Cervical ROM: within normal limits Mallampati: Class II Dentition: full Pulmonary Chronic Obstructive Pulmonary Disease CV/HEM Anemia, Congestive Heart Failure and Hypertension Metabolic Morbid Obesity and Thyroid Disease Musc/skel Lower Back Pain and Osteoarthritis/DJD Anesthetic Plan ASA status: 3 Anesthesia: General Medications/Allergies Home Medications Medication Instructions Recorded Confirmed Last Taken Type albuterol sulfate 90 mcg/actuation 2 puff inhalation Q6H PRN 07/30/19 04/25/22 04/22/22 History aerosol inhaler Shortness Of Breath cetirizine 10 mg tablet (Zyrtec) 10 mg PO DAILY@0607/30/19 04/25/22 04/25/22 History diltiazem HCl 360 mg 360 mg PO BEDTIME 07/30/19 04/25/22 04/25/22 History capsule,extended release 24 hr losartan 100 mg tablet (Cozaar) 100 mg PO DAILY@59907/30/19 04/25/22 04/25/22 History ropinirole 2 mg tablet 2 mg PO DAILY@209907/30/19 04/25/22 04/24/22 History hydroxyzine HCl 25 mg tablet 25 mg PO BID PRN Sleep 09/05/19 04/25/22 04/25/22 History montelukast 10 mg tablet 10 mg PO DAILY@209909/05/19 04/25/22 04/25/22 History (Valorieir) levothyroxine 150 mcg tablet 150 mcg PO DAILY@0600 03/23/20 04/25/22 04/25/22 History (Euthyrox) potassium chloride 10 mEq 10 meq PO PRN PRN with lasix 08/12/20 04/25/22 04/20/22 History tablet,extended release budesonide 0.25 mg/2 mL suspension 0.25 mg inhalation BID 09/21/20 04/25/22 0 04/25/22 History for nebulization indapamide 2.5 mg tablet 1.25 mg PO DAILY 03/13/21 04/25/22 04/25/22 History LSO brace #1 ea 08/03/21 03/17/22 Unknown Rx gabapentin 300 mg capsule 300 mg PO BID Leg pain #60 caps 02/08/22 04/25/22 04/25/22 Rx (Neurontin) cyclobenzaprine 10 mg tablet 10 mg PO Q8H PRN Spasms 04/25/22 04/25/22 04/23/22 History furosemide 20 mg tablet 20 mg PO DAILY PRN Edema 04/25/22 04/25/22 04/20/22 History hydralazine 50 mg tablet 100 mg PO TID 04/25/22 04/25/22 04/25/22 History Allergies Allergy/AdvReac Type Severity Reaction Status Date / Time celecoxib Allergy Mild itchin Verified 04/25/22 10:44 diclofenac Allergy Mild cough Verified 04/25/22 10:44 emollient combination no.60 Allergy Mild headache, Verified 04/25/22 10:44 [From [facility]] kidey pain, welts& rash hydrochlorothiazide Allergy Mild muscle Verified 04/25/22 10:44 spasms ibuprofen Allergy Mild itching Verified 04/25/22 10:44 venlafaxine Allergy Mild all day Verified 04/25/22 10:44 drugged feeling Iodinated Contrast Media Allergy ALGY-Hives Verified 04/25/22 10:44 lisinopril Allergy ADR-Cough Verified 04/25/22 10:44 [facility] Anesthesia Medical History Asthma Cervical radiculopathy Chronic low back pain Dyspnea on exertion Facet arthritis, degenerative, lumbar spine Facet arthropathy, lumbar History of kidney stones Hx of mitral valve prolapse Hypersomnia Hypertension Hypothyroidism 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 diastolic dysfunction FDC (current) use of opiate analgesic Lumbar disc disease with radiculopathy Lumbar stenosis Osteoarthritis of hands, bilateral Pain management contract signed Peripheral neuropathy Right median nerve neuropathy Surgical History History of carpal tunnel surgery Hx of cholecystectomy Hx of hysterectomy Hx of total ankle replacement Family History Mother CAD (coronary artery disease) Other Cancer Diabetes Hypertension Denies family history of Stroke Social History Smoking and tobacco status: former smoker Quit status (tobacco): has quit using tobacco Year quit tobacco: 2005 Alcohol intake: never Caregiver/support person: Yes Lives independently: Yes History of recent travel: No (travel from [facility]) Data Anesthesia 04/25/22 11:20 04/25/22 11:20 Short CBC 04/25/22 Range/Units 11:20 WBC 9.1 (4.0-10.0) 10^3/uL Hgb 12.5 (11.5-15.3) g/dL Hct 38.4 (37.0-47.0) % MCV 87.7 (81-99) fl Plt Count 359 (130-400) 10^3/cmm Neut % (Auto) 67.6 % Neut # (Auto) 6.14 (1.8-7.7) 10^3/uL Cardiac Studies: Echocardiogram Ultrasound 02/21/20
[2022-04-25 11:48] LABS: Anion Gap 15.1 (5-19); Blood Urea Nitrogen 14 mg/dL (8-23); Calcium 9.2 mg/dL (8.5-10.5); Carbon Dioxide 26 mmol/L (22-29); Chloride 102 mmol/L (98-107); Glomerular Filtration Rate 101.6 mL/min (90-130); Glucose 112 mg/dL (65-115); Osmolality Calculated 291 mOsm/kg (285-295); Potassium 3.1 mmol/L (3.5-5.1); Sodium 140 mmol/L (136-145)
[2022-05-02] VITALS (32 sets, daily range): BP systolic 100–182; BP diastolic 54–86; PULSE 64–102; RESP 14–20; TEMP 36.1–37.6; O2SAT 91–97
[2022-05-02] MEDS: sodium chloride 0.9% 1,000 ML 30 ML IV (08:37)
[2022-05-02] MEDS: HYDROmorphone 1 mg/mL INJ 1 mL 0.5 MG IVP ×4 (08:45→16:14)
--- NOTE | 2022-05-02 09:14 | P.ANESUD_ITS ---
Pre-Anesthetic Update Pre-Anesthetic Assessment: Date of Surgery/Procedure: 05/02/22 Preop Solange gnosis: Low back and leg pain, SI joint Arthritis Proposed Procedure: Operation Date: 05/02/22 11:35 Proposed Procedures p Spinal Fusion Posterior Spinal Fusion:Revision L2 to the Pelvis fusion w Decomp to the Rt L4 Screw. [id number],90514,Z98.1(Right) - New Hui, DO s Lumbar Spine Decompression(Right) - New Hui, DO Any changes to Pre-Anesthetic Assessment?: No Last Intake: Intake Last Liquid Date 05/01/22 Last Liquid Time 20:00 Last Solid Date 05/01/22 Last Solid Time 20:00 Vitals: Temperature 97.9 F 05/02/22 08:16 Temperature Source Temporal Artery S can 05/02/22 08:16 Pulse Rate 102 H 05/02/22 08:16 Pulse Rhythm 05/02/22 08:27 Pulse Strength 3+ Normal 05/02/22 08:27 Respiratory Rate 20 H 05/02/22 08:16 Blood Pressure 182/70 05/02/22 08:16 Blood Pressure Kayla n 107 05/02/22 08:16 Pulse Oximetry 95 05/02/22 08:16 Oxygen Delivery Me thod 05/02/22 08:27 Exam: Pre-Anes Outpt Exam: alert, oriented x 3, clear to auscultation bilaterally and regular rate & rhythm Additional Exam Findings (including area of procedure): murmur - denies CP, SOB, syncope. States able to walk a couple of city blocks Cardiac Studies: Echocardiogram Ultrasound 02/21/20
--- NOTE | 2022-05-02 10:34 | PM.HP ---
Providers/Chief Complaint Primary Care Provider: Otto Cobb MD Chief Complaint: [id number], History of Present Illness Gita Robison is a 61 year old female Patient is 13 months out from surgery. Her pain today is 4/10. Patient ambulating with no assistive device in clinic today. Patient states that she continues to have numbness and 'stabbing' sensation to her feet with Right>Left.? She reports that her legs are constantly bothering her.? Difficult to walk or stand for any distance.? Denies any fever chills drainage from her incisional site.? She had fallen while she was in the hospital the day after surgery due to right leg weakness.? She reports pain has progressively intensified since that event.? She reports back hip and buttock pain travels down both legs right greater than left with weakness in her hip flexion bilaterally. Review of Systems Narrative: General ROS: negative for weight changes, fever ENT ROS: negative for nasal congestion, drainage or bleeding, sore throat, dysphagia or ear pain Eyes: PERRL Hematological and Lymphatic ROS: negative for swollen glands or abnormal bleeding Endocrine ROS: negative for polyuria/polydpsia or new changes in weight Respiratory ROS: negative for cough, shortness of breath, or wheezing Cardiovascular ROS: negative for chest pain or dyspnea on exertion Gastrointestinal ROS: negative for reflux, abdominal pain, change in bowel habits, or black or bloody stools Musculoskeletal ROS: negative for back pain, neck pain, or joint pain or swelling except for current problem Neurological ROS: negative for TIA or stoke symptoms Skin: no rashes Const: Denies: fever(s) or chills Card: Denies: chest pain or dyspnea on exertion Resp: Denies: dyspnea or productive cough GI: Denies: abdominal pain, nausea or vomiting : Denies: difficulty voiding Musc: Reports: limited range of motion (limited secondary to surgery); Denies: joint pain or joint swelling Skin/Breast: Denies: changes in skin color or dry skin Neuro: Denies: numbness in extremities or weakness in extremities Psych: Denies: anxiety Kendall/Lymph: Denies: easy bruising or easy bleeding Medications/Allergies Home Medications Medication Instructions Recorded Confirmed Last Taken Type albuterol sulfate 90 mcg/actuation 2 puff inhalation Q6H PRN 07/30/19 04/25/22 05/02/22 History aerosol inhaler Shortness Of Breath cetirizine 10 mg tablet (Zyrtec) 10 mg PO DAILY@0607/30/19 04/25/22 04/30/22 History diltiazem HCl 360 mg 360 mg PO BEDTIME 07/30/19 04/25/22 05/01/22 History capsule,extended release 24 hr losartan 100 mg tablet (Cozaar) 100 mg PO DAILY@0607/30/19 04/25/22 05/01/22 History ropinirole 2 mg tablet 2 mg PO DAILY@2100 07/30/19 04/25/22 05/01/22 History hydroxyzine HCl 25 mg tablet 25 mg PO BID PRN Sleep 09/05/19 04/25/22 04/25/22 History montelukast 10 mg tablet 10 mg PO DAILY@2100 09/05/19 04/25/22 05/01/22 History (Singulair) levothyroxine 150 mcg tablet 150 mcg PO DAILY@0603/23/20 04/25/22 05/02/22 History (Euthyrox) potassium chloride 10 mEq 10 meq PO PRN PRN with lasix 08/12/20 04/25/22 04/25/22 History tablet,extended release budesonide 0.25 mg/2 mL suspension 0.25 mg inhalation BID 09/21/20 04/25/22 05/01/22 History for nebulization indapamide 2.5 mg tablet 1.25 mg PO DAILY 03/13/21 04/25/22 05/01/22 History LSO brace #1 ea 08/03/21 03/17/22 Unknown Rx gabapentin 300 mg capsule 300 mg PO BID Leg pain #60 caps 02/08/22 04/25/22 04/30/22 Rx (Neurontin) cyclobenzaprine 10 mg tablet 10 mg PO Q8H PRN Spasms 04/25/22 04/25/22 04/23/22 History furosemide 20 mg tablet 20 mg PO DAILY PRN Edema 04/25/22 04/25/22 04/25/22 History hydralazine 50 mg tablet 100 mg PO TID 04/25/22 04/25/22 05/02/22 History Intraoperative Neuromonitoring #1 ea 04/27/22 Unknown Rx Bone Growth Sstimulator E0748 #1 ea 04/28/22 Unknown Rx Allergies Allergy/AdvReac Type Severity Reaction Status Date / Time celecoxib Allergy Mild itchin Verified 05/02/22 08:22 diclofenac Allergy Mild cough Verified 05/02/22 08:22 emollient combination no.60 Allergy Mild headache, Verified 05/02/22 08:22 [From [facility]] kidey pain, welts& rash hydrochlorothiazide Allergy Mild muscle Verified 05/02/22 08:22 spasms ibuprofen Allergy Mild itching Verified 05/02/22 08:22 venlafaxine Allergy Mild all day Verified 05/02/22 08:22 drugged feeling Iodinated Contrast Media Allergy ALGY-Hives Verified 05/02/22 08:22 lisinopril Allergy ADR-Cough Verified 05/02/22 08:22 PFSH Acute PFSH: Medical History Asthma Cervical radiculopathy Chronic low back pain Dyspnea on exertion Facet arthritis, degenerative, lumbar spine Facet arthropathy, lumbar History of kidney stones Hx of mitral valve prolapse Hypersomnia Hypertension Hypothyroidism 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 diastolic dysfunction intermediate (current) use of opiate analgesic Lumbar disc disease with radiculopathy Lumbar stenosis Osteoarthritis of hands, bilateral Pain management contract signed Peripheral neuropathy Right median nerve neuropathy Surgical History History of carpal tunnel surgery Hx of cholecystectomy Hx of hysterectomy Hx of total ankle replacement Family History Mother CAD (coronary artery disease) Other Cancer Diabetes Hypertension Denies family history of Stroke Social History Smoking and tobacco status: former smoker Quit status (tobacco): has quit using tobacco Year quit tobacco: 2005 Alcohol intake: never Caregiver/support person: Yes Lives independently: Yes History of recent travel: No (travel from [facility]) Vitals/I&O/Wt Last Vital Signs Temp 97.9 F 05/02/22 08:16 Pulse 102 H 05/02/22 08:16 Resp 20 H 05/02/22 08:16 BP 182/70 05/02/22 08:16 Pulse Ox 95 05/02/22 08:16 O2 Del Method 05/02/22 08:27 Physical Exam Narrative: CONSTITUTIONAL: The patient is a normal appearing [] in no apparent distress. GENERAL: Patient in no acute distress. CARDIAC: Regular rate and rhythm. CHEST: Normal inspiratory effort, normal respiratory rate. ABDOMEN: Soft and nontender. SKIN: Clear, warm and intact. NEURO?PSYCH: The patient is alert and oriented to person, place and time. Sensorv /SILT Motor StrengthShoulder abduction C5 5/5Wrist extension C6 5/5Elbow extension C7 5/5Hand Library Science Instructor C8 5/5Finger abduction T15/5 Radial/ Ulnar/ Median n intact LowerSensory (SILT)Motor StrengthHin flexion L2/3Ant/inner thigh 5/5Hip adduction L2/3 5/5Knee extension L4 Lat thigh, 5/5Toe dorsiflexion L5 5/5Ankle dorsiflexion L5/ S91Zagnqqn flexion S1 5/5 DTRBleeps 2+Triceps 2+Brachioradialis 2+Patellar 2+Achilles 2+ MUSCULOSKELETAL: [] UPPEREXTREMITIES: The patient had full active ROM in fingers, wrist, elbow, and shoulder. The patient demonstrated ability to fully flex/extend/abduct/adduct fingers, make ok sign, cross 2nd/3rd digits, extend 1st digit fully.. Radial pulse 2+, CR<2 seconds. LOWER EXTREMITIES: Pt has full, active ROM of toes, ankle, knee, and hip. Dorsalis pedis/posterior tibialis pulses 2+, CR<2 seconds. SPINE: Skin warm, dry, intact. Data 04/25/22 11:20 04/25/22 11:20 A&P Assessment and plan (1) Low back pain radiating to both legs: L2 to pelvis revision surgery Attestations Medical Necessity Statement*: failed conservative tx Coding Level of Care Code Acute Code for Chg Fwd Diagnoses Low back pain radiating to both legs M54.50; M79.604; M79.605
[2022-05-02] MEDS: ceFAZolin 2,000 MG in sodium chloride 0.9% (plus) 50 ML 100 MG IV ×2 (11:01→17:30)
[2022-05-02] MEDS: vancomycin 1,000 MG SDV 1000 MG XX (11:46)
[2022-05-02] MEDS: heparin, porcine 1,000 unit/mL INJ 10 mL 10000 UNIT XX (11:58)
--- NOTE | 2022-05-02 13:30 | PM.OP ---
Operative Report Date of procedure: May 02, 2022 Pre-op diagnosis: Preop Diagnosis Low back and leg pain, SI joint Arthritis Post-op diagnosis: same Procedure done: 1. L2- Pelvis fusion 2. L2- S1 instrumentation 3. lumbopelvic fixation 4. use of computer navigation stereotactic for spine 5. removal of deep hardware from spine 6. use of bone marrow aspirate from right iliac crest 7. use of allograft Surgeon: New Hui Dean Of Women: Lawrence Santiago Dean Of Women: The inside sales assistant, Lawrence Santiago, DWAINE was needed for his expertise under the microscope. He was important and necessary throughout the procedure to complete in a safe and timely manner. He assisted with patient positioning prepping and draping tissue retraction suctioning of the operative field protection of the dural sac and tissue closure Estimated blood loss (mL): 500 Procedure: 1. L2- Pelvis fusion 2. L2- S1 instrumentation 3. lumbopelvic fixation 4. use of computer navigation stereotactic for spine 5. removal of deep hardware from spine 6. use of bone marrow aspirate from right iliac crest 7. use of allograft Patient is brought to the operative suite after undergoing anesthesia was placed in prone position. All areas appear well-padded. Patient was then prepped and draped normal sterile fashion. Dissection was made from L2 down to the sacrum. Subperiosteal dissection was made out to the L2 transverse process. And then dissection was brought down on the laureen bilaterally. The L3-L4-L5 and S1 screws and laureen were identified. Sac was dissected out in order to facilitate making room for the iliac screw as well. Next tension was brought to obtaining the bone marrow aspirate. This was done by using the bone marrow aspiration kit from [employer]. The needle was placed into the right iliac crest the bone marrow was aspirated 1 mm increments up to 20 cc. This was later used and mixed with the allograft. Next attention was brought to placing the fiducial for the computer navigation. The 2 pins were placed in the right iliac crest. The fusion was attached. The C-arm was then brought on spinal patient and this information was then used to place the pedicle screws and the iliac screws. Was brought to placing the pedicle screws. The L2 pedicle screws were placed using the high-speed bur followed by the gearshift linked to the computer navigation followed by pedicle finder followed by placing the screw length computer navigation. This was done at L2. Next attention was brought to removing the rods. The caps were removed from L3-L4-L5 and S1 bilaterally. The rods were then removed. The L4 screw was backed out and removed because it was felt on the CT scan that it was possibly compressing the nerve giving her radicular symptoms. She was brought to placing the iliac screws. This was done in the sacral ala iliac fashion. The gearshift was used to navigate. It was placed just below the S1 foramen laterally and brought through the ala across the iliosacral joint and into the iliac crest. This was done bilaterally. Pedicle feeler was used tap was then used and then the larger iliac screws were placed. Next tension was brought to connecting the rods. The rods were placed from L2-S1 and linked to the iliac screw performing the lumbopelvic fixation. The rods were then locked in position with the end caps. And this was done bilaterally. Wounds were then irrigated. Next attention was brought to decorticating the transverse processes and the previous fusion mass. As well as the sacral ala. The allograft osteo amp allograft was placed into the lateral gutters. And then the wound was closed in layered fashion with 0 Vicryl 2-0 Vicryl Monocryl and Steri-Strips. Prior to this vancomycin powder and deep drain was placed.
--- NOTE | 2022-05-02 13:45 | XR_ITS ---
WS: [id number] Exam: XR lumbar spine 1V [id number] Date/Time of Exam: 05/02/2022 1:45 PM Reason For Exam: OR PICS AP and lateral intraoperative C-arm images of the lumbar spine are submitted for evaluation. Bilateral pedicle screws are noted in L2, L3, L5 and S1. A single pedicle screw noted in L4. Surgical retractors in place. Previously noted posterior rods have been removed. Disc spacers noted at L4-5 a nd L5-S1. No other significant finding on this limited series.
[2022-05-02] MEDS: fentaNYL 50 mcg/mL INJ 2mL IVP ×2 (14:15→14:36)
--- NOTE | 2022-05-02 14:22 | PC.NURSE ---
1400-Oral airway removed and pt breathing ok with O2 sats at 96% with O2 at 10L per simple mask. 1410-Art line removed and pressure held for 3min. Pressure dressing applied with several 2x2s and coban.
[2022-05-02] MEDS: cyclobenzaprine 10 mg Tablet PO (15:33)
[2022-05-02] MEDS: HYDROcodone-acetaminophen 5-325 mg Tablet PO ×2 (15:33→20:43)
[2022-05-02] MEDS: ketorolac 30 mg/mL INJ IVP (15:34)
[2022-05-02] MEDS: ondansetron 2 mg/ML SDV 2 mL 4 MG IVP (15:34)
[2022-05-02] MEDS: morphine 4 mg/mL SDV 1 mL 2 MG IVP ×3 (15:40→21:55)
--- NOTE | 2022-05-02 15:47 | ANE.PACU2 ---
Inpatient post-anesthesia follow up: Airway intact: Yes Vital signs: Temperature 98.6 F Pulse Rate 89 Respiratory Rate 16 Blood Pressure 104/74 Pulse Oximetry 96 Oxygen Delivery Me thod Room Air Oxygen Flow Rate 5 Fraction of Inspir ed Oxygen Hydration adequate: Yes Nausea and vomiting: No Pain level: 1 Mental status: Baseline
[2022-05-02] MEDS: docusate sodium 100 mg Capsule PO (17:27)
[2022-05-02] MEDS: lactated ringers 1,000 ML 90 ML IV (17:30)
[2022-05-02 18:11] LABS: Glucose Point of Care 135 mg/dL (70-110)
[2022-05-02] MEDS: ropinirole 2 mg Tablet PO (20:47)
[2022-05-02] MEDS: hyDRALAzine 50 mg Tablet 100 MG PO (20:47)
[2022-05-02] MEDS: dilTIAZem ER (24HR) 180 mg Capsule 360 MG PO (20:47)
[2022-05-02] MEDS: gabapentin 300 mg Capsule PO (20:47)
[2022-05-02] MEDS: montelukast sodium 10 mg Tablet PO (20:47)
[2022-05-02] MEDS: budesonide 0.5 mg/2 mL Neb 0.25 MG INHALATION (21:36)
[2022-05-03] MEDS: lactated ringers 1,000 ML 90 ML IV (03:41)
[2022-05-03] MEDS: ceFAZolin 2,000 MG in sodium chloride 0.9% (plus) 50 ML 100 MG IV (03:41)
[2022-05-03 04:57] VITALS: BP 107/68; PULSE 78; RESP 18; TEMP 37.3; O2SAT 90
[2022-05-03] MEDS: HYDROcodone-acetaminophen 5-325 mg Tablet PO ×2 (05:40→09:55)
[2022-05-03 05:41] VITALS: BP 107/68
[2022-05-03] MEDS: losartan 50 mg Tablet 100 MG PO (05:41)
[2022-05-03] MEDS: cetirizine 10 mg Tablet PO (05:41)
[2022-05-03] MEDS: levothyroxine 150 mcg Tablet PO (05:42)
[2022-05-03 05:59] VITALS: PULSE 78
--- NOTE | 2022-05-03 07:29 | P.PN_ITS ---
Subjective Subjective: POD 1 Patient resting comfortably. States back pain and leg pain have improved. Denies any shortness of breath, chest pain, headaches. Vitals/I&O/Wt Last Vital Signs Temp 99.2 F 05/03/22 04:57 Pulse 78 05/03/22 05:59 Resp 18 05/03/22 04:57 BP 107/68 05/03/22 05:41 Pulse Ox 90 05/03/22 04:57 O2 Del Method 05/03/22 04:57 O2 Flow Rate 2 05/02/22 21:38 05/02/22 05/03/22 05/03/22 22:59 06:59 14:59 Intake Total 1050 / 2400 966.5 / 3366.5 Output Total 150 / 1150 610 / 1760 Balance 900 / 1250 356.5 / 1606.5 Physical Exam Narrative: Patient presents alert and oriented x3 with a good general appearance normal mood and affect. Normal coordination normal stability. Mild tenderness around the incisional site with the incision appear to be clean and dry. no signs of erythema or drainage. No signs of infection. Patient denies any fevers or chills. 5/5 motor strength both lower extremities except in both EHLs 4/5 strength with negative straight leg raise bilaterally. Calves are supple no medial thigh tenderness. Pulses are 2+ at the dorsalis pedis and posterior tibial region. Good capillary refill throughout normal sensation ligh t touch both lower extremities. Urinary Catheter Management: Kaye: Cath Placed During This Visit: yes, but has since been removed by the nurse Reason for Continuing Indwelling Catheter: Perioperative Use in Selected Surgeries Urinary Catheter Date of Insertion: 05/02/22 Urinary Catheter Time of Insertion: 11:20 Date Urinary Catheter Removed: 05/03/22 Time Urinary Catheter Discontinued: 05:53 Data 04/25/22 11:20 04/25/22 11:20 A&P Assessment and plan (1) Status post lumbar spinal fusion: Discontinue Kaye catheter and Hemovac drain. Physical therapy to mobilize. No bending lifting or twisting activities. If remains stable discharge home later this morning. Continue incentive spirometry at home for pulmonary toilet . see her back in the office in 1 week's time for wound check. Attestations Medical Necessity Statement*: DC home later this morning if stable. Coding Level of Care Code Acute Code for Chg Fwd Diagnoses Status post lumbar spinal fusion Z98.1
[2022-05-03 08:00] VITALS: PULSE 75; RESP 16; O2SAT 93
[2022-05-03] MEDS: budesonide 0.5 mg/2 mL Neb 0.25 MG INHALATION (08:00)
[2022-05-03 08:05] VITALS: BP 124/63; PULSE 72; RESP 17; TEMP 36.6; O2SAT 92
[2022-05-03] MEDS: docusate sodium 100 mg Capsule PO (09:55)
[2022-05-03] MEDS: hyDRALAzine 50 mg Tablet 100 MG PO (09:55)
[2022-05-03] MEDS: gabapentin 300 mg Capsule PO (09:58)
== END 2022-05-03 10:00 | disposition home or self-care (01) | DRG 460 ==
LOC: MEDSURG 16:45
PROVIDERS: Anesthesiology; Admitting Provider Orthopaedic Surgery; PCP Family Medicine; Visit Provider Orthopaedic Surgery
PROC: 0SG107J Fusion of 2 or more Lumbar Vertebral Joints with Autologous Tissue Substitute, Posterior Approach, Anterior Column, Open Approach (ICD-10-PCS; principal; 2022-05-02 11:15)
PROC: 0SG107J Fusion of 2 or more Lumbar Vertebral Joints with Autologous Tissue Substitute, Posterior Approach, Anterior Column, Open Approach (ICD-10-PCS; CPT 63005; 2022-05-02 11:15)
DX: M54.42 Lumbago with sciatica, left side (principal); M54.41 Lumbago with sciatica, right side; G89.29 Other chronic pain; Z91.041 Radiographic dye allergy status; I34.1 Nonrheumatic mitral (valve) prolapse; I10 Essential (primary) hypertension; E03.9 Hypothyroidism, unspecified; M19.042 Primary osteoarthritis, left hand; M19.041 Primary osteoarthritis, right hand; Z87.891 Personal history of nicotine dependence; M47.818 Spondylosis without myelopathy or radiculopathy, sacral and sacrococcygeal region
CPT/HCPCS: 36415; 36416; 51702; 72020; 76000; 80048; 82962; 85025; 94640; C1713; C9359; J0330; J0690; J1100; J1170; J1644; J1885; J2250; J2270; J2370; J2405; J2704; J3010; J3370; J3490; J7030; J7120; J7626; P9045

== ENCOUNTER 2022-05-03 20:05 | Emergency (ER) | payer MEDICARE, MEDICAID, SELFPAY ==
[2022-05-03 20:21] VITALS: BP 145/74; PULSE 89; RESP 20; TEMP 36.8; O2SAT 95; BMI 42.9
[2022-05-03 22:28] LABS: Basophils # 0.1 10^3/uL (0.0-0.1); Basophils % 0.4 %; Eosinophils # 0.1 10^3/uL (0.0-0.8); Eosinophils % 0.4 %; Hematocrit 28.4 % (37.0-47.0); Lymphocytes # 2.4 10^3/uL (0.8-4.8); Lymphocytes % 16.7 %; Mean Corpuscular HGB Conc 31.7 g/dL (30.0-36.0); Mean Corpuscular Hemoglobin 28.2 pg (28.0-34.0); Mean Platelet Volume 8.5 fL (7.4-10.4); Monocytes # 1.2 10^3/uL (0.2-0.9); Monocytes % 8.7 %; Neutrophils # 10.31 10^3/uL (1.8-7.7); Neutrophils % 73.2 %; Nucleated Red Blood Cells % 0 %; Platelet Count 293 10^3/cmm (130-400); Red Blood Count 3.19 10^6/uL (4.1-5.3); Red Cell Distribution Width 14.6 % (12.1-15.1); White Blood Count 14.1 10^3/uL (4.0-10.0)
--- NOTE | 2022-05-04 00:46 | ED_ITS ---
HPI - Wound/Laceration General: Chief Complaint: Wound/Laceration Stated Complaint: surgical site bleeding Time Seen by Provider: 05/03/22 23:39 History of Present Illness: Patient is a 61-year-old female who comes to the ED with surgical site bleeding. Dr. Hui performed lumbar fusion surgery on May 02. Surgery had no complications and patient was discharged home. Today she started having bleeding from her surgical site. She contacted the surgery center earlier today and they called Dr. Hui and they told her to reapply bandages 3 times and if she bled through all 3 of those to come to the ED for further evaluation. Patient bled through her 3 bandages, so she came here to the ED. She is having normal postop pain and denies any puslike drainage. Denies any fevers. Denies any other symptoms. Patient was told she can contact Dr. Hui's office tomorrow morning to set up an appointment with them to be seen this . Associated symptoms: Denies chills, fever(s), nausea or vomiting Review of Systems Const: Denies: fever(s), chills or fatigue Eyes: Denies: change in vision or eye discomfort ENMT: Denies: throat pain, odynophagia, nasal discharge or nasal congestion Card: Denies: chest pain, palpitations, edema, swelling of feet/ankles, dyspnea on exertion or orthopnea Resp: Denies: dyspnea, productive cough or non-productive cough GI: Denies: abdominal pain, nausea, vomiting, diarrhea, constipation or hematochezia : Denies: flank pain, dysuria or hematuria Musc: Reports: back pain (Normal postop lower back pain); Denies: neck pain or extremity swelling Skin/Breast: Reports: surgical incision (Bleeding from lumbar surgical site); Denies: rash or new lesions Neuro: Denies: headache(s), numbness in extremities or weakness in extremities PFS ED PFSH: Medical History Asthma Cervical radiculopathy Chronic low back pain Dyspnea on exertion Facet arthritis, degenerative, lumbar spine Facet arthropathy, lumbar History of kidney stones Hx of mitral valve prolapse Hypersomnia Hypertension Hypothyroidism 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 diastolic dysfunction shelter (current) use of opiate analgesic Lumbar disc disease with radiculopathy Lumbar stenosis Osteoarthritis of hands, bilateral Pain management contract signed Peripheral neuropathy Right median nerve neuropathy Surgical History History of carpal tunnel surgery Hx of cholecystectomy Hx of hysterectomy Hx of total ankle replacement Family History Mother CAD (coronary artery disease) Other Cancer Diabetes Hypertension Denies family history of Stroke Social History Smoking and tobacco status: former smoker Quit status (tobacco): has quit using tobacco Year quit tobacco: 2005 Alcohol intake: never Caregiver/support person: Yes Lives independently: Yes Physical Exam Const: COMMON NORMALS: patient oriented x3 HENMT: COMMON NORMALS: normocephalic HEAD & SCALP: normocephalic MOUTH: Normal oral and palatal mucosa present THROAT: posterior oropharynx normal and uvula midline Neck/C-Spine: COMMON NORMALS: supple GENERAL: Yes normal visual inspection Resp: COMMON NORMALS: normal respiratory effort, No retractions, No use of accessory muscles and clear to auscultation bilaterally AUSCULTATION: clear to auscultation bilaterally Cardio: COMMON NORMALS: regular rate, regular rhythm, S1 normal heart sound present, S2 normal heart sound present, No gallops present (Cardio), No clicks present (Cardio), No murmurs present (Cardio) and Peripheral pulses 2+ throu ghout RATE: regular rate RHYTHM: regular rhythm HEART SOUNDS: S1 normal heart sound present and S2 normal heart sound present PERIPHERAL PULSES: Peripheral pulses 2+ throughout GI: COMMON NORMALS: Normal to inspection, nondistended, normoactive bowel sounds present, Soft to palpation, non-tender and no masses PALPATION: Yes Soft to palpation : COMMON NORMALS: Yes no CVA tenderness BLADDER/KIDNEY EXAM: Yes no CVA tenderness Back/Pelvis: COMMON NORMALS: no CVA tenderness OTHER: Lumbar surgical site?patient's bandages were removed and there was no current active bleeding around surgical site. No purulent drainage noted. No wound dehiscence seen. No signs of cellulitis noted. Extremity: COMMON NORMALS: normal to inspection Neuro: COMMON NORMALS: patient oriented x3 GAIT: Yes Normal gait present Skin: GENERAL SKIN EXAM: dry skin Course ED course: The nurse and I removed bandages on patient's surgical site and a couple of the Steri-Strips pulled off when removing bandage. She had no active bleeding from surgical site. Nurse then cleaned and irrigated surgical site and new Steri-Strips were applied. Nurse then covered surgical site with bandage. Vital Signs: Vital signs: Vital Signs Temperature 98.3 F 05/03/22 20:21 Pulse Rate 90 05/04/22 01:31 Respiratory Rate 18 05/04/22 01:31 Blood Pressure 147/80 05/04/22 01:31 Pulse Oximetry 94 05/04/22 01:31 Oxygen Delivery Me thod 05/04/22 01:15 MDM - Wound/Laceration Medical Decision Making Patient is a 61-year-old female comes to the ED with surgical site bleeding. Patient had lumbar fusion surgery performed by Dr. Hui on May 02. There were no complications of surgery and she has been doing well. Today she started having bleeding from surgical site of blood there couple bandages and came here to the ED for further evaluation. The nurse and I removed bandages on patient's surgical site and a couple of the Steri-Strips pulled off when removing bandage. She had no active bleeding, purulent drainage or any signs of cellulitis of surgical site. Nurse then cleaned and irrigated surgical site and new Steri- Strips were applied. Nurse then covered surgical site with bandage. Vitals are stable. Patient appears nontoxic in no acute distress. She was told to contact Dr. Hui's office tomorrow morning to set up an appointment for reevaluation on . Patient understood and agreed with plan. Lab Data I reviewed the patient's lab results. 05/03/22 22: Laboratory Results WBC 14.1 10^3/uL (4.0-10.0) H 05/03/22: RBC 3.19 10^6/uL (4.1-5.3) L 05/03/22 22: Hgb 9.0 g/dL (11.5-15.3) L 05/03/22 22: Hct 28.4 % (37.0-47.0) L 05/03/22 22: MCV 89.0 fl (81-99) 05/03/22 22: MCH 28.2 pg (28.0-34.0) 05/03/22 22: MCHC 31.7 g/dL (30.0-36.0) 05/03/22 22: RDW 14.6 % (12.1-15.1) 05/03/22 22: Plt Count 293 10^3/cmm (130-400) 05/03/22 22:22 MPV 8.5 fL (7.4-10.4) 05/03/22 22: Neut % (Auto) 73.2 % 05/03/22 22:22 Lymph % (Auto) 16.7 % 05/03/22 22:22 Coleman % (Auto) 8.7 % 05/03/22 22:22 Eos % (Auto) 0.4 % 05/03/22 22: Baso % (Auto) 0.4 % 05/03/22 22: Neut # (Auto) 10.31 10^3/uL (1.8-7.7) H 05/03/22 22:22 Lymph # (Auto) 2.4 10^3/uL (0.8-4.8) 05/03/22 22:22 Coleman # (Auto) 1.2 10^3/uL (0.2-0.9) H 05/03/22 22:22 Eos # (Auto) 0.1 10^3/uL (0.0-0.8) 05/03/22 22: Baso # (Auto) 0.1 10^3/uL (0.0-0.1) 05/03/22 22: Nucleated RBC % (auto) 0 % 05/03/22 22: Nucleated RBCs # 0.0 /100WBC 05/03/22 22:22 Discharge Plan Discharge Patient Disposition: Home Clinical Impression: Postoperative bleeding from incision Condition: Stable Prescriptions: No Action montelukast [Singulair] 10 mg tablet 10 mg PO DAILY@2100 hydroxyzine HCl 25 mg tablet 25 mg PO BID PRN (Reason: Sleep) losartan [Cozaar] 100 mg tablet 100 mg PO DAILY@0600 diltiazem HCl 360 mg capsule,extended release 24hr 360 mg PO BEDTIME ropinirole 2 mg tablet 2 mg PO DAILY@2100 cetirizine [Zyrtec] 10 mg tablet 10 mg PO DAILY@0600 albuterol sulfate 90 mcg/actuation HFA aerosol inhaler 2 puff INHALATION Q6H PRN (Reason: Shortness Of Breath) levothyroxine [Euthyrox] 150 mcg tablet 150 mcg PO DAILY@0600 gabapentin [Neurontin] 300 mg capsule 300 mg PO BID Qty: 60 0RF (DME) LSO brace See Rx Instructions .Route .MEDSUPPLY Qty: 1 0RF Rx Instructions: As directed (DME) Intraoperative Neuromonitoring See Rx Instructions .Route .MEDSUPPLY Qty: 1 0RF Rx Instructions: As directed (DME) Bone Growth Sstimulator E0748 See Rx Instructions .Route .MEDSUPPLY Qty: 1 0RF Rx Instructions: As directed potassium chloride 10 mEq tablet extended release 10 meq PO PRN PRN (Reason: with lasix) indapamide 2.5 mg tablet 1.25 mg PO DAILY budesonide 0.25 mg/2 mL Suspension For Nebulization 0.25 mg INHALATION BID cyclobenzaprine 10 mg tablet 10 mg PO Q8H PRN (Reason: Spasms) hydralazine 50 mg tablet 100 mg PO TID furosemide 20 mg tablet 20 mg PO DAILY PRN (Reason: Edema) hydrocodone-acetaminophen 5-325 mg tablet 1 - 2 tab PO .Q4-6H Qty: 40 0RF Discharge Orders: Discharge ED (Routine); Ordered 05/04/22 Ordered By: Garrick Thao Referrals: Otto Cobb MD [Primary Care Provider] - Discharge Diet: Regular Discharge Activity: Limit activity as instructed Activity Restrictions/Additional Instructions: Contact Dr. Hui's office tomorrow morning to set up follow-up appointment for for reevaluation. Continue taking all home medications as previously prescribed. Return to the ER or your medical provider if condition worsens. Please read and understand discharge instructions. Thank you for choosing [facility] for your healthcare needs today. Please realize this is an emergency room and that we are providing you with a medical screening exam and this may not be complete and all inclusive of all the testing and or work up that you may need to determine your ailment or severity of your illness. It is very important that you follow up as instructed or that you return to the Emergency Department should you have concerns or if your condition changes or worsens in any way. Coding Level of Care Code ED [facility] [employer] for Freya Nolasco
[2022-05-04] MEDS: HYDROcodone-acetaminophen 7.5-325 mg Tablet 1 TAB PO (00:51)
[2022-05-04] MEDS: diphenhydrAMINE 50 mg Capsule PO (00:51)
[2022-05-04 01:15] VITALS: BP 147/80; PULSE 90; RESP 18; O2SAT 94
[2022-05-04 01:31] VITALS: BP 147/80; PULSE 90; RESP 18; O2SAT 94
== END 2022-05-04 01:25 | disposition home or self-care (01) ==
PROVIDERS: Emergency Provider Physician Assistant; PCP Family Medicine
DX: L76.22 Postprocedural hemorrhage of skin and subcutaneous tissue following other procedure (principal); Z87.891 Personal history of nicotine dependence; I10 Essential (primary) hypertension
CPT/HCPCS: 85025; 99283; Q0163

== ENCOUNTER → 2022-05-05 15:01 | Outpatient (BNVA) | payer MEDICARE, MEDICAID, SELFPAY | PROVIDERS: PCP Family Medicine; Visit Provider Physician Assistant | DX: Z98.1 Arthrodesis status (principal) | CPT/HCPCS: 99024 ==

== ENCOUNTER → 2022-05-19 13:03 | Outpatient (BNVA) | payer MEDICARE, MEDICAID, SELFPAY | PROVIDERS: PCP Family Medicine; Visit Provider Physician Assistant | DX: Z98.1 Arthrodesis status (principal) | CPT/HCPCS: 72100; 99024 ==

== ENCOUNTER → 2022-06-09 10:59 | Outpatient (BNVA) | payer MEDICARE, MEDICAID, SELFPAY | PROVIDERS: PCP Family Medicine; Visit Provider Orthopaedic Surgery | DX: Z47.89 Encounter for other orthopedic aftercare (principal); Z98.1 Arthrodesis status | CPT/HCPCS: 72100; 99024 ==

== ENCOUNTER → 2022-07-21 08:27 | Outpatient (BNVA) | payer MEDICARE, MEDICAID, SELFPAY | PROVIDERS: PCP Family Medicine; Visit Provider Orthopaedic Surgery | DX: Z47.89 Encounter for other orthopedic aftercare (principal); Z98.1 Arthrodesis status | CPT/HCPCS: 72100; 99024 ==

== ENCOUNTER 2022-08-12 10:25 | Outpatient (RCR) | payer MEDICARE, MEDICAID, SELFPAY | END 2022-08-31 23:59 | disposition home or self-care (01) | LOC: SPT 10:25 | PROVIDERS: PCP Family Medicine; Visit Provider Orthopaedic Surgery | DX: M43.26 Fusion of spine, lumbar region (principal) | CPT/HCPCS: 97110; 97140; 97161; G0283 ==

== ENCOUNTER 2022-08-23 10:28 | Outpatient (CLI) | payer MEDICARE, MEDICAID, SELFPAY ==
--- NOTE | 2022-08-23 10:42 | MM_ITS ---
WS: [id number] BILATERAL 3D TOMOSYNTHESIS DIGITAL SCREENING MAMMOGRAPHY WITH CAD CLINICAL INFORMATION: SCREENING HISTORY: Screening mammogram. No current complaints. COMPARISON: 2021 TECHNIQUE: Bilateral CC and MLO views. FINDINGS: Scattered fibroglandular densities bilaterally. No suspicious focal mass, asymmetry, calcifications, or architectural distortion. No evidence of malignancy. Incidental punctate calcifications. MM/[place] [id number] IMPRESSION: BI-RADS: 2-Benign FOLLOW UP: 1 Year Follow-up Recommend return to annual screening mammography.
== END 2022-08-23 10:29 | disposition home or self-care (01) ==
LOC: RAD 10:30
PROVIDERS: PCP Family Medicine; Visit Provider Family Medicine
DX: Z12.31 Encounter for screening mammogram for malignant neoplasm of breast (principal)
CPT/HCPCS: 77063; 77067

== ENCOUNTER → 2022-09-15 10:31 | Outpatient (BNVA) | payer MEDICARE, MEDICAID, SELFPAY | PROVIDERS: PCP Family Medicine; Visit Provider Orthopaedic Surgery | DX: Z98.1 Arthrodesis status (principal); M54.50 Low back pain, unspecified; M79.605 Pain in left leg | CPT/HCPCS: 72100; 99213 ==

== ENCOUNTER → 2022-12-06 08:39 | Outpatient (BNVA) | payer MEDICARE, MEDICAID, SELFPAY | PROVIDERS: PCP Family Medicine; Visit Provider Orthopaedic Surgery | DX: M54.50 Low back pain, unspecified (principal); M79.605 Pain in left leg; Z98.1 Arthrodesis status; Z98.84 Bariatric surgery status | CPT/HCPCS: 72100; 99214 ==

== ENCOUNTER → 2023-02-16 13:06 | Outpatient (BNVA) | payer MEDICARE, MEDICAID, SELFPAY | PROVIDERS: PCP Family Medicine; Visit Provider Orthopaedic Surgery | DX: M51.16 Intervertebral disc disorders with radiculopathy, lumbar region (principal); Z98.1 Arthrodesis status | CPT/HCPCS: 72100; 99214 ==

== ENCOUNTER 2023-03-23 10:19 | Outpatient (CLI) | payer MEDICARE, MEDICAID, SELFPAY ==
--- NOTE | 2023-03-23 11:45 | MR_ITS ---
WS: [id number] MRI LUMBAR SPINE NONCONTRAST HISTORY: lumbar pain, prior surgeries. COMPARISON: 01/07/2021 TECHNIQUE: Sagittal and axial multisequence imaging is submitted. Extensive posterior lumbar fusion hardware from L2-S1. Hardware artifact causes some limitation. Incr ease in the lumbar lordosis is similar to the prior study. No acute fractures. No marrow edema. Disc spaces are mildly narrowed and desiccated. Conus terminates normally at L1-2 disc level. L1-L2: Mild facet arthritis. No high-grade stenosis. There is very slight narrowing of the RIGHT neur al foramen. L2-L3: Very slight anterolisthesis of L2. Mild annular disc bulging with moderate ligamentum flavum a nd facet arthritis, LEFT greater than RIGHT. There is a small LEFT foraminal disc protrusion. Mild en croachment upon the subarticular recesses. L3-L4: Diffuse annular disc bulging with facet arthritis. Mild bilateral foraminal stenosis. There is probably a posterior laminectomy defect on the LEFT but obscured by the artifact. L4-L5: Diffuse annular disc bulging, posterior laminectomy defect. Mild bilateral subarticular recess and moderate foraminal stenosis. L5-S1: Diffuse annular disc bulging. Large posterior laminectomy defects. Foramina are being obscured by the artifact. There is at least mild foraminal stenosis. Paravertebral soft tissues are normal. IMPRESSION: 1. Contiguous posterior lumbar fusion from L2-S1. Hardware is new since the prior MRI study from . 2. Posterior laminectomy defects from L3-L5. 3. L1-2: Very slight RIGHT neural foramen narrowing. 4. L2-3: Mild encroachment upon the subarticular recesses. Shallow LEFT foraminal disc protrusion. N o high-grade stenosis. 5. L3-4: Mild bilateral foraminal stenosis. 6. L4-5: Mild bilateral subarticular recess and moderate foraminal stenosis. 7. L5-S1: Foramina are being obscured by the hardware. There is at least mild bilateral foraminal st enosis.
== END 2023-03-23 10:20 | disposition home or self-care (01) ==
LOC: RAD 10:20
PROVIDERS: PCP Family Medicine; Visit Provider Orthopaedic Surgery
DX: Z98.1 Arthrodesis status (principal); M51.26 Other intervertebral disc displacement, lumbar region; M48.061 Spinal stenosis, lumbar region without neurogenic claudication
CPT/HCPCS: 72148

== ENCOUNTER → 2023-06-08 10:46 | Outpatient (BNVA) | payer MEDICARE, MEDICAID, SELFPAY | PROVIDERS: PCP Family Medicine; Visit Provider Orthopaedic Surgery | DX: Z98.1 Arthrodesis status (principal) | CPT/HCPCS: 72100; 99214 ==

== ENCOUNTER → 2023-08-22 14:11 | Outpatient (BNVA) | payer MEDICARE, MEDICAID, SELFPAY | PROVIDERS: PCP Family Medicine; Visit Provider Specialist | DX: Z98.1 Arthrodesis status (principal); M47.818 Spondylosis without myelopathy or radiculopathy, sacral and sacrococcygeal region; R20.2 Paresthesia of skin; R53.1 Weakness | CPT/HCPCS: 95910; 95911 ==

== ENCOUNTER → 2023-09-08 11:23 | Outpatient (BNVA) | payer MEDICARE, MEDICAID, SELFPAY | PROVIDERS: PCP Family Medicine; Visit Provider Specialist | DX: Z98.1 Arthrodesis status (principal); R20.2 Paresthesia of skin; M54.50 Low back pain, unspecified; M79.605 Pain in left leg; M51.16 Intervertebral disc disorders with radiculopathy, lumbar region; G24.3 Spasmodic torticollis | CPT/HCPCS: 95860; 95870; 99202 ==

== ENCOUNTER → 2023-09-12 07:44 | Outpatient (BNVA) | payer MEDICARE, MEDICAID, SELFPAY | PROVIDERS: PCP Family Medicine; Visit Provider Orthopaedic Surgery | DX: Z98.1 Arthrodesis status (principal) | CPT/HCPCS: 99213 ==

== ENCOUNTER 2023-10-11 07:39 | Outpatient (CLI) | payer MEDICARE, MEDICAID, SELFPAY ==
--- NOTE | 2023-10-11 07:42 | MM_ITS ---
WS: [id number] BILATERAL SCREENING DIGITAL TOMOSYNTHESIS MAMMOGRAM WITH CAD HISTORY: SCREENING COMPARISON: 08/23/2022, 08/19/2021 Bilateral CC and MLO views with tomosynthesis and synthetic mammography submitted. Computer aided det ection analyzed. Breast composition: There are scattered areas of fibroglandular density. No suspicious masses, microc alcifications or architectural distortion. MM/[place] [id number] IMPRESSION: BI-RADS: 1-Negative FOLLOW UP: 1 Year Follow-up
== END 2023-10-11 07:40 | disposition home or self-care (01) ==
LOC: RAD 07:40
PROVIDERS: PCP Family Medicine; Visit Provider Family Medicine
DX: Z12.31 Encounter for screening mammogram for malignant neoplasm of breast (principal)
CPT/HCPCS: 77063; 77067

== ENCOUNTER → 2023-10-26 14:18 | Outpatient (BNVA) | payer MEDICARE, MEDICAID, SELFPAY | PROVIDERS: PCP Family Medicine; Visit Provider Specialist | DX: G24.9 Dystonia, unspecified (principal); R20.2 Paresthesia of skin; M51.16 Intervertebral disc disorders with radiculopathy, lumbar region; F40.298 Other specified phobia | CPT/HCPCS: 64616 ==

== ENCOUNTER 2023-10-31 14:14 | Outpatient (RCR) | payer MEDICARE, MEDICAID, SELFPAY | END 2023-11-11 18:00 | disposition home or self-care (01) | LOC: SPT 14:14 | PROVIDERS: PCP Family Medicine; Visit Provider Orthopaedic Surgery | DX: M54.9 Dorsalgia, unspecified (principal); G89.29 Other chronic pain; Z98.1 Arthrodesis status | CPT/HCPCS: 97110; 97161 ==

== ENCOUNTER 2023-11-12 06:00 | Outpatient (RCR) | payer MEDICARE, MEDICAID, SELFPAY | END 2023-12-11 23:59 | disposition home or self-care (01) | LOC: SPT 06:00 | PROVIDERS: PCP Family Medicine; Visit Provider Orthopaedic Surgery | DX: M54.9 Dorsalgia, unspecified (principal); G89.29 Other chronic pain | CPT/HCPCS: 97110 ==

== ENCOUNTER → 2023-11-28 15:21 | Outpatient (BNVA) | payer MEDICARE, MEDICAID, SELFPAY | PROVIDERS: PCP Family Medicine; Visit Provider Orthopaedic Surgery | DX: Z98.1 Arthrodesis status (principal) | CPT/HCPCS: 99213 ==

== ENCOUNTER → 2024-01-11 08:08 | Outpatient (BNVA) | payer MEDICARE, MEDICAID, SELFPAY | PROVIDERS: PCP Family Medicine; Visit Provider Orthopaedic Surgery | DX: T84.84XA Pain due to internal orthopedic prosthetic devices, implants and grafts, initial encounter (principal); Y79.2 Prosthetic and other implants, materials and accessory orthopedic devices associated with adverse incidents; Z98.1 Arthrodesis status | CPT/HCPCS: 36415; 72100; 80053; 81001; 85025; 99214 ==

== ENCOUNTER 2024-01-22 09:33 | Day surgery (SDC) | payer MEDICARE, MEDICAID, SELFPAY ==
--- OUTSIDE RECORDS SUMMARY | 2024-01-16 16:07 | XMS_ITS ---
Laboratory report Created on: November 24, 2023 ZACKARYJINNY PARKERNA : 1960 Sex: Female Author Name BRIAN HANKINS [facility] Unknown PROBLEMS Problems List Code Description E03.9 RESULTS Laboratory Orders Date Order Code Test 2023-03-16 [id number] TSH Laboratory Results Date LOINC Test Value Unit Reference Range Interpre tation 2023-03-16 57370-2 TSH .971 UIU/ML 0.450-4.500
--- OUTSIDE RECORDS SUMMARY | 2024-01-16 16:07 | XMS_ITS ---
Laboratory report Created on: November 24, 2023 OMAR HARPER : 1960 Sex: Female Author Name BRIAN HANKINS Unknown PROBLEMS Problems List Code Description R53.83 RESULTS Laboratory Orders Date Order Code Test 2023-08-22 [id number] CMP14+CBC/D/PLT+ TSH 2023-08-22 [id number] IRON AND TIBC 2023-08-22 [id number] VITAMIN D, 25-HY DROXY 2023-08-22 [id number] VITAMIN B12 2023-08-22 [id number] FERRITIN 2023-08-22 [id number] TRANSFERRIN Laboratory Results Date LOINC Test Value Unit Reference Range Interpre tation 2023-08-22 2345-7 GLUCOSE 91 MG/DL 70-99 2023-08-22 3094-0 BUN 14 MG/DL 8-27 2023-08-22 2160-0 CREATININE .67 MG/DL 0.57-1.00 2023-08-22 88013-6 EGFR 98 ML/MIN/1.73 >59 2023-08-22 3097-3 BUN/CREATININE RATIO 21 12-28 2023-08-22 2951-2 SODIUM 139 MMOL/L 335-541 3547-06-11 2823-3 POTASSIUM 3.8 MMOL/L 3.5-5.2 2023-08-22 2075-0 CHLORIDE 101 MMOL/L 96-106 2023-08-22 2028-9 CARBON DIOXIDE, TOTAL 26 MMOL/L 20-29 2023-08-22 09389-1 CALCIUM 9.8 MG/DL 8.7-10.3 2023-08-22 2885-2 PROTEIN, TOTAL 7.3 G/DL 6.0-8.5 2023-08-22 1751-7 ALBUMIN 4.5 G/DL 3.9-4.9 2023-08-22 00650-9 GLOBULIN, TOTAL 2.8 G/DL 1.5-4.5 2023-08-22 1759-0 A/G RATIO 1.6 2023-08-22 1975-2 BILIRUBIN, TOTAL .8 MG/DL 0.0-1.2 2023-08-22 6768-6 ALKALINE PHOSPHATASE 110 IU/L 44-121 2023-08-22 1920-8 AST (SGOT) 101 IU/L 0-40 H 2023-08-22 1742-6 ALT (SGPT) 90 IU/L 0-32 H 2023-08-22 13805-4 TSH .587 UIU/ML 0.450-4.500 2023-08-22 6690-2 WBC 6.8 X10E3/UL 3.4-10.8 2023-08-22 789-8 RBC 4.88 X10E6/UL 3.77-5.28 2023-08-22 718-7 HEMOGLOBIN 14.3 G/DL 11.1-15.9 2023-08-22 4544-3 HEMATOCRIT 42.4 % 34.0-46.6 2023-08-22 787-2 MCV 87 FL 79-97 2023-08-22 785-6 MCH 29.3 PG 26.6-33.0 2023-08-22 786-4 MCHC 33.7 G/DL 31.5-35.7 2023-08-22 788-0 RDW 13 % 11.7-15.4 2023-08-22 777-3 PLATELETS 379 X10E3/UL 248-560 3322-06-11 770-8 NEUTROPHILS 57 % 2023-08-22 736-9 LYMPHS 35 % 2023-08-22 5905-5 MONOCYTES 5 % 2023-08-22 713-8 EOS 2 % 2023-08-22 706-2 BASOS 1 % 2023-08-22 751-8 NEUTROPHILS (ABSOLUTE) 4 X10E3/UL 1.4-7.0 2023-08-22 731-0 LYMPHS (ABSOLUTE) 2.3 X10E3/UL 0.7-3.1 2023-08-22 742-7 MONOCYTES(ABSOLUTE) .3 X10E3/UL 0.1-0.9 2023-08-22 711-2 EOS (ABSOLUTE) .1 X10E3/UL 0.0-0.4 2023-08-22 704-7 BASO (ABSOLUTE) .1 X10E3/UL 0.0-0.2 2023-08-22 45054-7 IMMATURE GRANULOCYTES 0 % 2023-08-22 30646-2 IMMATURE GRANS (ABS) 0 X10E3/UL 0.0-0.1 2023-08-22 2500-7 IRON BINDCAP(TIBC) 385 UG/DL 839-841 8803-06-11 2501-5 UIBC 254 UG/DL 035-531 4663-06-11 2498-4 IRON 131 UG/DL 27-139 2023-08-22 2502-3 IRON SATURATION 34 % 15-55 2023-08-22 01192-5 VITAMIN D, 25-HYDROXY 86.9 NG/ML 30.0-100.0 2023-08-22 2132-9 VITAMIN B12 764 PG/ML 232-1245 2023-08-22 2276-4 FERRITIN 140 NG/ML 15-150 2023-08-22 3034-6 TRANSFERRIN 317 MG/DL 192-364
--- OUTSIDE RECORDS SUMMARY | 2024-01-16 16:07 | XMS_ITS ---
Laboratory report Created on: November 24, 2023 OMAR HARPER : 1960 Sex: Female Author Name BRIAN HANKINS [facility] Unknown PROBLEMS Problems List Code Description I10 RESULTS Laboratory Orders Date Order Code Test 2023-02-13 [id number] CMP14+CBC/D/PLT+ TSH 2023-02-13 [id number] LIPID PANEL W/ C HOL/HDL RATIO Laboratory Results Date LOINC Test Value Unit Reference Range Interpre tation 2023-02-13 2345-7 GLUCOSE 84 MG/DL 70-99 2023-02-13 3094-0 BUN 14 MG/DL 8-27 2023-02-13 2160-0 CREATININE .72 MG/DL 0.57-1.00 2023-02-13 99071-4 EGFR 94 ML/MIN/1.73 >59 2023-02-13 3097-3 BUN/CREATININE RATIO 19 12-2023-02-13 2951-2 SODIUM 143 MMOL/L 747-051 6709-12-04 2823-3 POTASSIUM 3.7 MMOL/L 3.5-5.2 2023-02-13 2075-0 CHLORIDE 102 MMOL/L 96-106 2023-02-13 2028-9 CARBON DIOXIDE, TOTAL 26 MMOL/L 20-29 2023-02-13 17199-4 CALCIUM 9.3 MG/DL 8.7-10.3 2023-02-13 2885-2 PROTEIN, TOTAL 6.9 G/DL 6.0-8.5 2023-02-13 1751-7 ALBUMIN 4.3 G/DL 3.9-4.9 2023-02-13 40502-7 GLOBULIN, TOTAL 2.6 G/DL 1.5-4.5 2023-02-13 1759-0 A/G RATIO 1.7 1.2-2.2 2023-02-13 1975-2 BILIRUBIN, TOTAL .4 MG/DL 0.0-1.2 2023-02-13 6768-6 ALKALINE PHOSPHATASE 71 IU/L 44-121 2023-02-13 1920-8 AST (SGOT) 14 IU/L 0-40 2023-02-13 1742-6 ALT (SGPT) 11 IU/L 0-32 2023-02-13 79262-2 TSH .382 UIU/ML 0.450-4.500 L 2023-02-13 6690-2 WBC 7.7 X10E3/UL 3.4-10.8 2023-02-13 789-8 RBC 4.77 X10E6/UL 3.77-5.28 2023-02-13 718-7 HEMOGLOBIN 13.1 G/DL 11.1-15.9 2023-02-13 4544-3 HEMATOCRIT 39.3 % 34.0-46.6 2023-02-13 787-2 MCV 82 FL 79-97 2023-02-13 785-6 MCH 27.5 PG 26.6-33.0 2023-02-13 786-4 MCHC 33.3 G/DL 31.5-35.7 2023-02-13 788-0 RDW 13.5 % 11.7-15.4 2023-02-13 777-3 PLATELETS 428 X10E3/UL 000-448 4077-12-04 770-8 NEUTROPHILS 67 % 2023-02-13 736-9 LYMPHS 24 % 2023-02-13 5905-5 MONOCYTES 6 % 2023-02-13 713-8 EOS 2 % 2023-02-13 706-2 BASOS 1 % 2023-02-13 751-8 NEUTROPHILS (ABSOLUTE) 5.2 X10E3/UL 1.4-7.0 2023-02-13 731-0 LYMPHS (ABSOLUTE) 1.8 X10E3/UL 0.7-3.1 2023-02-13 742-7 MONOCYTES(ABSOLUTE) .5 X10E3/UL 0.1-0.9 2023-02-13 711-2 EOS (ABSOLUTE) .2 X10E3/UL 0.0-0.4 2023-02-13 704-7 BASO (ABSOLUTE) .1 X10E3/UL 0.0-0.2 2023-02-13 74212-3 IMMATURE GRANULOCYTES 0 % 2023-02-13 53667-8 IMMATURE GRANS (ABS) 0 X10E3/UL 0.0-0.1 2023-02-133-3 CHOLESTEROL, TOTAL 199 MG/DL 741-400 6005-12-04 2571-8 TRIGLYCERIDES 173 MG/DL 0-149 H 2023-02-13 2085-9 HDL CHOLESTEROL 43 MG/DL >39 2023-02-13 49961-0 VLDL CHOLESTEROL MOOKIE 31 MG/DL 5-40 2023-02-13 52771-9 LDL CHOL CALC ([facility]) 125 MG/DL 0-99 H 2023-02-13 9830-1 T CHOL/HDL RATIO 4.6 RATIO 0.0-4.4 H
--- OUTSIDE RECORDS SUMMARY | 2024-01-16 16:07 | XMS_ITS ---
Laboratory report Created on: November 24, 2023 OMAR HARPER : 1960 Sex: Female Author Name BRIAN HANKINS Unknown PROBLEMS Problems List Code Description E03.9 Z68.41 E78.5 RESULTS Laboratory Orders Date Order Code Test 2022-10-28 558806 CMP14+CBC/D/PLT+ TSH 2022-10-28 426439 LIPID PANEL W/ C HOL/HDL RATIO 2022-10-28 586043 HEMOGLOBIN A1C Laboratory Results Date LOINC Test Value Unit Reference Range Interpre tation 2022-10-28 2345-7 GLUCOSE 92 MG/DL 70-99 2022-10-28 3094-0 BUN 10 MG/DL 8-27 2022-10-28 2160-0 CREATININE .73 MG/DL 0.57-1.00 2022-10-28 61464-7 EGFR 93 ML/MIN/1.73 >59 2022-10-28 3097-3 BUN/CREATININE RATIO 14 12-2022-10-28 2951-2 SODIUM 141 MMOL/L 277-197 2830-08-18 2823-3 POTASSIUM 3.5 MMOL/L 3.5-5.2 2022-10-28 2075-0 CHLORIDE 103 MMOL/L 96-106 2022-10-28 2028-9 CARBON DIOXIDE, TOTAL 25 MMOL/L 20-29 2022-10-28 64112-8 CALCIUM 9.2 MG/DL 8.7-10.3 2022-10-28 2885-2 PROTEIN, TOTAL 7 G/DL 6.0-8.5 2022-10-28 1751-7 ALBUMIN 4.2 G/DL 3.9-4.9 2022-10-28 68836-7 GLOBULIN, TOTAL 2.8 G/DL 1.5-4.5 2022-10-28 1759-0 A/G RATIO 1.5 1.2-2.2 2022-10-28 1975-2 BILIRUBIN, TOTAL .4 MG/DL 0.0-1.2 2022-10-28 6768-6 ALKALINE PHOSPHATASE 74 IU/L 44-121 2022-10-28 1920-8 AST (SGOT) 19 IU/L 0-40 2022-10-28 1742-6 ALT (SGPT) 19 IU/L 0-32 2022-10-28 45001-8 TSH .907 UIU/ML 0.450-4.500 2022-10-28 6690-2 WBC 8.5 X10E3/UL 3.4-10.8 2022-10-28 789-8 RBC 4.6 X10E6/UL 3.77-5.28 2022-10-28 718-7 HEMOGLOBIN 12.5 G/DL 11.1-15.9 2022-10-28 4544-3 HEMATOCRIT 37.4 % 34.0-46.6 2022-10-28 787-2 MCV 81 FL 79-97 2022-10-28 785-6 MCH 27.2 PG 26.6-33.0 2022-10-28 786-4 MCHC 33.4 G/DL 31.5-35.7 2022-10-28 788-0 RDW 15.6 % 11.7-15.4 H 2022-10-28 777-3 PLATELETS 376 X10E3/UL 502-956 7745-08-18 770-8 NEUTROPHILS 67 % 2022-10-28 736-9 LYMPHS 22 % 2022-10-28 5905-5 MONOCYTES 8 % 2022-10-28 713-8 EOS 2 % 2022-10-28 706-2 BASOS 1 % 2022-10-28 751-8 NEUTROPHILS (ABSOLUTE) 5.7 X10E3/UL 1.4-7.0 2022-10-28 731-0 LYMPHS (ABSOLUTE) 1.9 X10E3/UL 0.7-3.1 2022-10-28 742-7 MONOCYTES(ABSOLUTE) .6 X10E3/UL 0.1-0.9 2022-10-28 711-2 EOS (ABSOLUTE) .2 X10E3/UL 0.0-0.4 2022-10-28 704-7 BASO (ABSOLUTE) .1 X10E3/UL 0.0-0.2 2022-10-28 83797-1 IMMATURE GRANULOCYTES 0 % 2022-10-28 45310-6 IMMATURE GRANS (ABS) 0 X10E3/UL 0.0-0.1 2022-10-283-3 CHOLESTEROL, TOTAL 197 MG/DL 941-992 4238-08-18 2571-8 TRIGLYCERIDES 191 MG/DL 0-149 H 2022-10-28 2085-9 HDL CHOLESTEROL 36 MG/DL >39 L 2022-10-28 02558-4 VLDL CHOLESTEROL MOOKIE 34 MG/DL 5-40 2022-10-28 06032-4 LDL CHOL CALC ([facility]) 127 MG/DL 0-99 H 2022-10-28 9830-1 T CHOL/HDL RATIO 5.5 RATIO 0.0-4.4 H 2022-10-28 3868-4 HEMOGLOBIN A1C 5.6 % 4.8-5.6
--- OUTSIDE RECORDS SUMMARY | 2024-01-16 16:07 | XMS_ITS | Continuity of Care Document ---
Author Name Unknown Organization [facility] Address [address] [place] [address] Phone Care Team Providers Care Customs Director Name Role Phone Mohan Houston DPM Unavailable Unavailable Allergies, Adverse Reactions, Alerts Substance Reaction Status Criticality DICLOFENAC SODIUM Active No Informa tion lisinopril Active No Information ibuprofen Active No Information Medications Medication Instructions Dosage Effective Dates (start - stop) Status Comments Medrol (Kwaku) 4 mg tablets in a dose pack UAD by Oral route Not Available - Active ROPINIROLE HCL (unknown strength) Not Available - Active indapamide 2.5 mg tablet - Active CARVEDILOL (unknown strength) Not Available - Active Dulera 200 mcg-5 mcg/actuation HFA aerosol inhaler - Active losartan 100 mg tablet - Active Pro-air inhaler - Active Tirosint 112 mcg capsule - Active diltiazem ER 360 mg capsule,extended release - Active Procedures Procedure Date Office/outpatient visit,est, mod 2018 Ankle Xray Complete Min 3 Views 019 Office/outpatient visit,est, mod 2018 Decadron 1 Mg UN10 Kenalog Injection Tendon Sheath/ligament Aponeur osis (Plantar Fascia) Single Physical Tx excercises each 15 min Physical Tx excercises each 15 min Physical Tx excercises each 15 min Physical Tx excercises each 15 min Ankle Xray Complete Min 3 Views 019 Office/outpatient visit,est, low 2018 Physical Tx excercises each 15 min Physical Tx excercises each 15 min Physical Tx excercises each 15 min Physical Tx excercises each 15 min Physical Tx excercises each 15 min Physical Tx excercises each 15 min Physical Tx excercises each 15 min Physical Tx excercises each 15 min Physical Tx excercises each 15 min Physical Tx excercises each 15 min Physical Tx excercises each 15 min Physical Tx excercises each 15 min Physical Tx excercises each 15 min Physical Tx excercises each 15 min Physical Therapy Evaluation Low Complexi ty Physical Tx excercises each 15 min Ankle Xray Complete Min 3 Views 019 Postop followup visit Ankle Xray Complete Min 3 Views 019 Postop followup visit Postop followup visit Walking Boot, Pneumatic And/or Vacuum Wi th Or With Ankle Xray Complete Min 3 Views 019 Postop followup visit Apply Short Leg Cast Ankle Arthroplasty W/implant (Total Ankl e) Leg/ankle Lengthen/shorten Tendon Single Tendon Office/outpatient visit,est, mod 2018 Ankle Xray Complete Min 3 Views 018 Office/outpatient visit,est, mod 2017 Spine Xray Lumbosacral Min Of 4 Views De Office consultation, moderate-high Methylprednisolone 40 Mg Inj Procedure Sacroilliac Joint w/fluoro scopy Inc Arthrography Office/outpatient visit,est, mod 2017 Office/outpatient visit,est, mod 2017 Office/outpatient visit,est, mod 2017 Methylprednisolone 40 Mg Lumbar/sacral Inject Diagnostic/Therapeu tic Agent Paravertebral Facet Lumbar/sacral Inject Diag/Therap Agent P aravert 2nd Level Lumbar/sacral Inject Diag/Therap Agent 3 rd & Add'l Levels Methylprednisolone 40 Mg Lumbar/sacral Inject Diagnostic/Therapeu tic Agent Paravertebral Facet Lumbar/sacral Inject Diag/Therap Agent P aravert 2nd Level Lumbar/sacral Inject Diag/Therap Agent 3 rd & Add'l Levels Office/outpatient visit,est, mod 2017 Methylprednisolone 80 Mg Inj(s) Lumbar Epidural W Fluoro Guidance Methylprednisolone 80 Mg Inj(s) Lumbar Epidural W Fluoro Guidance Office consultation, moderate 8 Drug Test(s) Definitive, Utilizing Drug ID Methods Drug Test(s) Presumptive, Any Number Of Drug Class Advance Directives Directive Yes / No Effective Date File Name No Information Encounters Encounter Description Practice Location Reason(s) For Visit Diagnoses Date Provider Providers Copied on Encounter [facility], [address] [place] [address], [id number], tel:[phone] [facility] No Information 0 Celso Preston. [address], [place], [id number] , [place]. tel:[phone] Office/outpa tient visit,est, [facility], [address] [place] [address], [id number], tel:[phone] MARCELOWChip Gonzalez ankle (chief complaint) foot (chief complaint) Encounter for other orthopedic aftercarePlantar fasciitis of left footPain in left lower leg 9 Celso Preston. [address], [place], [id number] , [place]. tel:[phone] Office/outpa tient visit,est, mod [facility], [address] [place] [address], [id number], tel:[phone] OICHAYA Gonzalez ankle (chief complaint) Pain in left lower legPlantar fasciitis of left foot 7 9 Celso Preston. [address], [place], [id number] , [place]. tel:[phone] [facility], [address] [place] [address], [id number], tel:[phone] OICHAYA Gonzalez 5-201 9 Caturano Otto. [address], [place], [id number] , [place]. tel:[phone] Referring Provider: Mohan Duron, [address] [place] [address], [id number] . tel:[phone] [facility], [address] [place] [address], [id number], tel:[phone] DANIEL Hearnley 4 9 C[address] Otto. [address], [place], [id number] , [place]. tel:[phone] Referring Provider: Mohan Duron, [address] [place] [address], [id number] . tel:[phone] [facility], [address] [place] [address], [id number], tel:[phone] DANIEL Carlos 1 9 C[address]ano Otto. [address] [place] [address], [id number] , [place]. tel:[phone] Referring Provider: Mohan Duron, [address] [place], [address] . tel:[phone] [facility], [address] [place] [address], [id number], tel:[phone] OICHAYA Hearnley Primary osteoarthritis, left ankle and foot 0 9 Caturano Otto. [address] [place] [address], [id number] , [place]. tel:[phone] Referring Provider: Mohan Duron, [address] [place], [address] . tel:[phone] Office/outpa tient visit,est, low [facility], [address] [place] [address], [id number], tel:[phone] DANIEL Gonzalez ankle (chief complaint) Pain in left lower legEncounter for other orthopedic aftercarePresence of left artificial ankle joint 2- 9 Celso Preston. [address] [place] [address], [id number] , [place]. tel:[phone] [facility], [address] [place] [address], [id number], tel:[phone] DANIEL Gonzalez 2 9 Analia Menjivar. [address] [place] [address], [id number] , [place]. [phone] Referring Provider: Mohan Duron, [address] [place] [address], [id number] . tel:[phone] [facility], [address] [place] [address], [id number], tel:[phone] DANIEL Gonzalez 0-201 9 Analia Menjivar. [address] [place] [address], [id number] , [place]. [phone] Referring Provider: Mohan Duron, [address] [place] [address], [id number] . tel:[phone] [facility], [address] [place] [address], [id number], tel:[phone] DANIEL Gonzalez 6- 9 Erino Otto. [address] [place] [address], [id number] , [place]. tel:[phone] Referring Provider: Mohan Duron, [address] [place] [address], [id number] . tel:[phone] [facility], [address] [place] [address], [id number], tel:[phone] OIChip Gonzalez July-1 5-201 9 Caturano Otto. [address] [place] [address], [id number] , . tel: [phone] Referring Provider: Mohan Duron, [address] [place], [address] . tel:[phone] [facility], [address] [place] [address], [id number], tel:[phone] [facility] HOSPITALNew Earth SolutionsCarlos July-1 3-201 9 Caturano Otto. [address] [place] [address], [id number] , . tel: [phone] Referring Provider: Mohan Duron, [address] [place] [address], [id number] . tel:[phone] [facility], [address] [place] [address], [id number], tel:[phone] [facility] Carlos 1 0-201 9 Caturano Otto. [address] [place] [address], [id number] , . tel:[phone] Referring Provider: Mohan Duron, [address] [place] [address], [id number] . tel:[phone] [facility], [address] [place] [address], [id number], tel:[phone] [facility] Carlos July-0 8-201 9 Caturano Otto. [address], [place], [id number] , . tel:[phone] Referring Provider: Mohan Duron, [address] [place] [address], [id number] . tel:[phone] [facility], [address] [place] [address], [id number], tel:[phone] [facility] Carlos July-0 6-201 9 Caturano Otto. [address] [place] [address], [id number] , . tel:[phone] Referring Provider: Mohan Duron, [address] [place], [address] . tel:[phone] [facility], [address] [place] [address], [id number], tel:[phone] OIWK Carlos Primary osteoarthritis, left ankle and foot July- 9 Analia Menjivar. [address], [place], [id number] , [place]. tel:[phone] Referring Provider: Mohan Duron, [address] [place], [address] . tel:[phone] [facility], [address] [place] [address], [id number], tel:[phone] OIWK Carlos PA foot (chief complaint) Pain in left lower legEncounter for other orthopedic aftercarePresence of left artificial ankle joint 0 9 Jossie Candelario. [address], [place], [id number] , [place]. tel:[phone] [facility], [address] [place] [address], [id number], [place] tel:[phone] OIWChip Gonzalez PA ankle (chief complaint) Pain in left lower legEncounter for other orthopedic aftercare 9 Jossie Candelario. [address], [place], [id number] , [place]. tel:[phone] [facility], [address] [place] [address], [id number], [place] tel:[phone] OIWK Carlos ankle (chief complaint) Encounter for other orthopedic aftercare 9 Celso Preston. [address], [place], [id number] , [place]. tel:[phone] [facility], [address] [place] [address], [id number], tel:[phone] OICHAYA Gonzalez No Information 9 Celso Preston. [address], [place], [id number] , [place]. tel:[phone] Referring Provider: Mohan Duron, [address] [place], [address] . tel:[phone] [facility], [address] [place] [address], [id number], tel:[phone] OIWChip HearnCarlos ankle (chief complaint) Pain in left lower legHistory of total replacement of left ankleSurgical aftercare, musculoskeletal systemPost-traumat ic OA of left ankle 9 Celso Preston. [address], [place], [id number] , [place]. tel:[phone] [facility], [address] [place] [address], [id number], [place] tel:[phone] [facility] No Information 9 Celso Preston. [address], [place], [id number] , [place]. tel:[phone] Referring Provider: Mohan Duron, [address] [place], [address] . tel:[phone] Office/outpa tient visit,est, [facility], [address] [place] [address], [id number], tel:[phone] OIWChip HearnCarlos left ankle (chief complaint) Pain in left lower legPost-traumatic osteoarthritis, left ankle and footShort Achilles tendon (acquired), left ankle 9 Celso Preston. [address], [place], [id number] , [place]. tel:[phone] Office/outpa tient visit,est, [facility], [address] [place] [address], [id number], tel:[phone] OIWChip HearnCarlos left ankle (chief complaint) Pain in left lower legPost-traumatic arthritis of left ankleContracture of left Achilles tendonPost-traumat ic arthritis of left ankleContracture of left Achilles tendonContracture of left Achilles tendon Dec-0 5-201 8 Celso Preston. [address], [place], [id number] , [place]. tel:[phone] Office consultation , moderate-hig h [facility], [address] [place] [address], [id number], [place] tel:[phone] DANIEL Gonzalez lumbar spine (chief complaint) Low back painSacroiliitis, not elsewhere classifiedRadiculo arnoldo, lumbar region Feb-0 4-201 8 Ryan Parker. [address], [place], [id number] , [place]. tel:[phone] Referring Provider: Kenrick Damon, [address] [place] [address], [id number] . tel:[phone] [facility], [address] [place] [address], [id number], [place] tel:[phone] DANIEL Gonzalez Procedure Room lumbar spine (chief complaint) Other chronic pain 8 Toro Mccauley. [address] [place] [address], [place], [place], [id number] , [place]. tel:[phone] Referring Provider: Garrick Engel, [address] [place] [address], [address] . tel:[phone] Office/outpa tient visit,est, [facility], [address] [place] [address], [id number], [place] tel:[phone] DNAIEL Gonzalez [place] lumbar spine (chief complaint) Other chronic painSacroiliitis, not elsewhere classifiedRadiculo arnoldo, lumbar regionSpondylosis without myelopathy or radiculopathy, lumbar region 6-201 8 Jayden Jeronimo. [address], [place], [id number] , [place]. tel:[phone] Office/outpa tient visit,est, [facility], [address] [place] [address], [id number], tel:[phone] DANIEL ZABALA lumbar spine (chief complaint) Other chronic painSpondylosis without myelopathy or radiculopathy, lumbar regionRadiculopath y, lumbar region Oct- 8 Carpenter Phani. [address], [place], [id number] , [place]. [phone] Office/outpa tient visit,est, [facility], [address] [place] [address], [id number], [place] tel:[phone] DANIEL Gonzalez lumbar spine (chief complaint) Other chronic painRadiculopathy, lumbar regionSpondylosis without myelopathy or radiculopathy, lumbar region 8 Toro Mccauley. [address] [place] [address], [id number] , . tel:[phone] [facility], [address] [place] [address], [id number], tel:[phone] DANIEL Gonzalez Procedure Room lumbar spine (chief complaint) Other chronic pain 0 8 Toro Mccauley. [address] [place] [address], [place], [place], [id number] , [place]. [phone] Referring Provider: Garrick Engel, [address] [place] [address], [id number] . tel:[phone] [facility], [address] [place] [address], [id number], tel:[phone] DANIEL Gonzalez Procedure Room lumbar spine (chief complaint) Other chronic pain 8 Toro Mccauley. [address] [place] [address], [place], [place], [id number] , . [phone] Referring Provider: Garrick Engel, [address] [place] [address], [id number] . tel:[phone] Office/outpa tient visit,est, [facility], [address] [place] [address], [id number], tel:[phone] OICHAYA Hearnley lumbar spine (chief complaint) Other chronic painRadiculopathy, lumbar regionSpondylosis without myelopathy or radiculopathy, lumbar region July- 8 Jayden Jeronimo. [address], [place], [id number] , [place]. tel:[phone] [facility], [address] [place] [address], [id number], tel:[phone] DANIEL Hearnley Procedure Room lumbar spine (chief complaint) Other chronic pain Jun-0 8 Toro Mccauley. [address] [place] [address], [place], [place], [id number] , [place]. tel:[phone] Referring Provider: Garrick Engel, [address] [place] [address], [id number] . tel:[phone] [facility], [address] [place] [address], [id number], tel:[phone] DANIEL Gonzalez Procedure Room lumbar spine (chief complaint) Other chronic pain May- 8 Toro Mccauley. [address] [place] [address], [place], [place], [id number] , [place]. tel:[phone] Referring Provider: Garrick Engel, [address] [place] [address], [place], [address] . tel:[phone] Office consultation , [facility], [address] [place] [address], [id number], tel:[phone] DANIEL Gonzalez lumbar spine (chief complaint) Other chronic painRadiculopathy, lumbar regionSpondylosis without myelopathy or radiculopathy, lumbar region May-0 8 Toro Mccauley. [address] [place] [address], [address], [place], [id number] , [place]. [phone] Referring Provider: Kenrick Damon, [facility] [address] [place] [address], [id number] . tel:[phone] [facility], [address] [place] [address], [place], [place], [id number], [place] tel:[phone] DAVINAChip Gonzalez No Information 8 Toro Mccauley. [address] [facility], [address], [place], [place], [id number] , [place]. tel:[phone] Referring Provider: Garrick Engel, [address] [place] [address] [address], [place], [address] . tel:[phone] Family History Family Member Type Diagnosis Age At Onset Problem (finding) Family history of hyper tension Problem (finding) Family history of malignant neoplasm of breast in first degree relative Problem (finding) Family history of Diabe nohemi mellitus Payers Payer name Insurance type Covered constitution party ID Authoriza tion(s) [employer] Care Source Medicaid MC [id number] Social History Type Description Quantity Date Captured Comments Alcohol Use Details Unknown Caffeine Use Details Unknown Tobacco Use Status No Information Smoking Status No Information Sex Female Chief Complaint And Reason For Visit No Information Reason For Referral Reason For Referral No Information Plan Of Treatment Date Type Action Status Goal Tobacco cessation counseling completed Future Order: Radiology Order An kle Xray Complete Min 3 Views ([id number]), Ordered on: Ordered Future Order: Radiology Order An kle Xray Complete Min 3 Views ([id number]), Ordered on: Ordered Future Order: Radiology Order An kle Xray Complete Min 3 Views ([id number]), Ordered on: Ordered Future Order: Radiology Order An kle Xray Complete Min 3 Views ([id number]), Ordered on: Ordered Future Order: Radiology Order An kle Xray Complete Min 3 Views ([id number]), Ordered on: Ordered Future Order: Radiology Order CT Lower Extremity W/O Contrast ([id number]), Appointment on: Ordered Future Order: Radiology Order An kle Xray Complete Min 3 Views ([id number]), Ordered on: Ordered Future Order: Radiology Order Sp ine Xray Lumbosacral 2 Or 3 Views ([id number]), Ordered on: Ordered Future Order: Radiology Order Sp ine Xray Lumbosacral Bending Views Only 2 Or 3 Views ([id number]), Ordered on: Ordered History Of Present Illness Encounter Date Complaint History Of Prese nt Illness ankle foot ankle ankle foot ankle ankle ankle left ankle left ankle lumbar spine lumbar spine lumbar spine Ms Robison is a 57 year old female who complains of lumbar spine. She presents with pain and paresthesias. The symptoms occur constantly. The problem is fluctuating. She rates her current pain as 7/10. The symptoms are aggravated by bending and sitting. lumbar spine Ms Robison is a 57 year old female who complains of lumbar spine. She presents with pain and paresthesias. The problem is fluctuating. She rates her current pain as 7/10. lumbar spine Gita Robison is a 57 year old female. She presents with pain. The problem is fluctuating. She states the first injection helped her for about 3 days and the second was about a day and a half. She rates her current pain as 9/10. lumbar spine lumbar spine lumbar spine Ms Robison is a 56 year old female who complains of lumbar spine. She presents with pain. The problem is fluctuating. She rates her current pain as 8/10. lumbar spine lumbar spine lumbar spine Gita Robison is a 56 year old female. She presents with pain. The pain is described as numbness, hot/burning, aching, throbbing, shooting and sharp. The symptoms occur continuously. Patient has had the pain for a few years now. she states the pain will radiate down the left leg. patient denies any accident or injury. patient has been to PT which didnt help her and has not been to the chiropractor. she is not taking a blood thinner. She rates her current pain as 7/10. The symptoms are aggravated by activity, sitting, walking and standing. Gita states that the symptoms are relieved by changing position. Functional Status Date Functional Assessmen t No Information Instructions Date Instruction Additional Infor skylerchanda She has tried and fa iled gabapentin and nortriptyline. Start Lyirca 100mg BID prn for pain and start Amitriptyline 25mg QHS prn for pain. Start mobic 15mg daily prn for pain. D/C all other NSAIDs. [facility] #[id number] is OK. F/U in 2 months. Related to Other chronic pain She has failed to ge t lasting relief from LESI injections and reports no relief from the medial branch blocks in her lumbar spine. Related to Radiculopathy, lumbar region This patient has kristina led to get any relief with conservative medical management. I will recommend Dr. Engel to try some bilateral sacroiliac joint injections on this patient. I have instructed this patient to continue rehabilitation and home exercises during and after these injections. Related to Sacroiliitis, not elsewhere classified Increase to gabapent in 600mg tid prn for pain as she is not getting a ton of relief from the 300mg dose and he NCS did show some S1 radiculopathy. Also start Notriptyline 25mg QHS for pain. d/C NSAIDS as her BP elevated after taking this. Her pcp refilled her zanaflex Related to Radiculopathy, lumbar region gabapentin 300mg tid dc mobic. start diclofenac 75mg bid prnok to continue the zanaflex prn Related to Radiculopathy, lumbar region She unfortunately di d not get much relief of her radicular pain from her L4/5 LESI and I do not have her MRI to review for a possible change of location of the LESI today. She will bring this to her next visit so we can scan this in. Related to Radiculopathy, lumbar region This patient has kristina led to get any relief with conservative medical management. I will recommend Dr. Engel to try some bilateral lumbar medial branch blocks on this patient. Bilateral L3/4, L4/5, and L5/S1. I'll do this to see if radiofrequency ablation could be of benefit. I have instructed this patient to continue rehabilitation and home exercises during and after these injections. 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 I'd like to try an interlaminar lumbar epidural steroid injection on this patient at L4/L5. I have instructed this patient to continue rehabilitation and home exercises during and after these injections.Left leg Related to Radiculopathy, lumbar region I have ordered a UDT (urine drug test) for monitoring the patient's predisposition to and patterns of drug misuse/abuse, in order to establish and maintain the safe and effective use of analgesics or surgical procedures in the treatment of chronic pain.The patient's medical, family, and social history have been reviewed with the patient from their questionairre completed today.As a patient in Pain Management, the patient understands management of pain medications is sometimes done through this clinic. Controlled substances reports were reviewed today for this patient. If this patient is prescribed controlled substances through this clinic, then compliance will be monitored with future Urine Drug Screens, state monitoring reports for controlled substances, and a Controlled Substance Agreement will be signed. Related to Other chronic pain Assessments Type Assessment Date No Information Patient Care Teams Name Effective Dates (start - stop) Status Members No Information
--- OUTSIDE RECORDS SUMMARY | 2024-01-16 16:07 | XMS_ITS ---
Laboratory report Created on: November 24, 2023 OMAR HARPER : 1960 Sex: Female Author Name BRIAN HANKINS Unknown PROBLEMS Problems List Code Description E55.9 I10 E78.5 Z11.4 Z11.59 RESULTS Laboratory Orders Date Order Code Test 2021-10-19 501517 LIPID PANEL W/ C HOL/HDL RATIO 2021-10-19 660317 HCV ANTIBODY 2021-10-19 464057 VITAMIN D, 25-HY DROXY 2021-10-19 823942 CMP14+CBC/D/PLT+ TSH Laboratory Results Date LOINC Test Value Unit Reference Range Interpre tation 2021-10-19 2093-3 CHOLESTEROL, TOTAL 204 MG/DL 100-199 H 2021-10-19 2571-8 TRIGLYCERIDES 176 MG/DL 0-149 H 2021-10-19 2085-9 HDL CHOLESTEROL 50 MG/DL >39 2021-10-19 59485-0 VLDL CHOLESTEROL MOOKIE 31 MG/DL 5-40 2021-10-19 43128-8 LDL CHOL CALC ([facility]) 123 MG/DL 0-99 H 2021-10-19 9830-1 T CHOL/HDL RATIO 4.1 RATIO 0.0-4.4 2021-10-19 89329-4 HEP C VIRUS AB <0.1 0.0-0.9 2021-10-19 47929-0 VITAMIN D, 25-HYDROXY 23.4 NG/ML 30.0-100.0 L 2021-10-19 2345-7 GLUCOSE 93 MG/DL 65-99 2021-10-19 3094-0 BUN 15 MG/DL 8-27 2021-10-19 2160-0 CREATININE .68 MG/DL 0.57-1.00 2021-10-19 38302-1 EGFR 99 ML/MIN/1.73 >59 2021-10-19 3097-3 BUN/CREATININE RATIO 22 12-28 2021-10-19 2951-2 SODIUM 144 MMOL/L 421-276 3537-08-09 2823-3 POTASSIUM 4 MMOL/L 3.5-5.2 2021-10-19 2075-0 CHLORIDE 104 MMOL/L 96-106 2021-10-19 2028-9 CARBON DIOXIDE, TOTAL 27 MMOL/L 20-29 2021-10-19 79742-3 CALCIUM 9.7 MG/DL 8.7-10.3 2021-10-19 2885-2 PROTEIN, TOTAL 7.2 G/DL 6.0-8.5 2021-10-19 1751-7 ALBUMIN 4.4 G/DL 3.8-4.8 2021-10-19 04338-2 GLOBULIN, TOTAL 2.8 G/DL 1.5-4.5 2021-10-19 1759-0 A/G RATIO 1.6 1.2-2.2 2021-10-19 1975-2 BILIRUBIN, TOTAL .3 MG/DL 0.0-1.2 2021-10-19 6768-6 ALKALINE PHOSPHATASE 73 IU/L 44-121 2021-10-19 1920-8 AST (SGOT) 15 IU/L 0-40 2021-10-19 1742-6 ALT (SGPT) 20 IU/L 0-32 2021-10-19 05259-9 TSH 2 UIU/ML 0.450-4.500 2021-10-19 6690-2 WBC 8.6 X10E3/UL 3.4-10.8 2021-10-19 789-8 RBC 4.63 X10E6/UL 3.77-5.28 2021-10-19 718-7 HEMOGLOBIN 12.7 G/DL 11.1-15.9 2021-10-19 4544-3 HEMATOCRIT 38.8 % 34.0-46.6 2021-10-19 787-2 MCV 84 FL 79-97 2021-10-19 785-6 MCH 27.4 PG 26.6-33.0 2021-10-19 786-4 MCHC 32.7 G/DL 31.5-35.7 2021-10-19 788-0 RDW 13.8 % 11.7-15.4 2021-10-19 777-3 PLATELETS 398 X10E3/UL 775-079 6475-08-09 770-8 NEUTROPHILS 58 % 2021-10-19 736-9 LYMPHS 32 % 2021-10-19 5905-5 MONOCYTES 7 % 2021-10-19 713-8 EOS 2 % 2021-10-19 706-2 BASOS 1 % 2021-10-19 751-8 NEUTROPHILS (ABSOLUTE) 5 X10E3/UL 1.4-7.0 2021-10-19 731-0 LYMPHS (ABSOLUTE) 2.7 X10E3/UL 0.7-3.1 2021-10-19 742-7 MONOCYTES(ABSOLUTE) .6 X10E3/UL 0.1-0.9 2021-10-19 711-2 EOS (ABSOLUTE) .2 X10E3/UL 0.0-0.4 2021-10-19 704-7 BASO (ABSOLUTE) .1 X10E3/UL 0.0-0.2 2021-10-19 18320-9 IMMATURE GRANULOCYTES 0 % 2021-10-19 03022-3 IMMATURE GRANS (ABS) 0 X10E3/UL 0.0-0.1
--- OUTSIDE RECORDS SUMMARY | 2024-01-16 16:07 | XMS_ITS ---
Laboratory report Created on: November 15, 2023 ZACKARYJINNY PARKERNA : 1960 Sex: Female Author Name BRIAN HANKINS [facility] Unknown PROBLEMS Problems List Code Description R74.8 RESULTS Laboratory Orders Date Order Code Test 2023-09-26 [id number] HBSAG SCREEN Laboratory Results Date LOINC Test Value Unit Reference Range Interpre tation 2023-09-26 5196-1 HBSAG SCREEN N NEGATIVE
--- OUTSIDE RECORDS SUMMARY | 2024-01-16 16:07 | XMS_ITS ---
Laboratory report Created on: November 24, 2023 OMAR HARPER : 1960 Sex: Female Author Name BRIAN HANKINS Unknown PROBLEMS Problems List Code Description R00.1 R42 I50.9 RESULTS Laboratory Orders Date Order Code Test 2022-09-26 [id number] CMP14+CBC/D/PLT+ TSH Laboratory Results Date LOINC Test Value Unit Reference Range Interpre tation 2022-09-26 2345-7 GLUCOSE 87 MG/DL 70-99 2022-09-26 3094-0 BUN 10 MG/DL 8-27 2022-09-26 2160-0 CREATININE .75 MG/DL 0.57-1.00 2022-09-26 91446-4 EGFR 90 ML/MIN/1.73 >59 2022-09-26 3097-3 BUN/CREATININE RATIO 13 12-28 2022-09-26 2951-2 SODIUM 142 MMOL/L 685-411 2360-07-17 2823-3 POTASSIUM 4.1 MMOL/L 3.5-5.2 2022-09-26 2075-0 CHLORIDE 103 MMOL/L 96-106 2022-09-26 2028-9 CARBON DIOXIDE, TOTAL 24 MMOL/L 20-29 2022-09-26 27919-0 CALCIUM 9.2 MG/DL 8.7-10.3 2022-09-26 2885-2 PROTEIN, TOTAL 6.8 G/DL 6.0-8.5 2022-09-26 1751-7 ALBUMIN 4.2 G/DL 3.9-4.9 2022-09-26 69818-9 GLOBULIN, TOTAL 2.6 G/DL 1.5-4.5 2022-09-26 1759-0 A/G RATIO 1.6 1.2-2.2 2022-09-26 1975-2 BILIRUBIN, TOTAL .3 MG/DL 0.0-1.2 2022-09-26 6768-6 ALKALINE PHOSPHATASE 63 IU/L 44-121 2022-09-26 1920-8 AST (SGOT) 27 IU/L 0-40 2022-09-26 1742-6 ALT (SGPT) 31 IU/L 0-32 2022-09-26 96968-5 TSH 3.94 UIU/ML 0.450-4.500 2022-09-26 6690-2 WBC 8.9 X10E3/UL 3.4-10.8 2022-09-26 789-8 RBC 4.42 X10E6/UL 3.77-5.28 2022-09-26 718-7 HEMOGLOBIN 11.9 G/DL 11.1-15.9 2022-09-26 4544-3 HEMATOCRIT 35.4 % 34.0-46.6 2022-09-26 787-2 MCV 80 FL 79-97 2022-09-26 785-6 MCH 26.9 PG 26.6-33.0 2022-09-26 786-4 MCHC 33.6 G/DL 31.5-35.7 2022-09-26 788-0 RDW 15.7 % 11.7-15.4 H 2022-09-26 777-3 PLATELETS 456 X10E3/UL 150-450 H 2022-09-26 770-8 NEUTROPHILS 64 % 2022-09-26 736-9 LYMPHS 24 % 2022-09-26 5905-5 MONOCYTES 8 % 2022-09-26 713-8 EOS 3 % 2022-09-26 706-2 BASOS 1 % 2022-09-26 751-8 NEUTROPHILS (ABSOLUTE) 5.8 X10E3/UL 1.4-7.0 2022-09-26 731-0 LYMPHS (ABSOLUTE) 2.1 X10E3/UL 0.7-3.1 2022-09-26 742-7 MONOCYTES(ABSOLUTE) .7 X10E3/UL 0.1-0.9 2022-09-26 711-2 EOS (ABSOLUTE) .3 X10E3/UL 0.0-0.4 2022-09-26 704-7 BASO (ABSOLUTE) .1 X10E3/UL 0.0-0.2 2022-09-26 24820-8 IMMATURE GRANULOCYTES 0 % 2022-09-26 85094-0 IMMATURE GRANS (ABS) 0 X10E3/UL 0.0-0.1
--- OUTSIDE RECORDS SUMMARY | 2024-01-16 16:07 | XMS_ITS ---
Laboratory report Created on: November 16, 2023 OMAR HARPER : 1960 Sex: Female Author Name CR BRIAN Whiting Unknown PROBLEMS Problems List Code Description R74.8 RESULTS Laboratory Orders Date Order Code Test 2023-09-26 [id number] JEFF FIBROSURE(R ) PLUS 2023-09-26 865861 HEPATIC FUNCTION PANEL (7) 2023-09-26 678631 HEPATITIS B SURF AB QUANT Laboratory Results Date LOINC Test Value Unit Reference Range Interpre tation 2023-09-26 16335-5 FIBROSIS SCORE .08 0.00-0.21 2023-09-26 96973-1 FIBROSIS STAGE NOFIB 2023-09-26 09894-3 STEATOSIS SCORE .35 0.00-0.40 2023-09-26 36992-6 STEATOSIS GRADE S0NASH 2023-09-26 65265-3 JEFF SCORE 0 0.00-0.25 2023-09-26 45060-3 JEFF GRADE N0NASH 2023-09-26 1835-8 ALPHA 2-MACROGLOBULINS, QN 155 MG/DL 787-031 0889-07-16 4542-7 HAPTOGLOBIN 153 MG/DL 37-355 2023-09-26 1869-7 APOLIPOPROTEIN A-1 149 MG/DL 237-474 5712-07-16 1975-2 BILIRUBIN, TOTAL .4 MG/DL 0.0-1.2 2023-09-26 2324-2 GGT 12 IU/L 0-60 2023-09-26 1743-4 ALT (SGPT) P5P 39 IU/L 0-40 2023-09-26 16590-3 AST (SGOT) P5P 33 IU/L 0-40 2023-09-26 2093-3 CHOLESTEROL, TOTAL 175 MG/DL 191-185 9506-07-16 2345-7 GLUCOSE, SERUM 77 MG/DL 70-99 2023-09-26 2571-8 TRIGLYCERIDES 77 MG/DL 0-149 2023-09-26 2885-2 PROTEIN, TOTAL 6.6 G/DL 6.0-8.5 2023-09-26 1751-7 ALBUMIN 4.2 G/DL 3.9-4.9 2023-09-26 1975-2 BILIRUBIN, TOTAL .5 MG/DL 0.0-1.2 2023-09-26 1968-7 BILIRUBIN, DIRECT .14 MG/DL 0.00-0.40 2023-09-26 6768-6 ALKALINE PHOSPHATASE 63 IU/L 44-121 2023-09-26 1920-8 AST (SGOT) 31 IU/L 0-40 2023-09-26 1742-6 ALT (SGPT) 34 IU/L 0-32 H 2023-09-26 49403-6 HEPATITIS B SURF AB QUANT <3.1 MIU/ML IMMUNITY>10 L
--- OUTSIDE RECORDS SUMMARY | 2024-01-16 16:07 | XMS_ITS ---
Author Name Unknown Organization Unknown ALLERGIES AND ADVERSE REACTIONS No information ASSESSMENT No information CHIEF COMPLAINT No information Problems Date Problem Onsetdate Icd10 Snomedcode 05/22/2023 09:04:35 Mammographic screeni ng for breast cancer 05/22/2023 00:00:00 Z12.31 [id number] 08/24/2023 09:13:08 Elevated liver enzymes 08/24/2023 00:0 0:00 R74.8 [id number] 11/22/2023 08:54:16 Elevated liver enzymes 08/24/2023 00:0 0:00 R74.8 [id number] 11/22/2023 08:50:36 Acute sinusitis 11/22/2023 00:00:00 J0 1.90 02784175 OBJECTIVE DATA No information PHYSICAL EXAMINATION No information TREATMENT PLAN No information RESULTS No information REVIEW OF SYSTEMS No information SUBJECTIVE DATA No information VITAL SIGNS No information MEDICATIONS No information
--- OUTSIDE RECORDS SUMMARY | 2024-01-16 16:07 | XMS_ITS ---
Laboratory report Created on: November 24, 2023 OMAR HARPER : 1960 Sex: Female Author Name BRIAN HANKINS Unknown PROBLEMS Problems List Code Description R53.83 RESULTS Laboratory Orders Date Order Code Test 2023-08-22 [id number] CMP14+CBC/D/PLT+ TSH 2023-08-22 724358 IRON AND TIBC 2023-08-22 949605 VITAMIN D, 25-HY DROXY 2023-08-22 826568 VITAMIN B12 2023-08-22 511992 FERRITIN 2023-08-22 695227 TRANSFERRIN Laboratory Results Date LOINC Test Value Unit Reference Range Interpre tation 2023-08-22 2345-7 GLUCOSE 91 MG/DL 70-99 2023-08-22 3094-0 BUN 14 MG/DL 8-27 2023-08-22 2160-0 CREATININE .67 MG/DL 0.57-1.00 2023-08-22 58323-2 EGFR 98 ML/MIN/1.73 >59 2023-08-22 3097-3 BUN/CREATININE RATIO 21 12-28 2023-08-22 2951-2 SODIUM 139 MMOL/L 733-777 9555-06-11 2823-3 POTASSIUM 3.8 MMOL/L 3.5-5.2 2023-08-22 2075-0 CHLORIDE 101 MMOL/L 96-106 2023-08-22 2028-9 CARBON DIOXIDE, TOTAL 26 MMOL/L 20-29 2023-08-22 56963-6 CALCIUM 9.8 MG/DL 8.7-10.3 2023-08-22 2885-2 PROTEIN, TOTAL 7.3 G/DL 6.0-8.5 2023-08-22 1751-7 ALBUMIN 4.5 G/DL 3.9-4.9 2023-08-22 91631-6 GLOBULIN, TOTAL 2.8 G/DL 1.5-4.5 2023-08-22 1759-0 A/G RATIO 1.6 2023-08-22 1975-2 BILIRUBIN, TOTAL .8 MG/DL 0.0-1.2 2023-08-22 6768-6 ALKALINE PHOSPHATASE 110 IU/L 44-121 2023-08-22 1920-8 AST (SGOT) 101 IU/L 0-40 H 2023-08-22 1742-6 ALT (SGPT) 90 IU/L 0-32 H 2023-08-22 89909-5 TSH .587 UIU/ML 0.450-4.500 2023-08-22 6690-2 WBC 6.8 X10E3/UL 3.4-10.8 2023-08-22 789-8 RBC 4.88 X10E6/UL 3.77-5.28 2023-08-22 718-7 HEMOGLOBIN 14.3 G/DL 11.1-15.9 2023-08-22 4544-3 HEMATOCRIT 42.4 % 34.0-46.6 2023-08-22 787-2 MCV 87 FL 79-97 2023-08-22 785-6 MCH 29.3 PG 26.6-33.0 2023-08-22 786-4 MCHC 33.7 G/DL 31.5-35.7 2023-08-22 788-0 RDW 13 % 11.7-15.4 2023-08-22 777-3 PLATELETS 379 X10E3/UL 531-411 8434-06-11 770-8 NEUTROPHILS 57 % 2023-08-22 736-9 LYMPHS 35 % 2023-08-22 5905-5 MONOCYTES 5 % 2023-08-22 713-8 EOS 2 % 2023-08-22 706-2 BASOS 1 % 2023-08-22 751-8 NEUTROPHILS (ABSOLUTE) 4 X10E3/UL 1.4-7.0 2023-08-22 731-0 LYMPHS (ABSOLUTE) 2.3 X10E3/UL 0.7-3.1 2023-08-22 742-7 MONOCYTES(ABSOLUTE) .3 X10E3/UL 0.1-0.9 2023-08-22 711-2 EOS (ABSOLUTE) .1 X10E3/UL 0.0-0.4 2023-08-22 704-7 BASO (ABSOLUTE) .1 X10E3/UL 0.0-0.2 2023-08-22 84718-3 IMMATURE GRANULOCYTES 0 % 2023-08-22 58922-2 IMMATURE GRANS (ABS) 0 X10E3/UL 0.0-0.1 2023-08-22 2500-7 IRON BINDCAP(TIBC) 385 UG/DL 832-243 6914-06-11 2501-5 UIBC 254 UG/DL 726-855 3808-06-11 2498-4 IRON 131 UG/DL 27-139 2023-08-22 2502-3 IRON SATURATION 34 % 15-55 2023-08-22 83969-1 VITAMIN D, 25-HYDROXY 86.9 NG/ML 30.0-100.0 2023-08-22 2132-9 VITAMIN B12 764 PG/ML 232-1245 2023-08-22 2276-4 FERRITIN 140 NG/ML 15-150 2023-08-22 3034-6 TRANSFERRIN 317 MG/DL 192-364
--- OUTSIDE RECORDS SUMMARY | 2024-01-16 16:07 | XMS_ITS ---
Author Name Unknown Organization [facility] ALLERGIES AND ADVERSE REACTIONS No information ASSESSMENT No information CHIEF COMPLAINT No information Medications Date Medication Startdate Stopdate Stopreason Active Dosequantit y Refills Ndccode Drugcode Pharmacyid Isprescription Srcstatus 09/26 12:56 :45 hydrocodone -acetaminop hen 7.5-325 mg tablet null 4 00:00:00 Removed 0 null null [id number] 088 [id number] 88 null False Inactive 09/26 12:56 :45 prochlorper azine maleate 10 mg tablet null 4 00:00:00 Removed 0 null null 84209633 506 602343730 06 null False Inactive 02/20 08:02 :47 prednisone 20 mg tablet null 3 00:00:00 Removed 0 null null 49160785 301 384962914 01 null False Inactive 05/21 08:30 :09 Neurontin 100 mg capsule null 4 00:00:00 Other 0 null null 21137205 324 299678798 24 null False Inactive 05/21 08:29 :47 hydrocodone 7.5 mg-acetamin ophen 325 mg tablet null 4 00:00:00 Other 0 null null 34232248 088 068219097 88 null False Inactive 05/21 08:32 :53 cyanocobala min (vit B-12) 1,000 mcg/mL injection solution null null null 1 null null 44643758 225 797695290 25 null False Active 05/21 08:31 :47 Vitamin D3 10 mcg (400 unit) tablet null null null 1 null null 70347169 881 202676663 81 null False Active 05/21 08:46 :48 prednisone 20 mg tablet null 3 00:00:00 Other 0 null null 80391115 301 310604792 01 null False Inactive 08/21 08:19 :35 prochlorper azine maleate 10 mg tablet null 00:00:00 Other 0 null null 88613232 506 698887790 06 null False Inactive 03/19 00:00 :00 Klor-Con 10 10 mEq tablet extended release 03/19/2020 00:00:00 00:00:00 Other 0 null null 06099616 615 437159751 15 null False Inactive 04/11 11:06 :11 Perforomist 20 mcg/2 mL solution for nebulizatio n 04/11/2023 00:00:00 null null 1 60 each 11 34129808 561 298144705 61 471 False Active 04/11 11:06 :11 budesonide 0.5 mg/2 mL suspension for nebulizatio n 04/11/2023 00:00:00 null null 1 60 each 11 80243273 673 780407914 73 471 False Active 06/28 00:00 :00 Perforomist 20 mcg/2 mL solution for nebulizatio n 06/28/2021 00:00:00 00:00:00 Other 0 null null 26824726 561 350975402 61 null False Inactive 06/28 00:00 :00 budesonide 0.5 mg/2 mL suspension for nebulizatio n 06/28/2021 00:00:00 00:00:00 Other 0 null null 43118121 673 908733217 73 null False Inactive 08/04 00:00 :00 metoprolol succinate 50 mg tablet extended release 24 hr 08/04/2022 00:00:00 00:00:00 Other 0 null null 53022427 677 413467930 77 null False Inactive 08/21 08:41 :50 diltiazem CD 240 mg capsule,ext ended release 24 hr 08/22/2023 00:00:00 null null 1 30 capsule 12 82920429 781 434942663 81 320 False Active 10/12 09:07 :52 losartan 100 mg tablet 10/12/2022 00:00:00 3 00:00:00 Changed 0 90 tablet 3 00969586 716 829059051 16 320 False Inactive 10/12 00:00 :00 losartan 100 mg tablet 10/12/2022 00:00:00 null null 1 null null 63806742 716 055204231 16 null False Active 10/18 00:00 :00 losartan 100 mg tablet 10/18/2021 00:00:00 3 00:00:00 Other 0 null null 20242184 716 320400762 16 null False Inactive 10/14 09:14 :23 levothyroxi ne 150 mcg tablet 10/18/2021 00:00:00 3 00:00:00 Removed 0 90 tablet 3 06738486 910 022444400 10 320 False Inactive 10/18 00:00 :00 levothyroxi ne 150 mcg tablet 10/18/2021 00:00:00 3 00:00:00 Other 0 null null 31675845 910 946051555 10 null False Inactive 11/02 00:00 :00 diltiazem CD 360 mg capsule,ext ended release 24 hr 11/02/2020 00:00:00 4 00:00:00 Other 0 null null 38043774 981 536952035 81 null False Inactive 11/04 10:21 :49 hydralazine 50 mg tablet 11/04/2022 00:00:00 3 00:00:00 Removed 0 60 tablet 12 77532126 803 503542898 03 320 False Inactive 11/04 00:00 :00 hydralazine 50 mg tablet 11/04/2022 00:00:00 3 00:00:00 Other 0 null null 02785084 803 983964171 03 null False Inactive 02/14 14:28 :23 levothyroxi ne 137 mcg tablet 02/14/2023 00:00:00 null null 1 30 tablet 12 71604762 810 202436987 10 320 False Active 03/01 00:00 :00 hydralazine 100 mg tablet 03/01/2022 00:00:00 00:00:00 Other 0 null null 78085627 701 257705232 01 null False Inactive OBJECTIVE DATA No information PHYSICAL EXAMINATION No information TREATMENT PLAN No information PROBLEMS No information RESULTS No information REVIEW OF SYSTEMS No information SUBJECTIVE DATA No information VITAL SIGNS No information
[2024-01-22] VITALS (13 sets, daily range): BP systolic 91–152; BP diastolic 54–84; PULSE 50–71; RESP 14–18; TEMP 36.2–36.7; O2SAT 92–100; BMI 26.7
[2024-01-22] MEDS: sodium chloride 0.9% 1,000 ML 30 ML IV (10:42)
--- NOTE | 2024-01-22 10:47 | W.PM.OPSUD ---
Surgery/Procedure H&P Update DATE OF PROCEDURE: January 22, 2024 DATE H&P PERFORMED: 01/11/24 H&P UPDATE INFORMATION: I have reviewed H&P completed within last 30 days, I have examined patient prior to procedure and No changes to prior documentation PREOP DIAGNOSIS: Painful hardware PLANNED PROCEDURE: Operation Date: 01/22/24 11:40 Proposed Procedures p Hardware Removal Iliac Screw(Bilateral) - New Hui DO
--- NOTE | 2024-01-22 10:47 | ANES.PREANE2 ---
Pre-Anesthetic Assessment Height/Weight: Height 5 ft 4 in Weight 156 lb Temp Pulse Resp BP Pulse Ox O2 Del Method 97.1 F L 50 L 17 152/84 98 Room Air 01/22/24 10:23 01/22/24 10:23 01/22/24 10:23 01/22/24 10:23 01/22/24 10:23 01/22/24 10:23 Preop Diagnosis: Painful hardware Operation Date: 01/22/24 11:40 Proposed Procedures p Hardware Removal Iliac Screw(Bilateral) - New Hui, DO Was Beta Cj taken within 24 hours: N/A Was Clonidine taken within 24 hours: N/A Last intake: Intake Last Liquid Date 01/21/24 Last Liquid Time 23:55 Last Solid Date 01/21/24 Last Solid Time 21:00 Social No alcohol and No tobacco Exam alert, oriented x 3, clear to auscultation bilaterally and regular rate & rhythm Airway Submandibular: within normal limits Cervical ROM: within normal limits Mallampati: Class III Dentition: full Anesthetic Plan ASA status: 3 Anesthesia: General Other: No prior issues with anesthesia NPO since midnight History of of hypertension on losartan and hydralazine GERD on Pepcid Hypothyroidism on Synthroid Asthma, occasional albuterol use Labs 01/11/2024 reviewed and acceptable for procedure EKG showing sinus rhythm Plan for general anesthesia Medications/Allergies Home Medications Medication Instructions Recorded Confirmed Last Taken Type albuterol sulfate 90 mcg/actuation 2 puff inhalation Q6H PRN 07/30/19 01/19/24 01/11/24 History aerosol inhaler Shortness Of Breath cetirizine 10 mg tablet (Zyrtec) 10 mg PO DAILY@59907/30/19 01/19/24 01/18/24 History losartan 100 mg tablet (Cozaar) 100 mg PO DAILY@59907/30/19 01/19/24 01/18/24 History potassium chloride 10 mEq 10 meq PO PRN PRN with lasix 08/12/20 01/19/24 04/25/22 History tablet,extended release indapamide 2.5 mg tablet 1.25 mg PO DAILY 03/13/21 01/19/24 01/18/24 History LSO brace #1 ea 08/03/21 01/19/24 Unknown Rx furosemide 20 mg tablet 20 mg PO DAILY PRN Edema 04/25/22 01/19/24 04/25/22 History hydralazine 50 mg tablet 100 mg PO TID 04/25/22 01/19/24 05/02/22 History Bone Growth Sstimulator E0748 #1 ea 04/28/22 01/19/24 Unknown Rx gabapentin 300 mg capsule 300 mg PO TID Leg pain #60 caps 07/21/22 01/19/24 Unknown Rx (Neurontin) cholecalciferol (vitamin D3) 1,250 1,250 mcg PO .WEEKLY 06/08/23 01/19/24 01/17/24 History mcg (50,000 unit) tablet (Dialyvite Vitamin D3 Max) onabotulinumtoxinA 100 unit 300 unit IM Q90D #3 ea 09/12/23 01/19/24 10/26/23 Rx solution for injection (Botox) diazepam 10 mg tablet 10 mg PO ONCE PRN anxiety 24 hours 10/27/23 01/19/24 Unknown Rx #2 tabs clindamycin HCl 300 mg capsule 300 mg PO DAILY 01/18/24 01/19/24 01/18/24 History cyanocobalamin (vitamin B-12) 1,000 mcg SUBCUT .MONTHLY 01/18/24 01/19/24 12/23/23 History 1,000 mcg/mL injection solution famotidine 40 mg tablet 40 mg PO DAILY 01/18/24 01/19/24 01/18/24 History diltiazem HCl 360 mg 180 mg PO BEDTIME 01/19/24 01/22/24 01/21/24 History capsule,extended release 24 hr levothyroxine 150 mcg tablet 137 mcg PO DAILY@0600 01/19/24 01/22/24 01/21/24 History (Euthyrox) Allergies Allergy/AdvReac Type Severity Reaction Status Date / Time NSAIDS (Non-Steroidal Allergy Intermediate Unknown Verified 01/22/24 10:16 Anti-Inflamma celecoxib Allergy Mild itchin Verified 01/22/24 10:16 diclofenac Allergy Mild cough Verified 01/22/24 10:16 emollient combination no.60 Allergy Mild headache, Verified 01/22/24 10:16 [From Celacyn] kidey pain, welts& rash hydrochlorothiazide Allergy Mild muscle Verified 01/22/24 10:16 spasms ibuprofen Allergy Mild itching Verified 01/22/24 10:16 venlafaxine Allergy Mild all day Verified 01/22/24 10:16 drugged feeling Iodinated Contrast Media Allergy ALGY-Hives Verified 01/22/24 10:16 lisinopril Allergy ADR-Cough Verified 01/22/24 10:16 oral steroids Allergy Intermediate Unknown Uncoded 01/22/24 10:16 Current Medications Generic Name Dose Route Start Last Admin Trade Name Freq PRN Reason Stop Dose Admin Sodium Chloride 1,000 mls @ 30 mls/hr 01/22/24 10:00 01/22/24 10:42 Sodium Chloride 0.9% IV 01/23/24 09:59 30 mls/hr .Q24H DAVE Administration PFSH Anesthesia Medical History 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 Pain management contract signed Cervical radiculopathy 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 diastolic dysfunction Dyspnea on exertion Hypersomnia Asthma Hypertension Hypothyroidism Hx of mitral valve prolapse History of kidney stones Osteoarthritis of hands, bilateral Chronic low back pain Lumbar stenosis Facet arthropathy, lumbar Lumbar disc disease with radiculopathy Facet arthritis, degenerative, lumbar spine Peripheral neuropathy Right median nerve neuropathy Surgical History History of carpal tunnel surgery Hx of total ankle replacement Hx of cholecystectomy Hx of hysterectomy Family History Mother CAD (coronary artery disease) Other Cancer Diabetes Hypertension Denies family history of Stroke Social History Smoking and tobacco/nicotine status: former use of tobacco/nicotine Quit status (tobacco/nicotine): has quit using Year quit tobacco: 2005 Alcohol intake: never Substance/Drug Use: never Caregiver/support person: Yes Lives independently: Yes Data Anesthesia Cardiac Studies: Echocardiogram Ultrasound 02/21/20
[2024-01-22] MEDS: ceFAZolin 2,000 mg SDV 2000 MG IVP (10:51)
[2024-01-22] MEDS: VANCOMYCIN ADD-Vantage 1,000 MG VIAL 1000 MG XX (11:16)
[2024-01-22] MEDS: lidocaine-epi 1% 20 mL INJ INJECTION (11:17)
--- NOTE | 2024-01-22 11:58 | PM.OP ---
Operative Report Date of procedure: January 22, 2024 Pre-op diagnosis: Painful hardware Post-op diagnosis: same Procedure done: Removal of deep hardware from pelvis iliosacral screws. Surgeon: New Hui DO Estimated blood loss (mL): 10 Procedure: Removal of deep hardware from pelvis iliosacral screws. Patient brought to the procedure after undergoing anesthesia placed in prone position. All his impingement well-padded. Patient's prepped draped normal sterile fashion incision made over the bottom half of the previous incision. The fascia was split rate above the iliac screw on the right side. The screw And laureen were identified. The screw Was removed on the right side. And then the laureen was cut with a laureen cutter. Wound was irrigated. Next attention was brought to the left side. Again the fascia was split over the screw head and the laureen. The laureen was cut. And then laureen was removed. And then the screw was backed out. Both the right and the left iliac screw was removed is confirmed under C arm wounds were irrigated and closed in a layered fashion with 0 Vicryl 2-0 Vicryl and Monocryl suture. Sterile dressings were applied and patient transferred to the PACU in stable condition.
[2024-01-22] MEDS: fentaNYL 50 mcg/mL INJ 2mL IVP (12:08)
[2024-01-22] MEDS: ondansetron 2 mg/ML SDV 2 mL 4 MG IVP (12:23)
--- NOTE | 2024-01-22 12:42 | XR_ITS ---
WS: [id number] RADIOGRAPHS LUMBAR SPINE; 2 IMAGES HISTORY: or pic, screw removal COMPARISON: None available. Intraoperative imaging during lumbar fusion. Vertical rods are noted over the lumbosacral region with interbody spacers at L4-5 and L5-S1. XR/XR lumbar spine 1V [id number] IMPRESSION: Intraoperative imaging during spinal fusion.
[2024-01-22] MEDS: HYDROcodone-acetaminophen 5-325 mg Tablet 1 TAB PO (12:47)
--- NOTE | 2024-01-22 13:09 | ANE.PACU2 ---
Inpatient post-anesthesia follow up: Airway intact: Yes Vital signs: Temperature 97.5 F Pulse Rate 50 Respiratory Rate 18 Blood Pressure 114/57 Pulse Oximetry 94 Oxygen Delivery Me thod Room Air Oxygen Flow Rate Fraction of Inspir ed Oxygen Hydration adequate: Yes Nausea and vomiting: No Pain level: 1 Mental status: Baseline
== END 2024-01-22 13:10 | disposition home or self-care (01) ==
PROVIDERS: PCP Family Medicine; Visit Provider Orthopaedic Surgery
PROC: (CPT 20680; principal; 2024-01-22 11:20)
DX: T84.84XA Pain due to internal orthopedic prosthetic devices, implants and grafts, initial encounter (principal); Y82.8 Other medical devices associated with adverse incidents; I10 Essential (primary) hypertension; K21.9 Gastro-esophageal reflux disease without esophagitis; E03.9 Hypothyroidism, unspecified; J45.909 Unspecified asthma, uncomplicated; Z87.891 Personal history of nicotine dependence
CPT/HCPCS: 20680; 72020; 76000; J0131; J0690; J1100; J2405; J2704; J2710; J3010; J3370; J3490; J7030

== ENCOUNTER → 2024-02-15 08:36 | Outpatient (BNVA) | payer MEDICARE, MEDICAID, SELFPAY | PROVIDERS: PCP Family Medicine; Visit Provider Orthopaedic Surgery | DX: T84.84XA Pain due to internal orthopedic prosthetic devices, implants and grafts, initial encounter (principal); Y79.2 Prosthetic and other implants, materials and accessory orthopedic devices associated with adverse incidents | CPT/HCPCS: 99024 ==

== ENCOUNTER → 2024-02-16 09:35 | Outpatient (BNVA) | payer MEDICARE, MEDICAID, SELFPAY | PROVIDERS: PCP Family Medicine; Visit Provider Specialist | DX: G24.9 Dystonia, unspecified (principal); R20.2 Paresthesia of skin; M51.16 Intervertebral disc disorders with radiculopathy, lumbar region; F40.298 Other specified phobia | CPT/HCPCS: 64644; J0585 ==

== ENCOUNTER → 2024-03-19 14:55 | Outpatient (BNVA) | payer MEDICARE, MEDICAID, SELFPAY | PROVIDERS: PCP Family Medicine; Visit Provider Orthopaedic Surgery | DX: T84.84XA Pain due to internal orthopedic prosthetic devices, implants and grafts, initial encounter (principal); Y79.2 Prosthetic and other implants, materials and accessory orthopedic devices associated with adverse incidents | CPT/HCPCS: 72100; 99024 ==

== ENCOUNTER → 2024-05-14 08:42 | Outpatient (BNVA) | payer MEDICARE, MEDICAID, SELFPAY | PROVIDERS: PCP Family Medicine; Referring Provider Orthopaedic Surgery; Visit Provider Anesthesiology Pain Medicine | DX: M54.50 Low back pain, unspecified (principal); M79.605 Pain in left leg | CPT/HCPCS: 99204 ==

== ENCOUNTER → 2024-05-22 09:24 | Outpatient (BNVA) | payer MEDICARE, MEDICAID, SELFPAY | PROVIDERS: PCP Family Medicine; Visit Provider Anesthesiology Pain Medicine | DX: M79.18 Myalgia, other site (principal); M54.50 Low back pain, unspecified; M79.605 Pain in left leg | CPT/HCPCS: 20553; J1010; J3490 ==

== ENCOUNTER → 2024-08-26 09:15 | Outpatient (BNVA) | payer MEDICARE, MEDICAID, SELFPAY | PROVIDERS: PCP Family Medicine; Visit Provider Anesthesiology Pain Medicine | DX: M54.16 Radiculopathy, lumbar region (principal); M54.50 Low back pain, unspecified; M79.605 Pain in left leg | CPT/HCPCS: 72100; 99214 ==

== ENCOUNTER → 2024-08-29 14:11 | Outpatient (BNVA) | payer MEDICARE, MEDICAID, SELFPAY | PROVIDERS: PCP Family Medicine; Visit Provider Orthopaedic Surgery | DX: M54.50 Low back pain, unspecified (principal); M79.605 Pain in left leg | CPT/HCPCS: 99213 ==

== ENCOUNTER → 2024-09-09 09:11 | Outpatient (BNVA) | payer MEDICARE, MEDICAID, SELFPAY | PROVIDERS: PCP Family Medicine; Visit Provider Anesthesiology Pain Medicine | DX: M54.50 Low back pain, unspecified (principal); M79.605 Pain in left leg | CPT/HCPCS: 99214 ==

== ENCOUNTER → 2024-09-17 15:14 | Outpatient (BNVA) | payer OTHER, MEDICAID, SELFPAY | PROVIDERS: PCP Family Medicine; Visit Provider Anesthesiology Pain Medicine | DX: M79.18 Myalgia, other site (principal); M54.50 Low back pain, unspecified; M79.605 Pain in left leg | CPT/HCPCS: 20553; 99214; J1010; J3490 ==

== ENCOUNTER 2024-09-20 14:11 | Outpatient (CLI) | payer OTHER, MEDICAID, SELFPAY ==
--- NOTE | 2024-09-20 14:30 | MR_ITS ---
WS: [id number] MRI LUMBAR SPINE NONCONTRAST TECHNIQUE: Sagittal T1, T2 and STIR imaging. Axial T1 and T2 imaging. CLINICAL INFORMATION: M54.16 - Radiculopathy, lumbar region COMPARISON: MRI 03/23/2023 FINDINGS: Mild lumbar curve. No acute compression. Slight anterolisthesis L4 on L5. Pedicle screw fixation L2-S1 with laminectomy defects. Interbody fusion L4-L5 and L5-S1. Postoperative changes appear stable compared to previous. L1-L2: Mild annular bulging. Slight effacement of the ventral thecal sac. Slight retrolisthesis. Mild narrowing of the subarticular recess bilaterally. Mild LEFT greater than RIGHT foraminal narrowing. L2-L3: Mild annular bulging. Slight narrowing of the LEFT greater than RIGHT subarticular recess. This appears stable compared to previous. Mild LEFT foraminal narrowing with a small LEFT foraminal protrusion. L3-L4: Mild annular bulging. Mild LEFT greater than RIGHT foraminal narrowing. Spinal canal is patent. L4-L5: Interbody fusion. Spinal canal is patent with laminectomy defects. Mild LEFT greater than RIGHT foraminal narrowing appears stable. L5-S1: Interbody fusion. Spinal canal is patent. Mild LEFT foraminal narrowing. This appears stable compared to previous. Small LEFT renal cyst. MR/MR lumbar spine wo con* [id number] IMPRESSION: Some images are degraded due to susceptibility artifact from [place]. Overall no remarkable changes compared to previous. 1. Postoperative changes pedicle screw fixation L2-S1 with interbody fusion gr afts at L4-L5 and L5-S1 appears stable. 2. Slight anterolisthesis L4 on L5 appears unchanged. 3. Narrowing of the LEFT L2-3 subarticular recess. LEFT foraminal protrusion a t this level impinges the exiting LEFT L2 nerve root. Correlation with L2 nerve root symptoms. This is similar to previous. 4. Mild LEFT L3-4 foraminal narrowing appears stable. 5. Mild LEFT L4-5 foraminal narrowing is similar to previous. 6. Stable mild LEFT L5-S1 bony foraminal narrowing. 7. Mild disc bulging L1-2 with narrowing of the LEFT greater than RIGHT subart icular recess and mild LEFT foraminal narrowing. This appears stable.
== END 2024-09-20 14:12 | disposition home or self-care (01) ==
LOC: RAD 14:12
PROVIDERS: PCP Family Medicine; Visit Provider Anesthesiology Pain Medicine
DX: M51.16 Intervertebral disc disorders with radiculopathy, lumbar region (principal); M48.062 Spinal stenosis, lumbar region with neurogenic claudication; M43.16 Spondylolisthesis, lumbar region
CPT/HCPCS: 72148

== ENCOUNTER → 2024-09-24 07:43 | Outpatient (BNVA) | payer OTHER, MEDICAID, SELFPAY | PROVIDERS: PCP Family Medicine; Visit Provider Anesthesiology Pain Medicine | DX: M54.50 Low back pain, unspecified (principal); M79.605 Pain in left leg | CPT/HCPCS: 99214 ==

== ENCOUNTER 2024-10-22 07:46 | Outpatient (CLI) | payer OTHER, MEDICAID, SELFPAY ==
--- NOTE | 2024-10-22 07:51 | MM_ITS ---
WS: [id number] BILATERAL 3D TOMOSYNTHESIS DIGITAL SCREENING MAMMOGRAPHY WITH CAD CLINICAL INFORMATION: SCREEN HISTORY: Screening mammogram. No current complaints. COMPARISON: 2023 TECHNIQUE: Bilateral CC and MLO views. FINDINGS: Scattered fibroglandular densities bilaterally. No suspicious focal mass, asymmetry, calcifications, or architectural distortion. No evidence of malignancy. A few incidental punctate calcifications. Vascular calcification. MM/MM scr tomosynthesis [id number] IMPRESSION: DENSITY: There are scattered areas of fibroglandular density. BI-RADS: 2 - Benign. FOLLOW UP: 1 Year Follow-up Recommend return to annual screening mammography.
== END 2024-10-22 07:47 | disposition home or self-care (01) ==
LOC: RAD 07:46
PROVIDERS: PCP Family Medicine; Visit Provider Family Medicine
DX: Z12.31 Encounter for screening mammogram for malignant neoplasm of breast (principal)
CPT/HCPCS: 77063; 77067